=== PATIENT | male | born 1935 | race Caucasian/White ===

== ENCOUNTER 2016-06-05 11:04 | Emergency (ER) | payer OTHER ==
[~2016-06-05] VITALS: Ht 182.9 cm; Wt 125.2 kg
[~2016-06-05 11:04] MED LIST: ACET1TAB84 PO; ALBUAER INH; AMOX500C3 PO; ASPI81TA28 PO; CALC-338 PO; CHOL100010 PO; CLB/200 PO; COEN100C3 PO; CYAN100T PO; DOCU100C31 PO; DUTACAP PO; GLC/500 PO; LPT/40 PO; LSX20 PO; METH-1305 PO; POTA-331 PO; TNR25 PO; VITA400C15 PO
[2016-06-05 11:11] VITALS: TEMP 36.7; Ht 182.9 cm; Wt 125.2 kg
[2016-06-05] MEDS ORDERED: ALBUT/IPRATROP 3MG/0.5MG NEB 3 ML VIAL INH STA (12:08)
[2016-06-05 12:33] LABS: BASO % 0.1 %; BASO ABS # 0.01 K/uL (0-0.2); COMPLETE YES; EOS % 2.9 %; HEMATOCRIT 43.1 % (42-52); IG% 0.4 %; LYMPH % 23.3 %; LYMPH ABS # 1.68 K/uL (1.2-3.4); MEAN CELL VOLUME 89.4 fL (80-100); MEAN CORPUSCULAR HEMOGLOBIN 30.1 pg (25-34); MEAN CORPUSCULAR HGB CONC 33.6 g/dl (32-36); MEAN PLATELET VOLUME 10.1 fL (7.4-10.4); MONO % 7.2 %; NEUT % 66.1 %; PLATELET COUNT 182 K/uL (130-400); RED BLOOD COUNT 4.82 M/uL (4.7-6.1); WHITE BLOOD COUNT 7.21 K/uL (4.8-10.8)
[2016-06-05 12:54] LABS: BUN/CREATININE RATIO 10.7 (10-20); CALCIUM 9.3 mg/dl (8.5-10.1); CREATININE 1.2 mg/dl (0.60-1.40); POTASSIUM 3.9 mmol/L (3.5-5.1)
--- NOTE | 2016-06-05 13:01 | DIAGNOSTIC IMAGING REPORT ---
CHEST 2 VIEWS ROUTINE CLINICAL HISTORY: Cough. Congestion. COMPARISON STUDY: Chest radiograph June 24, 2014. FINDINGS: Lung volumes are normal. There is no pneumothorax or pleural effusion. There is no consolidation to suggest pneumonia. Mild cardiomegaly is unchanged. There is no evidence of pulmonary edema. IMPRESSION: No acute cardiopulmonary findings. Electronically signed by: Brayan Hernandez M.D. 06/05/2016 12:59 PM
--- NOTE | 2016-06-05 13:34 | EMERGENCY ROOM VISIT NOTE ---
ED Visit Note First contact with patient: 11:43 I have personally seen and evaluated the patient with the physician food and beverage assistant manager. I agree with the diagnostic/management decisions and have personally been involved in these decisions and agree with the diagnosis.
[2016-06-05] MEDS ORDERED: DUTA0.5C PO (13:35)
[2016-06-05] MEDS ORDERED: TAMS0.4C38 PO (13:35)
[2016-06-05] MEDS ORDERED: VNTHFA/IN INH (13:42)
[2016-06-05] MEDS ORDERED: LEVO-366 PO (13:42)
--- NOTE | 2016-06-05 13:44 | EMERGENCY ROOM VISIT NOTE ---
History First contact with patient: 11:43 Chief Complaint: ILLNESS Stated Complaint: COUGH,CONGESTION,DIZZINESS History of Present Illness The patient is a 81 year old male who presents to the Emergency Room with complaints of cough and congestion for one week. The patient states that he is able to cough up the mucus and he states it is white in color. The patient denies any head congestion, fever, ear pain or sore throat. The patient denies any body aches. The patient has been taking Tylenol daily and his inhaler on an as-needed basis. The patient states he used the inhaler this morning but did not have any relief of his symptoms. The patient states that a family member was sick with similar symptoms around [place] time. Review of Systems 10 system review was performed and was negative unless stated otherwise history of present illness. 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 Social History Smoking Status: Never Smoker Drug Use: none Marital Status: Occupation Status: retired Current/Historical Medications Scheduled Acetaminophen (Tylenol Arthritis Ext Rel), 650 MG PO Q8H Aspirin (Aspirin Ec), 81 MG PO DAILY Atenolol (Atenolol), 25 MG PO DAILY Atorvastatin (Lipitor), 40 MG PO DAILY Calcium Citrate-Vitamin D (Citracal/Vitamin D), 1 TABLET PO BID Cholecalciferol (Vitamin D), 1,000 INTER.UNIT PO DAILY Coenzyme Q10 (Ubidecarenone) (Co Q-10), 100 MG PO BID Cyanocobalamin (Vitamin B-12), 100 MCG PO DAILY Docusate Sodium (Docusate Sodium), 100 MG PO BID Dutasteride (Avodart), 0.5 MG PO DAILY Furosemide (Furosemide), 20 MG PO DAILY Metformin Hcl (Glucophage), 500 MG PO BID Methenamine Hippurate (Methenamine Hippurate), 1 GM PO QPM Potassium Chloride Microencaps (Klor-Con M10), 10 MEQ PO QAM Tamsulosin Hcl (Flomax), 0.4 MG PO DAILY Tocopheryl Acet,Dl-Alpha (Vitamin E), 400 INTER.UNIT PO DAILY Scheduled PRN Albuterol (Proventil Hfa), 2 PUFFS INH Q4H PRN for SOB/Wheezing Amoxicillin (Amoxil), 2,000 MG PO UD PRN for Pretreat Allergies Coded Allergies: Nitrofurantoin (Unverified Allergy, Severe, SHORTNESS OF BREATH, 06/05/16) ACUTE LUNG INJURY Physical Exam Vital Signs Date Time Temp Pulse Resp B/P Pulse Ox O2 Delivery O2 Flow Rate FiO2 06/05/16 13:10 60 20 100/64 94 Room Air 06/05/16 11:11 36.7 85 18 132/73 95 Room Air Physical Exam PHYSICAL EXAM: Vital Signs were reviewed: Temperature 36.7, blood pressure 132/ 73, pulse 85, respiratory rate 18 Reviewed Nurse's notes and agree. Oxygen saturation is 95 % on room air which is normal . GENERAL: 81-year-old male appears in no acute distress. MENTAL STATUS: Alert, oriented, coherent. EARS: Canals clear. TMs good light reflex, no erythema or fluid level noted. NOSE: Nasal mucosa with moderate erythema engorgement. PHARYNX: No erythema, no edema noted. No exudate noted. Airway is adequate. NECK: Supple, non-tender. No lymphadenopathy noted. LUNGS: Patient has bilateral expiratory wheezes noted .no rales or rhonchi noted . CARDIAC: Regular rate and rhythm without murmur. SKIN: No rashes noted. Medical Decision & Procedures ER Provider Diagnostic Interpretation: CHEST 2 VIEWS ROUTINE CLINICAL HISTORY: Cough. Congestion. COMPARISON STUDY: Chest radiograph June 24, 2014. FINDINGS: Lung volumes are normal. There is no pneumothorax or pleural effusion. There is no consolidation to suggest pneumonia. Mild cardiomegaly is unchanged. There is no evidence of pulmonary edema. IMPRESSION: No acute cardiopulmonary findings. Electronically signed by: Brayan Hernandez M.D. 06/05/2016 12:59 PM The status of this report is Signed. Laboratory Results 06/05/16 12:20 Red Blood Count 4.82, Mean Corpuscular Volume 89.4, Mean Corpuscular Hemoglobin 30.1, Mean Corpuscular Hemoglobin Concent 33.6, Mean Platelet Volume 10.1, Neutrophils (%) (Auto) 66.1, Lymphocytes (%) (Auto) 23.3, Monocytes (%) (Auto) 7.2, Eosinophils (%) (Auto) 2.9, Basophils (%) (Auto) 0.1, Neutrophils # (Auto) 4.76, Lymphocytes # (Auto) 1.68, Monocytes # (Auto) 0.52, Eosinophils # (Auto) 0.21, Basophils # (Auto) 0.01 06/05/16 12:20 Test 06/05/16 12:20 White Blood Count 7.21 K/uL (4.8-10.8) Red Blood Count 4.82 M/uL (4.7-6.1) Hemoglobin 14.5 g/dL (14.0-18.0) Hematocrit 43.1 % (42-52) Mean Corpuscular Volume 89.4 fL (80-100) Mean Corpuscular Hemoglobin 30.1 pg (25-34) Mean Corpuscular Hemoglobin Concent 33.6 g/dl (32-36) Platelet Count 182 K/uL (130-400) Mean Platelet Volume 10.1 fL (7.4-10.4) Neutrophils (%) (Auto) 66.1 % Lymphocytes (%) (Auto) 23.3 % Monocytes (%) (Auto) 7.2 % Eosinophils (%) (Auto) 2.9 % Basophils (%) (Auto) 0.1 % Neutrophils # (Auto) 4.76 K/uL (1.4-6.5) Lymphocytes # (Auto) 1.68 K/uL (1.2-3.4) Monocytes # (Auto) 0.52 K/uL (0.11-0.59) Eosinophils # (Auto) 0.21 K/uL (0-0.5) Basophils # (Auto) 0.01 K/uL (0-0.2) RDW Standard Deviation 45.9 fL (36.4-46.3) RDW Coefficient of Variation 14.0 % (11.5-14.5) Immature Granulocyte % (Auto) 0.4 % Immature Granulocyte # (Auto) 0.03 K/uL (0.00-0.02) Anion Gap 9.0 mmol/L (3-11) Est Creatinine Clear Calc Drug Dose 67.1 ml/min Estimated GFR () 65.8 Estimated GFR (Non- 56.8 BUN/Creatinine Ratio 10.7 (10-20) Calcium Level 9.3 mg/dl (8.5-10.1) Medications Administered Medications (Trade) Dose Ordered Sig/Kareen Route Start Time Stop Time Status Last Admin Dose Admin Albuterol/ Ipratropium (Duoneb) 3 ml NOW STAT INH 06/05/16 12:08 06/05/16 12:11 DC 06/05/16 12:21 3 ML ED Course The patient was evaluated. IV access was obtained. CBC and differential renal profile was ordered. Labs are reviewed and were unremarkable. White count was normal. Chest x-ray was ordered and interpreted by the radiologist and myself as above without any acute findings. The patient was given a DuoNeb. Post treatment the patient was feeling better. On physical exam the patient did not have any wheezes rales or rhonchi. This is improved from prior physical exam. The patient was independently evaluated by Dr. Tucker who agrees with treatment plan. The patient was discharged home in stable condition. Medical Decision Differential diagnosis include influenza, pneumonia, bronchitis, URI Due to the patient's length of symptoms and impaired lung function due to years of smoking the patient will be placed on antibiotics. Impression Primary Impression: Bronchitis Departure Information Dispostion Home / Self-Care Condition GOOD Prescriptions Levofloxacin (Levaquin) 500 Mg Tab 500 MG PO DAILY, #10 TAB Prov: Lay Mccarty PA-C 06/05/16 Albuterol Hfa (VENTOLIN HFA) 200 Puffs/[id number] Mcg Aers 2 PUFFS INH Q4 for Cough, #1 INHALER Prov: Lay Mccarty PA-C 06/05/16 Referrals Susan Mcdonald DO (PCP) Forms HOME CARE DOCUMENTATION FORM, IMPORTANT VISIT INFORMATION, WORK / SCHOOL INSTRUCTIONS Patient Instructions A Signature Page, Bronchiolitis Carlos , My [facility] Additional Instructions Continue [id number] symptomatic treatment. Recommend Mucinex as directed on the label. Use your albuterol inhaler 2 puffs every 4 hours for 5 days then 2 puffs every 4 hours as needed for chest tightness or cough. Take Levaquin as prescribed. Follow-up with your family physician in 2 days for recheck. If symptoms worsen in the interim, return to ER.
[2016-06-05 13:53] VITALS: BP 116/70; PULSE 70; O2SAT 93
[2016-08-17] MEDS ORDERED: [UNRECOGNIZED DRUG - OTHER] (09:19)
[2016-08-17] MEDS ORDERED: [UNRECOGNIZED DRUG - OTHER] (09:19)
[2016-08-17] MEDS ORDERED: [UNRECOGNIZED DRUG - OTHER] (09:19)
[2016-08-17] MEDS ORDERED: [UNRECOGNIZED DRUG - OTHER] (09:19)
== END 2016-06-05 13:54 | disposition home or self-care (01) ==
LOC: C.EDB 11:05 → C.EDD 13:54
DX: J40 Bronchitis, not specified as acute or chronic (principal); I25.10 Atherosclerotic heart disease of native coronary artery without angina pectoris; I10 Essential (primary) hypertension; N40.0 Benign prostatic hyperplasia without lower urinary tract symptoms; Z79.82 Long term (current) use of aspirin; Z79.899 Other long term (current) drug therapy

== ENCOUNTER → 2016-06-21 | Outpatient (CLI) | payer OTHER ==
[~2016-06-21] MED LIST changes: -CLB/200 PO; +DUTA0.5C PO; -DUTACAP PO; +LEVO-366 PO; -METH-1305 PO; +METH1TAB5 PO; +TAMS0.4C38 PO; +VNTHFA/IN INH; +[UNRECOGNIZED DRUG - OTHER]; +[UNRECOGNIZED DRUG - OTHER]; +[UNRECOGNIZED DRUG - OTHER]; +[UNRECOGNIZED DRUG - OTHER]
== END | disposition home or self-care (01) ==
LOC: C.LAB1850 14:10
PROVIDERS: ATTEND Urology
DX: N40.1 Benign prostatic hyperplasia with lower urinary tract symptoms (principal)

== ENCOUNTER → 2016-09-19 | Outpatient (CLI) | payer OTHER ==
[~2016-09-19] MED LIST changes: -AMOX500C3 PO; -DOCU100C31 PO; -LEVO-366 PO; +METH-1305 PO; -METH1TAB5 PO; -VNTHFA/IN INH
[2016-09-19 12:19] LABS: URINE APPEARANCE CLEAR (CLEAR); URINE BILIRUBIN NEG (NEG); URINE COLOR YELLOW; URINE NITRITE NEG (NEG); URINE PH 5.5 (4.5-7.5); URINE SPECIFIC GRAVITY 1.019 (1.000-1.030); UROBILINOGEN NEG (NEG)
[2016-09-19 12:29] LABS: MANUAL MICROSCOPIC REQUIRED? NO; REVIEW REQ? NO
--- NOTE | 2016-10-06 10:21 | CODING QUERY MEDICAL NECESSITY ---
CQSUPPORTING DIAGNOSIS NEEDED A supporting diagnosis is required for the test/procedure performed on this patient in order for us to be reimbursed by the patient's insurance. Please provide a supporting diagnosis for the following test/procedure listed below next to the test name along with your signature. *If there is no additional diagnosis for this patient that would support the following test/procedure please document that below next to the test/procedure. Test(s)/Procedure(s) that require a supporting diagnosis: DOS 09/19/16 URINE CULTURE Provider Signature: Date: Thank you Jennifer Segura [employer] Once completed, please kindly fax back to [phone] For questions please call [phone]
== END | disposition home or self-care (01) ==
LOC: C.CPL 10:55
PROVIDERS: ATTEND Anesthesiology
DX: Z01.818 Encounter for other preprocedural examination (principal); E11.9 Type 2 diabetes mellitus without complications; N40.1 Benign prostatic hyperplasia with lower urinary tract symptoms; Z87.440 Personal history of urinary (tract) infections; Z01.812 Encounter for preprocedural laboratory examination

== ENCOUNTER → 2016-10-26 | Outpatient (CLI) | payer OTHER ==
[2016-10-26 10:42] LABS: ALT/SGPT 29 U/L (12-78); AST/SGOT 17 U/L (15-37); BLOOD UREA NITROGEN 16 mg/dl (7-18); BUN/CREATININE RATIO 13.1 (10-20); CALCIUM 8.9 mg/dl (8.5-10.1); CARBON DIOXIDE 33 mmol/L (21-32); CHLORIDE 105 mmol/L (98-107); GLUCOSE 129 mg/dl (70-99); POTASSIUM 4.2 mmol/L (3.5-5.1); SODIUM 142 mmol/L (136-145); TRIGLYCERIDES 127 mg/dl (0-150); VERY LOW DENSITY LIPOPROT CALC 25 mg/dl
[2016-10-26 10:51] LABS: ALB/GLOB RATIO 0.9 (0.9-2); ALKALINE PHOSPHATASE 70 U/L (45-117); CHOLESTEROL 104 mg/dl (0-200); CHOLESTEROL/HDL RATIO 2.6; HDL CHOLESTEROL 40 mg/dl; LDL CHOLESTEROL CALCULATED 39 mg/dl; THYROID STIMULATING HORMONE 0.488 uIu/ml (0.300-4.500)
[2016-10-26 11:05] LABS: ESTIMATED AVERAGE GLUCOSE 134 mg/dl; HA1C FLAG Normal (Normal)
[2016-10-26 11:15] LABS: RATIO 7.3 mcg/mg (0-30.0)
== END | disposition home or self-care (01) ==
LOC: C.LAB 09:11
PROVIDERS: ATTEND Family Medicine
DX: E11.9 Type 2 diabetes mellitus without complications (principal); E78.00 Pure hypercholesterolemia, unspecified; I10 Essential (primary) hypertension

== ENCOUNTER → 2017-05-09 | Outpatient (CLI) | payer OTHER ==
[2017-05-09 10:10] LABS: BASO % 0.1 %; BASO ABS # 0.01 K/uL (0-0.2); COMPLETE YES; HEMATOCRIT 44.2 % (42-52); IG% 0.5 %; LYMPH % 21.2 %; LYMPH ABS # 1.59 K/uL (1.2-3.4); MEAN CELL VOLUME 91.3 fL (80-100); MEAN CORPUSCULAR HEMOGLOBIN 30.8 pg (25-34); MEAN CORPUSCULAR HGB CONC 33.7 g/dl (32-36); MEAN PLATELET VOLUME 10.8 fL (7.4-10.4); MONO % 7.7 %; NEUT % 68.5 %; PLATELET COUNT 164 K/uL (130-400); RED BLOOD COUNT 4.84 M/uL (4.7-6.1)
[2017-05-09 10:16] LABS: ESTIMATED AVERAGE GLUCOSE 140 mg/dl; HA1C FLAG Normal (Normal)
[2017-05-09 10:49] LABS: ALT/SGPT 27 U/L (12-78); AST/SGOT 17 U/L (15-37); BLOOD UREA NITROGEN 13 mg/dl (7-18); BUN/CREATININE RATIO 11.3 (10-20); CALCIUM 8.7 mg/dl (8.5-10.1); CARBON DIOXIDE 29 mmol/L (21-32); CHLORIDE 104 mmol/L (98-107); CREATININE 1.12 mg/dl (0.60-1.40); GLUCOSE 132 mg/dl (70-99); POTASSIUM 4.1 mmol/L (3.5-5.1); SODIUM 136 mmol/L (136-145); TRIGLYCERIDES 196 mg/dl (0-150); VERY LOW DENSITY LIPOPROT CALC 39 mg/dl
[2017-05-09 10:54] LABS: ALB/GLOB RATIO 0.8 (0.9-2); ALKALINE PHOSPHATASE 69 U/L (45-117); CHOLESTEROL 109 mg/dl (0-200); CHOLESTEROL/HDL RATIO 2.9; HDL CHOLESTEROL 37 mg/dl; LDL CHOLESTEROL CALCULATED 33 mg/dl
== END | disposition home or self-care (01) ==
LOC: C.LAB 09:19
PROVIDERS: ATTEND Nurse Practitioner Family
DX: N40.1 Benign prostatic hyperplasia with lower urinary tract symptoms (principal); I25.10 Atherosclerotic heart disease of native coronary artery without angina pectoris; E78.00 Pure hypercholesterolemia, unspecified; E11.9 Type 2 diabetes mellitus without complications; I10 Essential (primary) hypertension

== ENCOUNTER → 2018-01-22 | Outpatient (CLI) | payer OTHER ==
[~2018-01-22] MED LIST changes: +MONT1TAB5 PO
== END | disposition home or self-care (01) ==
LOC: C.LAB 10:35
PROVIDERS: ATTEND Urology
DX: N40.1 Benign prostatic hyperplasia with lower urinary tract symptoms (principal); J30.9 Allergic rhinitis, unspecified; R97.20 Elevated prostate specific antigen [PSA]

== ENCOUNTER 2018-11-02 19:49 | Inpatient (IN) ==
[2018-11-02 20:29] LABS: Basophils # (auto) 0.01 K/uL (0-0.2); Basophils % (auto) 0.1 %; Eosinophils # (auto) 0.13 K/uL (0-0.5); Hematocrit (blood only) 37.8 % (42-52); Hemoglobin 12.3 g/dL (14.0-18.0); Immature Granulocytes # (auto) 0.05 K/uL (0.00-0.02); Immature Granulocytes % (auto) 0.4 %; Lymphocytes # (auto) 1.43 K/uL (1.2-3.4); Lymphocytes % (auto) 10.9 %; Mean Corpuscular Hgb Conc 32.5 g/dL (32-36); Mean Corpuscular Volume 89.4 fL (80-100); Mean Platelet Volume 10.7 fL (7.4-10.4); Monocytes # (auto) 1.61 K/uL (0.11-0.59); Monocytes % (auto) 12.3 %; Neutrophils % (auto) 75.3 %; Platelet Count 148 K/uL (130-400); RDW Coefficient of Variation 15.2 % (11.5-14.5); RDW Standard Deviation 49.2 fL (36.4-46.3); Red Blood Count 4.23 M/uL (4.7-6.1); White Blood Count 13.13 K/uL (4.8-10.8)
[2018-11-02 20:42] LABS: Alanine Aminotransferase 19 U/L (12-78); Albumin Level 3.3 gm/dl (3.4-5.0); Aspartate Aminotransferase 14 U/L (15-37); BUN Creatinine Ratio 14.6 (10-20); Blood Urea Nitrogen 16 mg/dl (7-18); Calcium 8.5 mg/dl (8.5-10.1); Carbon Dioxide 28 mmol/L (21-32); Chloride 105 mmol/L (98-107); Creatinine Clr Calc Pharmacy 62.2 ml/min; Est GFR (African American) 69.8; Est GFR (Non-African American) 60.2; Glucose 100 mg/dl (70-99); Potassium 4.1 mmol/L (3.5-5.1); Sodium 138 mmol/L (136-145)
--- NOTE | 2018-11-02 20:44 | XRay Report ---
XR chest 1V portable CLINICAL HISTORY: Dyspnea COMPARISON STUDY: 06/24/2014 FINDINGS: The heart is enlarged. There is elevation of the interstitium. Diagnostic considerations in clude congestive failure/fluid overload versus a bilateral interstitial inflammatory process. There a re no significant pleural effusions. IMPRESSION: 1. Mild cardiomegaly 2. Elevation of the interstitium. Diagnostic considerations include congestive failure/fluid overload versus a bilateral interstitial inflammatory process Electronically signed by: Michi Burks M.D. 11/02/2018 8:43 PM
[2018-11-02 20:46] LABS: Albumin Globulin Ratio 0.8 (0.9-2); Alkaline Phosphatase 83 U/L (45-117); Bilirubin,Total 0.8 mg/dl (0.2-1); Globulin 3.9 gm/dl (2.5-4.0); Total Protein 7.2 gm/dl (6.4-8.2)
[2018-11-02 20:56] LABS: Base Excess VBG 0.7 mEq/L; Oxygen Saturation VBG 86.6 %; pH VBG 7.38 (7.36-7.41)
[2018-11-02 20:57] LABS: NT Pro B Type Natriuretic Pept 243 pg/ml (0-1800); Troponin I < 0.015 ng/ml (0-0.045)
[2018-11-02 20:59] LABS: INR 1.1 (0.9-1.1); Partial Thromboplastin Ratio 1.1; Prothrombin Time 11.4 Seconds (9.0-12.0)
[2018-11-02] MEDS ORDERED: DOXYCYCLINE HYCLATE 100 MG CAP PO STA (22:12)
[2018-11-02] MEDS ORDERED: cefTRIAXone SODIUM 1,000 MG in DEXTROSE 5% 50 ML IV STA (22:12)
[2018-11-02] MEDS ORDERED: FUROSEMIDE 40 MG/4 ML VIAL IV STA (22:12)
[2018-11-02] MEDS ORDERED: cefTRIAXone SODIUM 1000MG/50ML D5W ONE (22:23)
--- NOTE | 2018-11-02 22:54 | History & Physical Report ---
Date of Service November 02, 2018 Assessment & Plan (1) Respiratory failure with hypoxia: Acute respiratory failure with hypoxia/CHF exacerbation/pneumonia- Admit to telemetry unit. Present on Admission?: Yes (2) CHF (congestive heart failure): CAD/hypertension/CHF- Given Lasix 40 mg IV in the ED, will continue Lasix 40 mg IV twice daily. Increase potassium chloride to 20 mEq p.o. twice daily. Follow serial chest x-rays, laboratories and clinical examination. Continue aspirin 81 mg daily, atenolol 25 mg daily with hold parameters. Hold lisinopril. Present on Admission?: Yes (3) Pneumonia: Ceftriaxone 1 g IV daily. Azithromycin 500 mg IV daily Guaifenesin extended release 600 mg p.o. twice daily Duonebs every 4 hours while awake and every 2 hours when necessary. Sputum Gram stain and culture Present on Admission?: Yes (4) Hypertension: See above Present on Admission?: Yes (5) Hypercholesterolemia: Continue atorvastatin 40 mg daily. Present on Admission?: Yes (6) 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): Continue dutasteride and tamsulosin. Present on Admission?: Yes (7) Diabetes mellitus: Hold metformin. Patient Accu-Cheks before meals and at bedtime with NovoLog coverage per scale. Check hemoglobin A1c Present on Admission?: Yes (8) Coronary artery disease: See above Present on Admission?: Yes History of Present Illness Chief Complaint: The patient presents to the emergency department with worsening shortness of breath and intermittently productive cough over the past week. Primary Care Provider: Jeancarlos Rosen III, MARKO The patient is a 83-year-old male with a past medical history including diabetes mellitus, hypercholesterolemia, hypertension, CAD, TIA, BPH with LUTS, who began to develop respiratory problems upon returning from an extended trip. He reports that he spent 2 weeks at a daughter's residence in [place], then 2 weeks that never got his residence in [place], that 2 weeks at a son's residence [place], then he flew to [place] and went on a cruise ship, he then flew back on a plane to [place], and developed the above respiratory symptoms. He is also noted increased swelling in his legs, but is unaware of any change in dietary intake, in particular sodium. Allergies Allergy/AdvReac Type Severity Reaction Status Date / Time nitrofurantoin Allergy Severe SHORTNESS Verified 06/12/18 10:55 OF BREATH Home Medications Home Medications Medication Instructions Recorded Confirmed Type Plexus slim drink PO DAILY 03/04/18 06/12/18 History acetaminophen ER 650 mg 650 mg PO Q8H PRN 03/04/18 11/02/18 History tablet,extended release albuterol sulfate HFA 90 2 puffs INH Q4H PRN gm 03/04/18 11/02/18 History mcg/actuation aerosol inhaler aspirin 81 mg tablet,delayed 81 mg PO DAILY 03/04/18 11/02/18 History release atenolol 25 mg tablet 25 mg PO DAILY 03/04/18 11/02/18 History atorvastatin 40 mg tablet 40 mg PO DAILY 03/04/18 11/02/18 History cholecalciferol (vitamin D3) 1,000 1,000 units PO DAILY 03/04/18 11/02/18 History unit capsule coenzyme Q10 100 mg capsule 100 mg PO BID cap 03/04/18 06/12/18 History cyanocobalamin (vit B-12) 100 mcg 100 mcg PO DAILY 03/04/18 06/12/18 History tablet dutasteride 0.5 mg capsule 0.5 mg PO DAILY 03/04/18 11/02/18 History furosemide 20 mg tablet 20 mg PO DAILY 03/04/18 11/02/18 History metformin 500 mg tablet 500 mg PO BID 03/04/18 11/02/18 History methenamine hippurate 1 gram tablet 1 gm PO QPM tab 03/04/18 11/02/18 History montelukast 10 mg tablet 10 mg PO DAILY tab 03/04/18 11/02/18 History plexus - bioflex 1 tab PO DAILY 03/04/18 06/12/18 History plexus edge 1 tab PO DAILY 03/04/18 06/12/18 History plexus betsy 1 tab PO DAILY 03/04/18 06/12/18 History potassium chloride ER 10 mEq 10 meq PO DAILY 03/04/18 06/12/18 History tablet,extended release tamsulosin 0.4 mg capsule 0.4 mg PO DAILY 03/04/18 11/02/18 History vitamin E (dl, acetate) 400 unit 400 units PO DAILY 03/04/18 06/12/18 History capsule ibuprofen 600 mg tablet 600 mg PO TID tab 10/21/18 10/21/18 History lisinopril 5 mg tablet 5 mg PO DAILY #30 tab 10/21/18 11/02/18 History calcium carbonate-vitamin D3 1 tab PO BID 11/02/18 11/02/18 History [Oyster Shell Calcium-Vit D3] celecoxib 0 mg PO DAILY 11/02/18 History Past Med/Surg History Medical History Venous insufficiency (Acute) Solitary thyroid nodule (Acute) Hypertension (Acute) Hypercholesterolemia (Acute) 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) (Acute) Edema of both legs (Acute) Disc degeneration, lumbar (Acute) Diabetes mellitus (Acute) Arthritis (Acute) Arteriosclerosis of coronary artery (Acute) Allergic rhinitis (Acute) Spinal stenosis of lumbar region (Chronic) Myofascial pain (Chronic) Lumbar post-laminectomy syndrome (Chronic) Lumbago (Chronic) Coronary artery disease (Chronic) Chest pain (Acute) Dysuria (Acute) Dysuria (Acute) Interstitial pneumonia (Acute) Shortness of breath (Acute) Shortness of breath (Acute) TIA (transient ischemic attack) (Chronic) Urinary retention with incomplete bladder emptying (Acute) Urinary tract infection (Acute 11/22/13) Word finding difficulty (Acute 06/25/14) Surgical History H/O total hip arthroplasty (Chronic) History of lumbar fusion (Chronic) Social History Preferred Language: Indonesian Communication Ability: Effective Manager Stylist Required: No Beliefs That Will Affect Care: None marital status: / Current Living Situation: Alone Other Information That Helps Us Care for You: No Feels Safe at Home: Yes Safety Concerns: Feels Safe At This Time Smoking Status: Never smoker Hx Alcohol Use: Yes Alcohol type: hard liquor Hx Substance Use: No Review of Systems Review of Systems: The patient denies chest pain, sore throat, fevers, chills, sweats, weight change, nausea, vomiting, diarrhea , constipation, abdominal pain, pelvic pain, blood in urine or stool, dysuria, urinary frequency or urgency, lightheadedness, dizziness, headache, memory loss, loss of consciousness, rash, abnormal bruising or bleeding, imbalance, focal or generalized weakness, numbness or tingling in arms or legs, generalized arthralgias or myalgias, back or neck pain, or night sweats. The review of systems is otherwise negative other than for that already noted above, and at least 10 systems have been reviewed. Physical Exam Physical Exam: The patient is awake, alert and oriented �3, well developed and well nourished, normocephalic and atraumatic, lying in bed and in no acute distress, except during paroxysmal coughing. HEENT--PERRL, EOMI, mucous membranes and oropharynx moist. Neck--supple. No JVD. No bruits. Thyroid normal, trachea midline, no adenopathy. Heart--normal S1 and S2. No murmurs, rubs or gallops. Lungs--coarse breath sounds bilaterally, crackles at the bases. No respiratory distress, no accessory muscle use. Abdomen--normal bowel sounds and soft. Nontender. Nondistended. Obese Extremities--no cyanosis or clubbing. Bilateral pretibial 3+ pitting edema. There are good distal pulses b/l. Dermatologic--normal skin turgor, normal color, no abnormal lymph nodes, no rash. Neurologic--cranial nerves II through XII grossly intact. Rheumatologic--normal range of motion. Psychiatric--normal affect. Results & Data Vital Signs (Past 12 Hours) Vital Signs Temp Pulse Pulse Resp BP BP Pulse Ox 11/02/18 22:40 98.6 F 79 22 152/74 H 96 11/02/18 21:44 78 20 126/54 L 95 11/02/18 20:08 88 L 11/02/18 19:55 98.2 F 81 22 116/58 L 89 L Laboratory Results Laboratory Results WBC 13.13 K/uL (4.8-10.8) H 11/02/18 20:08 RBC 4.23 M/uL (4.7-6.1) L 11/02/18 20:08 Hgb 12.3 g/dL (14.0-18.0) L 11/02/18 20:08 Hct 37.8 % (42-52) L 11/02/18 20:08 MCV 89.4 fL (80-100) 11/02/18 20:08 MCH 29.1 pg (25-34) 11/02/18 20:08 MCHC 32.5 g/dL (32-36) 11/02/18 20:08 RDW Std Deviation 49.2 fL (36.4-46.3) H 11/02/18 20:08 RDW Coeff of Colette 15.2 % (11.5-14.5) H 11/02/18 20:08 Plt Count 148 K/uL (130-400) 11/02/18 20:08 MPV 10.7 fL (7.4-10.4) H 11/02/18 20:08 Immature Gran % (Auto) 0.4 % 11/02/18 20:08 Neut % (Auto) 75.3 % 11/02/18 20:08 Lymph % (Auto) 10.9 % 11/02/18 20:08 [place] % (Auto) 12.3 % 11/02/18 20:08 Eos % (Auto) 1.0 % 11/02/18 20:08 Baso % (Auto) 0.1 % 11/02/18 20:08 Immature Gran # (Auto) 0.05 K/uL (0.00-0.02) H 11/02/18 20:08 Neut # (Auto) 9.90 K/uL (1.4-6.5) H 11/02/18 20:08 Lymph # (Auto) 1.43 K/uL (1.2-3.4) 11/02/18 20:08 [place] # (Auto) 1.61 K/uL (0.11-0.59) H 11/02/18 20:08 Eos # (Auto) 0.13 K/uL (0-0.5) 11/02/18 20:08 Baso # (Auto) 0.01 K/uL (0-0.2) 11/02/18 20:08 PT 11.4 Seconds (9.0-12.0) 11/02/18 20:08 INR 1.1 (0.9-1.1) 11/02/18 20:08 APTT 31.0 Seconds (21.0-31.0) 11/02/18 20:08 PTT Ratio 1.1 11/02/18 20:08 VBG pH 7.38 (7.36-7.41) 11/02/18 20:42 VBG pCO2 45 mmHg (38-50) 11/02/18 20:42 VBG pO2 55 mmHg 11/02/18 20:42 VBG HCO3 26 mmol/L 11/02/18 20:42 VBG O2 Saturation 86.6 % 11/02/18 20:42 VBG Base Excess 0.7 mEq/L 11/02/18 20:42 Barometric Pressure 728.1 mm/Hg 11/02/18 20:42 Sodium 138 mmol/L (136-145) 11/02/18 20:08 Potassium 4.1 mmol/L (3.5-5.1) 11/02/18 20:08 Chloride 105 mmol/L (98-107) 11/02/18 20:08 Carbon Dioxide 28 mmol/L (21-32) 11/02/18 20:08 5.0 (3-11) 11/02/18 20:08 BUN 16 mg/dl (7-18) 11/02/18 20:08 1.13 mg/dl (0.6-1.4) 11/02/18 20:08 Est Cr Clr Drug Dosing 62.2 ml/min 11/02/18 20:08 Est GFR ( Amer) 69.8 11/02/18 20:08 Est GFR (Non-Af Amer) 60.2 11/02/18 20:08 14.6 (10-20) 11/02/18 20:08 Glucose 100 mg/dl (70-99) H 11/02/18 20:08 POC Glucose 136 (70-99) H 11/03/18 00:18 Calcium 8.5 mg/dl (8.5-10.1) 11/02/18 20:08 0.8 mg/dl (0.2-1) 11/02/18 20:08 AST 14 U/L (15-37) L 11/02/18 20:08 ALT 19 U/L (12-78) 11/02/18 20:08 83 U/L (45-117) 11/02/18 20:08 < 0.015 ng/ml (0-0.045) 11/02/18 20:08 NT-Pro-B Natriuret Pep 243 pg/ml (0-1800) 11/02/18 20:08 7.2 gm/dl (6.4-8.2) 11/02/18 20:08 3.3 gm/dl (3.4-5.0) L 11/02/18 20:08 3.9 gm/dl (2.5-4.0) 11/02/18 20:08 0.8 (0.9-2) L 11/02/18 20:08 Diagnostic Findings [facility], [place] [phone] XRay Report Patient: REHAN FUENTES Date: 11/02/18 MR#: [id number]: [address] Acct ID:[id number]: [facility] Zip[facility] [place] [address] Age: 83Location: ED Sex: M Room/Bed: Att Phy: Diagnosis: breathing problems, coughing [place]in Phy: Jeancarlos Rosen III, CRNPService Date: 11/02/18 Fam Phy: Interpreting Phy: Michi Burks MD Admit Phy: Ordering Phy: Daniel Miller M.D. cc: ~ XR chest 1V portable CLINICAL HISTORY: Dyspnea COMPARISON STUDY: 06/24/2014 FINDINGS: The heart is enlarged. There is elevation of the interstitium. Diagnostic considerations include congestive failure/fluid overload versus a bilateral interstitial inflammatory process. There are no significant pleural effusions. IMPRESSION: 1. Mild cardiomegaly 2. Elevation of the interstitium. Diagnostic considerations include congestive failure/fluid overload versus a bilateral interstitial inflammatory process Electronically signed by: Michi Burks M.D. 11/02/2018 8:43 PM Dictated: 11/02/182040 Transcribed: 11/02/182040 Code Status & VTE Plan Code Status Full code VTE Prophylaxis Plan VTE Prophylaxis will be ordered: Yes (1) Respiratory failure with hypoxia Chronicity: acute Qualified Code(s): J96.01 - Acute respiratory failure with hypoxia (2) CHF (congestive heart failure) Heart failure chronicity: acute Heart failure type: systolic Qualified Code(s): I50.21 - Acute systolic (congestive) heart failure (3) Pneumonia Laterality: unspecified laterality Lung location: unspecified part of lung Pneumonia type: due to unspecified organism Qualified Code(s): J18.9 - Pneumonia, unspecified organism
--- NOTE | 2018-11-03 00:26 | Emergency Department Note ---
Entered by Louisa Balderrama acting as a scribe for History of Present Illness General Chief complaint: Respiratory Problems Stated complaint: breathing problems, coughing Time Seen by Provider: 11/02/18 20:18 Source: patient History of Present Illness Onset (ago): day(s) 1 Location: chest Pain Consistency: + other (worsening) Quality: + other (shortness of breath) Relieved By: + other (sitting up ) Exacerbated By: + other (laying flat ) Associated symptoms: + cough (productive yellowish/brown phlegm) and + other (positive swelling in legs); no chest pain, no fever/chills and no syncope The patient is a 83 year old white male w/ PMHx of Diabetes, MD, CAD, HTN, and TIA who presents to the ED w/ CC of worsening shortness of breath beginning yesterday. The patient states that he has had a productive cough that began 5 days ago. The patient states that today his phlegm turned from clear to yellowish brown. The patient denies chest pain, fevers, and chills. He states that his symptoms are exacerbated with laying flat, and states that his symptoms are relieved when sitting up. He states that he has had swelling in his legs recently. The patient denies any recent antibiotic use. The patient denies being around anyone that is sick. The patient denies a history of blood clots, and denies using oxygen at home. The patient states that several months ago he had an episode of syncope, but denies syncope recently. Home Medications Home Medications Medication Instructions Recorded Confirmed Type Plexus slim drink PO DAILY 03/04/18 06/12/18 History acetaminophen ER 650 mg 650 mg PO Q8H PRN 03/04/18 11/02/18 History tablet,extended release albuterol sulfate HFA 90 2 puffs INH Q4H PRN gm 03/04/18 11/02/18 History mcg/actuation aerosol inhaler aspirin 81 mg tablet,delayed 81 mg PO DAILY 03/04/18 11/02/18 History release atenolol 25 mg tablet 25 mg PO DAILY 03/04/18 11/02/18 History atorvastatin 40 mg tablet 40 mg PO DAILY 03/04/18 11/02/18 History cholecalciferol (vitamin D3) 1,000 1,000 units PO DAILY 03/04/18 11/02/18 History unit capsule coenzyme Q10 100 mg capsule 100 mg PO BID cap 03/04/18 06/12/18 History cyanocobalamin (vit B-12) 100 mcg 100 mcg PO DAILY 03/04/18 06/12/18 History tablet dutasteride 0.5 mg capsule 0.5 mg PO DAILY 03/04/18 11/02/18 History furosemide 20 mg tablet 20 mg PO DAILY 03/04/18 11/02/18 History metformin 500 mg tablet 500 mg PO BID 03/04/18 11/02/18 History methenamine hippurate 1 gram tablet 1 gm PO QPM tab 03/04/18 11/02/18 History montelukast 10 mg tablet 10 mg PO DAILY tab 03/04/18 11/02/18 History plexus - bioflex 1 tab PO DAILY 03/04/18 06/12/18 History plexus edge 1 tab PO DAILY 03/04/18 06/12/18 History plexus betsy 1 tab PO DAILY 03/04/18 06/12/18 History potassium chloride ER 10 mEq 10 meq PO DAILY 03/04/18 06/12/18 History tablet,extended release tamsulosin 0.4 mg capsule 0.4 mg PO DAILY 03/04/18 11/02/18 History vitamin E (dl, acetate) 400 unit 400 units PO DAILY 03/04/18 06/12/18 History capsule ibuprofen 600 mg tablet 600 mg PO TID tab 10/21/18 10/21/18 History lisinopril 5 mg tablet 5 mg PO DAILY #30 tab 10/21/18 11/02/18 History calcium carbonate-vitamin D3 1 tab PO BID 11/02/18 11/02/18 History [Oyster Shell Calcium-Vit D3] celecoxib 0 mg PO DAILY 11/02/18 History Allergies Allergy/AdvReac Type Severity Reaction Status Date / Time nitrofurantoin Allergy Severe SHORTNESS Verified 06/12/18 10:55 OF BREATH Past Med/Surg History Medical History Venous insufficiency (Acute) Solitary thyroid nodule (Acute) Hypertension (Acute) Hypercholesterolemia (Acute) 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) (Acute) Edema of both legs (Acute) Disc degeneration, lumbar (Acute) Diabetes mellitus (Acute) Arthritis (Acute) Arteriosclerosis of coronary artery (Acute) Allergic rhinitis (Acute) Spinal stenosis of lumbar region (Chronic) Myofascial pain (Chronic) Lumbar post-laminectomy syndrome (Chronic) Lumbago (Chronic) Coronary artery disease (Chronic) Chest pain (Acute) Dysuria (Acute) Dysuria (Acute) Interstitial pneumonia (Acute) Shortness of breath (Acute) Shortness of breath (Acute) TIA (transient ischemic attack) (Chronic) Urinary retention with incomplete bladder emptying (Acute) Urinary tract infection (Acute 11/22/13) Word finding difficulty (Acute 06/25/14) Surgical History H/O total hip arthroplasty (Chronic) History of lumbar fusion (Chronic) Social History Smoking Status: Former smoker Review of Systems See HPI for pertinent positives & negatives. and A total of 10 systems reviewed and were otherwise negative Physical Exam Vital Signs Vital Signs - 24 hr 11/02/18 19:55 11/02/18 20:08 11/02/18 21:44 Temperature 36.8 C Temperature Source Oral Sepsis Recent Fever Within 48 Hours No Sepsis New/Unexplained Change in Mental Status No Sepsis Action Taken by Nursing No Action Required Pulse Rate 81 Pulse Rate [Apical] 78 Pulse Rhythm Regular Respiratory Rate 22 20 Respiratory Effort / Characteristics Non-Labored Spontaneous Short of Breath Respiratory Depth Shallow Deep Normal Respiratory Pattern Regular Tachypnea Blood Pressure 116/58 L Blood Pressure [Left Arm] 126/54 L Blood Pressure Mean 77 Blood Pressure Mean [Left Arm] 78 Pulse Oximetry 89 L 88 L 95 Oxygen Delivery Method Room Air Nasal Cannula Nasal Cannula Oxygen Flow Rate 0 2 11/02/18 22:40 Temperature 37.0 C Temperature Source Oral Sepsis Recent Fever Within 48 Hours Sepsis New/Unexplained Change in Mental Status Sepsis Action Taken by Nursing Pulse Rate Pulse Rate [Apical] 79 Pulse Rhythm Respiratory Rate 22 Respiratory Effort / Characteristics SOB on Exertion Respiratory Depth Respiratory Pattern Blood Pressure Blood Pressure [Left Arm] 152/74 H Blood Pressure Mean Blood Pressure Mean [Left Arm] 100 Pulse Oximetry 96 Oxygen Delivery Method Nasal Cannula Oxygen Flow Rate GENERAL: Well appearing, well nourished, NAD, non-toxic. Nasal cannula in place. EYE EXAM: Normal conjunctiva. PERRL, no anisocoria and EOM's grossly intact w/o pain. OROPHARYNX: Moist mucus membranes. Grossly normal dentition. NECK: Supple, no nuchal rigidity, no adenopathy, non-tender. no signs of meningismus. LUNGS: Bibasilar crackles. Decreased breath sounds. Normal chest wall mechanics. HEART: NSR, no MRG. ABDOMEN: Abdomen soft, non-tender, normo-active bowel sounds, no masses, no rebound or guarding. BACK: No CVA TTP. SKIN: No rashes and no bruising. UPPER EXTREMITIES: Upper extremities are grossly normal. LOWER EXTREMITIES: No pitting edema. No calf pain. 1-2+ bilateral lower extremity edema. NEURO EXAM: A&O x3, cranial nerves II-XII grossly intact, normal speech, moves all 4 extremities on command w/o issue. Course 2034: The patient was evaluated in room B2, and a complete history and physical examination were performed. 2212: [facility] for further evaluation. 2216: I checked on and updated the patient on the treatment plan. Consultations Consultation #1: I [facility] patient for further evaluation. Time: 22:12 Administered Medications Discontinued Medications Ceftriaxone Sodium (Rocephin) Confirm Administered Dose 1,000 mg .ROUTE .[facility] Stop: 11/02/18 22:24 Last Admin: 11/02/18 22:29 Dose: Not Given Documented by: [id number] Doxycycline Hyclate (Vibramycin) 100 mg PO NOW STA Stop: 11/02/18 22:13 Last Admin: 11/02/18 22:29 Dose: 100 mg Documented by: [id number] Furosemide (Lasix) 40 mg IV NOW STA Stop: 11/02/18 22:13 Last Admin: 11/02/18 22:29 Dose: 40 mg Documented by: [id number] Ceftriaxone Sodium 1,000 mg/ (Dextrose) 60 mls @ 100 mls/hr IV NOW STA; Protocol Stop: 11/02/18 22:47 Last Infusion: 11/02/18 23:24 Dose: 0 mls/hr Documented by: [id number] Admin: 11/02/18 22:29 Dose: 100 mls/hr Documented by: [id number] Medical Decision Making Medical Records Attestation: I reviewed the patient's medical records. Home Medications Current Medication List: was personally reviewed by me Laboratory Data Attestation: I reviewed the patient's lab results. Result diagrams: 11/02/18 20:08 11/02/18 20:08 Lab Results 11/02/18 11/02/18 11/02/18 Range/Units 20:08 20:08 20:08 WBC 13.13 H (4.8-10.8) K/uL RBC 4.23 L (4.7-6.1) M/uL Hgb 12.3 L (14.0-18.0) g/dL Hct 37.8 L (42-52) % MCV 89.4 (80-100) fL MCH 29.1 (25-34) pg MCHC 32.5 (32-36) g/dL RDW Std Deviation 49.2 H (36.4-46.3) fL RDW Coeff of Colette 15.2 H (11.5-14.5) % Plt Count 148 (130-400) K/uL MPV 10.7 H (7.4-10.4) fL Immature Gran % (Auto) 0.4 % Neut % (Auto) 75.3 % Lymph % (Auto) 10.9 % Morrill % (Auto) 12.3 % Eos % (Auto) 1.0 % Baso % (Auto) 0.1 % Immature Gran # (Auto) 0.05 H (0.00-0.02) K/uL Neut # (Auto) 9.90 H (1.4-6.5) K/uL Lymph # (Auto) 1.43 (1.2-3.4) K/uL Morrill # (Auto) 1.61 H (0.11-0.59) K/uL Eos # (Auto) 0.13 (0-0.5) K/uL Baso # (Auto) 0.01 (0-0.2) K/uL PT 11.4 (9.0-12.0) Seconds INR 1.1 (0.9-1.1) APTT 31.0 (21.0-31.0) Seconds PTT Ratio 1.1 VBG pH (7.36-7.41) VBG pCO2 (38-50) mmHg VBG pO2 mmHg VBG HCO3 mmol/L VBG O2 Saturation % VBG Base Excess mEq/L Barometric Pressure mm/Hg Sodium 138 (136-145) mmol/L Potassium 4.1 (3.5-5.1) mmol/L Chloride 105 (98-107) mmol/L Carbon Dioxide 28 (21-32) mmol/L Anion Gap 5.0 (3-11) BUN 16 (7-18) mg/dl Creatinine 1.13 (0.6-1.4) mg/dl Est Cr Clr Drug Dosing 62.2 ml/min Est GFR ( Amer) 69.8 Est GFR (Non-Af Amer) 60.2 BUN/Creatinine Ratio 14.6 (10-20) Glucose 100 H (70-99) mg/dl Calcium 8.5 (8.5-10.1) mg/dl Total Bilirubin 0.8 (0.2-1) mg/dl AST 14 L (15-37) U/L ALT 19 (12-78) U/L Alkaline Phosphatase 83 (45-117) U/L Troponin I < 0.015 (0-0.045) ng/ml NT-Pro-B Natriuret Pep 243 (0-1800) pg/ml Total Protein 7.2 (6.4-8.2) gm/dl Albumin 3.3 L (3.4-5.0) gm/dl Globulin 3.9 (2.5-4.0) gm/dl Albumin/Globulin Ratio 0.8 L (0.9-2) 11/02/18 Range/Units 20:42 WBC (4.8-10.8) K/uL RBC (4.7-6.1) M/uL Hgb (14.0-18.0) g/dL Hct (42-52) % MCV (80-100) fL MCH (25-34) pg MCHC (32-36) g/dL RDW Std Deviation (36.4-46.3) fL RDW Coeff of Colette (11.5-14.5) % Plt Count (130-400) K/uL MPV (7.4-10.4) fL Immature Gran % (Auto) % Neut % (Auto) % Lymph % (Auto) % Morrill % (Auto) % Eos % (Auto) % Baso % (Auto) % Immature Gran # (Auto) (0.00-0.02) K/uL Neut # (Auto) (1.4-6.5) K/uL Lymph # (Auto) (1.2-3.4) K/uL Morrill # (Auto) (0.11-0.59) K/uL Eos # (Auto) (0-0.5) K/uL Baso # (Auto) (0-0.2) K/uL PT (9.0-12.0) Seconds INR (0.9-1.1) APTT (21.0-31.0) Seconds PTT Ratio VBG pH 7.38 (7.36-7.41) VBG pCO2 45 (38-50) mmHg VBG pO2 55 mmHg VBG HCO3 26 mmol/L VBG O2 Saturation 86.6 % VBG Base Excess 0.7 mEq/L Barometric Pressure 728.1 mm/Hg Sodium (136-145) mmol/L Potassium (3.5-5.1) mmol/L Chloride (98-107) mmol/L Carbon Dioxide (21-32) mmol/L Anion Gap (3-11) BUN (7-18) mg/dl Creatinine (0.6-1.4) mg/dl Est Cr Clr Drug Dosing ml/min Est GFR ( Amer) Est GFR (Non-Af Amer) BUN/Creatinine Ratio (10-20) Glucose (70-99) mg/dl Calcium (8.5-10.1) mg/dl Total Bilirubin (0.2-1) mg/dl AST (15-37) U/L ALT (12-78) U/L Alkaline Phosphatase (45-117) U/L Troponin I (0-0.045) ng/ml NT-Pro-B Natriuret Pep (0-1800) pg/ml Total Protein (6.4-8.2) gm/dl Albumin (3.4-5.0) gm/dl Globulin (2.5-4.0) gm/dl Albumin/Globulin Ratio (0.9-2) Imaging Data Radiologist's Impression: Radiology results as stated below per my review and the radiologist's interpretation: XR chest 1V portable CLINICAL HISTORY: Dyspnea COMPARISON STUDY: 06/24/2014 FINDINGS: The heart is enlarged. There is elevation of the interstitium. Diagnostic considerations include congestive failure/fluid overload versus a bilateral interstitial inflammatory process. There are no significant pleural effusions. IMPRESSION: 1. Mild cardiomegaly 2. Elevation of the interstitium. Diagnostic considerations include congestive failure/fluid overload versus a bilateral interstitial inflammatory process Electronically signed by: Michi Burks M.D. 11/02/2018 8:43 PM ECG Data Attestation: I personally reviewed and interpreted this ECG as follows: Indication: SOB/dyspnea Rate (beats per minute): 89 Rhythm: sinus rhythm Findings: + other (normal intervals; normal axis; No STs changes) and + T-wave inversion (lead III) Blood Pressure Blood Pressure Findings: Normal blood pressure MDM Narrative The patient is a 83 year old white male w/ PMHx of Diabetes, MD, CAD, HTN, and TIA who presents to the ED w/ CC of worsening shortness of breath beginning yesterday. Differential diagnosis: Etiologies such as infections, reactive airway disease, pneumonia, pneumothorax, COPD, CHF, cardiac ischemia, pulmonary embolism, musculoskeletal, gastrointestinal, as well as others were entertained. Patient was seen and evaluated the bedside. The patient was relating that he was having some associated shortness of breath that had been preceded by some productive cough. The patient has noted some mild lower extremity edema some a ssociated orthopnea. The patient does have some blunted breath sounds. The patient did have blood work completed. The patient's chest x-ray consistent with volume overload. Patient did have a mild white count. Patient has a fairly unremarkable blood gas. The patient was requiring some supplemental oxygen. Patient has normal kidney function. Patient was given some Lasix and also started antibiotics as he may have an associated coinfection. I did speak with the on-call hospitalist who agreed to further evaluate treat the patient. Patient was admitted to the medicine service. Impression & Plan Respiratory failure with hypoxia, CHF (congestive heart failure), Pneumonia Discharge Plan Visit Data *Final* Discharge Date/Time: 11/02/18 23:25 Chief Complaint: Respiratory Problems Stated Complaint: breathing problems, coughing ED Provider: Daniel Miller Discharge Problem: Respiratory failure with hypoxia, CHF (congestive heart failure), Pneumonia Patient Disposition: Admitted As Inpatient Discharge Instructions Interventions: ED Discharge Assessment Last Done: 11/02/18 23:25 Discharge Problem: Respiratory failure with hypoxia Qualifiers: Chronicity: acute Qualified Code(s): J96.01 - Acute respiratory failure with hypoxia CHF (congestive heart failure) Qualifiers: Heart failure type: systolic Heart failure chronicity: acute Qualified Code(s): I50.21 - Acute systolic (congestive) heart failure Pneumonia Qualifiers: Pneumonia type: due to unspecified organism Laterality: unspecified laterality Lung location: unspecified part of lung Qualified Code(s): J18.9 - Pneumonia, unspecified organism The scribe's documentation has been prepared under my direction and personally reviewed by me in its entirety. I confirm that the note above accurately reflects all work, treatment, procedures, and medical decision making performed by me.
[2018-11-03] MEDS ORDERED: GLUCOSE 10 TABS/TUBE PO PRN (00:33)
[2018-11-03] MEDS ORDERED: ACETAMINOPHEN 325 MG TAB PO PRN (00:33)
[2018-11-03] MEDS ORDERED: MAGNESIUM HYDROXIDE SUSP 30 ML UDC PO PRN (00:33)
[2018-11-03] MEDS ORDERED: ONDANSETRON INJ 2 MG/ML 2 ML VIAL IV PRN (00:33)
[2018-11-03] MEDS ORDERED: POLYETHYLENE (MIRALAX) 17 GM PACK PO PRN (00:33)
[2018-11-03] MEDS ORDERED: ALUMINUM/MAGNESIUM SUSP 30 ML UDC PO PRN (00:33)
[2018-11-03] MEDS ORDERED: GLUCAGON FOR INJ 1 MG VIAL SQ PRN (00:33)
[2018-11-03] MEDS ORDERED: GLUCOSE 40% GEL 15 GM TUBE PO PRN (00:33)
[2018-11-03] MEDS ORDERED: CARBOHYDRATES FOR HYPOGLYCEMIA PO PRN (00:33)
[2018-11-03] MEDS ORDERED: DEXTROSE 50% 50 ML SYRINGE IV PRN (00:33)
[2018-11-03] MEDS ORDERED: LIDOCAINE 2% JELLY 5 ML TUBE ONE (01:33)
[2018-11-03] MEDS: POTASSIUM CHLORIDE 20 MEQ TABCR PO SCH ×2 (03:18→07:59)
[2018-11-03] MEDS: AZITHROMYCIN 500 MG in DEXTROSE 5% 250 ML IV SCH (03:19)
[2018-11-03] MEDS: HEPARIN SOD 5,000 UNIT/0.5 ML VIAL SQ SCH ×3 (06:23→20:33)
[2018-11-03] MEDS: ALBUT/IPRATROP 3MG/0.5MG NEB 3 ML VIAL NEB SCH ×4 (07:04→19:50)
[2018-11-03] MEDS: INSULIN ASPART 100 UNITS/ML 3 ML PEN SC SCH ×4 (07:55→20:31)
[2018-11-03] MEDS: AVODART~ORDER AWAITING ACTION SCH ×2 (07:57→17:09)
[2018-11-03] MEDS: MONTELUKAST SODIUM 10 MG TABLET PO SCH (07:59)
[2018-11-03] MEDS: ASPIRIN 81 MG ECTAB PO SCH (07:59)
[2018-11-03] MEDS: ATORVASTATIN 40 MG TAB PO SCH (08:00)
[2018-11-03] MEDS: ATENOLOL 25 MG TABLET PO SCH (08:00)
[2018-11-03] MEDS ORDERED: FUROSEMIDE 40 MG in SYRINGE 0 ML IV SCH (09:00)
[2018-11-03] MEDS ORDERED: cefTRIAXone SODIUM 1,000 MG in DEXTROSE 5% 50 ML IV SCH ×2 (09:00→21:00)
[2018-11-03 09:41] LABS: Basophils # (auto) 0.01 K/uL (0-0.2); Basophils % (auto) 0.1 %; Eosinophils # (auto) 0.11 K/uL (0-0.5); Eosinophils % (auto) 0.9 %; Hemoglobin 11.6 g/dL (14.0-18.0); Immature Granulocytes # (auto) 0.04 K/uL (0.00-0.02); Immature Granulocytes % (auto) 0.3 %; Lymphocytes % (auto) 10.4 %; Mean Corpuscular Hgb Conc 32.2 g/dL (32-36); Mean Corpuscular Volume 90.2 fL (80-100); Mean Platelet Volume 10.8 fL (7.4-10.4); Monocytes # (auto) 1.17 K/uL (0.11-0.59); Monocytes % (auto) 9.4 %; Neutrophils # (auto) 9.86 K/uL (1.4-6.5); Neutrophils % (auto) 78.9 %; Platelet Count 144 K/uL (130-400); RDW Coefficient of Variation 15.2 % (11.5-14.5); RDW Standard Deviation 50.3 fL (36.4-46.3); Red Blood Count 3.99 M/uL (4.7-6.1); White Blood Count 12.49 K/uL (4.8-10.8)
[2018-11-03 10:00] LABS: BUN Creatinine Ratio 14.7 (10-20); Calcium 8.8 mg/dl (8.5-10.1); Creatinine Clr Calc Pharmacy 63.3 ml/min; Est GFR (African American) 64.2; Est GFR (Non-African American) 55.4
[2018-11-03] MEDS ORDERED: OPTIRAY 320 125ml IV PRN (10:23)
--- NOTE | 2018-11-03 11:00 | CT Scan Report ---
CT ANGIOGRAM OF THE CHEST CLINICAL HISTORY: Dyspnea. Hypoxia. COMPARISON STUDY: Chest x-ray dated 11/02/2018. Chest CT dated 11/22/2013. TECHNIQUE: Following the IV administration of 120 cc of Optiray 320, CT angiogram of the chest was p erformed from the upper abdomen to the thoracic inlet utilizing the pulmonary embolus protocol. Image s are reviewed in the axial, sagittal, and coronal planes. 3-D MIPS images are created and assessed. IV contrast was administered without complication. A dose lowering technique was utilized adhering t o the principles of ALARA. CT DOSE: 814.49 mGy.cm FINDINGS: Thyroid: The thyroid gland is enlarged infiltrated by numerous low-attenuation nodules. The left lobe extends in the superior mediastinum. This is unchanged and the 2014 examination and is typical appea deborah for multinodular goiter. Thoracic aorta: There is mild atherosclerotic calcification of the thoracic aorta, which is normal in caliber and demonstrates standard 3-vessel arch anatomy. The thoracic aorta is not well opacified. Pulmonary vasculature: The pulmonary trunk is normal in caliber. There are no filling defects identif ied in main, lobar, or segmental pulmonary branches to suggest pulmonary embolus. Heart: The heart is enlarged and without pericardial effusion. The coronary arteries are densely calc ified. Lungs and pleural spaces: Emphysematous change is noted. The trachea and central airways are clear. M ild patchy airspace opacities are present at the right lung base. A 1.7 cm patchy opacity at the righ t lung base on image 121 measures 1.7 cm. Dependent atelectasis is noted. There are trace pleural eff usions. Mild diffuse peribronchial thickening is observed. There are scattered calcified granulomas. Mediastinum: There are scattered subcentimeter mediastinal lymph nodes. These are not pathologically enlarged by size criteria. A subcarinal node measures 15 mm in short axis. Lluvia: There are mildly enlarged hilar lymph nodes which measure up to 13 mm in short axis. Calcified nodes are present in the right hilum. Axillae: There is no axillary lymphadenopathy. Upper abdomen: There is a small hiatal hernia. Diverticula are noted in the partially imaged left col on. Skeletal structures: The skeletal structures are osteopenic. Degenerative changes noted in the should ers and thoracic spine. No lytic or blastic bony lesions are seen. IMPRESSION: 1. There is no evidence of pulmonary embolus in the main, lobar, or segmental pulmonary arteries. 2. Cardiomegaly, emphysema, and trace pleural effusions. 3. Patchy airspace opacities are present the right lung base. Correlate clinically for evidence of a mild infectious/inflammatory pneumonitis. 4. Mild diffuse peribronchial thickening suggests reactive air disease. Clinical correlation will be required. 5. There is a more focal 1.7 cm patchy opacity at the right lung base. This likely represents a compo nent of the consolidation. A 3-4 month follow-up chest CT is recommended to document resolution. 6. There are mildly enlarged lluvia lymph nodes. 7. Multinodular goiter. Electronically signed by: Jax Dong M.D. 11/03/2018 10:58 AM
[2018-11-03] MEDS: CALCIUM 600MG + VIT D 400 IU TAB PO SCH ×3 (11:20→20:55)
--- NOTE | 2018-11-03 11:21 | Hospitalist Progress Note ---
Date of Service November 03, 2018 Assessment & Plan (1) Respiratory failure with hypoxia: Acute respiratory failure with hypoxia-initially felt to be secondary to acute CHF and pneumonia. Normal proBNP argues against CHF. He definitely has pneumonia present on chest x-ray, by clinical exam, and by CT of the chest He has ruled out now for pulmonary embolism based on CT angiogram chest Remains on oxygen at this time -Pulmonary toilet -Continue supplemental O2 to keep pulse ox greater than 90% -Continue to treat for pneumonia as below (2) Pneumonia: Confirmed on chest CT which showed patchy airspace opacities are present the right lung base, mild diffuse peribronchial thickening suggests reactive air disease and a more focal 1.7 cm patchy opacity at the right lung base. This likely represents a component of the consolidation. Also with mildly enlarged hilar lymph nodes -Radiology recommends a 3-4 month follow-up chest CT is recommended to document resolution. -Continue ceftriaxone which was increased due to his obesity to 2 g IV daily. -Continue azithromycin 500 mg IV daily -Continue guaifenesin extended release 600 mg p.o. twice daily -Continue Duonebs every 4 hours while awake and every 2 hours when necessary. -Collect sputum Gram stain and culture if possible (3) CHF (congestive heart failure): Suspected acute CHF upon admission. As above, normal proBNP argues against this. He does have significant bilateral lower extremity edema, but has also had extensive long distance travel over the last 2 months-ruling out DVT as below Given Lasix 40 mg IV in the ED, will now hold off on further Lasix Hold potassium chloride -Check echocardiogram -Follow I's and O's, daily weights (4) Lower extremity edema: With extensive recent travel -Check bilateral lower extremity Dopplers to rule out DVT -Was given 2 doses of IV Lasix thus far-on hold for now as above Continue elevation Add compression stockings (5) Hypertension: Controlled -Continue atenolol -Holding home lisinopril for now -Holding home furosemide p.o. and did receive IV Lasix here (6) Hypercholesterolemia: Stable -Continue atorvastatin 40 mg daily. (7) 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): No retention symptoms at this time -Continue dutasteride if can be brought in from home, and tamsulosin. (8) Diabetes mellitus: Controlled Hemoglobin A1c pending Hold metformin. Patient Accu-Cheks before meals and at bedtime with NovoLog coverage per scale. (9) Coronary artery disease: No evidence of ACS at this time -Continue aspirin, statin, beta-pacheco (10) DVT prophylaxis: Continue on heparin SQ for now -Checking bilateral Dopplers as above Full code Disposition-remain on telemetry Subjective Patient still coughing up some sputum, not feeling short of breath. Denies chest pain. No abdominal pain, constipation, or diarrhea. Telemetry with normal sinus rhythm with rates in 70s to 90s with one 2-second sinus pause. Review of Systems Review of Systems: All systems reviewed & are unremarkable except as noted in HPI & below Physical Exam Constitutional: WD/WN, vitals as above Eyes: PERRL, conjunctivae normal, anicteric sclerae Neck: trachea midline, no thyromegaly Respiratory: normal respiratory effort Auscultation: + crackles (At the bases bilaterally right greater than left); no rhonchi and no wheezes Cardiovascular: Rate/Rhythm: regular rate and regular rhythm Extremities: + edema (2+ pitting edema of the left leg to the knee, 1+ pitting edema of the right leg to the knee, 2+ dorsalis pedis pulses palpable) Gastrointestinal (Abdomen): normal bowel sounds, soft, nontender, no hepatosplenomegaly Musculoskeletal: Extremities: extremities normal to inspection; no cyanosis and no clubbing Skin: no rashes, warm and dry Neurologic: moves all extremities and awake; no focal motor deficits Psychiatric: A+Ox3, euthymic affect Results & Data Vital Signs (Past 12 Hours) Vital Signs Temp Pulse Pulse Pulse Resp BP Pulse Ox 11/03/18 08:08 36.8 C 86 20 109/70 92 11/03/18 07:04 70 20 92 11/03/18 03:33 36.6 C 98 H 22 137/62 91 11/03/18 00:30 36.9 C 82 81 22 120/66 96 Laboratory Results 11/03/18 11/03/18 11/03/18 Range/Units 09:31 09:31 07:40 WBC 12.49 H (4.8-10.8) K/uL RBC 3.99 L (4.7-6.1) M/uL Hgb 11.6 L (14.0-18.0) g/dL Hct 36.0 L (42-52) % MCV 90.2 (80-100) fL MCH 29.1 (25-34) pg MCHC 32.2 (32-36) g/dL RDW Std Deviation 50.3 H (36.4-46.3) fL RDW Coeff of Colette 15.2 H (11.5-14.5) % Plt Count 144 (130-400) K/uL MPV 10.8 H (7.4-10.4) fL Immature Gran % (Auto) 0.3 % Neut % (Auto) 78.9 % Lymph % (Auto) 10.4 % Clayton % (Auto) 9.4 % Eos % (Auto) 0.9 % Baso % (Auto) 0.1 % Immature Gran # (Auto) 0.04 H (0.00-0.02) K/uL Neut # (Auto) 9.86 H (1.4-6.5) K/uL Lymph # (Auto) 1.30 (1.2-3.4) K/uL Clayton # (Auto) 1.17 H (0.11-0.59) K/uL Eos # (Auto) 0.11 (0-0.5) K/uL Baso # (Auto) 0.01 (0-0.2) K/uL PT (9.0-12.0) Seconds INR (0.9-1.1) APTT (21.0-31.0) Seconds PTT Ratio VBG pH (7.36-7.41) VBG pCO2 (38-50) mmHg VBG pO2 mmHg VBG HCO3 mmol/L VBG O2 Saturation % VBG Base Excess mEq/L Barometric Pressure mm/Hg Sodium 141 (136-145) mmol/L Potassium 4.0 (3.5-5.1) mmol/L Chloride 104 (98-107) mmol/L Carbon Dioxide 34 H (21-32) mmol/L Anion Gap 3.0 (3-11) BUN 18 (7-18) mg/dl Creatinine 1.21 (0.6-1.4) mg/dl Est Cr Clr Drug Dosing 63.3 ml/min Est GFR ( Amer) 64.2 Est GFR (Non-Af Amer) 55.4 BUN/Creatinine Ratio 14.7 (10-20) Glucose 137 H (70-99) mg/dl POC Glucose 128 H (70-99) Estimat Average Glucose Hemoglobin A1c Calcium 8.8 (8.5-10.1) mg/dl Magnesium 2.0 (1.8-2.4) mg/dl Total Bilirubin (0.2-1) mg/dl AST (15-37) U/L ALT (12-78) U/L Alkaline Phosphatase (45-117) U/L Troponin I (0-0.045) ng/ml NT-Pro-B Natriuret Pep (0-1800) pg/ml Total Protein (6.4-8.2) gm/dl Albumin (3.4-5.0) gm/dl Globulin (2.5-4.0) gm/dl Albumin/Globulin Ratio (0.9-2) 11/03/18 11/03/18 11/02/18 Range/Units 05:27 00:18 20:42 WBC (4.8-10.8) K/uL RBC (4.7-6.1) M/uL Hgb (14.0-18.0) g/dL Hct (42-52) % MCV (80-100) fL MCH (25-34) pg MCHC (32-36) g/dL RDW Std Deviation (36.4-46.3) fL RDW Coeff of Colette (11.5-14.5) % Plt Count (130-400) K/uL MPV (7.4-10.4) fL Immature Gran % (Auto) % Neut % (Auto) % Lymph % (Auto) % Clayton % (Auto) % Eos % (Auto) % Baso % (Auto) % Immature Gran # (Auto) (0.00-0.02) K/uL Neut # (Auto) (1.4-6.5) K/uL Lymph # (Auto) (1.2-3.4) K/uL Clayton # (Auto) (0.11-0.59) K/uL Eos # (Auto) (0-0.5) K/uL Baso # (Auto) (0-0.2) K/uL PT (9.0-12.0) Seconds INR (0.9-1.1) APTT (21.0-31.0) Seconds PTT Ratio VBG pH 7.38 (7.36-7.41) VBG pCO2 45 (38-50) mmHg VBG pO2 55 mmHg VBG HCO3 26 mmol/L VBG O2 Saturation 86.6 % VBG Base Excess 0.7 mEq/L Barometric Pressure 728.1 mm/Hg Sodium (136-145) mmol/L Potassium (3.5-5.1) mmol/L Chloride (98-107) mmol/L Carbon Dioxide (21-32) mmol/L Anion Gap (3-11) BUN (7-18) mg/dl Creatinine (0.6-1.4) mg/dl Est Cr Clr Drug Dosing ml/min Est GFR ( Amer) Est GFR (Non-Af Amer) BUN/Creatinine Ratio (10-20) Glucose (70-99) mg/dl POC Glucose 136 H (70-99) Estimat Average Glucose Pending Hemoglobin A1c Pending Calcium (8.5-10.1) mg/dl Magnesium (1.8-2.4) mg/dl Total Bilirubin (0.2-1) mg/dl AST (15-37) U/L ALT (12-78) U/L Alkaline Phosphatase (45-117) U/L Troponin I (0-0.045) ng/ml NT-Pro-B Natriuret Pep (0-1800) pg/ml Total Protein (6.4-8.2) gm/dl Albumin (3.4-5.0) gm/dl Globulin (2.5-4.0) gm/dl Albumin/Globulin Ratio (0.9-2) 11/02/18 11/02/18 11/02/18 Range/Units 20:08 20:08 20:08 WBC 13.13 H (4.8-10.8) K/uL RBC 4.23 L (4.7-6.1) M/uL Hgb 12.3 L (14.0-18.0) g/dL Hct 37.8 L (42-52) % MCV 89.4 (80-100) fL MCH 29.1 (25-34) pg MCHC 32.5 (32-36) g/dL RDW Std Deviation 49.2 H (36.4-46.3) fL RDW Coeff of Colette 15.2 H (11.5-14.5) % Plt Count 148 (130-400) K/uL MPV 10.7 H (7.4-10.4) fL Immature Gran % (Auto) 0.4 % Neut % (Auto) 75.3 % Lymph % (Auto) 10.9 % Clayton % (Auto) 12.3 % Eos % (Auto) 1.0 % Baso % (Auto) 0.1 % Immature Gran # (Auto) 0.05 H (0.00-0.02) K/uL Neut # (Auto) 9.90 H (1.4-6.5) K/uL Lymph # (Auto) 1.43 (1.2-3.4) K/uL Clayton # (Auto) 1.61 H (0.11-0.59) K/uL Eos # (Auto) 0.13 (0-0.5) K/uL Baso # (Auto) 0.01 (0-0.2) K/uL PT 11.4 (9.0-12.0) Seconds INR 1.1 (0.9-1.1) APTT 31.0 (21.0-31.0) Seconds PTT Ratio 1.1 VBG pH (7.36-7.41) VBG pCO2 (38-50) mmHg VBG pO2 mmHg VBG HCO3 mmol/L VBG O2 Saturation % VBG Base Excess mEq/L Barometric Pressure mm/Hg Sodium 138 (136-145) mmol/L Potassium 4.1 (3.5-5.1) mmol/L Chloride 105 (98-107) mmol/L Carbon Dioxide 28 (21-32) mmol/L Anion Gap 5.0 (3-11) BUN 16 (7-18) mg/dl Creatinine 1.13 (0.6-1.4) mg/dl Est Cr Clr Drug Dosing 62.2 ml/min Est GFR ( Amer) 69.8 Est GFR (Non-Af Amer) 60.2 BUN/Creatinine Ratio 14.6 (10-20) Glucose 100 H (70-99) mg/dl POC Glucose (70-99) Estimat Average Glucose Hemoglobin A1c Calcium 8.5 (8.5-10.1) mg/dl Magnesium (1.8-2.4) mg/dl Total Bilirubin 0.8 (0.2-1) mg/dl AST 14 L (15-37) U/L ALT 19 (12-78) U/L Alkaline Phosphatase 83 (45-117) U/L Troponin I < 0.015 (0-0.045) ng/ml NT-Pro-B Natriuret Pep 243 (0-1800) pg/ml Total Protein 7.2 (6.4-8.2) gm/dl Albumin 3.3 L (3.4-5.0) gm/dl Globulin 3.9 (2.5-4.0) gm/dl Albumin/Globulin Ratio 0.8 L (0.9-2) Diagnostic Findings CT angiogram chest: IMPRESSION: 1. There is no evidence of pulmonary embolus in the main, lobar, or segmental pulmonary arteries. 2. Cardiomegaly, emphysema, and trace pleural effusions. 3. Patchy airspace opacities are present the right lung base. Correlate clinically for evidence of a mild infectious/inflammatory pneumonitis. 4. Mild diffuse peribronchial thickening suggests reactive air disease. Clinical correlation will be required. 5. There is a more focal 1.7 cm patchy opacity at the right lung base. This likely represents a component of the consolidation. A 3-4 month follow-up chest CT is recommended to document resolution. 6. There are mildly enlarged chiki lymph nodes. 7. Multinodular goiter. (1) Respiratory failure with hypoxia Chronicity: acute Qualified Code(s): J96.01 - Acute respiratory failure with hypoxia (2) CHF (congestive heart failure) Heart failure chronicity: acute Heart failure type: systolic Qualified Code(s): I50.21 - Acute systolic (congestive) heart failure (3) Pneumonia Laterality: unspecified laterality Lung location: unspecified part of lung Pneumonia type: due to unspecified organism Qualified Code(s): J18.9 - Pneumonia, unspecified organism
[2018-11-03] MEDS: guaiFENesin 600 MG TABCR PO SCH ×3 (12:19→20:55)
[2018-11-03] MEDS ORDERED: PERFLUTREN LIPID MICROSPHERE (DEFINITY) IV ONE (12:46)
--- NOTE | 2018-11-03 16:40 | Ultrasound Report ---
ULTRASOUND BILATERAL LOWER EXTREMITY VENOUS CLINICAL HISTORY: Lower extremity edema. COMPARISON STUDY: Left lower extremity venous ultrasound dated 06/06/2011. TECHNIQUE: Real-time, grayscale, and color Doppler sonography of the deep veins of the right and left lower extremity was performed from the inguinal crease to the calf. Compression and augmentation wer e utilized. FINDINGS: There is no sonographic evidence of deep venous thrombosis identified in the right or left lower extremity. The common femoral, superficial femoral, and popliteal veins are patent and normally compressible bilaterally. The greater saphenous vein and the profunda femoris vein at the junction w ith the common femoral vein are clear in both legs. The visualized calf veins are patent bilaterally. IMPRESSION: There is no sonographic evidence of deep venous thrombosis identified in the right or lef t lower extremity. Electronically signed by: Jax Dong M.D. 11/03/2018 4:39 PM
[2018-11-03] MEDS: cefTRIAXone SODIUM 2,000 MG in DEXTROSE 5% 50 ML IV SCH (20:33)
[2018-11-03] MEDS: TAMSULOSIN HCL 0.4 MG CAP PO SCH ×2 (20:33→20:55)
[2018-11-03] MEDS ORDERED: cefTRIAXone SODIUM 2,000 MG in DEXTROSE 5% 50 ML IV SCH (21:00)
[2018-11-03 21:25] LABS: Basophils # (auto) 0.01 K/uL (0-0.2); Basophils % (auto) 0.1 %; Eosinophils # (auto) 0.13 K/uL (0-0.5); Eosinophils % (auto) 1.2 %; Hematocrit (blood only) 38.4 % (42-52); Hemoglobin 12.3 g/dL (14.0-18.0); Immature Granulocytes # (auto) 0.04 K/uL (0.00-0.02); Immature Granulocytes % (auto) 0.4 %; Mean Platelet Volume 10.4 fL (7.4-10.4); Monocytes # (auto) 1.15 K/uL (0.11-0.59); Monocytes % (auto) 10.4 %; Neutrophils # (auto) 7.65 K/uL (1.4-6.5); Neutrophils % (auto) 68.9 %; Platelet Count 144 K/uL (130-400); RDW Coefficient of Variation 15.4 % (11.5-14.5); RDW Standard Deviation 51.5 fL (36.4-46.3); Red Blood Count 4.22 M/uL (4.7-6.1); White Blood Count 11.08 K/uL (4.8-10.8)
[2018-11-03 21:36] LABS: iSTAT Allen Test Pass; iSTAT Arterial Blood Gas HCO3 31 meg/L (19-24); iSTAT Carbon Dioxide 33 mEq/l (24-31); iSTAT Site R Radial
--- NOTE | 2018-11-03 21:39 | CT Scan Report ---
CT SCAN OF THE BRAIN WITHOUT IV CONTRAST CLINICAL HISTORY: Change in mental status. COMPARISON STUDY: CT of the brain dated 06/24/2014. TECHNIQUE: Unenhanced axial CT scan of the brain is performed from the vertex to the skull base. A do se lowering technique was utilized adhering to the principles of ALARA. The examination is modestly d egraded by motion artifact. CT DOSE: 614.27 mGy.cm FINDINGS: Brain parenchyma: There are age-related involutional changes noting mild subcortical and periventric ular microangiopathic change. There is no hemorrhage, mass effect, or evidence of acute territorial i schemia by CT criteria. Segovia-white matter differentiation is preserved. No extra-axial fluid collecti on is seen. Ventricles, sulci, cisterns: Prominent secondary to involutional change. Intracranial vasculature: There is atherosclerotic calcification of the cavernous carotid and vertebr al arteries. Calvarium: Unremarkable. Sinuses and mastoids: The visualized paranasal sinuses are clear. The mastoid air cells are well pneu matized. Orbits: The bony orbits are grossly intact. There are bilateral ocular lens implants. IMPRESSION: There is no hemorrhage, mass effect, or evidence of acute territorial ischemia by CT daniet richard. Electronically signed by: Jax Dong M.D. 11/03/2018 9:38 PM
[2018-11-03 21:41] LABS: Alanine Aminotransferase 19 U/L (12-78); Albumin Level 3.1 gm/dl (3.4-5.0); Aspartate Aminotransferase 10 U/L (15-37); BUN Creatinine Ratio 14.6 (10-20); Blood Urea Nitrogen 22 mg/dl (7-18); Calcium 8.6 mg/dl (8.5-10.1); Carbon Dioxide 31 mmol/L (21-32); Chloride 102 mmol/L (98-107); Est GFR (African American) 49.5; Est GFR (Non-African American) 42.7; Glucose 134 mg/dl (70-99); Magnesium 2.3 mg/dl (1.8-2.4); Potassium 4.2 mmol/L (3.5-5.1); Sodium 139 mmol/L (136-145)
[2018-11-03 21:46] LABS: Albumin Globulin Ratio 0.7 (0.9-2); Alkaline Phosphatase 93 U/L (45-117); Bilirubin,Total 0.5 mg/dl (0.2-1); Globulin 4.4 gm/dl (2.5-4.0); Phosphorus 4.2 mg/dl (2.5-4.9); Total Protein 7.5 gm/dl (6.4-8.2); Troponin I < 0.015 ng/ml (0-0.045)
[2018-11-04] MEDS: AVODART~ORDER AWAITING ACTION SCH ×4 (00:08→21:47)
[2018-11-04] MEDS: AZITHROMYCIN 500 MG in DEXTROSE 5% 250 ML IV SCH (03:35)
[2018-11-04 05:35] LABS: Basophils # (auto) 0.02 K/uL (0-0.2); Basophils % (auto) 0.2 %; Eosinophils # (auto) 0.14 K/uL (0-0.5); Eosinophils % (auto) 1.5 %; Hematocrit (blood only) 35.3 % (42-52); Hemoglobin 11.1 g/dL (14.0-18.0); Immature Granulocytes # (auto) 0.04 K/uL (0.00-0.02); Immature Granulocytes % (auto) 0.4 %; Lymphocytes % (auto) 16.1 %; Mean Corpuscular Hgb Conc 31.4 g/dL (32-36); Mean Corpuscular Volume 90.5 fL (80-100); Mean Platelet Volume 10.8 fL (7.4-10.4); Monocytes # (auto) 1.02 K/uL (0.11-0.59); Monocytes % (auto) 10.9 %; Neutrophils % (auto) 70.9 %; Platelet Count 144 K/uL (130-400); RDW Coefficient of Variation 15.4 % (11.5-14.5); RDW Standard Deviation 51.3 fL (36.4-46.3); White Blood Count 9.32 K/uL (4.8-10.8)
[2018-11-04] MEDS: HEPARIN SOD 5,000 UNIT/0.5 ML VIAL SQ SCH ×3 (05:49→20:45)
[2018-11-04 06:03] LABS: BUN Creatinine Ratio 16.2 (10-20); Calcium 8.1 mg/dl (8.5-10.1); Creatinine Clr Calc Pharmacy 60.7 ml/min; Est GFR (African American) 61.2; Est GFR (Non-African American) 52.8; Potassium 4.1 mmol/L (3.5-5.1)
[2018-11-04 06:24] LABS: Estimated Average Glucose 137 mg/dl; Hemoglobin A1C 6.4 % (4.5-5.6)
[2018-11-04] MEDS: ALBUT/IPRATROP 3MG/0.5MG NEB 3 ML VIAL NEB SCH ×4 (07:08→19:47)
[2018-11-04] MEDS: FUROSEMIDE 20 MG TAB PO SCH (07:51)
[2018-11-04] MEDS: ATENOLOL 25 MG TABLET PO SCH (07:51)
[2018-11-04] MEDS: ASPIRIN 81 MG ECTAB PO SCH (07:51)
[2018-11-04] MEDS: CALCIUM 600MG + VIT D 400 IU TAB PO SCH ×2 (07:51→20:44)
[2018-11-04] MEDS: guaiFENesin 600 MG TABCR PO SCH ×2 (07:51→20:44)
[2018-11-04] MEDS: INSULIN ASPART 100 UNITS/ML 3 ML PEN SC SCH ×4 (07:52→20:44)
[2018-11-04] MEDS: ATORVASTATIN 40 MG TAB PO SCH (07:52)
[2018-11-04] MEDS: MONTELUKAST SODIUM 10 MG TABLET PO SCH (07:52)
[2018-11-04 09:37] LABS: Base Excess VBG 4.5 mEq/L; HCO3 VBG 32 mmol/L; PCO2 VBG 60 mmHg (38-50); PO2 VBG 26 mmHg; pH VBG 7.34 (7.36-7.41)
[2018-11-04 10:14] LABS: Oxygen Saturation VBG < 60.0 %
[2018-11-04 11:13] LABS: iSTAT Art Bld Gas pCO2 Correct 64 mmHg (35-46); iSTAT Art Bld Gas pH Corrected 7.296 (7.35-7.45); iSTAT Arterial Blood Gas pCO2 64 mmHg (35-46)
[2018-11-04 11:14] LABS: Patient Temperature 37
--- NOTE | 2018-11-04 12:06 | Hospitalist Progress Note ---
Date of Service November 04, 2018 Assessment & Plan (1) Respiratory failure with hypoxia: Acute respiratory failure with hypoxia-initially felt to be secondary to acute CHF and pneumonia. Normal proBNP argues against CHF. ECHO with preserved LVEF, with moderate Pulm HTN He definitely has pneumonia present on chest x-ray, by clinical exam, and by CT of the chest He has ruled out now for pulmonary embolism based on CT angiogram chest Now weaned off O2 at rest, may still need O2 w/ exertion Developed acute respiratory failure with hypercapnia on evening of 11/03 with ABG 7.29/63 with AMS Could have OHS. Improved now after being on BiPAP x 2 hours but couldn't tolerate more than that Repeat VBG improved today -continue BiPAP qhs -will Consult Pulm-will see if can qualify for home BiPAP -Pulmonary toilet -Continue supplemental O2 to keep pulse ox greater than 90% -Continue to treat for pneumonia as below (2) CHF (congestive heart failure): Suspected acute CHF upon admission. As above, normal proBNP argues against this. He does have significant bilateral lower extremity edema, but has also had extensive long distance travel over the last 2 months-ruled out DVT Likely just dependent edema Given Lasix 40 mg IV in the ED and some improvement -restarted home po lasix daily Hold potassium chloride from home echocardiogram with preserved EF and with {Pulm HTN secondary to untreated ANNABELLE/OHS most likely -Follow I's and O's, daily weights (3) Pneumonia: Confirmed on chest CT which showed patchy airspace opacities are present the right lung base, mild diffuse peribronchial thickening suggests reactive air disease and a more focal 1.7 cm patchy opacity at the right lung base. This likely represents a component of the consolidation. Also with mildly enlarged hilar lymph nodes -Radiology recommends a 3-4 month follow-up chest CT is recommended to document resolution. -Continue ceftriaxone which was increased due to his obesity to 2 g IV daily. -Continue azithromycin 500 mg IV daily -Continue guaifenesin extended release 600 mg p.o. twice daily -Continue Duonebs every 4 hours while awake and every 2 hours when necessary. -Collect sputum Gram stain and culture if possible (4) Hypertension: Controlled -Continue atenolol, lasix -Holding home lisinopril for now (5) Hypercholesterolemia: Stable -Continue atorvastatin 40 mg daily. (6) 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): No retention symptoms at this time. Self-caths every night at home and takes methanamine for suppression -Now Ordonez in place during period of AMS-will leave in at pt's request -Continue dutasteride if can be brought in from home, and tamsulosin. -restarted methanamine (7) Diabetes mellitus: Controlled Hemoglobin A1c 6.4% Hold metformin Patient Accu-Cheks before meals and at bedtime with NovoLog coverage per scale. 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 He recalls the events of last night when he was hypercarbic and recalls thinking people were trying to torture him. He tolerated BiPAP for 2 hours. Today is coughing up more sputum. No chest pain. Tele with 2 episodes of Mobitz II yesterday and today NSR and SB Review of Systems Review of Systems: All systems reviewed & are unremarkable except as noted in HPI & below Physical Exam Constitutional: WD/WN, vitals as above Eyes: PERRL, conjunctivae normal, anicteric sclerae Neck: trachea midline, no thyromegaly Respiratory: normal respiratory effort Auscultation: + crackles (At the bases bilaterally right greater than left); no rhonchi and no wheezes Cardiovascular: Rate/Rhythm: regular rate and regular rhythm Extremities: + edema (2+ pitting edema of the left leg to the knee, 1+ pitting edema of the right leg to the knee, 2+ dorsalis pedis pulses palpable) Gastrointestinal (Abdomen): normal bowel sounds, soft, nontender, no hepat osplenomegaly Musculoskeletal: Extremities: extremities normal to inspection; no cyanosis and no clubbing Skin: no rashes, warm and dry Neurologic: moves all extremities and awake; no focal motor deficits Psychiatric: A+Ox3, euthymic affect Genitourinary: Ordonez catheter in place with clear yellow urine Results & Data Vital Signs (Past 12 Hours) Vital Signs Temp Pulse Pulse Resp BP Pulse Ox 11/04/18 11:25 78 18 94 11/04/18 09:04 72 11/04/18 07:27 36.8 C 92 H 21 152/71 H 95 11/04/18 07:09 95 H 20 95 11/04/18 03:12 36.6 C 83 16 146/87 H 96 Laboratory Results 11/04/18 11/04/18 11/04/18 Range/Units 11:13 09:19 09:19 WBC (4.8-10.8) K/uL RBC (4.7-6.1) M/uL Hgb (14.0-18.0) g/dL Hct (42-52) % MCV (80-100) fL MCH (25-34) pg MCHC (32-36) g/dL RDW Std Deviation (36.4-46.3) fL RDW Coeff of Colette (11.5-14.5) % Plt Count (130-400) K/uL MPV (7.4-10.4) fL Immature Gran % (Auto) % Neut % (Auto) % Lymph % (Auto) % Vance % (Auto) % Eos % (Auto) % Baso % (Auto) % Immature Gran # (Auto) (0.00-0.02) K/uL Neut # (Auto) (1.4-6.5) K/uL Lymph # (Auto) (1.2-3.4) K/uL Vance # (Auto) (0.11-0.59) K/uL Eos # (Auto) (0-0.5) K/uL Baso # (Auto) (0-0.2) K/uL Sample Site Patient Temperature POC pH (7.35-7.45) POC pCO2 (35-46) mmHg POC pO2 (80-95) mmHg POC HCO3 (19-24) artie/L POC Total CO2 (24-31) mEq/l POC Base Excess (-9-1.8) artie/L ABG pH (Temp Correct) (7.35-7.45) ABG pCO2 (Temp Corrct (35-46) mmHg POC ABG pO2 at Pt Temp POC ABG O2 Sat (90-95) % Jonny Test VBG pH 7.34 L (7.36-7.41) VBG pCO2 60 H (38-50) mmHg VBG pO2 26 mmHg VBG HCO3 32 mmol/L VBG O2 Saturation < 60.0 % VBG Base Excess 4.5 mEq/L Barometric Pressure 732.0 mm/Hg O2 Delivery Device Sodium (136-145) mmol/L Potassium (3.5-5.1) mmol/L Chloride (98-107) mmol/L Carbon Dioxide (21-32) mmol/L Anion Gap (3-11) BUN (7-18) mg/dl Creatinine (0.6-1.4) mg/dl Est Cr Clr Drug Dosing ml/min Est GFR ( Amer) Est GFR (Non-Af Amer) BUN/Creatinine Ratio (10-20) Glucose (70-99) mg/dl POC Glucose 116 H (70-99) Estimat Average Glucose mg/dl Hemoglobin A1c (4.5-5.6) % Calcium (8.5-10.1) mg/dl Phosphorus (2.5-4.9) mg/dl Magnesium (1.8-2.4) mg/dl Total Bilirubin (0.2-1) mg/dl AST (15-37) U/L ALT (12-78) U/L Alkaline Phosphatase (45-117) U/L Troponin I < 0.015 (0-0.045) ng/ml Total Protein (6.4-8.2) gm/dl Albumin (3.4-5.0) gm/dl Globulin (2.5-4.0) gm/dl Albumin/Globulin Ratio (0.9-2) 11/04/18 11/04/18 11/04/18 Range/Units 07:24 05:18 05:18 WBC 9.32 (4.8-10.8) K/uL RBC 3.90 L (4.7-6.1) M/uL Hgb 11.1 L (14.0-18.0) g/dL Hct 35.3 L (42-52) % MCV 90.5 (80-100) fL MCH 28.5 (25-34) pg MCHC 31.4 L (32-36) g/dL RDW Std Deviation 51.3 H (36.4-46.3) fL RDW Coeff of Colette 15.4 H (11.5-14.5) % Plt Count 144 (130-400) K/uL MPV 10.8 H (7.4-10.4) fL Immature Gran % (Auto) 0.4 % Neut % (Auto) 70.9 % Lymph % (Auto) 16.1 % Vance % (Auto) 10.9 % Eos % (Auto) 1.5 % Baso % (Auto) 0.2 % Immature Gran # (Auto) 0.04 H (0.00-0.02) K/uL Neut # (Auto) 6.60 H (1.4-6.5) K/uL Lymph # (Auto) 1.50 (1.2-3.4) K/uL Vance # (Auto) 1.02 H (0.11-0.59) K/uL Eos # (Auto) 0.14 (0-0.5) K/uL Baso # (Auto) 0.02 (0-0.2) K/uL Sample Site Patient Temperature POC pH (7.35-7.45) POC pCO2 (35-46) mmHg POC pO2 (80-95) mmHg POC HCO3 (19-24) artie/L POC Total CO2 (24-31) mEq/l POC Base Excess (-9-1.8) artie/L ABG pH (Temp Correct) (7.35-7.45) ABG pCO2 (Temp Corrct (35-46) mmHg POC ABG pO2 at Pt Temp POC ABG O2 Sat (90-95) % Jonny Test VBG pH (7.36-7.41) VBG pCO2 (38-50) mmHg VBG pO2 mmHg VBG HCO3 mmol/L VBG O2 Saturation % VBG Base Excess mEq/L Barometric Pressure mm/Hg O2 Delivery Device Sodium 137 (136-145) mmol/L Potassium 4.1 (3.5-5.1) mmol/L Chloride 102 (98-107) mmol/L Carbon Dioxide 32 (21-32) mmol/L Anion Gap 3.0 (3-11) BUN 20 H (7-18) mg/dl Creatinine 1.26 (0.6-1.4) mg/dl Est Cr Clr Drug Dosing 60.7 ml/min Est GFR ( Amer) 61.2 Est GFR (Non-Af Amer) 52.8 BUN/Creatinine Ratio 16.2 (10-20) Glucose 149 H (70-99) mg/dl POC Glucose 122 H (70-99) Estimat Average Glucose mg/dl Hemoglobin A1c (4.5-5.6) % Calcium 8.1 L (8.5-10.1) mg/dl Phosphorus (2.5-4.9) mg/dl Magnesium (1.8-2.4) mg/dl Total Bilirubin (0.2-1) mg/dl AST (15-37) U/L ALT (12-78) U/L Alkaline Phosphatase (45-117) U/L Troponin I (0-0.045) ng/ml Total Protein (6.4-8.2) gm/dl Albumin (3.4-5.0) gm/dl Globulin (2.5-4.0) gm/dl Albumin/Globulin Ratio (0.9-2) 11/03/18 11/03/18 11/03/18 Range/Units 21:23 21:19 21:19 WBC 11.08 H (4.8-10.8) K/uL RBC 4.22 L (4.7-6.1) M/uL Hgb 12.3 L (14.0-18.0) g/dL Hct 38.4 L (42-52) % MCV 91.0 (80-100) fL MCH 29.1 (25-34) pg MCHC 32.0 (32-36) g/dL RDW Std Deviation 51.5 H (36.4-46.3) fL RDW Coeff of Colette 15.4 H (11.5-14.5) % Plt Count 144 (130-400) K/uL MPV 10.4 (7.4-10.4) fL Immature Gran % (Auto) 0.4 % Neut % (Auto) 68.9 % Lymph % (Auto) 19.0 % Vance % (Auto) 10.4 % Eos % (Auto) 1.2 % Baso % (Auto) 0.1 % Immature Gran # (Auto) 0.04 H (0.00-0.02) K/uL Neut # (Auto) 7.65 H (1.4-6.5) K/uL Lymph # (Auto) 2.10 (1.2-3.4) K/uL Vance # (Auto) 1.15 H (0.11-0.59) K/uL Eos # (Auto) 0.13 (0-0.5) K/uL Baso # (Auto) 0.01 (0-0.2) K/uL Sample Site R Radial Patient Temperature 37 POC pH 7.30 L (7.35-7.45) POC pCO2 64 H (35-46) mmHg POC pO2 76 L (80-95) mmHg POC HCO3 31 H (19-24) artie/L POC Total CO2 33 H (24-31) mEq/l POC Base Excess 5.0 H (-9-1.8) artie/L ABG pH (Temp Correct) 7.296 L (7.35-7.45) ABG pCO2 (Temp Corrct 64 H (35-46) mmHg POC ABG pO2 at Pt Temp 76 POC ABG O2 Sat 93.0 (90-95) % Jonny Test Pass VBG pH (7.36-7.41) VBG pCO2 (38-50) mmHg VBG pO2 mmHg VBG HCO3 mmol/L VBG O2 Saturation % VBG Base Excess mEq/L Barometric Pressure mm/Hg O2 Delivery Device Cannula Sodium 139 (136-145) mmol/L Potassium 4.2 (3.5-5.1) mmol/L Chloride 102 (98-107) mmol/L Carbon Dioxide 31 (21-32) mmol/L Anion Gap 6.0 (3-11) BUN 22 H (7-18) mg/dl Creatinine 1.50 H (0.6-1.4) mg/dl Est Cr Clr Drug Dosing 51.0 ml/min Est GFR ( Amer) 49.5 Est GFR (Non-Af Amer) 42.7 BUN/Creatinine Ratio 14.6 (10-20) Glucose 134 H (70-99) mg/dl POC Glucose (70-99) Estimat Average Glucose mg/dl Hemoglobin A1c (4.5-5.6) % Calcium 8.6 (8.5-10.1) mg/dl Phosphorus 4.2 (2.5-4.9) mg/dl Magnesium 2.3 (1.8-2.4) mg/dl Total Bilirubin 0.5 (0.2-1) mg/dl AST 10 L (15-37) U/L ALT 19 (12-78) U/L Alkaline Phosphatase 93 (45-117) U/L Troponin I < 0.015 (0-0.045) ng/ml Total Protein 7.5 (6.4-8.2) gm/dl Albumin 3.1 L (3.4-5.0) gm/dl Globulin 4.4 H (2.5-4.0) gm/dl Albumin/Globulin Ratio 0.7 L (0.9-2) 11/03/18 11/03/18 11/03/18 Range/Units 20:15 16:57 05:27 WBC (4.8-10.8) K/uL RBC (4.7-6.1) M/uL Hgb (14.0-18.0) g/dL Hct (42-52) % MCV (80-100) fL MCH (25-34) pg MCHC (32-36) g/dL RDW Std Deviation (36.4-46.3) fL RDW Coeff of Colette (11.5-14.5) % Plt Count (130-400) K/uL MPV (7.4-10.4) fL Immature Gran % (Auto) % Neut % (Auto) % Lymph % (Auto) % Vance % (Auto) % Eos % (Auto) % Baso % (Auto) % Immature Gran # (Auto) (0.00-0.02) K/uL Neut # (Auto) (1.4-6.5) K/uL Lymph # (Auto) (1.2-3.4) K/uL Vance # (Auto) (0.11-0.59) K/uL Eos # (Auto) (0-0.5) K/uL Baso # (Auto) (0-0.2) K/uL Sample Site Patient Temperature POC pH (7.35-7.45) POC pCO2 (35-46) mmHg POC pO2 (80-95) mmHg POC HCO3 (19-24) artie/L POC Total CO2 (24-31) mEq/l POC Base Excess (-9-1.8) artie/L ABG pH (Temp Correct) (7.35-7.45) ABG pCO2 (Temp Corrct (35-46) mmHg POC ABG pO2 at Pt Temp POC ABG O2 Sat (90-95) % Jonny Test VBG pH (7.36-7.41) VBG pCO2 (38-50) mmHg VBG pO2 mmHg VBG HCO3 mmol/L VBG O2 Saturation % VBG Base Excess mEq/L Barometric Pressure mm/Hg O2 Delivery Device Sodium (136-145) mmol/L Potassium (3.5-5.1) mmol/L Chloride (98-107) mmol/L Carbon Dioxide (21-32) mmol/L Anion Gap (3-11) BUN (7-18) mg/dl Creatinine (0.6-1.4) mg/dl Est Cr Clr Drug Dosing ml/min Est GFR ( Amer) Est GFR (Non-Af Amer) BUN/Creatinine Ratio (10-20) Glucose (70-99) mg/dl POC Glucose 121 H 146 H (70-99) Estimat Average Glucose 137 mg/dl Hemoglobin A1c 6.4 H (4.5-5.6) % Calcium (8.5-10.1) mg/dl Phosphorus (2.5-4.9) mg/dl Magnesium (1.8-2.4) mg/dl Total Bilirubin (0.2-1) mg/dl AST (15-37) U/L ALT (12-78) U/L Alkaline Phosphatase (45-117) U/L Troponin I (0-0.045) ng/ml Total Protein (6.4-8.2) gm/dl Albumin (3.4-5.0) gm/dl Globulin (2.5-4.0) gm/dl Albumin/Globulin Ratio (0.9-2) (1) Respiratory failure with hypoxia Chronicity: acute Qualified Code(s): J96.01 - Acute respiratory failure with hypoxia (2) CHF (congestive heart failure) Heart failure chronicity: acute Heart failure type: systolic Qualified Code(s): I50.21 - Acute systolic (congestive) heart failure (3) Pneumonia Laterality: unspecified laterality Lung location: unspecified part of lung Pneumonia type: due to unspecified organism Qualified Code(s): J18.9 - Pneumonia, unspecified organism
--- NOTE | 2018-11-04 14:03 | Cardiology Consultation ---
Date of Consultation November 04, 2018 Assessment & Plan (1) Heart block AV second degree: He does have second-degree AV block occasionally on telemetry, in some cases it looks like Mobitz 1 and and others possibly Mobitz 2. These are brief and infrequent. It is not clear at all whether his symptoms of loss of awareness or dozing as he calls it could be due to heart block. He also has been hypoxic at times a looks like he could have sleep apnea which could explain some of the AV block. He is on a very small dose of atenolol, I would discontinue it but I do not know that that has much to do with these episodes. We may have to consider a pacemaker but I have not arranged that as yet but I did mention to him that that is a possibility. Part of it may hinge on whether we think he is losing consciousness or not, and from his history I cannot tell. (2) Edema of both legs: He has bilateral edema, evidently this is chronic. I would however diurese while he is here although we may not be able to get rid of all of it. (3) Arteriosclerosis of coronary artery: He has a history of coronary artery disease but that does not appear to be an active issue at present. His enzymes were negative and his left ventricular function is normal. I would not pursue further evaluation at this time. History of Present Illness Attending Physician: Vy Feliz MD History of Present Illness This is an 81-year-old male with a history of myocardial infarction in the distant past. It may have occurred prior to a catheterization in 1980. He has had preserved left ventricular function. He is maintained on atenolol 25 mg once daily as well as atorvastatin and aspirin, lisinopril and Lasix but no other medications affecting AV steven conduction. He presented here on November 02, 2018 with shortness of breath and sputum production. He was observed to have second-degree AV block on telemetry here and he may have had an episode of syncope a month ago. On my discussion with him it is very difficult to tell whether he has had loss of consciousness or not. He notes sudden dozing off, which could be loss of consciousness, he has not fallen and injured himself and he cannot tell me how frequent or how long these episodes occur. He also has chronic peripheral edema which he feels may have worsened somewhat recently and he has some dyspnea on exertion. He has no exertional chest discomfort. Allergies Allergy/AdvReac Type Severity Reaction Status Date / Time nitrofurantoin Allergy Severe SHORTNESS Verified 06/12/18 10:55 OF BREATH Home Medications Home Medications Medication Instructions Recorded Confirmed Type Plexus slim drink PO DAILY 03/04/18 06/12/18 History acetaminophen ER 650 mg 650 mg PO Q8H PRN 03/04/18 11/02/18 History tablet,extended release albuterol sulfate HFA 90 2 puffs INH Q4H PRN gm 03/04/18 11/02/18 History mcg/actuation aerosol inhaler aspirin 81 mg tablet,delayed 81 mg PO DAILY 03/04/18 11/02/18 History release atenolol 25 mg tablet 25 mg PO DAILY 03/04/18 11/02/18 History atorvastatin 40 mg tablet 40 mg PO DAILY 03/04/18 11/02/18 History cholecalciferol (vitamin D3) 1,000 1,000 units PO DAILY 03/04/18 11/02/18 History unit capsule coenzyme Q10 100 mg capsule 100 mg PO BID cap 03/04/18 06/12/18 History cyanocobalamin (vit B-12) 100 mcg 100 mcg PO DAILY 03/04/18 06/12/18 History tablet dutasteride 0.5 mg capsule 0.5 mg PO DAILY 03/04/18 11/02/18 History furosemide 20 mg tablet 20 mg PO DAILY 03/04/18 11/02/18 History metformin 500 mg tablet 500 mg PO BID 03/04/18 11/02/18 History methenamine hippurate 1 gram tablet 1 gm PO QPM tab 03/04/18 11/02/18 History montelukast 10 mg tablet 10 mg PO DAILY tab 03/04/18 11/02/18 History plexus - bioflex 1 tab PO DAILY 03/04/18 06/12/18 History plexus edge 1 tab PO DAILY 03/04/18 06/12/18 History plexus betsy 1 tab PO DAILY 03/04/18 06/12/18 History potassium chloride ER 10 mEq 10 meq PO DAILY 03/04/18 06/12/18 History tablet,extended release tamsulosin 0.4 mg capsule 0.4 mg PO DAILY 03/04/18 11/02/18 History vitamin E (dl, acetate) 400 unit 400 units PO DAILY 03/04/18 06/12/18 History capsule ibuprofen 600 mg tablet 600 mg PO TID tab 10/21/18 10/21/18 History lisinopril 5 mg tablet 5 mg PO DAILY #30 tab 10/21/18 11/02/18 History calcium carbonate-vitamin D3 1 tab PO BID 11/02/18 11/02/18 History [Oyster Shell Calcium-Vit D3] celecoxib 0 mg PO DAILY 11/02/18 History Patient History Medical History Venous insufficiency (Acute) Solitary thyroid nodule (Acute) Hypertension (Acute) Hypercholesterolemia (Acute) 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) (Acute) Edema of both legs (Acute) Disc degeneration, lumbar (Acute) Diabetes mellitus (Acute) Arthritis (Acute) Arteriosclerosis of coronary artery (Acute) Allergic rhinitis (Acute) Spinal stenosis of lumbar region (Chronic) Myofascial pain (Chronic) Lumbar post-laminectomy syndrome (Chronic) Lumbago (Chronic) Coronary artery disease (Chronic) Chest pain (Acute) Dysuria (Acute) Dysuria (Acute) Interstitial pneumonia (Acute) Shortness of breath (Acute) Shortness of breath (Acute) TIA (transient ischemic attack) (Chronic) Urinary retention with incomplete bladder emptying (Acute) Urinary tract infection (Acute 11/22/13) Word finding difficulty (Acute 06/25/14) Surgical History H/O total hip arthroplasty (Chronic) History of lumbar fusion (Chronic) Social History Preferred Language: Maltese Communication Ability: Effective 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 He is obese. HEENT: Unremarkable Neck: No jugular venous distention, carotid pulses are normal and equal bilaterally without bruits. Pulmonary: Clear to auscultation bilaterally. Cardiac: Regular rhythm with no murmur, gallop or rub. Abdomen: Soft, nontender with normal bowel sounds. Extremities: +2 bilateral pretibial edema. Distal pulses intact. Neurologic: No focal findings. Gait was not tested. Skin: No rash, ecchymoses or petechiae. Results & Data Vital Signs (Past 12 Hours) Vital Signs Temp Pulse Pulse Resp BP BP Pulse Ox 11/04/18 12:00 36.9 C 72 18 127/63 90 11/04/18 11:25 78 18 94 11/04/18 09:04 72 11/04/18 07:27 36.8 C 92 H 21 152/71 H 95 11/04/18 07:09 95 H 20 95 11/04/18 03:12 36.6 C 83 16 146/87 H 96 Diagnostic Findings His electrocardiogram on arrival demonstrates sinus rhythm with a normal FL interval, no significant abnormality. Subsequent electrocardiograms on November 03 and November 04, 2018 are similar. An echocardiogram done on November 03, 2018 shows normal left ventricular size and function with mild left ventricular hypertrophy and mild to moderate pulmonary hypertension. Review of telemetry monitoring shows a quite large heart rate variability consistent with sinus node dysfunction, periods of sinus bradycardia and periods of brief second-degree AV block, some of these appear to be Mobitz 1 and occasionally there is little change in FL interval suggesting Mobitz 2. Additionally there are blocked premature atrial beats.
[2018-11-04] MEDS: TAMSULOSIN HCL 0.4 MG CAP PO SCH (20:44)
[2018-11-04] MEDS: METHENAMINE HIPPURATE 1 GM TAB PO SCH (20:44)
[2018-11-04] MEDS: cefTRIAXone SODIUM 2,000 MG in DEXTROSE 5% 50 ML IV SCH (20:55)
--- NOTE | 2018-11-04 20:56 | Consultation Report ---
DATE OF CONSULTATION: 11/02/2018 REASON FOR CONSULTATION: Coughing/dyspnea/pneumonitis. HISTORY OF PRESENT ILLNESS: An 83-year-old white male with past medical history of diabetes, previous myocardial infarction, ischemic cardiomyopathy, hypertension and TIA, presented to our Emergency Room on 11/02/2018 with worsening symptoms of shortness of breath, fatigue and productive cough that began 5 days prior. The patient has had [place] also taking a cruise in the [place] with a great deal of walking. He has become progressively more dyspneic with leg edema and cough as well as fever. His sputum has turned purulent without hemoptysis. He is compliant to 2 pillow orthopnea along with his pedal edema. He is not on oxygen at home, but he does have symptoms of daytime hypersomnolence and apparently was scheduled for a home nocturnal polysomnograph in late November because of progressive sense of daytime excessive sleepiness, etc. He is a loud snorer. He has been a for 3-1/2 years, and had cared for his now 3-1/2 years ago. Chest x-ray on admission showed cardiomegaly with either fluid overload versus bilateral interstitial inflammatory process. ABGs on room air, pH 7.38, pCO2 of 45, pO2 of 55, was admitted by Dr. Monet on 11/02/2018, felt to be in acute respiratory failure with hypoxia with CHF and pneumonia. He was given IV Lasix in the ER and then placed on a b.i.d. 40 mg IV dosage with potassium supplementation. Aspirin and atenolol were continued. He was placed on IV ceftriaxone and IV azithromycin along with aerosolized bronchodilator. His metformin was held. He has straight catheterized himself at night to keep "his urethra open" and has diminished flow during the day. His respiratory symptoms began shortly after he returned from his cruise in the [place]. Dr. Feliz has assumed patient's care. Last evening, Dr. Feliz found him difficult to arouse as I did when I came into the room, although he was arousable and oriented with some prompting. Echocardiogram shows an LVEF of 65% with LVH, PA diastolic pressure is 19 mm and PA systolic pressure estimated at 45 mmHg which is rated as mild to moderate in reference to pulmonary arterial hypertension. Normal right ventricular size and function. Trace mitral regurgitation noted. Dr. Maxwell saw patient in consultation who felt that his EKG represented both Mobitz type 1 and Mobitz type 2 heart block. He has been transiently hypoxic at times, but is not on home O2 or BiPAP/CPAP. He underwent cardiac catheterization in 1990 following a myocardial infarction. Details of past medical history, medications, family and social history, refer to current and past record. PHYSICAL EXAMINATION: GENERAL: Well-developed, somewhat somnolent but arousable white male, oriented x3, no obvious respiratory distress at rest. VITAL SIGNS: Blood pressure 127/63, pulse 72 and regular, respiratory rate 18, temperature 36.9, O2 sat 90% on room air. SKIN: Without lesion. HEENT: Atraumatic, normocephalic. PERRLA. LUNGS: Scattered rhonchi with some fine rales. CARDIAC: Regular rhythm. I do not appreciate a gallop. ABDOMEN: Soft, protuberant. EXTREMITIES: 2+ pitting edema with chronic stasis changes. Negative Homans sign. NEUROLOGICAL: Cranial nerves II-XII grossly intact. No lateralizing signs. Venous Doppler study yesterday shows no evidence of deep venous thrombosis involving deep venous system of either lower extremity. CTA was reviewed and no evidence of pulmonary thromboembolic disease, cardiomegaly with some emphysema and trace pleural effusions, patchy airspace opacities at the right lung base and diffuse peribronchial thickening suggesting reactive airway disease. There is a 1.7 cm patchy opacity at the right lung base. I suspect this area of consolidation and the hilar lymph nodes are only mildly enlarged. White count on admission was 13,000, H&H 12.3 and 37.8, has come down to 9300 now. PT, PTT, INR within normal limits. ABGs on 11/03/2018, pH 7.30, pCO2 64, pO2 of 76 on room air. Calcium 8.6 on admission. Albumin 3.1. Troponin isoenzymes are negative. PSA 1.9. OVERALL ASSESSMENT: An 83-year-old white male, chronic obstructive pulmonary disease, ischemic and hypertensive cardiomyopathy and admission for what I believe to be biventricular failure, specifically admission for acute hypoxic on chronic hypercarbic respiratory failure secondary to chronic alveolar hypoventilation versus obstructive sleep apnea with cor pulmonale and subsequent pulmonary hypertension and degree of left ventricular decompensation despite well preserved left ventricular function. The patient's hypersomnolence is indicative of his chronic hypercarbia and believe he needs chronic O2 supplementation and BiPAP therapy nocturnally with a full nocturnal polysomnograph to be scheduled at a later date. I agree that there probably is a right basilar pneumonia and may have atelectasis and mucoid impaction to explain the area of consolidation and we will have to make sure that clears an underlying neoplasm would be less likely. We will review current medications, make sure patient is receiving adequate pulmonary toilet and would definitely place O2 therapy with BiPAP nocturnally and p.r.n. during the day.
[2018-11-05] MEDS: HEPARIN SOD 5,000 UNIT/0.5 ML VIAL SQ SCH ×3 (06:11→20:21)
[2018-11-05] MEDS: ALBUT/IPRATROP 3MG/0.5MG NEB 3 ML VIAL NEB SCH ×4 (06:59→19:12)
[2018-11-05] MEDS: guaiFENesin 600 MG TABCR PO SCH ×2 (08:27→20:17)
[2018-11-05] MEDS: ATORVASTATIN 40 MG TAB PO SCH (08:27)
[2018-11-05] MEDS: FUROSEMIDE 20 MG TAB PO SCH (08:28)
[2018-11-05] MEDS: AZITHROMYCIN 250 MG TAB PO SCH (08:28)
[2018-11-05] MEDS: MONTELUKAST SODIUM 10 MG TABLET PO SCH (08:28)
[2018-11-05] MEDS: ASPIRIN 81 MG ECTAB PO SCH (08:28)
[2018-11-05] MEDS: INSULIN ASPART 100 UNITS/ML 3 ML PEN SC SCH ×4 (08:29→20:24)
[2018-11-05] MEDS: CALCIUM 600MG + VIT D 400 IU TAB PO SCH ×2 (08:29→20:17)
[2018-11-05 08:33] LABS: BUN Creatinine Ratio 18.9 (10-20); Calcium 9.1 mg/dl (8.5-10.1); Creatinine Clr Calc Pharmacy 66.7 ml/min; Est GFR (African American) 68.3; Est GFR (Non-African American) 58.9; Magnesium 2.5 mg/dl (1.8-2.4); Potassium 4.3 mmol/L (3.5-5.1)
--- NOTE | 2018-11-05 15:59 | Progress Note ---
DATE: 11/05/2018 PULMONARY MEDICINE PROGRESS NOTE Chart reviewed, the patient examined. SUBJECTIVE: The patient feels much better. He apparently tolerated CPAP with O2 and seems less hypersomnolent today. Sputum is minimal. Oximetry was done last night. The patient was markedly desaturated last night (done on room air ?). OBJECTIVE: VITAL SIGNS: Blood pressure 135/71, pulse 77 and regular, respiratory rate 16, temperature 36.3, O2 sat 94% on room air. SKIN: Warm and dry. HEENT: Atraumatic, normocephalic, PERRLA, EOMI. Conjunctivae pale. Sclerae nonicteric. Fundi benign. Tympanic membranes within normal limits. Pharyngeal exam intact. NECK: Neck veins not distended at 45 degrees. LUNGS: Minimal decreased breath sounds right base. Generally clear. CARDIAC: Regular rate and rhythm. I do not appreciate a gallop. ABDOMEN: Soft, protuberant. EXTREMITIES: +1 pitting edema. No clubbing. Peripheral cyanosis. NEUROLOGIC: Intact. LABORATORY DATA: White count 9300, H and H 11.1 and 35.3 with hyperchromic microcytic indices. The preponderance of polymorphonuclear leukocytes with a slight leftward shift. BUN 22, creatinine 1.1. CTA once again reviewed, mildly enlarged hilar lymph nodes up to 13 mm, scattered subcentimeter mediastinal lymph nodes with 1 subcarinal lymph node measuring 15 mm, emphysematous changes noted, airspace opacity at the right lung base with a 1.7 cm patchy opacity at the right lung base, on image 06/24, dependent atelectasis was noted. Mild diffuse peribronchial thickening. OVERALL ASSESSMENT: An 83-year-old presents with acute hypoxemic and hypercarbic on chronic respiratory failure. In my opinion, he has chronic alveolar hypoventilation with cor pulmonale/obstructive sleep apnea and would definitely benefit from CPAP with O2 nocturnally. Preferentially, BiPAP therapy with oxygen would see more appropriate for a patient with chronic alveolar hypoventilation. I have witnessed his daytime hypersomnolence and I believe historically this has been an issue for him for many years. He does have over 30-40 pack year smoking history, having quit in the remote past and will need further followup of the right basilar area of atelectasis and opacity, I suspect this is basically just that atelectasis with a degree of mucoid impaction, but certainly one given his strong smoking history, cannot rule out a neoplastic process. I believe, the area in question is so medial and posterior that it will not be visible by routine plain chest radiograph. Therefore, he will need followup as an outpatient, both for his hypoventilatory issues and for possible bronchoscopic intervention. We will follow along with you.
--- NOTE | 2018-11-05 16:47 | Cardiology Progress Note ---
Date of Service November 05, 2018 Assessment & Plan (1) Heart block AV second degree: I reviewed his telemetry over the past 24 hours could not find any good examples of significant heart block. Clearly he has episodes of bradycardia and likely some blocked PACs on occasion. This could be consistent with a diagnosis of obstructive sleep apnea. It seems more likely that the episodes he describes as �loss of awareness� arm related to his hypercapnia or hypoxia. He was ambulatory around the fuller today without significant symptom. His baseline EKG demonstrates normal MA interval and QRS duration which is less suggestive of infra Hisian disease. I agree with discontinuation of his atenolol. In the absence of more convincing symptoms or more significant episodes of heart block on monitoring do not believe there is a current indication for a permanent pacemaker. (2) Edema of both legs: Perhaps mildly improved. Given the objective data, specifically his N terminal proBNP and echocardiographic findings, I do not believe this is likely heart failure. He may have pulmonary hypertension and associated high right- sided pressures. He also likely has an element of venous insufficiency. Continue diuresis seems reasonable. (3) Arteriosclerosis of coronary artery: He has a very remote history of a possible infarct, but has not had other evidence of prior infarct on imaging studies. He has no symptoms currently to suggest coronary insufficiency or angina. Subjective Seven new the patient claims to be feeling quite well. He report ambulating a round the fuller on 2 occasions with a cane. He did not report limiting dyspnea. He has not had any of his typical events where he has �loss of awareness�. Review of Systems Review of Systems: Per HPI Physical Exam Physical Exam: The patient is alert and oriented. Mood and affect appeared normal. He answered all questions appropriately. HEENT: Pupils are equal and reactive to light and accommodation. Extraocular movements are intact. The sclerae are anicteric. Neuro: Cranial nerves intact Neck: Patient's neck is supple. He has palpable carotid pulses bilaterally without bruits on auscultation. There is no evidence of jugular venous distention. The thyroid is not enlarged. Lungs: Clear to auscultation bilaterally. He has good air movement without use of accessory muscles. No rales wheezes or rhonchi. Cardiac: Heart demonstrates a regular rate and rhythm. Normal S1 and S2. No murmurs on examination. Pulses: The patient has palpable radial pulses bilaterally that are equal in intensity Extremities: There was no evidence of hypoperfusion. There is no cyanosis or clubbing. He has moderate lower extremity edema to the knees bilaterally Skin: I did not appreciate any rashes on examination today. He has several ecchymoses on his arms Results & Data Vital Signs (Past 12 Hours) Vital Signs Temp Pulse Pulse Pulse Pulse Resp Resp 11/05/18 16:08 94 H 16 11/05/18 15:09 36.9 C 72 20 11/05/18 14:41 97 H 94 H 16 11/05/18 14:13 11/05/18 11:39 77 16 11/05/18 11:37 36.3 C L 73 17 11/05/18 07:40 89 11/05/18 07:26 36.5 C 87 21 11/05/18 07:00 78 18 Resp BP Pulse Ox Pulse Ox Pulse Ox 11/05/18 16:08 90 11/05/18 15:09 138/74 92 11/05/18 14:41 16 90 90 11/05/18 14:13 94 11/05/18 11:39 11/05/18 11:37 135/71 94 11/05/18 07:40 11/05/18 07:26 171/81 H 92 11/05/18 07:00 92 Laboratory Results Abnormal Lab Results 11/04/18 11/04/18 11/05/18 16:17 19:51 07:06 Sodium Potassium Chloride Carbon Dioxide Anion Gap BUN Creatinine Est Cr Clr Drug Dosing Est GFR ( Amer) Est GFR (Non-Af Amer) BUN/Creatinine Ratio Glucose POC Glucose 125 H 120 H 133 H Calcium Magnesium 11/05/18 11/05/18 11/05/18 07:12 11:25 16:11 Sodium 139 Potassium 4.3 Chloride 103 Carbon Dioxide 29 Anion Gap 6.0 BUN 22 H Creatinine 1.15 Est Cr Clr Drug Dosing 66.7 Est GFR ( Amer) 68.3 Est GFR (Non-Af Amer) 58.9 BUN/Creatinine Ratio 18.9 Glucose 125 H POC Glucose 116 H 144 H Calcium 9.1 Magnesium 2.5 H Diagnostic Findings Echocardiogram revealed preserved LV systolic function. Ventricular function was also felt to be normal ECG Additional Comments: Telemetry revealed some bradycardia over the course of the evening but no definite heart block.
--- NOTE | 2018-11-05 17:15 | Hospitalist Progress Note ---
Date of Service November 05, 2018 Assessment & Plan (1) Respiratory failure with hypoxia: Acute respiratory failure with hypoxia-initially felt to be secondary to acute CHF and pneumonia. Normal proBNP argues against CHF. ECHO with preserved LVEF, with moderate Pulm HTN He definitely has pneumonia present on chest x-ray, by clinical exam, and by CT of the chest, along with some mediastinal lymphadenopathy He ruled out for pulmonary embolism based on CT angiogram chest Now weaned off O2 at rest and also no O2 needed w/ exertion Developed acute respiratory failure with hypercapnia on evening of 11/03 with ABG 7. with AMS With hypercapnia and nocturnal hypoxia, he has a diagnosis of ANNABELLE and obesity hypoventilation syndrome Improved now after being on BiPAP for a few hours Repeat VBG improved -will need BiPAP at home with 2LNC for ANNABELLE/OHS-[employer] working on this -continue BiPAP qhs here -Appreciate Pulm consultation-recommends BiPAP with O2 and outpatient f/u with Pulm/Sleep Medicine -Pulmonary toilet -Continue to treat for pneumonia as below (2) CHF (congestive heart failure): Suspected acute CHF upon admission. As above, normal proBNP argues against this. He does have significant bilateral lower extremity edema, but has also had extensive long distance travel over the last 2 months-ruled out DVT Likely just dependent edema Given Lasix 40 mg IV in the ED and some improvement -restarted home po lasix daily Hold potassium chloride from home echocardiogram with preserved EF and with {Pulm HTN secondary to untreated ANNABELLE/OHS most likely -Follow I's and O's, daily weights (3) Pneumonia: Confirmed on chest CT which showed patchy airspace opacities are present the right lung base, mild diffuse peribronchial thickening suggests reactive air disease and a more focal 1.7 cm patchy opacity at the right lung base. This likely represents a component of the consolidation. Also with mildly enlarged hilar lymph nodes Improving clinically, afebrile, mild cough, exam is improved -Radiology recommends a 3-4 month follow-up chest CT is recommended to document resolution. -Pulm also recommends possible bronchoscopic eval as outpt given h/o smoking -Continue ceftriaxone at increased dose due to his obesity at 2 g IV daily- day#4. -Continue azithromycin 250 mg po daily-day#4 -Continue guaifenesin extended release 600 mg p.o. twice daily -Continue Duonebs every 4 hours while awake and every 2 hours when necessary. (4) Hypertension: BPs mildly elevated now that he is off atenolol for bradycardia -continue lasix -restart home lisinopril but increase to 10mg daily (5) Hypercholesterolemia: Stable -Continue atorvastatin 40 mg daily. (6) 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): No retention symptoms at this time. Self-caths every night at home and takes methanamine for suppression -Now Ordonez in place during period of AMS-will leave in at pt's request -Continue dutasteride if can be brought in from home, and tamsulosin. -restarted methanamine (7) Diabetes mellitus: Controlled Hemoglobin A1c 6.4% Hold metformin Patient Accu-Cheks before meals and at bedtime with NovoLog coverage per scale. (8) Coronary artery disease: No evidence of ACS at this time -Continue aspirin, statin, holding beta-pacheco (9) Heart block AV second degree: Thought initially to be 2nd degree block on tele with Mobitz II, but Dr. Harvey feels these may be more like blocked PACs especially in setting of untreated ANNABELLE -no indication for pacer -continue tele monitoring -discontinued atenolol (10) Bradycardia: as above, blocked PACs secondary to ANNABELLE/OHS (11) Pulmonary hypertension: moderate on ECHO, secondary to untreated severe ANNABELLE/OHS -continue BiPAP qhs and diuretics (12) ANNABELLE (obstructive sleep apnea): as above (13) DVT prophylaxis: Heparin SQ Dispo-PT/OT evals ordered-PT recommending short stay at a rehab, OT not done yet Pt now feels he will likely be strong enough to go home from here tomorrow Possible discharge tomorrow Subjective Feeling much better today. Failed his overnight oximetry. Coughing but not much coming up. Walked the halls today with PT and with RT and did not need O2. Tele with NSR, rates in the 70s, PVCs, blocked PACs vs Mobitz II? Cardiology thinks blocked PACs Review of Systems Review of Systems: All systems reviewed & are unremarkable except as noted in HPI & below Physical Exam Constitutional: WD/WN, vitals as above Eyes: PERRL, conjunctivae normal, anicteric sclerae Neck: trachea midline, no thyromegaly Respiratory: normal respiratory effort Auscultation: + crackles (At the left base only today); no rhonchi and no wheezes Cardiovascular: Rate/Rhythm: regular rate and regular rhythm Extremities: + edema (1+ pitting edema legs bilat improved) Gastrointestinal (Abdomen): normal bowel sounds, soft, nontender, no hepatosplenomegaly Musculoskeletal: Extremities: extremities normal to inspection; no cyanosis and no clubbing Skin: no rashes, warm and dry Neurologic: moves all extremities and awake; no focal motor deficits Psychiatric: A+Ox3, euthymic affect Results & Data Vital Signs (Past 12 Hours) Vital Signs Temp Pulse Pulse Pulse Pulse Resp Resp 11/05/18 16:08 94 H 16 11/05/18 15:09 36.9 C 72 20 11/05/18 14:41 97 H 94 H 16 11/05/18 14:13 11/05/18 11:39 77 16 11/05/18 11:37 36.3 C L 73 17 11/05/18 07:40 89 11/05/18 07:26 36.5 C 87 21 11/05/18 07:00 78 18 Resp BP Pulse Ox Pulse Ox Pulse Ox 11/05/18 16:08 90 11/05/18 15:09 138/74 92 11/05/18 14:41 16 90 90 11/05/18 14:13 94 11/05/18 11:39 11/05/18 11:37 135/71 94 11/05/18 07:40 11/05/18 07:26 171/81 H 92 11/05/18 07:00 92 Laboratory Results 11/05/18 11/05/18 11/05/18 Range/Units 20:23 16:11 11:25 Sodium (136-145) mmol/L Potassium (3.5-5.1) mmol/L Chloride (98-107) mmol/L Carbon Dioxide (21-32) mmol/L Anion Gap (3-11) BUN (7-18) mg/dl Creatinine (0.6-1.4) mg/dl Est Cr Clr Drug Dosing ml/min Est GFR ( Amer) Est GFR (Non-Af Amer) BUN/Creatinine Ratio (10-20) Glucose (70-99) mg/dl POC Glucose 137 H 144 H 116 H (70-99) Calcium (8.5-10.1) mg/dl Magnesium (1.8-2.4) mg/dl 11/05/18 11/05/18 Range/Units 07:12 07:06 Sodium 139 (136-145) mmol/L Potassium 4.3 (3.5-5.1) mmol/L Chloride 103 (98-107) mmol/L Carbon Dioxide 29 (21-32) mmol/L Anion Gap 6.0 (3-11) BUN 22 H (7-18) mg/dl Creatinine 1.15 (0.6-1.4) mg/dl Est Cr Clr Drug Dosing 66.7 ml/min Est GFR ( Amer) 68.3 Est GFR (Non-Af Amer) 58.9 BUN/Creatinine Ratio 18.9 (10-20) Glucose 125 H (70-99) mg/dl POC Glucose 133 H (70-99) Calcium 9.1 (8.5-10.1) mg/dl Magnesium 2.5 H (1.8-2.4) mg/dl Diagnostic Findings Overnight Oximetry with severe hypoxia with 228 minutes at POx<88% and minimum POx of 67% (1) Respiratory failure with hypoxia Chronicity: acute Qualified Code(s): J96.01 - Acute respiratory failure with hypoxia (2) CHF (congestive heart failure) Heart failure chronicity: acute Heart failure type: systolic Qualified Code(s): I50.21 - Acute systolic (congestive) heart failure (3) Pneumonia Laterality: unspecified laterality Lung location: unspecified part of lung Pneumonia type: due to unspecified organism Qualified Code(s): J18.9 - Pneumon ia, unspecified organism
[2018-11-05] MEDS: AVODART~ORDER AWAITING ACTION SCH ×2 (18:51→21:30)
[2018-11-05] MEDS: TAMSULOSIN HCL 0.4 MG CAP PO SCH (20:16)
[2018-11-05] MEDS: METHENAMINE HIPPURATE 1 GM TAB PO SCH (20:16)
[2018-11-05] MEDS: cefTRIAXone SODIUM 2,000 MG in DEXTROSE 5% 50 ML IV SCH (20:20)
[2018-11-06] MEDS: HEPARIN SOD 5,000 UNIT/0.5 ML VIAL SQ SCH ×3 (05:59→20:34)
[2018-11-06] MEDS: ALBUT/IPRATROP 3MG/0.5MG NEB 3 ML VIAL NEB SCH ×4 (07:30→19:27)
[2018-11-06] MEDS: FUROSEMIDE 20 MG TAB PO SCH (07:50)
[2018-11-06] MEDS: MONTELUKAST SODIUM 10 MG TABLET PO SCH (07:50)
[2018-11-06] MEDS: ASPIRIN 81 MG ECTAB PO SCH (07:50)
[2018-11-06] MEDS: AZITHROMYCIN 250 MG TAB PO SCH (07:50)
[2018-11-06] MEDS: ATORVASTATIN 40 MG TAB PO SCH (07:50)
[2018-11-06] MEDS: AVODART~ORDER AWAITING ACTION SCH ×3 (07:51→23:45)
[2018-11-06] MEDS: CALCIUM 600MG + VIT D 400 IU TAB PO SCH ×2 (07:51→20:33)
[2018-11-06] MEDS: guaiFENesin 600 MG TABCR PO SCH ×2 (07:51→20:33)
[2018-11-06] MEDS: LISINOPRIL 10 MG TAB PO SCH (07:51)
[2018-11-06] MEDS: INSULIN ASPART 100 UNITS/ML 3 ML PEN SC SCH ×4 (07:52→20:35)
[2018-11-06 11:12] LABS: BUN Creatinine Ratio 16.8 (10-20); Calcium 8.9 mg/dl (8.5-10.1); Creatinine Clr Calc Pharmacy 66.2 ml/min; Est GFR (African American) 68.3; Est GFR (Non-African American) 58.9; Potassium 4.3 mmol/L (3.5-5.1)
[2018-11-06 11:16] LABS: Prostate Specific Antigen 14.3 ng/ml (0-4)
--- NOTE | 2018-11-06 16:38 | Hospitalist Progress Note ---
Date of Service November 06, 2018 Assessment & Plan (1) Respiratory failure with hypoxia: Acute respiratory failure with hypoxia-initially felt to be secondary to acute CHF and pneumonia. Normal proBNP argues against CHF. ECHO with preserved LVEF, with moderate Pulm HTN He definitely has pneumonia present on chest x-ray, by clinical exam, and by CT of the chest, along with some mediastinal lymphadenopathy He ruled out for pulmonary embolism based on CT angiogram chest Now weaned off O2 at rest and also no O2 needed w/ exertion Developed acute respiratory failure with hypercapnia on evening of 11/03 with ABG 7./ with AMS With hypercapnia and nocturnal hypoxia, he has a diagnosis of ANNABELLE and obesity hypoventilation syndrome. 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 As above, normal proBNP argues against this. He does have significant bilateral lower extremity edema, but has also had extensive long distance travel over the last 2 months-ruled out DVT Likely just dependent edema Given Lasix 40 mg IV in the ED and some improvement -Continue home po lasix daily Hold potassium chloride from home as has not needed echocardiogram with preserved EF and with Pulm HTN secondary to untreated ANNABELLE/OHS and COPD -Follow I's and O's, daily weights (3) Pneumonia: Confirmed on chest CT which showed patchy airspace opacities are present the right lung base, mild diffuse peribronchial thickening suggests reactive air disease and a more focal 1.7 cm patchy opacity at the right lung base. This likely represents a component of the consolidation. Also with mildly enlarged hilar lymph nodes Much improved clinically, afebrile, mild cough, exam is improved -Radiology recommends a 3-4 month follow-up chest CT is recommended to document resolution. -Pulm also recommends possible bronchoscopic eval as outpt given h/o smoking -Continue ceftriaxone at increased dose due to his obesity at 2 g IV daily-day#5 and then will switch to Omnicef for discharge to complete a 7-day course. -Continue azithromycin 250 mg po daily-day#5 of 5 -Continue guaifenesin extended release 600 mg p.o. twice daily -Continue Duonebs every 4 hours while awake and every 2 hours when necessary. (4) Hypertension: BPs remain mildly elevated now that he is off atenolol for bradycardia -continue lasix -Continue lisinopril at increased dose from home of 10 mg daily (5) Hypercholesterolemia: Stable -Continue atorvastatin 40 mg daily. (6) 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): No retention symptoms at this time. Self-caths every night at home and takes methanamine for suppression -Now Ordonez in place during period of AMS-will leave in at pt's request -Continue dutasteride if can be brought in from home, and tamsulosin. -Continue suppressive methanamine With elevated PSA here at 14 most likely secondary to indwelling Ordonez catheter and recent catheterization -Recommend repeating PSA when does not have an indwelling Ordonez catheter, keep follow-up appointment in the near future with urology (7) Diabetes mellitus: Controlled Hemoglobin A1c 6.4% -Continue holding metformin Patient Accu-Cheks before meals and at bedtime with NovoLog coverage per scale. (8) Coronary artery disease: No evidence of ACS at this time -Continue aspirin, statin, holding beta-pacheco (9) Heart block AV second degree: Thought initially to be 2nd degree block on tele with Mobitz II, but Dr. Harvey feels these may be more like blocked PACs especially in setting of untreated ANNABELLE -no indication for pacer -continue tele monitoring -discontinued atenolol (10) Bradycardia: as above, blocked PACs secondary to ANNABELLE/OHS -Discontinued atenolol No further bradycardia since beta-pacheco has been held -Stable for transfer off of telemetry unit (11) Pulmonary hypertension: moderate on ECHO, secondary to untreated severe ANNABELLE/OHS and COPD -continue BiPAP qhs and diuretics (12) ANNABELLE (obstructive sleep apnea): as above (13) Elevated PSA: PSA 14.3 with plan as above (14) COPD (chronic obstructive pulmonary disease): With emphysema seen on CT scan, extensive smoking history, and CO2 retention, most likely consistent with diagnosis of COPD -Follow-up with pulmonary as an outpatient -Recommend formal pulmonary function testing as an outpatient (15) DVT prophylaxis: Heparin SQ Dispo-PT/OT evals ordered-and recommending short stay at a rehab Patient now desires to go home and is doing well enough to do so, awaiting ap proval of BiPAP Hopefully discharged home tomorrow with home health Stable for transfer off of telemetry unit today Subjective Patient reports feeling much improved today. Denies shortness of breath. Has minimal cough. He denied chest pain. He was actually able to tolerate the BiPAP he thinks for most of the night. He is eating well. He has ambulated ar ound the halls. I discussed his case with the respiratory therapist from the [employer] who said that he does not qualify for BiPAP until he has a repeat overnight oximetry test on 2 L of nasal cannula Patient then later stated that he was not quite ready to go home. He will stay another night. He is also requesting that his PSA be drawn while he is here. Telemetry with normal sinus rhythm, rates in the 70s, PVCs. Review of Systems Review of Systems: All systems reviewed & are unremarkable except as noted in HPI & below Physical Exam Constitutional: WD/WN, vitals as above Eyes: PERRL, conjunctivae normal, anicteric sclerae Neck: trachea midline, no thyromegaly Respiratory: normal respiratory effort Auscultation: + crackles (At the right base only today); no rhonchi and no wheezes Cardiovascular: Rate/Rhythm: regular rate and regular rhythm Extremities: + edema (1+ pitting edema legs bilat improved) Gastrointestinal (Abdomen): normal bowel sounds, soft, nontender, no hepatosplenomegaly Musculoskeletal: Extremities: extremities normal to inspection; no cyanosis and no clubbing Skin: no rashes, warm and dry Neurologic: moves all extremities and awake; no focal motor deficits Psychiatric: A+Ox3, euthymic affect Results & Data Vital Signs (Past 12 Hours) Vital Signs Temp Pulse Resp BP BP Pulse Ox Pulse Ox 11/06/18 15:31 36.6 C 70 18 124/67 91 11/06/18 15:20 71 16 91 11/06/18 12:59 90 11/06/18 11:29 37.0 C 77 19 143/75 H 99 11/06/18 11:14 79 16 93 11/06/18 07:30 89 18 94 11/06/18 07:15 36.6 C 65 19 141/69 H 92 Pulse Ox 11/06/18 15:31 11/06/18 15:20 11/06/18 12:59 92 11/06/18 11:29 11/06/18 11:14 11/06/18 07:30 11/06/18 07:15 Laboratory Results 11/06/18 11/06/18 11/06/18 Range/Units 20:30 16:23 11:15 Sodium (136-145) mmol/L Potassium (3.5-5.1) mmol/L Chloride (98-107) mmol/L Carbon Dioxide (21-32) mmol/L Anion Gap (3-11) BUN (7-18) mg/dl Creatinine (0.6-1.4) mg/dl Est Cr Clr Drug Dosing ml/min Est GFR ( Amer) Est GFR (Non-Af Amer) BUN/Creatinine Ratio (10-20) Glucose (70-99) mg/dl POC Glucose 116 H 98 102 H (70-99) Calcium (8.5-10.1) mg/dl Prostate Specific Ag (0-4) ng/ml 11/06/18 11/06/18 Range/Units 10:39 07:14 Sodium 138 (136-145) mmol/L Potassium 4.3 (3.5-5.1) mmol/L Chloride 103 (98-107) mmol/L Carbon Dioxide 31 (21-32) mmol/L Anion Gap 4.0 (3-11) BUN 19 H (7-18) mg/dl Creatinine 1.15 (0.6-1.4) mg/dl Est Cr Clr Drug Dosing 66.2 ml/min Est GFR ( Amer) 68.3 Est GFR (Non-Af Amer) 58.9 BUN/Creatinine Ratio 16.8 (10-20) Glucose 99 (70-99) mg/dl POC Glucose 129 H (70-99) Calcium 8.9 (8.5-10.1) mg/dl Prostate Specific Ag 14.300 H (0-4) ng/ml (1) Respiratory failure with hypoxia Chronicity: acute Qualified Code(s): J96.01 - Acute respiratory failure with hypoxia (2) CHF (congestive heart failure) Heart failure chronicity: acute Heart failure type: systolic Qualified Code(s): I50.21 - Acute systolic (congestive) heart failure (3) Pneumonia Laterality: unspecified laterality Lung location: unspecified part of lung Pneumonia type: due to unspecified organism Qualified Code(s): J18.9 - Pneumonia, unspecified organism
[2018-11-06] MEDS: METHENAMINE HIPPURATE 1 GM TAB PO SCH (20:32)
[2018-11-06] MEDS: TAMSULOSIN HCL 0.4 MG CAP PO SCH (20:33)
[2018-11-06] MEDS: cefTRIAXone SODIUM 2,000 MG in DEXTROSE 5% 50 ML IV SCH (22:40)
[2018-11-07] MEDS: HEPARIN SOD 5,000 UNIT/0.5 ML VIAL SQ SCH ×2 (05:26→13:37)
[2018-11-07] MEDS: ALBUT/IPRATROP 3MG/0.5MG NEB 3 ML VIAL NEB SCH ×2 (07:12→11:14)
[2018-11-07] MEDS: CALCIUM 600MG + VIT D 400 IU TAB PO SCH (08:33)
[2018-11-07] MEDS: guaiFENesin 600 MG TABCR PO SCH (08:33)
[2018-11-07] MEDS: AVODART~ORDER AWAITING ACTION SCH (08:33)
[2018-11-07] MEDS: FUROSEMIDE 20 MG TAB PO SCH (08:33)
[2018-11-07] MEDS: ATORVASTATIN 40 MG TAB PO SCH (08:33)
[2018-11-07] MEDS: MONTELUKAST SODIUM 10 MG TABLET PO SCH (08:34)
[2018-11-07] MEDS: ASPIRIN 81 MG ECTAB PO SCH (08:34)
[2018-11-07] MEDS: LISINOPRIL 10 MG TAB PO SCH (08:34)
[2018-11-07] MEDS: AZITHROMYCIN 250 MG TAB PO SCH (08:34)
[2018-11-07] MEDS: INSULIN ASPART 100 UNITS/ML 3 ML PEN SC SCH ×2 (08:35→13:35)
--- NOTE | 2018-11-07 14:47 | Discharge Summary ---
Date of Service November 07, 2018 Admission HPI Per Admitting Provider The patient is a 83-year-old male with a past medical history including diabetes mellitus, hypercholesterolemia, hypertension, CAD, TIA, BPH with LUTS, who began to develop respiratory problems upon returning from an extended trip. He reports that he spent 2 weeks at a daughter's residence in [place], then 2 weeks that never got his residence in [place], that 2 weeks at a son's residence [place], then he flew to [place] and went on a cruise ship, he then flew back on a plane to [place], and developed the above respiratory symptoms. He is also noted increased swelling in his legs, but is unaware of any change in dietary intake, in particular sodium. Principal Diagnosis Acute hypoxic and hypercapnic respiratory failure, Pneumonia Discharge Exam Constitutional WD/WN, vitals as above Eyes PERRL, conjunctivae normal, anicteric sclerae Neck trachea midline, no thyromegaly Respiratory normal respiratory effort Auscultation: + crackles (At the right base only today); no rhonchi and no wh eezes Cardiovascular Rate/Rhythm: regular rate and regular rhythm Extremities: + edema (1+ pitting edema legs bilat improved) Gastrointestinal (Abdomen) normal bowel sounds, soft, nontender, no hepatosplenomegaly Musculoskeletal Extremities: extremities normal to inspection; no cyanosis and no clubbing Skin no rashes, warm and dry Neurologic moves all extremities and awake; no focal motor deficits Psychiatric A+Ox3, euthymic affect Discharge Data Allergies Allergy/AdvReac Type Severity Reaction Status Date / Time nitrofurantoin Allergy Severe SHORTNESS Verified 06/12/18 10:55 OF BREATH Consultations 11/02/18 21:31 ED Decision to Admit Stat 11/03/18 00:33 Consult Case Management - Discharge Planning Routine 11/03/18 02:09 Consult Case Management - Discharge Planning Routine 11/04/18 11:32 Consult Cardiology Routine 11/04/18 11:48 Consult Pulmonology Routine 11/04/18 12:06 Consult Case Management - Discharge Planning Routine Ordered Studies 11/03/18 08:52 CT angio chest PE protocol Urgent 11/03/18 11:14 US venous doppler LE BI Urgent 11/03/18 21:14 CT head/brain wo con Stat CXR ECHO Hospital Course (1) Respiratory failure with hypoxia: Acute respiratory failure with hypoxia-initially felt to be secondary to acute CHF and pneumonia. Normal proBNP argues against CHF. ECHO with preserved LVEF, with moderate Pulm HTN He definitely has pneumonia present on chest x-ray, by clinical exam, and by CT of the chest, along with some mediastinal lymphadenopathy He ruled out for pulmonary embolism based on CT angiogram chest Now weaned off O2 at rest and also no O2 needed w/ exertion Developed acute respiratory failure with hypercapnia on evening of 11/03 with ABG 7./ with AMS With hypercapnia and nocturnal hypoxia, he has a diagnosis of ANNABELLE and obesity hypoventilation syndrome. He also has a previous history of smoking extensively and has evidence of emphysema on his chest CT and therefore likely also has a diagnosis of COPD Improved now after being on BiPAP for a few hours Repeat VBG improved CPAP is not an option for pt due to COPD and chronic respiratory failure -will need BiPAP at home with 2LNC for COPD/ANNABELLE/OHS -Appreciate Pulm consultation-recommends BiPAP with O2 and outpatient f/u with Pulm/Sleep Medicine - treated for pneumonia as below (2) CHF (congestive heart failure): Suspected acute CHF upon admission. As above, normal proBNP argues against this. He does have significant bilateral lower extremity edema, but has also had extensive long distance travel over the last 2 months-ruled out DVT Likely just dependent edema, but also with Pulmonary HTN on ECHO Given Lasix 40 mg IV in the ED and some improvement -Continue home po lasix 20mg daily Echocardiogram with preserved EF and with Pulm HTN secondary to untreated ANNABELLE/OHS and COPD (3) Pneumonia: Confirmed on chest CT which showed patchy airspace opacities are present the right lung base, mild diffuse peribronchial thickening suggests reactive air disease and a more focal 1.7 cm patchy opacity at the right lung base. This likely represents a component of the consolidation. Also with mildly enlarged hilar lymph nodes Much improved clinically, afebrile, mild cough, exam is improved -Radiology recommends a 3-4 month follow-up chest CT is recommended to document resolution. -Pulm also recommends possible bronchoscopic eval as outpt given h/o smoking -Continue ceftriaxone at increased dose due to his obesity at 2 g IV daily-day#6 and then will switch to Omnicef for discharge to complete a 7-day course. -completed azithromycin 250 mg po daily x 5 days -treated with guaifenesin extended release 600 mg p.o. twice daily -received Dukeonebs every 4 hours while awake and every 2 hours when necessary. (4) Hypertension: BPs controlled with increasing lisinopril dose to 10mg daily after discontinuing atenolol for bradycardia -continue lasix (5) Hypercholesterolemia: Stable -Continue atorvastatin 40 mg daily. (6) 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): No retention symptoms at this time. Self-caths every night at home and takes methanamine for suppression -had Ordonez in place during hospitalization and discontinued prior to discharge -Continue dutasteride and tamsulosin. -Continue suppressive methanamine With elevated PSA here at 14 most likely secondary to indwelling Ordonez catheter and recent catheterization -Recommend repeating PSA when does not have an indwelling Ordonez catheter, keep follow-up appointment in the near future with urology (7) Diabetes mellitus: Controlled Hemoglobin A1c 6.4% restart metformin upon discharge Was given SSI while here (8) Coronary artery disease: No evidence of ACS at this time -Continue aspirin, statin, holding beta-pacheco -consider restarting a beta pacheco, perhaps metoprolol instead of atenolol in the future once adequately treated for his ANNABELLE/OHS which may have been contributing to his bradycardia -defer addition of beta pacheco to PCP (9) Heart block AV second degree: Thought initially to be 2nd degree block on tele with Mobitz II, but Dr. Harvey feels these may be more like blocked PACs especially in setting of unt reated ANNABELLE -no indication for pacer -discontinued atenolol and had no further episodes on tele (10) Bradycardia: as above, blocked PACs secondary to ANNABELLE/OHS -Discontinued atenolol No further bradycardia since beta-pacheco has been held (11) Pulmonary hypertension: moderate on ECHO, secondary to untreated severe ANNABELLE/OHS and COPD -continue BiPAP qhs and diuretics (12) ANNABELLE (obstructive sleep apnea): as above BiPAP ordered with 2L O2 CPAP is not an option for pt due to COPD and chronic respiratory failure (13) Elevated PSA: PSA 14.3 with plan as above (14) COPD (chronic obstructive pulmonary disease): With emphysema seen on CT scan, extensive smoking history, and CO2 retention, most likely consistent with diagnosis of COPD -Follow-up with pulmonary as an outpatient -Recommend formal pulmonary function testing as an outpatient (15) DVT prophylaxis: Heparin SQ was provided Dispo-PT/OT antonella ordered-and recommending short stay at a rehab Patient now desires to go home and is doing well enough to do so Stable for dc to home Total Time Total Time Spent Total Time Spent (In Minutes): >30 min Total Time Includes: Examination of the Patient, Discharge Planning and Medication Reconciliation Discharge Plan Discharge Items Patient Disposition: Home - Home Health Services Reason For Visit: ACUTE RESP FAILURE W/HYPOXIA,CHF EXACERBATION, Discharge Diagnosis: Pneumonia, Acute hypoxic and hypercapnic respiratory failure Condition: Good Discharge Goals: Decrease discomfort, Diagnostic testing, Improve disease control, Improve function, Learn about illness and Therapeutic intervention Activity: Resume your previous activity Lifting: Gradually increase as tolerated Bathing: No limitations Exercise/Sports: Gradually increase as tolerated Non-emergency contact: Primary Care Provider and Piano Mover Call non-emergency contact if: you have any medication questions and your symptoms worsen Follow-up/Referrals: Jagdish Davison MD [Physician] - (Please call to schedule a follow up appointment within 2-3 weeks. You will need a repeat CT Chest in 3 months to ensure your pneumonia and enlarged lymph nodes are resolved.) Jeancarlos Rosen III, CRNP [Primary Care Provider] - (Notified MARKO Roesn's office that you will need a follow-up appointment within the next week. A task was sent to the nurse. You will be receiving a call from the nurse with your appointment date and time. Please call your PCP's office with any questions or concerns.) Diet: Carb Consistent or DM2 and Low Sodium (2gm) Addtl Provider Instructions: Please finish out the course of antibiotics for your pneumonia as prescribed. You were also set up with a BiPAP along with supplemental oxygen to connect to the BiPAP. This should be used every night for sleep and with any naps. Your atenolol was stopped as it was making your heart rate go too low. Please follow up with Dr. Davison of Pulmonology within 2-3 weeks. You will need a repeat CT scan of the chest in 3 months or at his discretion. Please also follow up with your PCP. Prescriptions: New cefdinir 300 mg capsule 300 mg PO BID Qty: 4 RF: 0 Continued atorvastatin [Lipitor] 40 mg tablet 40 mg PO DAILY RF: 0 metformin [Glucophage] 500 mg tablet 500 mg PO BID RF: 0 cyanocobalamin (vitamin B-12) 100 mcg tablet 100 mcg PO DAILY RF: 0 potassium chloride [Klor-Con 10] 10 mEq tablet extended release 10 meq PO DAILY RF: 0 aspirin [Adult Low Dose Aspirin] 81 mg tablet,delayed release (DR/EC) 81 mg PO DAILY RF: 0 acetaminophen 650 mg tablet extended release 650 mg PO Q8H PRN (Reason: Pain) RF: 0 methenamine hippurate 1 gram tablet 1 gm PO QPM RF: 0 tamsulosin [Flomax] 0.4 mg capsule 0.4 mg PO DAILY RF: 0 montelukast 10 mg tablet 10 mg PO DAILY RF: 0 furosemide 20 mg tablet 20 mg PO DAILY RF: 0 albuterol sulfate [Proventil HFA] 90 mcg/actuation HFA aerosol inhaler 2 puffs INH Q4H PRN (Reason: Shortness Of Breath Or Wheezing) RF: 0 cholecalciferol (vitamin D3) 1,000 unit capsule 1,000 units PO DAILY RF: 0 coenzyme Q10 100 mg capsule 100 mg PO BID RF: 0 dutasteride [Avodart] 0.5 mg capsule 0.5 mg PO DAILY RF: 0 vitamin E (dl, acetate) 400 unit capsule 400 units PO DAILY RF: 0 Plexus slim drink PO DAILY RF: 0 plexus - bioflex 1 tab PO DAILY RF: 0 plexus edge 1 tab PO DAILY RF: 0 plexus betsy 1 tab PO DAILY RF: 0 calcium carbonate-vitamin D3 [Oyster Shell Calcium-Vit D3] 500 mg(1,250mg) - 200 unit tablet 1 tab PO BID RF: 0 celecoxib 200 mg capsule PO DAILY RF: 0 Changed lisinopril 5 mg tablet 10 mg PO DAILY Qty: 30 RF: 0 Discontinued atenolol 25 mg tablet 25 mg PO DAILY RF: 0 ibuprofen 600 mg tablet 600 mg PO TID RF: 0 Stand-Alone Forms: [facility]/Other Patient Handouts: Hyperglycemia, Hypoglycemia, Diabetes Type 2 Coping Discharge Orders: Discharge Order (Routine); Ordered 11/07/18 Ordered By: yV Feliz Admission Data Admit Date/Time: 11/02/18 22:53 Attending Provider: Vy Feliz Admit Provider: Kvng Monet Primary Care Provider: Jeancarlos Rosen III Other Providers: Kvng Monet ; Kenji Harvey ; Leonardo Guillen Service: Medical Other Pending Studies at Discharge: No
== END 2018-11-07 16:08 | disposition home health service (06) ==
LOC: ED 19:49 → 2S 22:53 → SUATTDRO 22:53 → 2S 23:25 → 4W 11-06 16:34

== ENCOUNTER 2019-12-23 10:21 | Inpatient (IN) ==
[2019-12-23] MEDS ORDERED: ONDANSETRON INJ 2 MG/ML 2 ML VIAL IV STA (10:51)
[2019-12-23] MEDS ORDERED: SODIUM CHLORIDE 0.9% 500 ML IV SCH (11:00)
--- NOTE | 2019-12-23 11:02 | Emergency Department Note ---
Impression & Plan Gastric mass, Abdominal pain, acute, epigastric, Acute kidney injury ED Provider Note NAME: REHAN FUENTES AGE: 84 SEX: M : 1935 ARRIVES VIA: Walk-In INFORMANT: Patient, ED PROVIDER(S): Jagdish Farrell DO CHIEF COMPLAINT: Abdominal pain HPI: The patient is an 84-year-old male who presented to the emergency department for an evaluation of upper abdominal pain. The patient states that he has had nausea and some dry heaves. He is also noticed decreased bowel movements. He states the pain is mostly epigastric in nature. He is also noted abdominal distention. The pain is crampy and waxes and wanes. He notices no worsening with food. He has no radiation to the back. He denies having any chest pain or difficulty breathing. He has noticed some weight gain. He called his primary care physician today for the symptoms and was referred to the emergency department for further testing. The patient denies any black or bloody bowel movements. He has had no headache or recent falls. He is notices no fevers or cough. The patient's pain does increase with movement. He does not have any history of pancreatitis or alcohol use. He does have a history of a cholecystectomy in the past. He is never had a bowel obstruction as far as he knows. ROS: See above HPI for pertinent positives & negatives. A total of 10 systems reviewed and were otherwise negative. PAST MEDICAL HISTORY: See Below PAST SURGICAL HISTORY: See Below FAMILY HISTORY: See Below SOCIAL HISTORY: See Below HOME MEDICATIONS: See Below ALLERGIES: See Below VITALS: See Below PHYSICAL EXAMINATION: GENERAL: Patient is awake alert in no acute distress patient is resting comfortably and showing no signs of anxiety EYES: The conjunctivae are clear. The pupils are round and reactive. EARS, NOSE, MOUTH AND THROAT: The nose is without any evidence of any deformity. Mucous membranes are moist. Tongue is midline. NECK: The neck is nontender and supple. RESPIRATORY: Normal respiratory effort is noted there is no evidence of wheezing rhonchi or rales CARDIOVASCULAR: Regular rate and rhythm noted there no murmurs rubs or gallops normal S1 normal S2. GASTROINTESTINAL: Abdomen is moderately distended and diffusely tender. There is some guarding in the right upper quadrant as well as the epigastric region. BACK: No midline tenderness or or step-off noted range of motion in flexion extension as well as rotation no signs of muscle spasm noted MUSCULOSKELETAL/EXTREMITIES: There is no evidence of gross deformity full range of motion is noted in the hips and shoulders. SKIN: There is no obvious evidence of any rash. There are no petechiae, pallor or cyanosis noted. NEUROLOGIC: Patient is awake alert and oriented x3. MEDICAL DECISION MAKING: The patient is an 84-year-old male who presented to the emergency department for an evaluation of upper abdominal pain. The patient appeared abdominal distention as well as epigastric abdominal pain. The pain was reproducible to palpation and appeared very significant. I discussed the patient's laboratory and radiographic studies with him. He was treated with IV fluids and IV antiemetics. He was also treated with Protonix and Pepcid. Apparently at this time the patient may have a gastric mass there is a lymph node noted as well as some infiltration noted around the distal aspect of the stomach. I discussed his case with the on-call bingo cashier. At this time given the patient's findings he will be evaluated by the hospitalist and then likely have an upper endoscopy in the morning. The [facility]ist was notified about this patient. Triage Nursing notes reviewed. Prior medical records reviewed Vital Signs: reviewed and remarkable for elevated blood pressure. Differential diagnosis: Etiologies such as appendicitis, diverticulitis, obstruction, inflammatory bowel disease, renal colic, PUD, biliary pathology, pancreatitis, mesenteric ischemia, aortic pathology, infections, genitourinary, UTI, perforated viscus, as well as others were entertained. ER treatment provided: See below Diagnostics interpreted by me: ECG: EKG was obtained in the emergency department. My interpretation is sinus rhythm at 79 bpm. First-degree AV block was noted. There was no ectopy. There is no acute ST segment abnormalities noted. This was compared to a tracing from November [id number]. No significant changes were noted. Cardiac Monitoring: An order was placed for continuous cardiac monitoring. The monitor shows a rate of 85 with sinus rhythm. Laboratory studies: As stated above and show below. Imaging studies: See below Consultation(s): 1250: I discussed this case with Dr. Couch who is on-call for gastroenterology. They will follow the patient in consultation and likely upper endoscopy within the next 24 hours. 1535: I discussed this case with Dr. Becker who is on-call for the [facility] hospitalist group. He will evaluate the patient in the emergency department for further management and disposition. 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) TIA (transient ischemic attack) Urinary retention with incomplete bladder emptying (Acute) Venous insufficiency (Acute) Surgical History H/O total hip arthroplasty (Resolved) History of lumbar fusion (Resolved) Family History Father Myocardial infarction Mother Congestive heart failure Denies family history of Ovarian cancer Prostate cancer Breast cancer Colorectal cancer Social History Smoking Status: Former smoker Age Started Using Tobacco: 15; Age Quit Using Tobacco: 45; packs per day: 1; Cigarettes Per Day: 20; Hx Alcohol Use: Yes Alcohol type: beer and hard liquor Hx Substance Use: Yes Last Used Substance: Days (ago) Substance Use Type Other:: CBD lotion Preferred Language: Macanese Communication Ability: Effective Computer Technology Instructor Required: No Beliefs That Will Affect Care: None marital status: / Current Living Situation: Alone current occupational status: retired Feels Safe at Home: Yes Diet Comment: no speacial diet Dental Care, Regularly: Yes Physical Activity Frequency: Does not Exercise Seatbelt Use: always Sunscreen Use: No Do you think of yourself as: straight/heterosexual Allergies Allergies Allergy/AdvReac Type Severity Reaction Status Date / Time nitrofurantoin Allergy Severe SHORTNESS Verified 12/11/19 11:07 OF BREATH Home Meds Home Medications Medication Instructions Recorded Confirmed aspirin 81 mg tablet,delayed 81 mg PO DAILY 03/04/18 12/23/19 release cholecalciferol (vitamin D3) 25 1,000 units PO DAILY 03/04/18 12/23/19 mcg (1,000 unit) capsule methenamine hippurate 1 gram tablet 1 gm PO QPM tab 03/04/18 12/23/19 vitamin E (dl, acetate) 400 unit 400 units PO DAILY 03/04/18 12/23/19 capsule calcium carbonate 500 mg calcium 500 mg PO BID tab 11/20/18 12/23/19 (1,250 mg) tablet cyanocobalamin (vitamin B-12) 1,000 mcg PO DAILY 11/20/18 12/23/19 1,000 mcg capsule potassium chloride 20 mEq oral 20 meq PO DAILY 11/20/18 12/23/19 packet spironolactone 25 mg tablet 12.5 mg PO DAILY tab 06/12/19 12/23/19 coenzyme Q10 100 mg capsule 100 mg PO DAILY cap 11/04/19 12/23/19 metoprolol succinate 25 mg capsule 25 mg PO DAILY 12/11/19 12/23/19 sprinkle, ext. release 24 hr Previous Rx's Medication Instructions Recorded cannabidiol 100 mg/mL oral solution 2.5 mg PO BID PRN #100 ml 11/08/18 finasteride 5 mg tablet 5 mg PO DAILY #30 tab 11/08/18 hydrocortisone 1 % topical cream 1 appln TOP QID PRN #30 gm 12/11/19 Results & Data (ED) Vital Signs Vital Signs - 24 hr 12/23/19 10:25 12/23/19 12:06 12/23/19 12:19 Temperature 36.9 C Temperature Source Oral Pulse Rate 94 H 77 73 Pulse Rate from SpO2 Sensor 76 73 Respiratory Rate 20 16 17 Respiratory Depth Normal Blood Pressure 148/67 H 136/80 Blood Pressure Mean 94 94 Pulse Oximetry 99 96 97 Oxygen Delivery Method Room Air Sepsis Recent Fever Within 48 Hours No Sepsis New/Unexplained Change in Mental Status N/A Sepsis Action Taken by Nursing No Action Required 12/23/19 12:30 Temperature Temperature Source Pulse Rate 74 Pulse Rate from SpO2 Sensor 74 Respiratory Rate 19 Respiratory Depth Blood Pressure 148/88 H Blood Pressure Mean 110 Pulse Oximetry 97 Oxygen Delivery Method Sepsis Recent Fever Within 48 Hours Sepsis New/Unexplained Change in Mental Status Sepsis Action Taken by [facility] Medications Current Medication List: was personally reviewed by me Laboratory Data Attestation: I reviewed the patient's lab results. Result diagrams: 12/23/19 10:58 12/23/19 10:58 Lab Results 12/23/19 12/23/19 12/23/19 Range/Units 10:58 10:58 10:58 WBC 10.79 (4.8-10.8) K/uL RBC 4.43 L (4.7-6.1) M/uL Hgb 13.6 L (14.0-18.0) g/dL POC Hgb (14.0-18.0) g/dl Hct 40.0 L (42-52) % POC Hct (42-52) % MCV 90.3 (80-100) fL MCH 30.7 (25-34) pg MCHC 34.0 (32-36) g/dL RDW Std Deviation 44.6 (36.4-46.3) fL RDW Coeff of Colette 13.5 (11.5-14.5) % Plt Count 204 (130-400) K/uL MPV 10.4 (7.4-10.4) fL Immature Gran % (Auto) 0.6 % Neut % (Auto) 67.8 % Lymph % (Auto) 18.5 % Stoddard % (Auto) 8.3 % Eos % (Auto) 4.5 % Baso % (Auto) 0.3 % Neut # (Auto) 7.30 H (1.4-6.5) K/uL Lymph # (Auto) 2.00 (1.2-3.4) K/uL Stoddard # (Auto) 0.90 H (0.11-0.59) K/uL Eos # (Auto) 0.49 (0-0.5) K/uL Baso # (Auto) 0.03 (0-0.2) K/uL Immature Gran # (Auto) 0.07 H (0.00-0.02) K/uL PT 11.1 (9.0-12.0) Seconds INR 1.1 (0.9-1.1) APTT 26.9 (21.0-31.0) Seconds PTT Ratio 1.0 POC Sodium (135-144) mmol/L Sodium 134 L (136-145) mmol/L POC Potassium (3.3-5.0) mmol/L Potassium 4.8 (3.5-5.1) mmol/L POC Chloride (101-112) mmol/L Chloride 103 (98-107) mmol/L Carbon Dioxide 27 (21-32) mmol/L POC Total CO2 (24-31) mmol/L Anion Gap 4.0 (3-11) POC Anion Gap (16-25) mmol/L POC BUN (7-18) mg/dl BUN 20 H (7-18) mg/dl Creatinine 1.63 H (0.6-1.4) mg/dl POC Creatinine (0.6-1.3) mg/dl Est Cr Clr Drug Dosing 44.9 ml/min Est GFR ( Amer) 44.5 Est GFR (Non-Af Amer) 38.4 BUN/Creatinine Ratio 12.3 (10-20) Glucose 120 H (70-99) mg/dl POC Glucose (other) (70-99) mg/dl Calcium 9.4 (8.5-10.1) mg/dl POC Ioniz Calcium Rodolfo (1.12-1.32) mmol/l Total Bilirubin 0.7 (0.2-1) mg/dl AST 17 (15-37) U/L ALT 28 (12-78) U/L Alkaline Phosphatase 75 (45-117) U/L Troponin I < 0.015 (0-0.045) ng/ml Total Protein 8.2 (6.4-8.2) gm/dl Albumin 3.6 (3.4-5.0) gm/dl Globulin 4.6 H (2.5-4.0) gm/dl Albumin/Globulin Ratio 0.8 L (0.9-2) Lipase 207 (73-393) U/L Urine Color Urine Appearance (Clear) Urine pH (4.5-7.5) Ur Specific Heth (1.000-1.030) Urine Protein (Negative) Urine Glucose (UA) (Negative) Urine Ketones (Negative) Urine Blood (Negative) Urine Nitrite (Negative) Urine Bilirubin (Negative) Urine Urobilinogen (Negative) Ur Leukocyte Esterase (Negative) Urine WBC (Auto) (0-5) /hpf Urine RBC (Auto) (0-4) /hpf U Hyaline Cast (Auto) (0-5) /lpf U Epithel Cells (Auto) (0-5) /lpf Urine Bacteria (Auto) (Negative) 12/23/19 12/23/19 Range/Units 10:59 11:25 WBC (4.8-10.8) K/uL RBC (4.7-6.1) M/uL Hgb (14.0-18.0) g/dL POC Hgb 14.3 (14.0-18.0) g/dl Hct (42-52) % POC Hct 42 (42-52) % MCV (80-100) fL MCH (25-34) pg MCHC (32-36) g/dL RDW Std Deviation (36.4-46.3) fL RDW Coeff of Colette (11.5-14.5) % Plt Count (130-400) K/uL MPV (7.4-10.4) fL Immature Gran % (Auto) % Neut % (Auto) % Lymph % (Auto) % Stoddard % (Auto) % Eos % (Auto) % Baso % (Auto) % Neut # (Auto) (1.4-6.5) K/uL Lymph # (Auto) (1.2-3.4) K/uL Stoddard # (Auto) (0.11-0.59) K/uL Eos # (Auto) (0-0.5) K/uL Baso # (Auto) (0-0.2) K/uL Immature Gran # (Auto) (0.00-0.02) K/uL PT (9.0-12.0) Seconds INR (0.9-1.1) APTT (21.0-31.0) Seconds PTT Ratio POC Sodium 135 (135-144) mmol/L Sodium (136-145) mmol/L POC Potassium 4.9 (3.3-5.0) mmol/L Potassium (3.5-5.1) mmol/L POC Chloride 100 L (101-112) mmol/L Chloride (98-107) mmol/L Carbon Dioxide (21-32) mmol/L POC Total CO2 25 (24-31) mmol/L Anion Gap (3-11) POC Anion Gap 17.0 (16-25) mmol/L POC BUN 22 H (7-18) mg/dl BUN (7-18) mg/dl Creatinine (0.6-1.4) mg/dl POC Creatinine 1.5 H (0.6-1.3) mg/dl Est Cr Clr Drug Dosing ml/min Est GFR ( Amer) Est GFR (Non-Af Amer) BUN/Creatinine Ratio (10-20) Glucose (70-99) mg/dl POC Glucose (other) 131 H (70-99) mg/dl Calcium (8.5-10.1) mg/dl POC Ioniz Calcium Rodolfo 1.27 (1.12-1.32) mmol/l Total Bilirubin (0.2-1) mg/dl AST (15-37) U/L ALT (12-78) U/L Alkaline Phosphatase (45-117) U/L Troponin I (0-0.045) ng/ml Total Protein (6.4-8.2) gm/dl Albumin (3.4-5.0) gm/dl Globulin (2.5-4.0) gm/dl Albumin/Globulin Ratio (0.9-2) Lipase (73-393) U/L Urine Color Yellow Urine Appearance Clear (Clear) Urine pH 7.0 (4.5-7.5) Ur Specific Heth 1.013 (1.000-1.030) Urine Protein Negative (Negative) Urine Glucose (UA) Negative (Negative) Urine Ketones Negative (Negative) Urine Blood Negative (Negative) Urine Nitrite Negative (Negative) Urine Bilirubin Negative (Negative) Urine Urobilinogen Negative (Negative) Ur Leukocyte Esterase Trace H (Negative) Urine WBC (Auto) 1-5 (0-5) /hpf Urine RBC (Auto) 0-4 (0-4) /hpf U Hyaline Cast (Auto) 1-5 (0-5) /lpf U Epithel Cells (Auto) 10-20 H (0-5) /lpf Urine Bacteria (Auto) Negative (Negative) Administered Medications Ioversol (Optiray 320 100ml) 94 ml IV ONCE PRN PRN Reason: Interaction Checking Stop: 12/27/19 11:47 Last Admin: 12/23/19 11:49 Dose: 94 ml Documented by: [id number] Discontinued Medications Famotidine (Pepcid 20mg Iv Push) 20 mg IV ONE STA Stop: 12/23/19 13:01 Last Admin: 12/23/19 13:18 Dose: 20 mg Documented by: [id number] Sodium Chloride (Nss) 500 mls @ 999 mls/hr IV .Q31M LADONNA Stop: 12/23/19 11:30 Last Infusion: 12/23/19 12:01 Dose: 0 mls/hr Documented by: [id number] Admin: 12/23/19 11:26 Dose: 999 mls/hr Documented by: [id number] Pantoprazole Sodium 40 mg/ (Syringe) 10 mls @ 5 mls/min IV NOW ONE Stop: 12/23/19 13:01 Last Admin: 12/23/19 13:18 Dose: 5 mls/min Documented by: [id number] Ondansetron HCl (Zofran) 4 mg IV NOW STA Stop: 12/23/19 10:52 Last Admin: 12/23/19 11:26 Dose: 4 mg Documented by: [id number] Imaging Data Radiologist's Impression: XR chest 1V portable HISTORY: 84 years-old Male pain acute atypical chest pain COMPARISON: Chest CT 11/03/2019, chest radiograph 11/02/2018 TECHNIQUE: Portable AP view of the chest FINDINGS: Cardiac silhouette is enlarged. Calcified plaque of the thoracic aorta arch. No pneumothorax, pleural effusion or overt pulmonary edema. Chronic interstitial coarsening. Degenerative changes of the shoulders and spine. IMPRESSION: 1. Heart megaly without acute process. 2. Chronic reticular opacities suggestive of fibrosis. ACT 112: Negative or not required by law. The above report was generated using voice recognition software. It may contain grammatical, syntax or spelling errors. Electronically signed by: Ezio Strickland M.D. 12/23/2019 11:10 AM Dictated: 12/23/19 1108 Transcribed: 12/23/[address] SCAN OF THE ABDOMEN AND PELVIS WITH IV CONTRAST CLINICAL HISTORY: Upper abdominal/epigastric pain. COMPARISON STUDY: No priors. TECHNIQUE: Following the IV administration of 94 cc of Optiray 320, CT scan of the abdomen and pelvis is performed from the lung bases to the proximal femora. Images are reviewed in the axial, sagittal, and coronal planes. IV contrast was administered without complication. A dose lowering technique was utilized adhering to the principles of ALARA. Examination is significantly degraded by streak artifact from metallic spinal hardware and bilateral hip arthroplasties. CT DOSE: 1158.34 mGycm FINDINGS: Lung bases: The heart is normal in size and without pericardial effusion. Coronary arteries are densely calcified. There is lipomatous hypertrophy of the interatrial septum. A small hiatal hernia is noted. Scarring/atelectasis is seen at both lung bases. There is no airspace consolidation typical for pneumonia or pleural effusion. A calcified granuloma is noted in the right lower lobe. Liver: The contrast-enhanced liver is normal in size, contour, and attenuation. There is no intrahepatic biliary ductal dilatation. The hepatic veins and portal veins are patent. Gallbladder: Surgically absent noting clips in the gallbladder fossa. Spleen: Normal in size and attenuation. Pancreas: Unremarkable. Adrenal glands: Unremarkable. Kidneys: The contrast enhanced kidneys are atrophic and without hydronephrosis. The kidneys enhance symmetrically. A 4.3 cm cyst arises from the interpolar right kidney. Abdominal vasculature: There is advanced atherosclerotic calcification and mild ectasia of the abdominal aorta. Bowel: There is asymmetric wall thickening and mucosal hyperemia seen involving the distal stomach. Question faint perigastric infiltration and there are small perigastric lymph nodes which measure up to 12 mm in length. No bowel obstruction is seen. There is moderate to advanced colonic diverticulosis without CT evidence of acute diverticulitis. The appendix is well-visualized and normal. Peritoneum: There is no intraperitoneal free air or abdominal ascites. There is a small fat-containing umbilical hernia. Lymphadenopathy: None. Pelvic viscera: Evaluation of the pelvis is severely degraded by streak artifact from bilateral hip arthroplasties. The prostate gland is enlarged and heterogeneous noting median lobe hypertrophy. The bladder wall is thickened and trabeculated indicating chronic outlet obstruction. Skeletal structures: The skeletal structures are osteopenic. There is postoperative change from L2 to L5 spinal fusion. No lytic or blastic lesions are seen. Bilateral hip arthroplasties are in place. IMPRESSION: 1. There is asymmetric wall thickening with mucosal edema and hyperemia involving the distal stomach. There is associated faint perigastric infiltration and mildly enlarged perigastric lymph nodes. Differential considerations include peptic ulcer disease or possibly a gastric mucosal neoplasm. The stomach is not well assessed by CT and correlation with endoscopy is recommended for further assessment. 2. No intraperitoneal free air is seen. 3. Moderate to advanced colonic diverticulosis without CT evidence of acute diverticulitis. 4. Additional findings as above. ACT 112: Negative or not required by law. Electronically signed by: Jax Dong M.D. 12/23/2019 11:59 AM Dictated: 12/23/19 1150 Transcribed: 12/23/19 1150 Blood Pressure Blood Pressure Findings: Elevated blood pressure Blood Pressure Disposition: further management by hospitalist Discharge Plan Visit Data Chief Complaint: Abdominal Pain Stated Complaint: ABD PAIN ED Provider: Jagdish Farrell Discharge Problem: Gastric mass, Abdominal pain, acute, epigastric, Acute kidney injury Patient Disposition: Being Evaluated by Hospitalist Condition: Good Forms Stand Alone Forms: My [facility] Prescriptions Prescriptions: No Action aspirin [Adult Low Dose Aspirin] 81 mg tablet,delayed release (DR/EC) 81 mg PO DAILY RF: 0 methenamine hippurate 1 gram tablet 1 gm PO QPM RF: 0 cholecalciferol (vitamin D3) 1,000 unit capsule 1,000 units PO DAILY RF: 0 vitamin E (dl, acetate) 400 unit capsule 400 units PO DAILY RF: 0 coenzyme Q10 100 mg capsule 100 mg PO DAILY RF: 0 finasteride 5 mg tablet 5 mg PO DAILY Qty: 30 RF: 2 cannabidiol 100 mg/mL solution 2.5 mg PO BID PRN (Reason: pain) Qty: 100 RF: 0 spironolactone 25 mg tablet 12.5 mg PO DAILY RF: 0 budesonide-formoterol [Symbicort] 160-4.5 mcg/actuation HFA aerosol inhaler 1 inh inhalation DIRECTED RF: 0 metoprolol succinate 25 mg capsule,sprinkle,ER 24hr 25 mg PO DAILY RF: 0 hydrocortisone [Proctocort] 1 % cream 1 appln TOP QID PRN (Reason: hemorrhoids) Qty: 30 RF: 0 calcium carbonate [Calcium 500] 500 mg calcium (1,250 mg) tablet 500 mg PO BID RF: 0 cyanocobalamin (vitamin B-12) 1,000 mcg capsule 1,000 mcg PO DAILY RF: 0 potassium chloride 20 mEq packet 20 meq PO DAILY RF: 0 Referrals Referrals: Jeancarlos Rosen III, CRNP [Primary Care Provider] -
[2019-12-23 11:10] LABS: Basophils # (auto) 0.03 K/uL (0-0.2); Basophils % (auto) 0.3 %; Eosinophils # (auto) 0.49 K/uL (0-0.5); Eosinophils % (auto) 4.5 %; Hemoglobin 13.6 g/dL (14.0-18.0); Immature Granulocytes # (auto) 0.07 K/uL (0.00-0.02); Immature Granulocytes % (auto) 0.6 %; Lymphocytes % (auto) 18.5 %; Mean Corpuscular Hemoglobin 30.7 pg (25-34); Mean Corpuscular Volume 90.3 fL (80-100); Mean Platelet Volume 10.4 fL (7.4-10.4); Monocytes % (auto) 8.3 %; Neutrophils % (auto) 67.8 %; Platelet Count 204 K/uL (130-400); RDW Coefficient of Variation 13.5 % (11.5-14.5); RDW Standard Deviation 44.6 fL (36.4-46.3); Red Blood Count 4.43 M/uL (4.7-6.1); White Blood Count 10.79 K/uL (4.8-10.8)
--- NOTE | 2019-12-23 11:11 | XRay Report ---
XR chest 1V portable HISTORY: 84 years-old Male pain acute atypical chest pain COMPARISON: Chest CT 11/03/2019, chest radiograph 11/02/2018 TECHNIQUE: Portable AP view of the chest FINDINGS: Cardiac silhouette is enlarged. Calcified plaque of the thoracic aorta arch. No pneumothorax, pleural effusion or overt pulmonary edema. Chronic interstitial coarsening. Degenerative changes of the shou lders and spine. IMPRESSION: 1. Heart megaly without acute process. 2. Chronic reticular opacities suggestive of fibrosis. ACT 112: Negative or not required by law. The above report was generated using voice recognition software. It may contain grammatical, syntax o r spelling errors. Electronically signed by: Ezio Strickland M.D. 12/23/2019 11:10 AM
[2019-12-23 11:13] LABS: iSTAT Creatinine 1.5 mg/dl (0.6-1.3); iSTAT Hemoglobin 14.3 g/dl (14.0-18.0); iSTAT Ionized Calcium 1.27 mmol/l (1.12-1.32); iSTAT Potassium 4.9 mmol/L (3.3-5.0)
[2019-12-23 11:23] LABS: INR 1.1 (0.9-1.1); Partial Thromboplastin Time 26.9 Seconds (21.0-31.0); Prothrombin Time 11.1 Seconds (9.0-12.0)
[2019-12-23 11:30] LABS: Alanine Aminotransferase 28 U/L (12-78); Albumin Level 3.6 gm/dl (3.4-5.0); Aspartate Aminotransferase 17 U/L (15-37); BUN Creatinine Ratio 12.3 (10-20); Blood Urea Nitrogen 20 mg/dl (7-18); Calcium 9.4 mg/dl (8.5-10.1); Carbon Dioxide 27 mmol/L (21-32); Chloride 103 mmol/L (98-107); Creatinine Clr Calc Pharmacy 44.9 ml/min; Est GFR (African American) 44.5; Est GFR (Non-African American) 38.4; Glucose 120 mg/dl (70-99); Lipase 207 U/L (73-393); Potassium 4.8 mmol/L (3.5-5.1); Sodium 134 mmol/L (136-145)
[2019-12-23 11:35] LABS: Albumin Globulin Ratio 0.8 (0.9-2); Alkaline Phosphatase 75 U/L (45-117); Bilirubin,Total 0.7 mg/dl (0.2-1); Globulin 4.6 gm/dl (2.5-4.0); Total Protein 8.2 gm/dl (6.4-8.2); Troponin I < 0.015 ng/ml (0-0.045)
[2019-12-23 11:41] LABS: Appearance Urine Clear (Clear); Bacteria Urine Automated Negative (Negative); Bilirubin Urine Negative (Negative); Blood Urine Negative (Negative); Color Urine Yellow; Glucose Urine UA Negative (Negative); Ketones Urine Negative (Negative); Leukocyte Esterase Urine Trace (Negative); Nitrite Urine Negative (Negative); Protein Urine Negative (Negative); RBC Urine Automated 0-4 /hpf (0-4); Specific Gravity Urine 1.013 (1.000-1.030); Urobilinogen Urine Negative (Negative)
[2019-12-23] MEDS ORDERED: IOVERSOL 100ml IV PRN (11:48)
--- NOTE | 2019-12-23 12:00 | CT Scan Report ---
CT SCAN OF THE ABDOMEN AND PELVIS WITH IV CONTRAST CLINICAL HISTORY: Upper abdominal/epigastric pain. COMPARISON STUDY: No priors. TECHNIQUE: Following the IV administration of 94 cc of Optiray 320, CT scan of the abdomen and pelvi s is performed from the lung bases to the proximal femora. Images are reviewed in the axial, sagittal , and coronal planes. IV contrast was administered without complication. A dose lowering technique wa s utilized adhering to the principles of ALARA. Examination is significantly degraded by streak artif act from metallic spinal hardware and bilateral hip arthroplasties. CT DOSE: 1158.34 mGycm FINDINGS: Lung bases: The heart is normal in size and without pericardial effusion. Coronary arteries are dense ly calcified. There is lipomatous hypertrophy of the interatrial septum. A small hiatal hernia is not ed. Scarring/atelectasis is seen at both lung bases. There is no airspace consolidation typical for p neumonia or pleural effusion. A calcified granuloma is noted in the right lower lobe. Liver: The contrast-enhanced liver is normal in size, contour, and attenuation. There is no intrahepa tic biliary ductal dilatation. The hepatic veins and portal veins are patent. Gallbladder: Surgically absent noting clips in the gallbladder fossa. Spleen: Normal in size and attenuation. Pancreas: Unremarkable. Adrenal glands: Unremarkable. Kidneys: The contrast enhanced kidneys are atrophic and without hydronephrosis. The kidneys enhance s ymmetrically. A 4.3 cm cyst arises from the interpolar right kidney. Abdominal vasculature: There is advanced atherosclerotic calcification and mild ectasia of the abdomi nal aorta. Bowel: There is asymmetric wall thickening and mucosal hyperemia seen involving the distal stomach. Q uestion faint perigastric infiltration and there are small perigastric lymph nodes which measure up t o 12 mm in length. No bowel obstruction is seen. There is moderate to advanced colonic diverticulosis without CT evidence of acute diverticulitis. The appendix is well-visualized and normal. Peritoneum: There is no intraperitoneal free air or abdominal ascites. There is a small fat-containin g umbilical hernia. Lymphadenopathy: None. Pelvic viscera: Evaluation of the pelvis is severely degraded by streak artifact from bilateral hip a rthroplasties. The prostate gland is enlarged and heterogeneous noting median lobe hypertrophy. The b ladder wall is thickened and trabeculated indicating chronic outlet obstruction. Skeletal structures: The skeletal structures are osteopenic. There is postoperative change from L2 to L5 spinal fusion. No lytic or blastic lesions are seen. Bilateral hip arthroplasties are in place. IMPRESSION: 1. There is asymmetric wall thickening with mucosal edema and hyperemia involving the distal stomach. There is associated faint perigastric infiltration and mildly enlarged perigastric lymph nodes. Diff erential considerations include peptic ulcer disease or possibly a gastric mucosal neoplasm. The stom ach is not well assessed by CT and correlation with endoscopy is recommended for further assessment. 2. No intraperitoneal free air is seen. 3. Moderate to advanced colonic diverticulosis without CT evidence of acute diverticulitis. 4. Additional findings as above. ACT 112: Negative or not required by law. Electronically signed by: Jax Dong M.D. 12/23/2019 11:59 AM
[2019-12-23] MEDS ORDERED: FAMOTIDINE 20MG/5ML IV PUSH IV STA (13:00)
[2019-12-23] MEDS ORDERED: PANTOprazole 40 MG in SYRINGE 0 ML IV ONE (13:00)
--- NOTE | 2019-12-23 15:36 | History & Physical Report ---
Date of Service December 23, 2019 Assessment & Plan (1) Abdominal pain, acute, epigastric: Possible gastric mass with reactive lymph nodes on CT. ?gastric ulcer (on aspirin) vs. mass. Pantoprazole 40mg IV BID Consult gastroenterology for possible EGD. Can eat and drink if no planned EGD today, NPO after midnight. (2) Acute kidney injury: Cr increased from basleine. LR @ 125 ml/hr, suspect pre-renal from decreased oral intake Monitor for worsening respiratory status given history of CHF. No sign of pulmonary edema on CXR or chest auscultation. (3) Ischemic cardiomyopathy: Continue metoprolol succinate 25 mg p.o. daily, continue spironolactone 12.5 mg p.o. daily as well as renal functions improving (4) COPD (chronic obstructive pulmonary disease): Continue usual ICS/LABA maintenance inhaler (5) ANNABELLE (obstructive sleep apnea): May use own BiPAP if patient has family member bring it in Given option to use ours if they cannot but he declines this presently (6) 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): Continue finasteride 5 mg p.o. daily (7) Diabetes mellitus: HbA1c 6.5 in June. On no outpatient medication for this. (8) Coronary artery disease: Very remote history of myocardial infarction. Will continue aspirin 81 mg p.o. daily for now. Unclear why is not on a statin. Continue home dose metoprolol. (9) DVT prophylaxis: SCDs Admission and Anticipated Discharge Date Admission Date: 12/04/2019 History of Present Illness Chief Complaint: Epigastric pain Primary Care Provider: Jeancarlos Rosen, III, MRAKO Boom Aragon is an 84 year old male who presents to the ER with acute epigastric pain. This has been going on mildly for the past 2 weeks intermittently, no association with any particular food. However today became suddenly worse with associated nausea and dry heaving. In addition he has been more constipated over the past few days in addition to abdominal distension. No dysphagia, odynophagia, melena, bright red blood in stool. No fevers, chills. No weight loss over the past year (if anything he reports gaining some weight). No NSAID use. Uses ASA 81mg PO daily. Very occasional heartburn. In the ER CT A/P concerning for possibly ulcer vs. gastric mass and recommended evaluation by EGD. ER physician discussed with Dr Couch who recommended inpatient admission to have this performed. Allergies Allergy/AdvReac Type Severity Reaction Status Date / Time nitrofurantoin Allergy Severe SHORTNESS Verified 12/24/19 15:07 OF BREATH Home Medications Home Medications Medication Instructions Recorded Confirmed Type aspirin 81 mg tablet,delayed 81 mg PO DAILY 03/04/18 12/23/19 History release cholecalciferol (vitamin D3) 25 1,000 units PO DAILY 03/04/18 12/23/19 History mcg (1,000 unit) capsule methenamine hippurate 1 gram tablet 1 gm PO QPM tab 03/04/18 12/23/19 History vitamin E (dl, acetate) 400 unit 400 units PO DAILY 03/04/18 12/23/19 History capsule cannabidiol 100 mg/mL oral solution 2.5 mg PO BID PRN #100 ml 11/08/18 12/23/19 Rx finasteride 5 mg tablet 5 mg PO DAILY #30 tab 11/08/18 12/23/19 Rx calcium carbonate 500 mg calcium 500 mg PO BID tab 11/20/18 12/23/19 History (1,250 mg) tablet cyanocobalamin (vitamin B-12) 1,000 mcg PO DAILY 11/20/18 12/23/19 History 1,000 mcg capsule potassium chloride 20 mEq oral 20 meq PO DAILY 11/20/18 12/23/19 History packet spironolactone 25 mg tablet 12.5 mg PO DAILY tab 06/12/19 12/23/19 History coenzyme Q10 100 mg capsule 100 mg PO DAILY cap 11/04/19 12/23/19 History hydrocortisone 1 % topical cream 1 appln TOP QID PRN #30 gm 12/11/19 12/23/19 Rx metoprolol succinate 25 mg capsule 25 mg PO DAILY 12/11/19 12/23/19 History sprinkle, ext. release 24 hr Past Med/Surg History Medical History (Updated 12/25/19 @ 03:13 by Corby Becker MD) Allergic rhinitis (Acute) Arthritis (Acute) COPD (chronic obstructive pulmonary disease) Coronary artery disease (Chronic) Diabetes mellitus (Acute) Disc degeneration, lumbar (Acute) 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) (Acute) Epigastric abdominal pain Gastric mass (Acute) Heart block AV second degree Hypercholesterolemia (Acute) Hypertension (Acute) Ischemic cardiomyopathy Lumbar post-laminectomy syndrome (Chronic) ANNABELLE (obstructive sleep apnea) bipap Pneumonia (Inactive) Respiratory failure with hypoxia 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) TIA (transient ischemic attack) Urinary retention with incomplete bladder emptying (Acute) Venous insufficiency (Acute) Surgical History H/O total hip arthroplasty (Resolved) History of lumbar fusion (Resolved) Family History Father Myocardial infarction Mother Congestive heart failure Denies family history of Ovarian cancer Prostate cancer Breast cancer Colorectal cancer Social History Smoking Status: Never smoker Age Started Using Tobacco: 15; Age Quit Using Tobacco: 45; packs per day: 1; Cigarettes Per Day: 20; Hx Alcohol Use: Yes Alcohol type: beer and hard liquor Hx Substance Use: No Preferred Language: Icelandic Communication Ability: Effective Benefit Director Required: No Beliefs That Will Affect Care: None marital status: / Current Living Situation: Alone current occupational status: retired Other Information That Helps Us Care for You: No Feels Safe at Home: Yes Safety Concerns: Feels Safe At This Time Diet Comment: no speacial diet Dental Care, Regularly: Yes Physical Activity Frequency: Does not Exercise Seatbelt Use: always Sunscreen Use: No Do you think of yourself as: straight/heterosexual Review of Systems Review of Systems: All systems reviewed & are unremarkable except as noted in HPI & below Physical Exam Constitutional: well developed, well nourished and + obese; no acute distress Eyes: PERRL, conjunctivae normal, anicteric sclerae ENMT: external ear and nose normal, oropharynx normal Neck: trachea midline, no thyromegaly Respiratory: normal respiratory effort, lungs clear to auscultation Cardiovascular: Rate/Rhythm: regular rate and regular rhythm Heart Sounds: no murmur Extremities: + pedal edema (trace b/l equal in ankles) Gastrointestinal (Abdomen): Inspection/Auscultation: + abdomen distended and normal bowel sounds Percussion/Palpation: + abdomen tender (epigastric) and abdomen soft; no guarding and abdomen not rigid Musculoskeletal: no cyanosis or clubbing, extremities motor strength 5/5 Skin: no rashes, warm and dry Results & Data Results & Data ([facility]) Vital Signs (Past 12 Hours) Vital Signs Temp Pulse Resp BP Pulse Ox 12/23/19 15:00 64 16 157/79 H 97 12/23/19 14:30 72 17 129/72 99 12/23/19 14:00 75 15 163/75 H 96 12/23/19 13:30 62 172/76 H 99 12/23/19 13:12 67 15 164/82 H 98 12/23/19 13:00 86 17 95 12/23/19 12:30 74 19 148/88 H 97 12/23/19 12:19 73 17 97 12/23/19 12:06 77 16 136/80 96 12/23/19 10:25 36.9 C 94 H 20 148/67 [address] SCAN OF THE ABDOMEN AND PELVIS WITH IV CONTRAST IMPRESSION: 1. There is asymmetric wall thickening with mucosal edema and hyperemia involving the distal stomach. There is associated faint perigastric infiltration and mildly enlarged perigastric lymph nodes. Differential considerations include peptic ulcer disease or possibly a gastric mucosal neoplasm. The stomach is not well assessed by CT and correlation with endoscopy is recommended for further assessment. 2. No intraperitoneal free air is seen. 3. Moderate to advanced colonic diverticulosis without CT evidence of acute diverticulitis. 4. Additional findings as above. XR chest 1V portable IMPRESSION: 1. Heart megaly without acute process. 2. Chronic reticular opacities suggestive of fibrosis. ECG Indication: abdominal pain Rate (beats per minute): 79 Findings: + 1st degree AV block Comparison ECG Date: from (November 03, 2018) Change: no significant change Code Status & VTE Plan Code Status Full VTE Prophylaxis Plan VTE Prophylaxis will be ordered: Yes PG Care Time/CCT Total # of Minutes Spent Total Time Spent with Patient: Total time spent is greater than 50% in coordination of care (as documented) at patient's floor/unit and/or counseling patient: Coding Level of Care Code 27727 OBS Care - Level 3 Diagnoses Abdominal pain, acute, epigastric R10.13 Acute kidney injury N17.9 Ischemic cardiomyopathy I25.5 COPD (chronic obstructive pulmonary disease) 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 ANNABELLE (obstructive sleep apnea) G47.33 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) N40.1 Diabetes mellitus E11.9 Diabetes mellitus complication status: without complication Diabetes mellitus fpc insulin use: without terminal supervisor use Diabetes mellitus type: type 2 Coronary artery disease I25.10 DVT prophylaxis Z29.9 (1) Diabetes mellitus Diabetes mellitus complication status: without complication Diabetes mellitus fpc insulin use: without terminal supervisor use Diabetes mellitus type: type 2 Qualified Code(s): E11.9 - Type 2 diabetes mellitus without complications (2) COPD (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: unspecified Qualified Code(s): J43.9 - Emphysema, unspecified
--- NOTE | 2019-12-23 17:09 | Communication Note ---
Date of Service: December 23, 2019 GI brief note: 84 yo male with epigastric abdominal pains x [address] A/P showing abnormal stomach thickening with lymph nodes, possible PUD vs. malignancy. Recs: keep NPO post midnight EGD to evaluate tomorrow Full consult note to follow Varghese Couch MD Gastroenterology
[2019-12-23] MEDS: LACTATED RINGER'S 1,000 ML IV SCH (18:06)
[2019-12-23] MEDS: PANTOprazole 40 MG in SYRINGE 0 ML IV SCH (20:53)
[2019-12-23] MEDS: METHENAMINE HIPPURATE 1 GM TAB PO SCH (20:54)
[2019-12-23] MEDS: CALCIUM CARBONATE 1250MG TAB PO SCH (20:55)
[2019-12-24] MEDS: LACTATED RINGER'S 1,000 ML IV SCH ×3 (03:59→19:56)
[2019-12-24 06:57] LABS: Hematocrit (blood only) 34.9 % (42-52); Hemoglobin 11.7 g/dL (14.0-18.0); Mean Corpuscular Hemoglobin 30.5 pg (25-34); Mean Corpuscular Hgb Conc 33.5 g/dL (32-36); Mean Corpuscular Volume 91.1 fL (80-100); Mean Platelet Volume 10.2 fL (7.4-10.4); Platelet Count 171 K/uL (130-400); RDW Coefficient of Variation 13.6 % (11.5-14.5); RDW Standard Deviation 45.1 fL (36.4-46.3); Red Blood Count 3.83 M/uL (4.7-6.1); White Blood Count 9.32 K/uL (4.8-10.8)
[2019-12-24 07:24] LABS: BUN Creatinine Ratio 13.8 (10-20); Calcium 8.7 mg/dl (8.5-10.1); Creatinine Clr Calc Pharmacy 46.9 ml/min; Est GFR (African American) 46.9; Est GFR (Non-African American) 40.5; Potassium 4.5 mmol/L (3.5-5.1)
[2019-12-24] MEDS ORDERED: NON-FORMULARY MEDICATION (Coenzyme Q10 100 MG) PO SCH (09:00)
[2019-12-24] MEDS: CALCIUM CARBONATE 1250MG TAB PO SCH ×2 (09:12→20:44)
[2019-12-24] MEDS: SPIRONOLACTONE 12.5 MG TAB PO SCH (09:13)
[2019-12-24] MEDS: METOPROLOL SUCC 25MG EXT REL TAB PO SCH (09:13)
[2019-12-24] MEDS: FINASTERIDE 5 MG TAB PO SCH (09:13)
[2019-12-24] MEDS: ASPIRIN 81 MG ECTAB PO SCH ×2 (09:13→14:49)
[2019-12-24] MEDS: PANTOprazole 40 MG in SYRINGE 0 ML IV SCH (09:14)
[2019-12-24] MEDS: CYANOCOBALAMIN 500 MCG TABLET (VITAMIN B-12) PO SCH (09:14)
[2019-12-24] MEDS: CHOLECALCIFEROL 1,000 UNITS 25 MCG TAB PO SCH (09:14)
--- NOTE | 2019-12-24 10:45 | Gastrointestinal Consultation ---
Date of Consultation December 24, 2019 Assessment & Plan (1) Abnormal CT of the abdomen: (2) Epigastric abdominal pain: 1. NPO for now. 2. Proceed with EGD today with Dr. Couch. 3. Additional recommendations will be made pending results of testing. Thank you for allowing us to participate in the care of this patient. If you have questions or concerns, please do not hesitate to contact us. Supervising Physician Co-Signing Physician Notes I personally evaluated the patient and agree with the findings as documented by MARKO Orozco Exam: abd: soft, nt, nd proceed with EGD. risks/benefits and procedure discussed with patient, who agrees to proceed History of Present Illness Reason for Consultation: Abnormal CT scan Requesting Physician: Dr. Farrell Attending Physician: Jm Contreras MD History of Present Illness Patient is a 84 year-old male with a history of HTN, DM, CAD and allergic rhinitis being admitted after developing abdominal pain two weeks [employer]. Reports the pain as epigastric discomfort stating "I thought it was gas". The pain is intermittent, rated 2-4/10 in intensity. Had a single biliary emesis several days ago. No current nausea, vomiting or hematemesis. Reports associated decreased appetite but no weight loss. No melena, hematochezia or diarrhea. Has tried OTC simethicone without benefit. Past medical history is negative for H pylori infection. No ibuprofen use. +Low dose aspirin. Does have a maternal history of GI malignancy, uncertain location. States he did have a colonoscopy in the past. Inquiring about findings, "it was nothing to worry about". Upon arrival, he did undergo a CT abdomen which was concerning for PUD vs mass. Allergies Allergy/AdvReac Type Severity Reaction Status Date / Time nitrofurantoin Allergy Severe SHORTNESS Verified 12/11/19 11:07 OF BREATH Home Medications Home Medications Medication Instructions Recorded Confirmed Type aspirin 81 mg tablet,delayed 81 mg PO DAILY 03/04/18 12/23/19 History release cholecalciferol (vitamin D3) 25 1,000 units PO DAILY 03/04/18 12/23/19 History mcg (1,000 unit) capsule methenamine hippurate 1 gram tablet 1 gm PO QPM tab 03/04/18 12/23/19 History vitamin E (dl, acetate) 400 unit 400 units PO DAILY 03/04/18 12/23/19 History capsule cannabidiol 100 mg/mL oral solution 2.5 mg PO BID PRN #100 ml 11/08/18 12/23/19 Rx finasteride 5 mg tablet 5 mg PO DAILY #30 tab 11/08/18 12/23/19 Rx calcium carbonate 500 mg calcium 500 mg PO BID tab 11/20/18 12/23/19 History (1,250 mg) tablet cyanocobalamin (vitamin B-12) 1,000 mcg PO DAILY 11/20/18 12/23/19 History 1,000 mcg capsule potassium chloride 20 mEq oral 20 meq PO DAILY 11/20/18 12/23/19 History packet spironolactone 25 mg tablet 12.5 mg PO DAILY tab 06/12/19 12/23/19 History coenzyme Q10 100 mg capsule 100 mg PO DAILY cap 11/04/19 12/23/19 History hydrocortisone 1 % topical cream 1 appln TOP QID PRN #30 gm 12/11/19 12/23/19 Rx metoprolol succinate 25 mg capsule 25 mg PO DAILY 12/11/19 12/23/19 History sprsheyla, ext. release 24 hr Patient History Medical History (Updated 12/24/19 @ 14:10 by Patito Lau DO) Allergic rhinitis (Acute) Arthritis (Acute) COPD (chronic obstructive pulmonary disease) Coronary artery disease (Chronic) Diabetes mellitus (Acute) Disc degeneration, lumbar (Acute) 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) (Acute) Epigastric abdominal pain Gastric mass (Acute) Heart block AV second degree Hypercholesterolemia (Acute) Hypertension (Acute) Ischemic cardiomyopathy Lumbar post-laminectomy syndrome (Chronic) ANNABELLE (obstructive sleep apnea) bipap Pneumonia (Inactive) Respiratory failure with hypoxia 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) TIA (transient ischemic attack) Urinary retention with incomplete bladder emptying (Acute) Venous insufficiency (Acute) Surgical History H/O total hip arthroplasty (Resolved) History of lumbar fusion (Resolved) Family History Father Myocardial infarction Mother Congestive heart failure Denies family history of Ovarian cancer Prostate cancer Breast cancer Colorectal cancer Social History Smoking Status: Never smoker Age Started Using Tobacco: 15; Age Quit Using Tobacco: 45; packs per day: 1; Cigarettes Per Day: 20; Hx Alcohol Use: Yes Alcohol type: beer and hard liquor Hx Substance Use: No Preferred Language: Tamazight Communication Ability: Effective Cnc Machine Setter Required: No Beliefs That Will Affect Care: None marital status: / Current Living Situation: Alone current occupational status: retired Other Information That Helps Us Care for You: No Feels Safe at Home: Yes Safety Concerns: Feels Safe At This Time Diet Comment: no speacial diet Dental Care, Regularly: Yes Physical Activity Frequency: Does not Exercise Seatbelt Use: always Sunscreen Use: No Do you think of yourself as: straight/heterosexual Review of Systems Review of Systems: All systems reviewed & are unremarkable except as noted in HPI & below Physical Exam Constitutional: WD/WN, vitals as above Eyes: EOM intact bilaterally Neck: normal appearance Respiratory: normal respiratory effort, lungs clear to auscultation Cardiovascular: Rate/Rhythm: regular rate and regular rhythm Heart Sounds: no gallop and no murmur Gastrointestinal (Abdomen): normal bowel sounds, soft, nontender, no hepatosplenomegaly Inspection/Auscultation: abdomen not distended Musculoskeletal: Extremities: no cyanosis no lower extremity edema Skin: no rashes, warm and dry Neurologic: moves all extremities Psychiatric: A+Ox3, euthymic affect Results & Data ([facility] [place]) Vital Signs (Past 12 Hours) Vital Signs Temp Pulse Resp BP Pulse Ox 12/24/19 07:18 36.6 C 71 18 135/72 99 12/23/19 23:16 36.4 C L 65 18 126/73 100 PG Care Time/CCT Total # of Minutes Spent Total Time Spent with Patient: Total time spent is greater than 50% in coordination of care (as documented) at patient's floor/unit and/or counseling patient: Coding Level of Care Code 33490 Initial Inpt Care Lvl [address] of the abdomen R93.5 Epigastric abdominal pain R10.13
--- NOTE | 2019-12-24 11:49 | Electrocardiogram Report ---
Test Reason : Blood Pressure : / mmHG Vent. Rate : 079 BPM Atrial Rate : 079 BPM P-R Int : 228 ms QRS Dur : 084 ms QT Int : 368 ms P-R-T Axes : 058 017 015 degrees QTc Int : 421 ms Sinus rhythm with 1st degree A-V block Otherwise normal ECG When compared with ECG of 03-NOV-2018 21:11, AK interval has increased Confirmed by Jagdish Bucio ([id number]) on 12/24/2019 11:49:32 AM Referred By: Jeancarlos Rosen Confirmed By:Jagdish Bucio
--- NOTE | 2019-12-24 13:28 | Hospitalist Progress Note ---
Date of Service December 24, 2019 Assessment & Plan (1) Abdominal pain, acute, epigastric: Possible gastric mass with reactive lymph nodes on CT - gastric ulcer (on aspirin) vs. mass. Pantoprazole 40mg IV BID Consult gastroenterology - will have EGD this afternoon (2) Acute kidney injury: Cr increased from baseline, now at 1.5 which may be his baseline - was 1.5 on 12/04 and in November of last year. Continue LR @ 125 ml/hr while NPO Monitor for worsening respiratory status given history of CHF though per cardiology notes he has not had exacerbations No sign of pulmonary edema on CXR or chest auscultation. (3) Ischemic cardiomyopathy: (4) Coronary artery disease: Continue spironolactone, metoprolol, ASA (5) CHF (congestive heart failure): EF of 40-45%. Medications as above Daily weights and Is & Os (6) COPD (chronic obstructive pulmonary disease): Continue usual ICS/LABA maintenance inhaler (7) ANNABELLE (obstructive sleep apnea): May use own BiPAP if patient has family member bring it in Given option to use ours if they cannot but he declines this presently (8) 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): Continue finasteride (9) Diabetes mellitus: Last A1c was 6.2 Not medicated for this at home. Blood sugars acceptable here Admission and Anticipated Discharge Date Admission Date: December 23, 2019 Subjective Mr. Aragon is feeling better than when he came in. He is not having as much pain in his epigastrum. No nausea or vomiting or heartburn. No blood in his stool or melena. He has not been taking NSAIDs, he does take a daily baby ASA. ROS Constitutional: no chills, aches, sweats or fever Respiratory: no sob,cough, sputum, or wheezing Cardiac: no chest pain, palpitations, edema, orthopnea or lightheadedness GI: no abdominal pain, nausea, vomiting, diarrhea or constipation : no dysuria or hesitancy Extremities: no joint pain or weakness Skin: no rash All other systems reviewed and negative Physical Exam Physical Exam: General: no distress Eyes: normal inspection, PERLL Respiratory: chest non tender, clear to auscultation, normal breath sounds, no respiratory distress, no accessory muscle use Cardiac: regular rate and rhythm, no rub or gallop, no murmur, no edema, no jvd GI/: active bowel sounds, no abd pain or tenderness, soft, non distended Extremities: normal range of motion, normal strength, non tender Neuro/Psych: alert and oriented x 3, normal mood and affect Skin: normal color, dry Results & Data Results & Data ([facility]) Vital Signs (Past 12 Hours) Vital Signs Temp Pulse Resp BP Pulse Ox 12/24/19 07:18 36.6 C 71 18 135/72 99 PG Care Time/CCT Total # of Minutes Spent Total Time Spent with Patient: Total time spent is greater than 50% in coordination of care (as documented) at patient's floor/unit and/or counseling patient: Coding Level of Care Code 99656 Subseq Hosp Care Lvl 3 Diagnoses Abdominal pain, acute, epigastric R10.13 Acute kidney injury N17.9 Ischemic cardiomyopathy I25.5 Coronary artery disease I25.10 CHF (congestive heart failure) I50.21 Heart failure chronicity: acute Heart failure type: systolic COPD (chronic obstructive pulmonary disease) 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 ANNABELLE (obstructive sleep apnea) G47.33 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) N40.1 Diabetes mellitus E11.9 Diabetes mellitus type: type 2 Diabetes mellitus technician terminal and repeater insulin use: without senior living use Diabetes mellitus complication status: without complication (1) COPD (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: unspecified Qualified Code(s): J43.9 - Emphysema, unspecified (2) Diabetes mellitus Diabetes mellitus type: type 2 Diabetes mellitus senior living insulin use: without technician terminal and repeater use Diabetes mellitus complication status: without complication Qualified Code(s): E11.9 - Type 2 diabetes mellitus without complications (3) CHF (congestive heart failure) Heart failure chronicity: acute Heart failure type: systolic Qualified Code (s): I50.21 - Acute systolic (congestive) heart failure
--- NOTE | 2019-12-24 14:11 | Anesthesiology Consultation ---
Date of Service December 24, 2019 Assessment & Plan Chart Review Chart Review: Acceptable Risk for Surgery Consults Requested none ASA ASA4 History Surgery Operation Date: 12/24/19 15:40 Proposed Procedures p Esophagogastroduodenoscopy Dr. Iza Couch MD Height/Weight Height: 5 ft 10 in Weight: 121.7 kg Allergies Allergy/AdvReac Type Severity Reaction Status Date / Time nitrofurantoin Allergy Severe SHORTNESS Verified 12/24/19 15:07 OF BREATH Medications Home Medications Medication Instructions Recorded Confirmed Last Taken aspirin 81 mg tablet,delayed 81 mg PO DAILY 03/04/18 12/23/19 Unknown release cholecalciferol (vitamin D3) 25 1,000 units PO DAILY 03/04/18 12/23/19 Unknown mcg (1,000 unit) capsule methenamine hippurate 1 gram tablet 1 gm PO QPM tab 03/04/18 12/23/19 Unknown vitamin E (dl, acetate) 400 unit 400 units PO DAILY 03/04/18 12/23/19 Unknown capsule cannabidiol 100 mg/mL oral solution 2.5 mg PO BID PRN #100 ml 11/08/18 12/23/19 Unknown finasteride 5 mg tablet 5 mg PO DAILY #30 tab 11/08/18 12/23/19 Unknown calcium carbonate 500 mg calcium 500 mg PO BID tab 11/20/18 12/23/19 Unknown (1,250 mg) tablet cyanocobalamin (vitamin B-12) 1,000 mcg PO DAILY 11/20/18 12/23/19 Unknown 1,000 mcg capsule potassium chloride 20 mEq oral 20 meq PO DAILY 11/20/18 12/23/19 Unknown packet spironolactone 25 mg tablet 12.5 mg PO DAILY tab 06/12/19 12/23/19 Unknown coenzyme Q10 100 mg capsule 100 mg PO DAILY cap 11/04/19 12/23/19 Unknown hydrocortisone 1 % topical cream 1 appln TOP QID PRN #30 gm 12/11/19 12/23/19 Unknown metoprolol succinate 25 mg capsule 25 mg PO DAILY 12/11/19 12/23/19 Unknown sprinkle, ext. release 24 hr Active Medications Generic Name Dose Route Start Last Admin Trade Name Freq PRN Reason Stop Dose Admin Aspirin 81 mg 12/24/19 09:00 12/24/19 14:49 Ecotrin Ectab PO 01/23/20 08:59 81 mg DAILY LADONNA Administration Calcium Carbonate 500 mg 12/23/19 21:00 12/24/19 09:12 Os-Amish 500 PO 01/22/20 20:59 500 mg BID LADONNA Administration Cyanocobalamin 1,000 mcg 12/24/19 09:00 12/24/19 09:14 Vitamin B-12 PO 01/23/20 08:59 1,000 mcg DAILY LADONNA Administration Finasteride 5 mg 12/24/19 09:00 12/24/19 09:13 Proscar PO 01/23/20 08:59 Not Given DAILY LADONNA Lactated Ringer's 1,000 mls @ 125 mls/hr 12/23/19 17:30 12/24/19 09:26 Lr IV 12/25/19 08:00 125 mls/hr .Q8H LADONNA Administration Pantoprazole Sodium 40 mg/ 10 mls @ 5 mls/min 12/23/19 21:00 12/24/19 09:14 Syringe IV 01/22/20 20:59 5 mls/min BID LADONNA Administration Methenamine Hippurate 1 gm 12/23/19 21:00 12/23/19 20:54 Urex PO 01/22/20 20:59 1 gm QPM LADONNA Administration Metoprolol Succinate 25 mg 12/24/19 09:00 12/24/19 09:13 Toprol Xl PO 01/23/20 08:59 25 mg DAILY LADONNA Administration Miscellaneous 1 ea 12/24/19 00:00 12/24/19 08:59 Order Awaiting Action N/A 01/23/20 00:00 Not Given QS LADONNA Spironolactone 12.5 mg 12/24/19 09:00 12/24/19 09:13 Aldactone PO 01/23/20 08:59 12.5 mg DAILY LADONNA Administration Vitamin D 1,000 units 12/24/19 09:00 12/24/19 09:14 Vitamin D3 PO 01/23/20 08:59 1,000 units DAILY LADONNA Administration NPO Date Last Intake of Fluids: 12/24/19 Time Last Intake of Fluids: 13:00 Date Last Intake of Solids: 12/23/19 Past Medical History Medical History (Updated 12/24/19 @ 14:10 by Patito L Gilbert, DO) Allergic rhinitis (Acute) Arthritis (Acute) COPD (chronic obstructive pulmonary disease) Coronary artery disease (Chronic) Diabetes mellitus (Acute) Disc degeneration, lumbar (Acute) 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) (Acute) Epigastric abdominal pain Gastric mass (Acute) Heart block AV second degree Hypercholesterolemia (Acute) Hypertension (Acute) Ischemic cardiomyopathy Lumbar post-laminectomy syndrome (Chronic) ANNABELLE (obstructive sleep apnea) bipap Pneumonia (Inactive) Respiratory failure with hypoxia 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) TIA (transient ischemic attack) Urinary retention with incomplete bladder emptying (Acute) Venous insufficiency (Acute) Exercise / Class Metabolic Activity II 4-5 Yardwork/Stairs/Walk up hill Past Family History Family History Father Myocardial infarction Mother Congestive heart failure Denies family history of Ovarian cancer Prostate cancer Breast cancer Colorectal cancer Past Surgical History Surgical History H/O total hip arthroplasty (Resolved) History of lumbar fusion (Resolved) Past Anesthesia History No Hx of Anesthesia Complications and No Family Hx of Anesthesia Complications History of PONV No Hx of PONV and No Hx of Motion Sickness Social History Smoking Status: Never smoker tobacco type: cigarettes Smoking cigarettes per day: 20 Hx Alcohol Use: Yes Alcohol type: beer and hard liquor alcohol intake frequency: holidays/special occasions only Hx Substance Use: No substance use type: other Substance Use Type Other:: CBD lotion Last Used Substance: Days (ago) Physical Exam Vital Signs Last Vital Signs Temp 36.6 C 12/24/19 07:18 Pulse 71 12/24/19 07:18 Resp 18 12/24/19 07:18 BP 135/72 12/24/19 07:18 Pulse Ox 99 12/24/19 07:18 Constitutional + obese ENMT Mouth: + dentition abnormality, + dentures, + dental restorations, + poor dentition and + chipped teeth; no TMJ abnormality Thyromental Distance: > or= 3.5 Finger Breadths Mallampati Class: II Neck normal visual inspection and trachea midline; neck extension not limited Respiratory normal respiratory effort Auscultation: + diminished lung sounds and + wheezes given albuterol mdi [id number] with good effect Cardiovascular Rate/Rhythm: regular rate and regular rhythm Heart Sounds: no murmur Musculoskeletal Spine: normal cervical ROM Extremities: full ROM of extremities Neurologic moves all extremities Psychiatric Orientation: alert and oriented x 3 Testing Laboratory Results 12/24/19 06:29 12/24/19 06:29 PT 11.1 Seconds (9.0-12.0) 12/23/19 10:58 INR 1.1 (0.9-1.1) 12/23/19 10:58 APTT 26.9 Seconds (21.0-31.0) 12/23/19 10:58 Urine Color Yellow 12/23/19 11:25 Urine Appearance Clear (Clear) 12/23/19 11:25 Urine pH 7.0 (4.5-7.5) 12/23/19 11:25 Ur Specific [place] 1.013 (1.000-1.030) 12/23/19 11:25 Urine Protein Negative (Negative) 12/23/19 11:25 Urine Glucose (UA) Negative (Negative) 12/23/19 11:25 Urine Ketones Negative (Negative) 12/23/19 11:25 Urine Nitrite Negative (Negative) 12/23/19 11:25 Ur Leukocyte Esterase Trace (Negative) H 12/23/19 11:25 Urine WBC (Auto) 1-5 /hpf (0-5) 12/23/19 11:25 Urine RBC (Auto) 0-4 /hpf (0-4) 12/23/19 11:25 U Hyaline Cast (Auto) 1-5 /lpf (0-5) 12/23/19 11:25 U Epithel Cells (Auto) 10-20 /lpf (0-5) H 12/23/19 11:25 Urine Bacteria (Auto) Negative (Negative) 12/23/19 11:25 Electrocardiogram 1st degree AVB@79bpm Chest X-Ray Date: 12/23/19 Findings: + cardiomegaly fibrosis Echocardiogram Date: 03/24/19 EF: 40-45 LV Function: decreased global RWMA: + none Other Findings: + LVH (borderline) Valvular Disease: + no significant valvular disease Pulmonary Function Test Date: 11/04/19 Findings: + responds to Bronchodilators obstructive Other Testing no covid testing, will need rule
[2019-12-24] MEDS ORDERED: ALBUTEROL HFA INHALER 8.5 GM ONE (15:07)
[2019-12-24] MEDS ORDERED: LIDOCAINE HCL 2% 2 ML VIAL/AMP(20MG/ML) INFIL ONE (15:40)
[2019-12-24] MEDS ORDERED: PROPOFOL IV EMULSION 10 MG/ML 20 ML VIAL IV ONE (15:40)
--- NOTE | 2019-12-24 15:53 | Anesthesiology Progress Note ---
Date of Service December 24, 2019 Anesthesia Post Procedure Vital Signs Vital Signs: Temp Pulse Pulse Resp BP BP Pulse Ox 12/24/19 15:51 79 18 126/54 L 97 12/24/19 15:36 68 21 111/56 L 96 12/24/19 14:59 36.3 C L 68 16 158/83 H 97 12/24/19 07:18 36.6 C 71 18 135/72 99 12/23/19 23:16 36.4 C L 65 18 126/73 100 12/23/19 16:00 70 12 115/73 97 12/23/19 15:54 69 16 98 Transfer of Care Handoff Completed per policy Notes Mental Status: alert / awake / arousable Patient Amnestic to Procedure: Yes Nausea / Vomiting: adequately controlled Pain: adequately controlled Airway Patency, RR, SpO2: stable & adequate BP & HR: stable & adequate Hydration State: stable & adequate Anesthetic Complications: no major complications apparent and Pt Satisfied with anesthetic care
--- NOTE | 2019-12-24 15:57 | GI REPORT ---
Patient Name: Boom Aragon Procedure Date: 12/24/2019 3:23 PM Date of : 1935 Admit Type: Inpatient Age: 84 Gender: Male Attending MD: Varghese Couch MD Procedure: Upper GI endoscopy Providers: Varghese Couch MD Referring MD: Jeancarlos Rosen, Jm Contreras Md Indications: Epigastric abdominal pain, Abnormal CT of the GI tract Medicines: Monitored Anesthesia Care Complications: No immediate complications. Estimated blood loss: None. Estimated Blood Loss: Estimated blood loss: none. Procedure: Pre-Anesthesia Assessment: - Prior Anticoagulants: The patient has taken no previous anticoagulant or antiplatelet agents. - ASA Grade Assessment: III - A patient with severe systemic disease. After obtaining informed consent, the endoscope was passed under direct vision. Throughout the procedure, the patient's blood pressure, pulse, and oxygen saturations were monitored continuously. The Endoscope was introduced through the mouth, and advanced to the second part of duodenum. The upper GI endoscopy was accomplished without difficulty. The patient tolerated the procedure well. Findings: The examined esophagus was normal. One non-bleeding cratered prepyloric gastric ulcer with no stigmata of bleeding was found in the gastric antrum. The lesion was 20 mm in largest dimension. The ulcer was was about 2 cm deep, appeared to be close to perforating but was not perforated. The ulcer was causing some pyloric obstruction and the antral mucosa was distorted and ulcerated. Biopsies were taken with a cold forceps for histology to evaluate for infection and malignancy. Estimated blood loss: none. The second portion of the duodenum was normal. Diffuse moderately erythematous mucosa without active bleeding and with no stigmata of bleeding was found in the duodenal bulb. Diffuse moderate inflammation characterized by erythema was found in the stomach. Impression: - Normal esophagus. - Non-bleeding gastric ulcer with no stigmata of bleeding. Biopsied. - Normal second portion of the duodenum. - Erythematous duodenopathy. Recommendation: - [facility]. - Clear liquid diet today. -start protonix 40 mg BID for 6 months -repeat EGD in 3 months consult general surgery for evaluation Varghese Couch MD 12/24/2019 3:57:09 PM This report has been signed electronically. Note Initiated On: 12/24/2019 3:23 PM Number of Addenda: 0 I attest to the content of the Intraoperative Record and orders documented therein, exceptions below {[id number]}
[2019-12-24] MEDS: METHENAMINE HIPPURATE 1 GM TAB PO SCH (20:45)
[2019-12-24] MEDS: PANTOprazole 40 MG TAB PO SCH (20:50)
[2019-12-25] MEDS: LACTATED RINGER'S 1,000 ML IV SCH (03:24)
[2019-12-25 06:01] LABS: Hematocrit (blood only) 33.7 % (42-52); Hemoglobin 11.1 g/dL (14.0-18.0); Mean Corpuscular Hemoglobin 30.2 pg (25-34); Mean Corpuscular Hgb Conc 32.9 g/dL (32-36); Mean Corpuscular Volume 91.8 fL (80-100); Mean Platelet Volume 10.2 fL (7.4-10.4); Platelet Count 164 K/uL (130-400); RDW Coefficient of Variation 13.6 % (11.5-14.5); RDW Standard Deviation 45.4 fL (36.4-46.3); Red Blood Count 3.67 M/uL (4.7-6.1); White Blood Count 6.59 K/uL (4.8-10.8)
[2019-12-25 06:37] LABS: Albumin Level 2.8 gm/dl (3.4-5.0); BUN Creatinine Ratio 11.6 (10-20); Calcium 8.5 mg/dl (8.5-10.1); Est GFR (African American) 58.5; Est GFR (Non-African American) 50.5; Potassium 4.6 mmol/L (3.5-5.1)
[2019-12-25 06:48] LABS: Albumin Globulin Ratio 0.8 (0.9-2); Bilirubin,Total 0.6 mg/dl (0.2-1); Globulin 3.5 gm/dl (2.5-4.0); Total Protein 6.3 gm/dl (6.4-8.2)
[2019-12-25] MEDS: PANTOprazole 40 MG TAB PO SCH (07:42)
[2019-12-25] MEDS: METOPROLOL SUCC 25MG EXT REL TAB PO SCH (07:42)
[2019-12-25] MEDS: SPIRONOLACTONE 12.5 MG TAB PO SCH (07:43)
[2019-12-25] MEDS: CHOLECALCIFEROL 1,000 UNITS 25 MCG TAB PO SCH (07:43)
[2019-12-25] MEDS: FINASTERIDE 5 MG TAB PO SCH (07:44)
[2019-12-25] MEDS: CALCIUM CARBONATE 1250MG TAB PO SCH (07:44)
[2019-12-25] MEDS: CYANOCOBALAMIN 500 MCG TABLET (VITAMIN B-12) PO SCH (07:45)
--- NOTE | 2019-12-25 09:30 | Gastroenterology Progress Note ---
Date of Service December 25, 2019 Assessment & Plan (1) Abnormal CT of the abdomen: (2) Epigastric abdominal pain: (3) Gastric ulcer: 1. NPO for now. 2. Await general surgery evaluation 3. Continue Pantoprazole 40 mg BID. 3. Await pathology as pending. 4. Continue supportive care. Thank you for allowing us to participate in the care of this patient. If you have questions or concerns, please do not hesitate to contact us. Admission and Anticipated Discharge Date Admission Date: December 24, 2019 Supervising Physician Co-Signing Physician Notes I personally evaluated the patient and agree with the findings as documented by MARKO Orozco Exam: abd: soft, nt, nd, obese repeat EGD in 3 months to reassess ulcer. Subjective Patient reports feeling well today. S/P EGD with findings of gastric ulcer without stigmata of bleeding. Continues Protonix 40 mg BID. NPO awaiting general surgery evaluation. Pathology from EGD pending. H&H stable. He is currently without any GI complaints. Review of Systems Review of Systems: All systems reviewed & are unremarkable except as noted in HPI & below Physical Exam Constitutional: WD/WN, vitals as above well developed and well nourished Eyes: EOM intact bilaterally Neck: normal visual inspection Respiratory: normal respiratory effort, lungs clear to auscultation Cardiovascular: Rate/Rhythm: regular rate and regular rhythm Gastrointestinal (Abdomen): normal bowel sounds, soft, nontender, no hepatosplenomegaly Musculoskeletal: Extremities: extremities normal to inspection Psychiatric: A+Ox3, euthymic affect Results & Data Results & Data ([facility]) Vital Signs (Past 12 Hours) Vital Signs Temp Pulse Resp BP Pulse Ox 12/25/19 07:47 36.3 C L 73 18 141/71 H 97 12/25/19 05:00 36.4 C L 65 16 136/66 99 12/24/19 23:31 36.5 C 63 16 120/56 L 99 Laboratory Results Abnormal lab results 12/25/19 12/25/19 Range/Units 05:32 05:32 RBC 3.67 L (4.7-6.1) M/uL Hgb 11.1 L (14.0-18.0) g/dL Hct 33.7 L (42-52) % Chloride 110 H (98-107) mmol/L Glucose 125 H (70-99) mg/dl Total Protein 6.3 L D (6.4-8.2) gm/dl Albumin 2.8 L (3.4-5.0) gm/dl Albumin/Globulin Ratio 0.8 L (0.9-2) PG Care Time/CCT Total # of Minutes Spent Total Time Spent with Patient: Total time spent is greater than 50% in coordination of care (as documented) at patient's floor/unit and/or counseling patient: Coding Level of Care Code 11959 Subseq Hosp Care Lvl [address] of the abdomen R93.5 Epigastric abdominal pain R10.13 Gastric ulcer K25.9
--- NOTE | 2019-12-25 11:04 | Surgery Consultation ---
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 clear diet, biopsy report is pending, will F/u Supervising Physician Co-Signing Physician Notes I personally evaluated the patient and agree with the findings as documented by MARKO Orozco Exam: abd: soft, nt, nd, obese repeat EGD in 3 months to reassess ulcer. History of Present Illness Attending Physician: Jm Contreras MD History of Present Illness Patient is a 84 year-old male with a history of HTN, DM, CAD and allergic rhinitis being admitted after developing abdominal pain two weeks [employer]. Reports the pain as epigastric discomfort stating "I thought it was gas". The pain is intermittent, rated 2-4/10 in intensity. Had a single biliary emesis several days ago. No current nausea, vomiting or hematemesis. Reports associated decreased appetite but no weight loss. No melena, hematochezia or diarrhea. Has tried OTC simethicone without benefit. Past medical history is negative for H pylori infection. No ibuprofen use. +Low dose aspirin. Does have a maternal history of GI malignancy, uncertain location. States he did have a colonoscopy in the past. Inquiring about findings, "it was nothing to worry about". Upon arrival, he did undergo a CT abdomen which was concerning for PUD vs mass. I ( Becca Blum MD ) got a call for consult gastric ulcer, I reviewed pt's H/P , labs, CT scan, EGD with pt, pt has no abdominal pain now, no nausea, no vomit ing, Allergies Allergy/AdvReac Type Severity Reaction Status Date / Time nitrofurantoin Allergy Severe SHORTNESS Verified 12/11/19 11:07 OF BREATH Home Medications Home Medications Medication Instructions Recorded Confirmed Type aspirin 81 mg tablet,delayed 81 mg PO DAILY 03/04/18 12/23/19 History release cholecalciferol (vitamin D3) 25 1,000 units PO DAILY 03/04/18 12/23/19 History mcg (1,000 unit) capsule methenamine hippurate 1 gram tablet 1 gm PO QPM tab 03/04/18 12/23/19 History vitamin E (dl, acetate) 400 unit 400 units PO DAILY 03/04/18 12/23/19 History capsule cannabidiol 100 mg/mL oral solution 2.5 mg PO BID PRN #100 ml 11/08/18 12/23/19 Rx finasteride 5 mg tablet 5 mg PO DAILY #30 tab 11/08/18 12/23/19 Rx calcium carbonate 500 mg calcium 500 mg PO BID tab 11/20/18 12/23/19 History (1,250 mg) tablet cyanocobalamin (vitamin B-12) 1,000 mcg PO DAILY 11/20/18 12/23/19 History 1,000 mcg capsule potassium chloride 20 mEq oral 20 meq PO DAILY 11/20/18 12/23/19 History packet spironolactone 25 mg tablet 12.5 mg PO DAILY tab 06/12/19 12/23/19 History coenzyme Q10 100 mg capsule 100 mg PO DAILY cap 11/04/19 12/23/19 History hydrocortisone 1 % topical cream 1 appln TOP QID PRN #30 gm 12/11/19 12/23/19 Rx metoprolol succinate 25 mg capsule 25 mg PO DAILY 12/11/19 12/23/19 History kassandra, ext. release 24 hr Patient History Medical History (Updated 12/24/19 @ 14:10 by Patito Lau DO) Allergic rhinitis (Acute) Arthritis (Acute) COPD (chronic obstructive pulmonary disease) Coronary artery disease (Chronic) Diabetes mellitus (Acute) Disc degeneration, lumbar (Acute) 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) (Acute) Epigastric abdominal pain Gastric mass (Acute) Heart block AV second degree Hypercholesterolemia (Acute) Hypertension (Acute) Ischemic cardiomyopathy Lumbar post-laminectomy syndrome (Chronic) ANNABELLE (obstructive sleep apnea) bipap Pneumonia (Inactive) Respiratory failure with hypoxia 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) TIA (transient ischemic attack) Urinary retention with incomplete bladder emptying (Acute) Venous insufficiency (Acute) Surgical History H/O total hip arthroplasty (Resolved) History of lumbar fusion (Resolved) Family History Father Myocardial infarction Mother Congestive heart failure Denies family history of Ovarian cancer Prostate cancer Breast cancer Colorectal cancer Social History Smoking Status: Never smoker Age Started Using Tobacco: 15; Age Quit Using Tobacco: 45; packs per day: 1; Cigarettes Per Day: 20; Hx Alcohol Use: Yes Alcohol type: beer and hard liquor Hx Substance Use: No Preferred Language: Jordanian Communication Ability: Effective Flask Pusher Required: No Beliefs That Will Affect Care: None marital status: / Current Living Situation: Alone current occupational status: retired Other Information That Helps Us Care for You: No Feels Safe at Home: Yes Safety Concerns: Feels Safe At This Time Diet Comment: no speacial diet Dental Care, Regularly: Yes Physical Activity Frequency: Does not Exercise Seatbelt Use: always Sunscreen Use: No Do you think of yourself as: straight/heterosexual Review of Systems Review of Systems: All systems reviewed & are unremarkable except as noted in HPI & below Allergies Allergy/AdvReac Type Severity Reaction Status Date / Time nitrofurantoin Allergy Severe SHORTNESS Verified 12/24/19 15:07 OF BREATH Home Medications Home Medications Medication Instructions Recorded Confirmed Type aspirin 81 mg tablet,delayed 81 mg PO DAILY 03/04/18 12/23/19 History release cholecalciferol (vitamin D3) 25 1,000 units PO DAILY 03/04/18 12/23/19 History mcg (1,000 unit) capsule methenamine hippurate 1 gram tablet 1 gm PO QPM tab 03/04/18 12/23/19 History vitamin E (dl, acetate) 400 unit 400 units PO DAILY 03/04/18 12/23/19 History capsule cannabidiol 100 mg/mL oral solution 2.5 mg PO BID PRN #100 ml 11/08/18 12/23/19 Rx finasteride 5 mg tablet 5 mg PO DAILY #30 tab 11/08/18 12/23/19 Rx calcium carbonate 500 mg calcium 500 mg PO BID tab 11/20/18 12/23/19 History (1,250 mg) tablet cyanocobalamin (vitamin B-12) 1,000 mcg PO DAILY 11/20/18 12/23/19 History 1,000 mcg capsule potassium chloride 20 mEq oral 20 meq PO DAILY 11/20/18 12/23/19 History packet spironolactone 25 mg tablet 12.5 mg PO DAILY tab 06/12/19 12/23/19 History coenzyme Q10 100 mg capsule 100 mg PO DAILY cap 11/04/19 12/23/19 History hydrocortisone 1 % topical cream 1 appln TOP QID PRN #30 gm 12/11/19 12/23/19 Rx metoprolol succinate 25 mg capsule 25 mg PO DAILY 12/11/19 12/23/19 History kassandra, ext. release 24 hr Patient History Medical History (Updated 12/25/19 @ 09:43 by MARKO Guzman) Allergic rhinitis (Acute) Arthritis (Acute) COPD (chronic obstructive pulmonary disease) Coronary artery disease (Chronic) Diabetes mellitus (Acute) Disc degeneration, lumbar (Acute) 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) (Acute) Epigastric abdominal pain Gastric mass (Acute) Heart block AV second degree Hypercholesterolemia (Acute) Hypertension (Acute) Ischemic cardiomyopathy Lumbar post-laminectomy syndrome (Chronic) ANNABELLE (obstructive sleep apnea) bipap Pneumonia (Inactive) Respiratory failure with hypoxia 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) TIA (transient ischemic attack) Urinary retention with incomplete bladder emptying (Acute) Venous insufficiency (Acute) Surgical History H/O total hip arthroplasty (Resolved) History of lumbar fusion (Resolved) Family History Father Myocardial infarction Mother Congestive heart failure Denies family history of Ovarian cancer Prostate cancer Breast cancer Colorectal cancer Social History Smoking Status: Never smoker Age Started Using Tobacco: 15; Age Quit Using Tobacco: 45; packs per day: 1; Cigarettes Per Day: 20; Hx Alcohol Use: Yes Alcohol type: beer and hard liquor Hx Substance Use: No Preferred Language: Jordanian Communication Ability: Effective Flask Pusher Required: No Beliefs That Will Affect Care: None marital status: / Current Living Situation: Alone current occupational status: retired Other Information That Helps Us Care for You: No Feels Safe at Home: Yes Safety Concerns: Feels Safe At This Time Diet Comment: no speacial diet Dental Care, Regularly: Yes Physical Activity Frequency: Does not Exercise Seatbelt Use: always Sunscreen Use: No Do you think of yourself as: straight/heterosexual Review of Systems Review of Systems: All systems reviewed & are unremarkable except as noted in HPI & below Constitutional: as per Subjective / HPI Eyes: as per Subjective / HPI Ear, Nose, Mouth, Throat: as per Subjective / HPI Respiratory: as per Subjective / HPI COPD, allergic rhinitis Cardiovascular: Additional Comments: ischemic cardiomyopathy, bradycardia, CHF, HTN, pulmonary hypertension, CAD Gastrointestinal: + abdominal pain Genitourinary: + problem reported (WILLY, BPH) Musculoskeletal: as per Subjective / HPI Integumentary: as per Subjective / HPI Neurologic: as per Subjective / HPI Psychiatric: as per Subjective / HPI Endocrine: as per Subjective / HPI DM Hematologic / Lymphatic: as per Subjective / HPI Physical Exam Constitutional: WD/WN, vitals as above well developed Eyes: PERRL, conjunctivae normal, anicteric sclerae ENMT: external ear and nose normal, oropharynx normal Neck: trachea midline, no thyromegaly Respiratory: normal respiratory effort, lungs clear to auscultation normal respiratory effort Cardiovascular: RRR, no murmur, no edema Rate/Rhythm: regular rate and regular rhythm Gastrointestinal (Abdomen): normal bowel sounds, soft, nontender, no hepatosplenomegaly NT, ND , BS + Musculoskeletal: no cyanosis or clubbing, extremities motor strength 5/5 Skin: no rashes, warm and dry Neurologic: patellar DTR's 2+ bilat, sensation intact Psychiatric: Orientation: alert and oriented x 3 Results & Data Vital Signs (Past 12 Hours) Vital Signs Temp Pulse Resp BP Pulse Ox 12/25/19 07:47 36.3 C L 73 18 141/71 H 97 12/25/19 05:00 36.4 C L 65 16 136/66 99 12/24/19 23:31 36.5 C 63 16 120/56 L 99 Laboratory Results Abnormal lab results 12/25/19 12/25/19 Range/Units 05:32 05:32 RBC 3.67 L (4.7-6.1) M/uL Hgb 11.1 L (14.0-18.0) g/dL Hct 33.7 L (42-52) % Chloride 110 H (98-107) mmol/L Glucose 125 H (70-99) mg/dl Total Protein 6.3 L D (6.4-8.2) gm/dl Albumin 2.8 L (3.4-5.0) gm/dl Albumin/Globulin Ratio 0.8 L (0.9-2) Diagnostic Findings CT SCAN OF THE ABDOMEN AND PELVIS WITH IV CONTRAST CLINICAL HISTORY: Upper abdominal/epigastric pain. COMPARISON STUDY: No priors. TECHNIQUE: Following the IV administration of 94 cc of Optiray 320, CT scan of the abdomen and pelvis is performed from the lung bases to the proximal femora. Images are reviewed in the axial, sagittal, and coronal planes. IV contrast was administered without complication. A dose lowering technique was utilized adhering to the principles of ALARA. Examination is significantly degraded by streak artifact from metallic spinal hardware and bilateral hip arthroplasties. CT DOSE: 1158.34 mGycm FINDINGS: Lung bases: The heart is normal in size and without pericardial effusion. Coronary arteries are densely calcified. There is lipomatous hypertrophy of the interatrial septum. A small hiatal hernia is noted. Scarring/atelectasis is seen at both lung bases. There is no airspace consolidation typical for pneumonia or pleural effusion. A calcified granuloma is noted in the right lower lobe. Liver: The contrast-enhanced liver is normal in size, contour, and attenuation. There is no intrahepatic biliary ductal dilatation. The hepatic veins and portal veins are patent. Gallbladder: Surgically absent noting clips in the gallbladder fossa. Spleen: Normal in size and attenuation. Pancreas: Unremarkable. Adrenal glands: Unremarkable. Kidneys: The contrast enhanced kidneys are atrophic and without hydronephrosis. The kidneys enhance symmetrically. A 4.3 cm cyst arises from the interpolar right kidney. Abdominal vasculature: There is advanced atherosclerotic calcification and mild ectasia of the abdominal aorta. Bowel: There is asymmetric wall thickening and mucosal hyperemia seen involving the distal stomach. Question faint perigastric infiltration and there are small perigastric lymph nodes which measure up to 12 mm in length. No bowel obstruction is seen. There is moderate to advanced colonic diverticulosis without CT evidence of acute diverticulitis. The appendix is well-visualized and normal. Peritoneum: There is no intraperitoneal free air or abdominal ascites. There is a small fat-containing umbilical hernia. Lymphadenopathy: None. Pelvic viscera: Evaluation of the pelvis is severely degraded by streak artifact from bilateral hip arthroplasties. The prostate gland is enlarged and heterogeneous noting median lobe hypertrophy. The bladder wall is thickened and trabeculated indicating chronic outlet obstruction. Skeletal structures: The skeletal structures are osteopenic. There is postoperative change from L2 to L5 spinal fusion. No lytic or blastic lesions are seen. Bilateral hip arthroplasties are in place. IMPRESSION: 1. There is asymmetric wall thickening with mucosal edema and hyperemia involving the distal stomach. There is associated faint perigastric infiltration and mildly enlarged perigastric lymph nodes. Differential considerations include peptic ulcer disease or possibly a gastric mucosal neoplasm. The stomach is not well assessed by CT and correlation with endoscopy is recommended for further assessment. 2. No intraperitoneal free air is seen. 3. Moderate to advanced colonic diverticulosis without CT evidence of acute diverticulitis. 4. Additional findings as above. EGD_Impression: - Normal esophagus. - Non-bleeding gastric ulcer with no stigmata of bleeding. Biopsied. - Normal second portion of the duodenum. - Erythematous duodenopathy.
--- NOTE | 2019-12-25 14:44 | Discharge Summary ---
Date of Service December 25, 2019 Admission HPI Per Admitting Provider Boom Aragon is an 84 year old male who presents to the ER with acute epigastric pain. This has been going on mildly for the past 2 weeks intermittently, no association with any particular food. However today became suddenly worse with associated nausea and dry heaving. In addition he has been more constipated over the past few days in addition to abdominal distension. No dysphagia, odynophagia, melena, bright red blood in stool. No fevers, chills. No weight loss over the past year (if anything he reports gaining some weight). No NSAID use. Uses ASA 81mg PO daily. Very occasional heartburn. In the ER CT A/P concerning for possibly ulcer vs. gastric mass and recommended evaluation by EGD. ER physician discussed with Dr Couch who recommended inpatient admission to have this performed. Principal Diagnosis Gastric ulcer Discharge Exam Constitutional WD/WN, vitals as above Respiratory normal respiratory effort, lungs clear to auscultation Cardiovascular RRR, no murmur, no edema Gastrointestinal (Abdomen) Inspection/Auscultation: abdomen normal to inspection and normal bowel sounds; abdomen not distended Percussion/Palpation: abdomen nontender Musculoskeletal no cyanosis or clubbing, extremities motor strength 5/5 Skin no rashes, warm and dry Neurologic moves all extremities and awake Psychiatric A+Ox3, euthymic affect Discharge Data Allergies Allergy/AdvReac Type Severity Reaction Status Date / Time nitrofurantoin Allergy Severe SHORTNESS Verified 12/24/19 15:07 OF BREATH Consultations 12/23/19 13:13 Consult Gastroenterology Stat ED Decision to Admit Stat 12/24/19 17:39 Consult General Surgery Routine Procedures Performed Operation Date: 12/24/19 15:40 Actual Procedures p EGD Biopsy Cytology - Varghese Couch MD Ordered Studies 12/23/19 10:51 CT abd pelvis IV con only Stat Hospital Course (1) Abdominal pain, acute, epigastric: Possible gastric mass with reactive lymph nodes on CT. ?gastric ulcer (on aspirin) vs. mass. Pantoprazole 40mg IV BID EGD performed 12/24 found a deep non bleeding gastric ulcer which was biopsied Will need six months of pantoprazole bid and follow up EGD in 3 months Surgery was consulted and no surgical intervention necessary, continue supportive measures Hold ASA for two weeks - patient's [facility] remote (2) Acute kidney injury: Resolved with IVF (3) Ischemic cardiomyopathy: Continue metoprolol succinate 25 mg p.o. daily, continue spironolactone 12.5 mg p.o. daily (4) COPD (chronic obstructive pulmonary disease): Continue usual ICS/LABA maintenance inhaler (5) ANNABELLE (obstructive sleep apnea): Continue bipap (6) 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): Continue finasteride 5 mg p.o. daily (7) Diabetes mellitus: HbA1c 6.5 in June. On no outpatient medication for this. (8) Coronary artery disease: Very remote history of myocardial infarction (1980s per cardiology note). Hold ASA for 2 weeks. Unclear why is not on a statin. Continue home dose metoprolol (9) DVT prophylaxis: SCDs Total Time Total Time Spent Total Time Spent (In Minutes): greater than 30 minutes Discharge Plan Discharge Items Patient Disposition: Home - Self-Care Reason For Visit: ABDOMINAL PAIN Discharge Diagnosis: Gastric ulcer Condition on Discharge: Good Activity: Resume your previous activity Non-emergency contact: Primary Care Provider Call non-emergency contact if: your symptoms worsen Follow-up/Referrals: Jeancarlos Rosen III, CRNP [Primary Care Provider] - (Primary care follow up in one week ) Diet: Carb Consistent or DM2 Diet Comment: advance as tolerated Addtl Attending Provider Instructions: (1) Abdominal pain, acute, epigastric: Your endoscopy on 12/23 showed a gastric ulceration. A biopsy was obtained and will likely result next week. - Please continue pantoprazole twice per day - You will need a repeat endoscopy in 3 months - Please follow up with your primary care provider in about a week. (2) Acute kidney injury: Your kidney function was slightly decreased when you arrived, likely due to dehydration, but is now within normal limits after you received IV fluid therapy. (3) Ischemic cardiomyopathy: (4) Coronary artery disease: - Continue spironolactone, metoprolol - Aspirin - please hold your aspirin for 2 weeks and then resume. Aspirin can irritate the stomach lining but once you have a couple of weeks of pantoprazole to protect your stomach you can resume Pending Studies at Discharge: Yes Studies:: Gastric biopsy Stand-Alone Forms: [email or web address], Smoking Cessation Medications and DC Order Prescriptions: New pantoprazole 40 mg Tablet,Delayed Release (Dr/Ec) 40 mg PO BID Qty: 60 RF: 6 Continued aspirin [Adult Low Dose Aspirin] 81 mg tablet,delayed release (DR/EC) 81 mg PO DAILY RF: 0 methenamine hippurate 1 gram tablet 1 gm PO QPM RF: 0 cholecalciferol (vitamin D3) 1,000 unit capsule 1,000 units PO DAILY RF: 0 vitamin E (dl, acetate) 400 unit capsule 400 units PO DAILY RF: 0 coenzyme Q10 100 mg capsule 100 mg PO DAILY RF: 0 finasteride 5 mg tablet 5 mg PO DAILY Qty: 30 RF: 2 cannabidiol 100 mg/mL solution 2.5 mg PO BID PRN (Reason: pain) Qty: 100 RF: 0 spironolactone 25 mg tablet 12.5 mg PO DAILY RF: 0 budesonide-formoterol [Symbicort] 160-4.5 mcg/actuation HFA aerosol inhaler 1 inh inhalation DIRECTED RF: 0 metoprolol succinate 25 mg capsule,sprinkle,ER 24hr 25 mg PO DAILY RF: 0 hydrocortisone [Proctocort] 1 % cream 1 appln TOP QID PRN (Reason: hemorrhoids) Qty: 30 RF: 0 calcium carbonate [Calcium 500] 500 mg calcium (1,250 mg) tablet 500 mg PO BID RF: 0 cyanocobalamin (vitamin B-12) 1,000 mcg capsule 1,000 mcg PO DAILY RF: 0 potassium chloride 20 mEq packet 20 meq PO DAILY RF: 0 Discharge Orders: Discharge Order (Routine); Ordered 12/25/19 Ordered By: Pat Moreno Admission Data Admit Date/Time: 12/24/19 14:51 Attending Provider: Jm Contreras Admit Provider: Corby Becker Primary Care Provider: Jeancarlos Rosen III Other Providers: Varghese Couch ; Jm Contreras ; Becca Blum Other Interventions: Discharge Summary Assessment (RN) Last Done: 12/25/19 14:35 Supervising Physician Co-Signing Physician Notes I supervised Pat Moreno NP on this patient's care. I examined the patient today independently of her. I discussed the plan of care with her with the plan being as written in her note except for any following changes/exceptions: None. Very pleasant. No further pain today. Will await biopsy results next week, but otherwise ready to go. Cleared holding his ASA for 1-2 weeks per cardiology in order to let the stomach heal. Coding Level of Care Code D/C Day Management >30 mins Diagnoses Abdominal pain, acute, epigastric R10.13 Acute kidney injury N17.9 Ischemic cardiomyopathy I25.5 COPD (chronic obstructive pulmonary disease) 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 ANNABELLE (obstructive sleep apnea) G47.33 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) N40.1 Diabetes mellitus E11.9 Diabetes mellitus complication status: without complication Diabetes mellitus terminal operator insulin use: without terminal operator use Diabetes mellitus type: type 2 Coronary artery disease I25.10 DVT prophylaxis Z29.9
== END 2019-12-25 18:47 | disposition home or self-care (01) | DRG 384 ==
LOC: 3N 10:21 → ED 10:21 → SUATTDRO 14:28 → 3N 16:15

== ENCOUNTER 2022-08-01 17:25 | Inpatient (IN) ==
--- NOTE | 2022-08-01 18:35 | XRay Report ---
XR chest 1V portable CLINICAL HISTORY: Fever COMPARISON STUDY: Chest CT January 09, 2022. FINDINGS: There is no pneumothorax or pleural effusion. No consolidation is identified to suggest pne umonia. Interstitial thickening is unchanged. This is likely chronic. Cardiomediastinal silhouette is stable. IMPRESSION: No acute cardiopulmonary findings. No change in appearance of the chest. ACT 112: Negative or not required by law. Electronically signed by: Brayan Hernandez M.D. 08/01/2022 6:34 PM
[2022-08-01 18:48] LABS: Basophils # (auto) 0.03 K/uL (0-0.2); Basophils % (auto) 0.3 %; Eosinophils # (auto) 0.02 K/uL (0-0.50); Eosinophils % (auto) 0.2 %; Hematocrit (blood only) 35.6 % (42.0-52.0); Immature Granulocytes # (auto) 0.08 K/uL (0.01-0.20); Immature Granulocytes % (auto) 0.7 %; Lymphocytes # (auto) 1.04 K/uL (1.2-3.4); Lymphocytes % (auto) 8.7 %; Mean Corpuscular Hemoglobin 31.2 pg (25.0-34.0); Mean Corpuscular Hgb Conc 33.7 g/dL (32.0-36.0); Mean Corpuscular Volume 92.5 fL (80.0-100.0); Mean Platelet Volume 10.6 fL (9.4-12.4); Monocytes # (auto) 1.25 K/uL (0.11-0.59); Monocytes % (auto) 10.4 %; Neutrophils # (auto) 9.57 K/uL (1.40-6.50); Neutrophils % (auto) 79.7 %; Platelet Count 177 K/uL (130-400); RDW Coefficient of Variation 13.6 % (11.5-14.5); RDW Standard Deviation 45.9 fL (36.4-46.3); Red Blood Count 3.85 M/uL (4.70-6.10); White Blood Count 11.99 K/ul (4.8-10.8)
[2022-08-01 19:12] LABS: Albumin Globulin Ratio 1.1 (0.9-2); Albumin Level 3.9 gm/dl (3.4-5.0); BUN Creatinine Ratio 17.9 (10-20); Bilirubin,Total 1.3 mg/dl (0.2-1.0); Calcium 8.8 mg/dl (8.5-10.1); Creatinine Clr Calc Pharmacy 39.6 ml/min; Est GFR (African American) 40.5 ml/min; Globulin 3.4 gm/dl (2.5-4.0); Potassium 4.8 mmol/L (3.5-5.1); Total Protein 7.3 gm/dl (6.0-8.3)
[2022-08-01] MEDS ORDERED: cefTRIAXone SODIUM 2,000 MG/70 ML BAG IV STA (19:51)
[2022-08-01] MEDS ORDERED: SODIUM CHLORIDE 0.9% 500 ML IV ONE (19:57)
[2022-08-01] MEDS ORDERED: SODIUM CHLORIDE 0.9% 1000ML 1,000 ML IV SCH (20:00)
--- NOTE | 2022-08-01 22:15 | History & Physical Report ---
Date of Service August 01, 2022 Assessment & Plan (1) Catheter-associated urinary tract infection: Plan: Patient is an 87 yo male with significant PMHx including chronic gerardo catheter, DM, gastric ulcer, Barretts esophagus, interstitial lung disease, CHF, pulmonary HTN, ANNABELLE, COPD, venous insufficiency, HTN, HLD, and BPH with LUTS admitted 08/01/22 with catheter-associated UTI. Catheter-associated UTI - Catheter last exchanged Sunday 07/30 at time of urine collection - Mild leukocytosis w/ WBC 11.99 - Urine cx 07/30 positive for gram negative bacilli - Received 2g Ceftriaxone in ED; will continue with Ceftriaxone 1g q24h pending bacterial sensitivities - Blood cx pending - Patient does not meet SIRS criteria on admission - Recheck CBC in AM Weakness - Most likely secondary to UTI above - PT/OT ordered WILLY - Secondary to UTI and decreased po intake - Patient received IVF in the ER but had subsequent signs of fluid overload - Lasix 20mg IV x1 administered on admission - Continue to monitor BMP - Avoid nephrotoxic agents COPD/ILD - Continue home regimen with inhalers (albuterol prn, anoro ellipta daily) BPH - Continue home tamsulosin and finasteride CHF/HTN - On chart review, most recent [facility] 03[facility] w/ EF of 40-45% - Continue home metoprolol - Continue home lasix; monitor kidney function closely - Home lisinopril and spironolactone held on admission Hyperlipidemia - Continue home statin DM - Home metformin held - ISS - DM2 diet ANNABELLE - Continue BiPap nightly FENGI: DM2, heart healthy (2) Weakness: (3) Fall: (4) Diabetes mellitus with diabetic nephropathy: (5) CHF (congestive heart failure): (6) ANNABELLE (obstructive sleep apnea): (7) COPD (chronic obstructive pulmonary disease): (8) Hypertension: (9) Hypercholesterolemia: (10) 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): (11) Arthritis: History of Present Illness Primary Care Provider: Jeancarlos Rosen III, MARKO Patient is an 87 yo male with significant PMHx including chronic gerardo catheter, DM, gastric ulcer, Barretts esophagus, interstitial lung disease, CHF, pulmonary HTN, ANNABELLE, COPD, venous insufficiency, HTN, HLD, and BPH with LUTS who presented to the ED on 08/01/22 with complaint of weakness s/p fall. Patient notes that he was evaluated in the ER 2 days ago for urinary retention and complications with his urinary catheter. The catheter was exchanged and patient was discharged home with urine cx pending. Today, patient was returning home from an outing with his dog and when walking into the house, he dropped the dog's leash, bent over to product picker the leash, lost his balance, and fell to the ground. He denies LOC/head trauma. No associated dizziness reported. Patient states that he was unable to get himself off the ground and required the assistance of two people (who were working at a neighboring house) to help him stand and ambulate into the house. Patient reports persistent generalized weakness. Denies focal weakness. Patient notes that he was also notified today of + UTI on urine cx; he had not yet started abx therapy prior to coming to the ER. He also notes that he has had recurrent ur inary concerns including urinary retention described as + urinary urge and abdominal fullness sensation but with decreased urinary output from the catheter. Patient states that he typically changes the gerardo bag 3-4x/day (with full amount of urine) but today he only changed the bag once and it was half full. Patient has had the chronic catheter for about 8-10 months; he is seen by urology monthly for catheter exchange. Patient had an exchange 2 days ago in the ED and also had an exchange 3 days prior to that (his scheduled exchange w/ urology). Patient reports + chills and subjective fever. Denies CP, SOB, nausea, or vomiting. In the ER, patient remained hemodynamically stable. Labs revealed mild leukocytosis with WBC 11.99. He has chronic anemia that is not significantly changed from baseline. Na 133. Patient does have WILLY with Cr 1.73 (baseline 1.2 to 1.4). Urine cx as collected 07/30 w/ gram negative bacilli; sensitivites pending Allergies Allergy/AdvReac Type Severity Reaction Status Date / Time nitrofurantoin Allergy Severe SHORTNESS Verified 08/01/22 21:22 OF BREATH, "spitting up thick black stuff" Home Medications Medication Instructions Recorded Confirmed Type cholecalciferol (vitamin D3) 25 1,000 units PO QAM 03/04/18 08/01/22 History mcg (1,000 unit) capsule methenamine hippurate 1 gram tablet 1 gm PO HS 03/04/18 08/01/22 History vitamin E (dl, acetate) 180 mg 400 units PO QAM 03/04/18 08/01/22 History (400 unit) capsule calcium carbonate 500 mg calcium 500 mg PO BID 11/20/18 08/01/22 History (1,250 mg) tablet (Calcium 500) cyanocobalamin (vitamin B-12) 1,000 mcg PO QAM 11/20/18 08/01/22 History 1,000 mcg capsule spironolactone 25 mg tablet 12.5 mg PO QAM 06/12/19 08/01/22 History coenzyme Q10 100 mg capsule 100 mg PO QAM 11/04/19 08/01/22 History atorvastatin 80 mg tablet 40 mg PO HS 03/23/20 08/01/22 History finasteride 5 mg tablet 5 mg PO HS 03/23/20 08/01/22 History lisinopril 5 mg tablet 5 mg PO QAM 03/23/20 08/01/22 History magnesium oxide 400 mg PO QAM 03/23/20 08/01/22 History metformin 500 mg tablet 500 mg PO BID 03/23/20 08/01/22 History montelukast 10 mg tablet 10 mg PO QAM 03/23/20 08/01/22 History tamsulosin 0.4 mg capsule 0.4 mg PO HS 03/23/20 08/01/22 History vitamins A,C,V-tjtv-ufjbjw 4,296 1 cap PO BID 03/23/20 08/01/22 History mcg-226 mg-90 mg capsule (PreserVision AREDS) acetaminophen 325 mg capsule 325 mg PO BID PRN Pain 05/12/20 08/01/22 History metoprolol succinate 25 mg 12.5 mg PO DAILY #15 tabs 06/15/20 08/01/22 Rx tablet,extended release 24 hr albuterol sulfate 90 mcg/actuation 1 inh inhalation QID PRN shortness 11/17/20 08/01/22 Rx aerosol inhaler (Ventolin HFA) of breath or wheezing #18 grams ascorbic acid (vitamin C) 250 mg 250 mg PO DAILY 11/17/20 08/01/22 History tablet ferrous sulfate 325 mg (65 mg 325 mg PO DAILY 11/17/20 08/01/22 History iron) tablet tiotropium 2.5 mcg-olodaterol 2.5 2 puff inhalation DAILY #3 Inhalers 12/03/20 08/01/22 Rx mcg/actuation mist for inhalation (Stiolto Respimat) aspirin 81 mg tablet,delayed 81 mg PO DAILY 03/25/21 08/01/22 History release (Adult Low Dose Aspirin) omeprazole 40 mg capsule,delayed 40 mg PO DAILY 03/25/21 08/01/22 History release diclofenac sodium 1 % topical gel 2 g topical TID 06/16/21 08/01/22 History vit C 226 mg-vit E 90 mg-copper 1 cap PO BID 06/16/21 08/01/22 History 0.8 mg-zinc oxide-lutein 5 mg capsule (PreserVision Lutein) furosemide 20 mg tablet 40 mg PO QAM 01/05/22 08/01/22 History Past Med/Surg History Medical History Acute kidney injury Allergic rhinitis Arthritis Chronic SI joint pain COPD (chronic obstructive pulmonary disease) inhalers prn Coronary artery disease Diabetes mellitus type 2 Disc degeneration, lumbar 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) Epigastric abdominal pain Gastric mass Gastric ulcer GERD (gastroesophageal reflux disease) Hearing deficit Heart block AV second degree History of urinary self-catheterization performed intermittently Hypercholesterolemia Hypertension Ischemic cardiomyopathy Lumbar post-laminectomy syndrome Lumbar spondylosis Multiple lung nodules My[facility] Infar[facility] 12/1980 [facility] attack[facility]NABELLE (obstructive sleep apnea) bipap with oxygen 2.5L Respiratory failure with hypoxia Solitary thyroid nodule Spinal stenosis of lumbar region TIA (transient ischemic attack) 2014--no neurologist, no further issues Venous insufficiency Surgical History History of bilateral cataract extraction History of cardiac cath 03/1981 @ [facility] no stent placed History of cholecystectomy History of circumcision 1998 History of colonoscopy History of cystoscopy History of esophagogastroduodenoscopy (EGD) History of hand surgery left dupuytren's contracture History of left inguinal hernia repair 1981 History of lumbar fusion History of surgery urethroplasty x2 History of tonsillectomy History of tooth extraction partial upper/lower History of total left hip replacement History of total right hip replacement History of transesophageal echocardiography (BENY) 1994 Status post [facility] surgery for squamous cell carcinoma of skin Family History Father Myocardial infarction Mother Congestive heart failure Family history of diabetes mellitus Brother Family history of diabetes mellitus Brother Family history of diabetes mellitus Other No family history of adverse response to anesthesia Denies family history of Ovarian cancer Prostate cancer Breast cancer Colorectal cancer Social History Smoking Status: Former smoker Age Started Using Tobacco: 15; Age Quit Using Tobacco: 45; packs per day: 1; Cigarettes Per Day: 20; Second Hand Exposure: No; Hx Alcohol Use: Yes Alcohol type: beer and hard liquor Alcohol Intake Frequency: Monthly or Less Hx Substance Use: No Preferred Language: Azeri Communication Ability: Effective Visual Impairment: No Limitations Hearing Ability: Use of Hearing Aid Transmitter Operator Required: No Beliefs That Will Affect Care: None marital status: / Current Living Situation: Alone current occupational status: retired Feels Safe at Home: Yes Childhood Exposure to Second-Hand Smoke: Yes Dental Care, Regularly: Yes Physical Activity Frequency: Does not Exercise Seatbelt Use: always Sunscreen Use: No Do you think of yourself as: straight/heterosexual Assistive Devices: BiPap, Denture - Upper, Denture - Lower, Glasses, Hearing Aid - Bilateral and Oxygen - at Night Review of Systems Review of Systems: See HPI Physical Exam Physical Exam: GENERAL: Elderly male, appears stated age, resting comfortably in no acute distress. Vital signs reviewed. EYES: PERRLA. EOMI. Anicteric sclerae. HENT: Moist mucous membranes. RESPIRATORY: Lungs with + crackles in BLE. Unlabored respirations. No conversational dyspnea. CARDIOVASCULAR: Regular rate and rhythm. No murmurs. ABDOMEN: Mild abd distension but soft and nontender to palpation. Normoactive bowel sounds. EXTREMITIES: 1+ BLE edema. 5/5 strength in BUE and BLE. SKIN: Warm, dry. NEUROLOGIC: A/O x3. Normal speech. No focal neurological deficits. No sensorimotor deficits. PSYCHIATRIC: Cooperative. Appropriate mood and affect. Results & Data Results & Data ([facility]) Vital Signs (Past 12 Hours) Vital Signs Temp Pulse Pulse Resp BP BP Pulse Ox 08/01/22 22:07 97 H 159/81 H 0228/23 21:38 93 H 08/01/22 20:28 96 08/01/22 20:26 91 H 123/66 96 08/01/22 17:31 37.6 C H 108 H 20 135/80 95 O2 Del Method 08/01/22 22:07 08/01/22 21:38 08/01/22 20:28 Room Air 08/01/22 20:26 Room Air 08/01/22 17:31 Room Air Laboratory Results 08/01/22 08/01/22 08/01/22 Range/Units 21:31 18:23 18:23 WBC 11.99 H (4.8-10.8) K/ul RBC 3.85 L (4.70-6.10) M/uL Hgb 12.0 L (14.0-18.0) g/dl Hct 35.6 L (42.0-52.0) % MCV 92.5 (80.0-100.0) fL MCH 31.2 (25.0-34.0) pg MCHC 33.7 (32.0-36.0) g/dL RDW Std Deviation 45.9 (36.4-46.3) fL RDW Coeff of Colette 13.6 (11.5-14.5) % Plt Count 177 (130-400) K/uL MPV 10.6 (9.4-12.4) fL Immature Gran % (Auto) 0.7 % Neut % (Auto) 79.7 % Lymph % (Auto) 8.7 % Dorado % (Auto) 10.4 % Eos % (Auto) 0.2 % Baso % (Auto) 0.3 % Neut # (Auto) 9.57 H (1.40-6.50) K/uL Lymph # (Auto) 1.04 L (1.2-3.4) K/uL Dorado # (Auto) 1.25 H (0.11-0.59) K/uL Eos # (Auto) 0.02 (0-0.50) K/uL Baso # (Auto) 0.03 (0-0.2) K/uL Immature Gran # (Auto) 0.08 (0.01-0.20) K/uL Sodium 133 L (136-145) mmol/L Potassium 4.8 (3.5-5.1) mmol/L Chloride 103 (98-107) mmol/L Carbon Dioxide 23 (21-32) mmol/L Anion Gap 7 (3-11) BUN 31 H (6-23) mg/dl Creatinine 1.73 H (0.6-1.4) mg/dl Est Cr Clr Drug Dosing 39.6 ml/min Est GFR ( Amer) 40.5 ml/min Est GFR (Non-Af Amer) 35.0 ml/min BUN/Creatinine Ratio 17.9 (10-20) Glucose 136 H (70-99(Fasting)) mg/dl Calcium 8.8 (8.5-10.1) mg/dl Total Bilirubin 1.3 H (0.2-1.0) mg/dl AST 10 L (13-39) U/L ALT 12 (7-52) U/L Alkaline Phosphatase 61 (34-104) U/L Total Protein 7.3 (6.0-8.3) gm/dl Albumin 3.9 (3.4-5.0) gm/dl Globulin 3.4 (2.5-4.0) gm/dl Albumin/Globulin Ratio 1.1 (0.9-2) SARS-CoV-2, RNA, NAAT NEGATIVE (NEGATIVE) Diagnostic Findings [place], [place] [phone] XRay Report Patient:REHAN FUENTES Admit Date:08/01/22 MR#:[id number] Address1:[address] [place] [address] Acct ID:[id number] Address2: Date:1935 [facility] Zip:[place] [address] Age:87 Location:ED Sex:M Room/Bed: Att Phy: Diagnosis:FALL Aylin Phy:Jeancarlos Rosen, III, LOCAL FLATBED DRIVER Service Date:08/01/22 [facility] Phy: Interpreting Phy:Brayan Heller Phy: Ordering Phy:TEMP,ED cc: ~ XR chest 1V portable CLINICAL HISTORY: Fever COMPARISON STUDY: Chest CT January 09, 2022. FINDINGS: There is no pneumothorax or pleural effusion. No consolidation is identified to suggest pneumonia. Interstitial thickening is unchanged. This is likely chronic. Cardiomediastinal silhouette is stable. IMPRESSION: No acute cardiopulmonary findings. No change in appearance of the chest. ACT 112: Negative or not required by law. Electronically signed by: Brayan Hernandez M.D. 08/01/2022 6:34 PM Dictated:08/01/[id number] Transcribed: 08/01/221832 Resident Activity Tracking Resident Involvement: Resident Care Provided Care Provided: Adult Hospital Medicine (1) Catheter-associated urinary tract infection Encounter type: initial encounter Indwelling urinary catheter type: indwelling urethral catheter Qualified Code(s): T83.511A - Infection and inflammatory reaction due to indwelling urethral catheter, initial encounter; N39.0 - Urinary tract infection, site not specified (3) Fall Encounter type: initial encounter Qualified Code(s): W19.XXXA - Unspecified fall, initial encounter (5) CHF (congestive heart failure) Heart failure chronicity: acute Heart failure type: systolic Qualified Code(s): I50.21 - Acute systolic (congestive) heart failure (7) COPD (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: unspecified Qualified Code(s): J43.9 - Emphysema, unspecified (8) Hypertension Hypertension type: essential hypertension Qualified Code(s): I10 - Essential (primary) hypertension
--- NOTE | 2022-08-01 22:43 | Emergency Department Note ---
Impression & Plan Catheter-associated urinary tract infection, Weakness, Fall ED Provider Note CHIEF COMPLAINT: Weakness, fall, UTI HISTORY OF PRESENT ILLNESS: This 87-year-old male patient with a history of in dwelling Ordonez catheter, type 2 diabetes, CHF, pulmonary hypertension, ischemic cardiomyopathy, COPD presents to the emergency department after a fall. The patient states he was getting his dog from the groomer, and the dog jerked and the patient dropped the leash. He bent over to picker operator the leash and "tumbled forward." The patient states he was already hunched over fell onto his front but denies any head or face injuries. The patient states he was at home alone and happened to be outside on the driveway. He called to some construction workers across the street who came to help him. Patient states he required assistance to get up. He states the construction workers sat him on the side of the house but did not feel that he was getting stronger. They assisted him inside of his house until his daughter arrived. Patient states he received a phone call just after his fall stating that he had a positive urine culture from his most recent ER visit. Patient had his chronically indwelling Ordonez catheter changed in the emergency department several days ago. He states the urge to ur inate urgently is still present. REVIEW OF SYSTEMS: A review of systems was performed with positives and pertinent negatives listed in the history of present illness. 10 systems were reviewed and are otherwise negative. ALLERGIES: see below MEDICATIONS: see below PMH: see below SOCIAL HISTORY: see below DDx: UTI, dehydration, metabolic abnormality, hypo/hyperglycemia, electrolyte disturbance, anemia, hypoxia, cardiac sources, intracerebral event, toxicologic, neurologic, as well as other pathologies. PHYSICAL EXAM: Vital signs reviewed. General: Chronically ill-appearing 87-year-old man, in no significant distress. HEENT: No scleral icterus, PERRLA, neck supple. Atraumatic. Cardiovascular: Regular rate and rhythm, no extra sounds. Pulmonary: Clear to auscultation bilaterally, normal work of breathing. Abdomen: Soft, nontender, nondistended, positive bowel sounds. Musculoskeletal: Atraumatic, no peripheral edema. Neurologic: Patient awake alert and oriented x 3, speech is clear Skin: Warm, dry, no rash EMERGENCY DEPARTMENT COURSE/MDM: This patient was evaluated and appeared to be in no significant distress. IV access was obtained and laboratory work was drawn. The patient was placed on the radiation monitor and noted to be slightly tachycardic. Patient's previous urine cultures and external medical records were reviewed. He was given 2 g of IV ceftriaxone. He does noted to have a mild leukocytosis. Patient denied any closed head injury and does not take a nticoagulants. He is on a baby aspirin daily. He was felt to be weak and unstable on his feet secondary to UTI. His case was discussed with the hospitalist service who will be evaluating him for admission and further management. MONITORING: An order for cardiac monitoring was placed and the patient is noted to be in a sinus rhythm with prolonged NE interval at 91 bpm. PVCs noted. RADIOLOGY: Chest x-ray to my interpretation reveals no focal lung consolidation or failure. Otherwise defer to radiology EKG: EKG to my interpretation reveals a sinus rhythm with prolonged NE interval at 109 bpm. PVCs noted. Possible previous inferior infarct. Normal ST segments. 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) Epigastric abdominal pain Gastric mass Gastric ulcer GERD (gastroesophageal reflux disease) Hearing deficit Heart block AV second degree History of urinary self-catheterization performed intermittently Hypercholesterolemia Hypertension Ischemic cardiomyopathy Lumbar post-laminectomy syndrome Lumbar spondylosis Multiple lung nodules Myocardial Infarction 12/1980 "silent heart attack"--follows with [facility] ANNABELLE (obstructive sleep apnea) bipap with oxygen 2.5L Respiratory failure with hypoxia Solitary thyroid nodule Spinal stenosis of lumbar region TIA (transient ischemic attack) 2014--no neurologist, no further issues Venous insufficiency Surgical History History of bilateral cataract extraction [place] of cardiac [place] [facility] [place] History of cholecystectomy History of circumcision 1998 History of colonoscopy History of cystoscopy History of esophagogastroduodenoscopy (EGD) History of hand surgery left dupuytren's contracture History of left inguinal hernia repair 1980 History of lumbar fusion History of surgery urethroplasty x2 History of tonsillectomy History of tooth extraction partial upper/lower History of total left hip replacement History of total right hip replacement History of transesophageal echocardiography (BENY) 1994 Status post Mohs surgery for squamous cell carcinoma of skin Family History Father Myocardial infarction Mother Congestive heart failure Family history of diabetes mellitus Brother Family history of diabetes mellitus Brother Family history of diabetes mellitus Other No family history of adverse response to anesthesia Denies family history of Ovarian cancer Prostate cancer Breast cancer Colorectal cancer Social History Smoking Status: Former smoker Age Started Using Tobacco: 15; Age Quit Using Tobacco: 45; packs per day: 1; Cigarettes Per Day: 20; Second Hand Exposure: No; Hx Alcohol Use: Yes Alcohol type: beer and hard liquor Alcohol Intake Frequency: Monthly or Less Hx Substance Use: No Preferred Language: Kittitian Communication Ability: Effective Visual Impairment: No Limitations Hearing Ability: Use of Hearing Aid Smoke Jumper Required: No Beliefs That Will Affect Care: None marital status: / Current Living Situation: Alone current occupational status: retired Feels Safe at Home: Yes Childhood Exposure to Second-Hand Smoke: Yes Dental Care, Regularly: Yes Physical Activity Frequency: Does not Exercise Seatbelt Use: always Sunscreen Use: No Do you think of yourself as: straight/heterosexual Assistive Devices: BiPap, Denture - Upper, Denture - Lower, Glasses, Hearing Aid - Bilateral and Oxygen - at Night Allergies Allergies Allergy/AdvReac Type Severity Reaction Status Date / Time nitrofurantoin Allergy Severe SHORTNESS Verified 08/01/22 21:22 OF BREATH, "spitting up thick black stuff" Home Meds Home Medications Medication Instructions Recorded Confirmed cholecalciferol (vitamin D3) 25 1,000 units PO QAM 03/04/18 08/01/22 mcg (1,000 unit) capsule methenamine hippurate 1 gram tablet 1 gm PO HS 03/04/18 08/01/22 vitamin E (dl, acetate) 180 mg 400 units PO QAM 03/04/18 08/01/22 (400 unit) capsule calcium carbonate 500 mg calcium 500 mg PO BID 11/20/18 08/01/22 (1,250 mg) tablet (Calcium 500) cyanocobalamin (vitamin B-12) 1,000 mcg PO QAM 11/20/18 08/01/22 1,000 mcg capsule spironolactone 25 mg tablet 12.5 mg PO QAM 06/12/19 08/01/22 coenzyme Q10 100 mg capsule 100 mg PO QAM 11/04/19 08/01/22 atorvastatin 80 mg tablet 40 mg PO HS 03/23/20 08/01/22 finasteride 5 mg tablet 5 mg PO HS 03/23/20 08/01/22 lisinopril 5 mg tablet 5 mg PO QAM 03/23/20 08/01/22 magnesium oxide 400 mg PO QAM 03/23/20 08/01/22 metformin 500 mg tablet 500 mg PO BID 03/23/20 08/01/22 montelukast 10 mg tablet 10 mg PO QAM 03/23/20 08/01/22 tamsulosin 0.4 mg capsule 0.4 mg PO HS 03/23/20 08/01/22 vitamins A,C,T-sagi-jacbdw 4,296 1 cap PO BID 03/23/20 08/01/22 mcg-226 mg-90 mg capsule (PreserVision AREDS) acetaminophen 325 mg capsule 325 mg PO BID PRN Pain 05/12/20 08/01/22 ascorbic acid (vitamin C) 250 mg 250 mg PO DAILY 11/17/20 08/01/22 tablet ferrous sulfate 325 mg (65 mg 325 mg PO DAILY 11/17/20 08/01/22 iron) tablet aspirin 81 mg tablet,delayed 81 mg PO DAILY 03/25/21 08/01/22 release (Adult Low Dose Aspirin) omeprazole 40 mg capsule,delayed 40 mg PO DAILY 03/25/21 08/01/22 release diclofenac sodium 1 % topical gel 2 g topical TID 06/16/21 08/01/22 vit C 226 mg-vit E 90 mg-copper 1 cap PO BID 06/16/21 08/01/22 0.8 mg-zinc oxide-lutein 5 mg capsule (PreserVision Lutein) furosemide 20 mg tablet 40 mg PO QAM 01/05/22 08/01/22 Previous Rx's Medication Instructions Recorded metoprolol succinate 25 mg 12.5 mg PO DAILY #15 tabs 06/15/20 tablet,extended release 24 hr albuterol sulfate 90 mcg/actuation 1 inh inhalation QID PRN shortness 11/17/20 aerosol inhaler (Ventolin HFA) of breath or wheezing #18 grams tiotropium 2.5 mcg-olodaterol 2.5 2 puff inhalation DAILY #3 Inhalers 12/03/20 mcg/actuation mist for inhalation (Stiolto Respimat) Results & Data (ED) Vital Signs Vital Signs - 24 hr 08/01/22 17:31 08/01/22 20:26 08/01/22 20:28 Temperature 37.6 C H Temperature Source Temporal Artery Scan Pulse Rate 108 H Pulse Rate [Right Finger] 91 H Pulse Rhythm Regular Pulse Strength Normal Respiratory Rate 20 Respiratory Effort / Characteristics Non-Labored Spontaneous Respiratory Depth Normal Respiratory Pattern Regular Blood Pressure 135/80 Blood Pressure [Right Arm] 123/66 Blood Pressure Mean 98 Blood Pressure Mean [Right Arm] 85 Blood Pressure Position Sitting Pulse Oximetry 95 96 96 Oxygen Delivery Method Room Air Room Air Room Air Sepsis Recent Fever Within 48 Hours Yes Sepsis New/Unexplained Change in Mental Status No Sepsis Action Taken by Nursing No Action Required 08/01/22 21:38 08/01/22 22:07 Temperature Temperature Source Pulse Rate 93 H Pulse Rate [Right Finger] 97 H Pulse Rhythm Pulse Strength Respiratory Rate Respiratory Effort / Characteristics Respiratory Depth Respiratory Pattern Blood Pressure Blood Pressure [Right Arm] 159/81 H Blood Pressure Mean Blood Pressure Mean [Right Arm] 107 Blood Pressure Position Pulse Oximetry Oxygen Delivery Method Sepsis Recent Fever Within 48 Hours Sepsis New/Unexplained Change in Mental Status Sepsis Action Taken by Long Term Medications Current Medication List: was personally reviewed by me Laboratory Data Attestation: I reviewed the patient's lab results. 08/01/22 18:23 08/01/22 18:23 Lab Results 08/01/22 08/01/22 08/01/22 Range/Units 18:23 18:23 21:31 WBC 11.99 H (4.8-10.8) K/ul RBC 3.85 L (4.70-6.10) M/uL Hgb 12.0 L (14.0-18.0) g/dl Hct 35.6 L (42.0-52.0) % MCV 92.5 (80.0-100.0) fL MCH 31.2 (25.0-34.0) pg MCHC 33.7 (32.0-36.0) g/dL RDW Std Deviation 45.9 (36.4-46.3) fL RDW Coeff of Colette 13.6 (11.5-14.5) % Plt Count 177 (130-400) K/uL MPV 10.6 (9.4-12.4) fL Immature Gran % (Auto) 0.7 % Neut % (Auto) 79.7 % Lymph % (Auto) 8.7 % [place] % (Auto) 10.4 % Eos % (Auto) 0.2 % Baso % (Auto) 0.3 % Neut # (Auto) 9.57 H (1.40-6.50) K/uL Lymph # (Auto) 1.04 L (1.2-3.4) K/uL [place] # (Auto) 1.25 H (0.11-0.59) K/uL Eos # (Auto) 0.02 (0-0.50) K/uL Baso # (Auto) 0.03 (0-0.2) K/uL Immature Gran # (Auto) 0.08 (0.01-0.20) K/uL Sodium 133 L (136-145) mmol/L Potassium 4.8 (3.5-5.1) mmol/L Chloride 103 (98-107) mmol/L Carbon Dioxide 23 (21-32) mmol/L Anion Gap 7 (3-11) BUN 31 H (6-23) mg/dl Creatinine 1.73 H (0.6-1.4) mg/dl Est Cr Clr Drug Dosing 39.6 ml/min Est GFR ( Amer) 40.5 ml/min Est GFR (Non-Af Amer) 35.0 ml/min BUN/Creatinine Ratio 17.9 (10-20) Glucose 136 H (70-99(Fasting)) mg/dl Calcium 8.8 (8.5-10.1) mg/dl Total Bilirubin 1.3 H (0.2-1.0) mg/dl AST 10 L (13-39) U/L ALT 12 (7-52) U/L Alkaline Phosphatase 61 (34-104) U/L Total Protein 7.3 (6.0-8.3) gm/dl Albumin 3.9 (3.4-5.0) gm/dl Globulin 3.4 (2.5-4.0) gm/dl Albumin/Globulin Ratio 1.1 (0.9-2) SARS-CoV-2, RNA, NAAT NEGATIVE (NEGATIVE) Administered Medications Discontinued Medications Ceftriaxone Sodium (Rocephin) 2,000 mg in 70 mls @ 140 mls/hr IV NOW STA Stop: 08/01/22 20:20 Last Infusion: 08/01/22 20:50 Dose: 0 mls/hr Documented By: Admin: 08/01/22 20:18 Dose: 140 mls/hr Documented By: ROSY Sodium Chloride (Nss) 500 mls @ 999 mls/hr IV .Q31M ONE Stop: 08/01/22 20:27 Last Infusion: 08/01/22 20:50 Dose: 0 mls/hr Documented By: Admin: 08/01/22 20:18 Dose: 999 mls/hr Documented By: ROSY Imaging Data Radiologist's Impression: Chest X-Ray 08/01/22 17:36 XR chest 1V portable CLINICAL HISTORY: Fever COMPARISON STUDY: Chest CT January 09, 2022. FINDINGS: There is no pneumothorax or pleural effusion. No consolidation is identified to suggest pneumonia. Interstitial thickening is unchanged. This is likely chronic. Cardiomediastinal silhouette is stable. IMPRESSION: No acute cardiopulmonary findings. No change in appearance of the chest. ACT 112: Negative or not required by law. Electronically signed by: Brayan Hernandez M.D. 08/01/2022 6:34 PM Discharge Plan Visit Data Chief Complaint: Fall Stated Complaint: FALL ED Provider: Cyndi Villanueva Discharge Problem: Catheter-associated urinary tract infection, Weakness, Fall Forms Stand Alone Forms: My [facility] Converged Access Prescriptions Prescriptions: No Action methenamine hippurate 1 gram tablet 1 gm PO HS cholecalciferol (vitamin D3) 1,000 unit capsule 1,000 units PO QAM vitamin E (dl, acetate) 400 unit capsule 400 units PO QAM coenzyme Q10 100 mg capsule 100 mg PO QAM Stiolto Respimat 2.5-2.5 mcg/actuation mist 2 puff inhalation DAILY Qty: 3 1RF spironolactone 25 mg tablet 12.5 mg PO QAM omeprazole 40 mg capsule,delayed release(DR/EC) 40 mg PO DAILY aspirin [Adult Low Dose Aspirin] 81 mg tablet,delayed release (DR/EC) 81 mg PO DAILY acetaminophen 325 mg capsule 325 mg PO BID PRN (Reason: Pain) metoprolol succinate 25 mg tablet extended release 24 hr 12.5 mg PO DAILY Qty: 15 5RF diclofenac sodium 1 % gel 2 g topical TID Rx Instructions: Apply small amount to skin three times a day apply to thumb joints for osteoARTHRITIS PreserVision Lutein 226 mg-200 unit -5 mg-0.8 mg capsule 1 cap PO BID ascorbic acid (vitamin C) 250 mg tablet 250 mg PO DAILY ferrous sulfate 325 mg (65 mg iron) tablet 325 mg PO DAILY albuterol sulfate [Ventolin HFA] 90 mcg/actuation HFA aerosol inhaler 1 inh inhalation QID PRN (Reason: shortness of breath or wheezing) Qty: 18 3RF calcium carbonate [Calcium 500] 500 mg calcium (1,250 mg) tablet 500 mg PO BID cyanocobalamin (vitamin B-12) 1,000 mcg capsule 1,000 mcg PO QAM PreserVision AREDS [id number] Capsule 1 cap PO BID finasteride 5 mg tablet 5 mg PO HS metformin 500 mg Tablet 500 mg PO BID atorvastatin 80 mg Tablet 40 mg PO HS tamsulosin 0.4 mg Capsule 0.4 mg PO HS montelukast 10 mg Tablet 10 mg PO QAM lisinopril 5 mg Tablet 5 mg PO QAM magnesium oxide 400 mg magnesium Tablet 400 mg PO QAM furosemide 20 mg tablet 40 mg PO QAM Referrals Referrals: Jeancarlos Rosen III, CRNP [Primary Care Provider] - Catheter-associated urinary tract infection Qualifiers: Indwelling urinary catheter type: indwelling urethral catheter Encounter type: initial encounter Qualified Code(s): T83.511A - Infection and inflammatory reaction due to indwelling urethral catheter, initial encounter Fall Qualifiers: Encounter type: initial encounter Qualified Code(s): W19.XXXA - Unspecified fall, initial encounter
[2022-08-01] MEDS ORDERED: FUROSEMIDE INJ 20 MG/2 ML VIAL IV ONE (23:41)
[2022-08-01] MEDS ORDERED: ONDANSETRON INJ 2 MG/ML 2 ML VIAL IV PRN (23:41)
[2022-08-01] MEDS ORDERED: POLYETHYLENE (MIRALAX) 17 GM PACK PO PRN (23:41)
[2022-08-01] MEDS ORDERED: ACETAMINOPHEN 325 MG TAB PO PRN (23:41)
[2022-08-01] MEDS ORDERED: ALBUTEROL HFA 8 GM INHALER INH PRN (23:41)
[2022-08-02] MEDS ORDERED: GLUCOSE 10 TAB/TUBE PO PRN (00:44)
[2022-08-02] MEDS ORDERED: GLUCAGON FOR INJ 1 MG VIAL SQ PRN (00:44)
[2022-08-02] MEDS ORDERED: DEXTROSE 50% 50 ML SYRINGE IV PRN (00:44)
[2022-08-02] MEDS ORDERED: GLUCOSE 40% GEL 15 GM TUBE PO PRN (00:44)
[2022-08-02] MEDS ORDERED: CARBOHYDRATES FOR HYPOGLYCEMIA PO PRN (00:44)
[2022-08-02 06:37] LABS: Appearance Urine Turbid (Clear); Bacteria Urine Automated Negative (Negative); Bilirubin Urine Negative (Negative); Blood Urine 2+ (Negative); Color Urine Yellow; Epithelial Cell Urine Auto 20-30 /lpf (0-5); Glucose Urine UA Negative (Negative); Ketones Urine Negative (Negative); Leukocyte Esterase Urine 3+ (Negative); Nitrite Urine Negative (Negative); Protein Urine Negative (Negative); RBC Urine Automated 0-4 /hpf (0-4); Specific Gravity Urine 1.009 (1.000-1.030); Urobilinogen Urine Negative (Negative); WBC Urine Automated >30 /hpf (0-5); pH Urine 5.5 (4.5-7.5)
[2022-08-02 08:02] LABS: Basophils # (auto) 0.02 K/uL (0-0.2); Basophils % (auto) 0.2 %; Eosinophils # (auto) 0.03 K/uL (0-0.50); Eosinophils % (auto) 0.3 %; Hematocrit (blood only) 31.9 % (42.0-52.0); Hemoglobin 10.7 g/dl (14.0-18.0); Immature Granulocytes # (auto) 0.06 K/uL (0.01-0.20); Immature Granulocytes % (auto) 0.6 %; Lymphocytes # (auto) 1.22 K/uL (1.2-3.4); Lymphocytes % (auto) 12.3 %; Mean Corpuscular Hemoglobin 31.3 pg (25.0-34.0); Mean Corpuscular Hgb Conc 33.5 g/dL (32.0-36.0); Mean Corpuscular Volume 93.3 fL (80.0-100.0); Mean Platelet Volume 10.7 fL (9.4-12.4); Monocytes # (auto) 1.14 K/uL (0.11-0.59); Monocytes % (auto) 11.5 %; Neutrophils # (auto) 7.44 K/uL (1.40-6.50); Neutrophils % (auto) 75.1 %; Platelet Count 153 K/uL (130-400); RDW Coefficient of Variation 13.6 % (11.5-14.5); RDW Standard Deviation 46.8 fL (36.4-46.3); Red Blood Count 3.42 M/uL (4.70-6.10); White Blood Count 9.91 K/ul (4.8-10.8)
[2022-08-02 08:11] LABS: BUN Creatinine Ratio 17.2 (10-20); Calcium 8.5 mg/dl (8.5-10.1); Creatinine Clr Calc Pharmacy 37.9 ml/min; Est GFR (African American) 38.6 ml/min; Est GFR (Non-African American) 33.3 ml/min; Potassium 4.5 mmol/L (3.5-5.1)
[2022-08-02] MEDS: INSULIN ASPART PER UNIT SC SCH ×4 (08:57→20:58)
[2022-08-02] MEDS: ASPIRIN 81 MG ECTAB PO SCH (08:57)
[2022-08-02] MEDS: METOPROLOL SUCC 25MG EXT REL TAB PO SCH (08:57)
[2022-08-02] MEDS: FUROSEMIDE 40 MG TAB PO SCH (08:57)
[2022-08-02] MEDS: UMECLIDINIUM/VILANTEROL 62.5/25MCG 7 PUFFS/INHALER INH SCH (08:58)
[2022-08-02] MEDS: PANTOprazole 40 MG TAB PO SCH (08:58)
[2022-08-02] MEDS ORDERED: cefTRIAXone SODIUM 1,000 MG in DEXTROSE 5% AD-VAN 50 ML IV SCH (09:00)
[2022-08-02 09:25] LABS: A calco-baum cmplx NotReported Not Detected (NotDetected); Bact fragilis Not Reported Not Detected (NotDetected); C auris Not Reported Not Detected (NotDetected); CTX-M Resistant Gene Not Detected (NotDetected); Calbicans Not Reported Not Detected (NotDetected); Candida glabrata Not Reported Not Detected (NotDetected); Candida krusei Not Reported Not Detected (NotDetected); Cneoformans/gatti Not Reported Not Detected (NotDetected); Cparapsilosis Not Reported Not Detected (NotDetected); Ctropicalis Not Reported Not Detected (NotDetected); E cloacae compx Not Reported DETECTED (NotDetected); Efaecalis Not Reported Not Detected (NotDetected); Efaecium Not Reported Not Detected (NotDetected); Enterobacterales DETECTED (NotDetected); Enterobacterales Not Reported DETECTED (NotDetected); Escherichia coli Not Reported Not Detected (NotDetected); H influenzae Not Reported Not Detected (NotDetected); IMP Resistant Gene Not Detected (NotDetected); K aerogenes Not Reported Not Detected (NotDetected); KPC Resistant Gene Not Detected (NotDetected); Koxytoca Not Reported Not Detected (NotDetected); Kpneumoniae grp Not Reported Not Detected (NotDetected); Lmonocyt Not Reported Not Detected (NotDetected); N meningitidis Not Reported Not Detected (NotDetected); NDM Resistant Gene Not Detected (NotDetected); OXA 48 Like Resistant Gene Not Detected (NotDetected); P aeruginosa Not Reported Not Detected (NotDetected); Proteus spp Not Reported Not Detected (NotDetected); Salmonella spp Not Reported Not Detected (NotDetected); Smarcescens Not Reported Not Detected (NotDetected); Staph lugdunensis Not Reported Not Detected (NotDetected); Staph spp. Not Reported Not Detected (NotDetected); Staphaureus Not Reported Not Detected (NotDetected); Staphepi Not Reported Not Detected (NotDetected); Stenmaltophilia Not Reported Not Detected (NotDetected); Strep agal(GrpB) Not Reported Not Detected (NotDetected); Strep pneum Not Reported Not Detected (NotDetected); Strep pyog (GrpA) Not Reported Not Detected (NotDetected); Strep spp Not Reported Not Detected (NotDetected); VIM Resistant Gene Not Detected (NotDetected); mcr-1 Colistin Resistant Gene Not Detected (NotDetected)
[2022-08-02 09:49] LABS: Enterobacter cloacae complex DETECTED (NotDetected)
--- NOTE | 2022-08-02 11:39 | Hospitalist Progress Note ---
Date of Service August 02, 2022 Assessment & Plan (1) Catheter-associated urinary tract infection: Plan: Patient is an 87 yo male with significant PMHx including chronic gerardo catheter, DM, gastric ulcer, Barretts esophagus, interstitial lung disease, CHF, pulmonary HTN, ANNABELLE, COPD, venous insufficiency, HTN, HLD, and BPH with LUTS admitted 08/01/22 with catheter-associated UTI. Catheter-associated UTI - Catheter last exchanged Sunday 07/30 at time of urine collection - Mild leukocytosis w/ WBC 11.99 - Urine cx 07/30 positive for gram negative bacilli - Received 2g Ceftriaxone in ED; will continue with Ceftriaxone 1g q24h pending bacterial sensitivities - Blood cx pending - Patient does not meet SIRS criteria on admission - Recheck CBC in AM (2) Positive blood culture: Plan: 2 Bottles growing gram negatives Source is likley urine Will continue Ceftriaxone Await sensitivities Consult ID (3) Weakness: Plan: Weakness - Most likely secondary to UTI above - PT/OT ordered (4) Diabetes mellitus with diabetic nephropathy: Plan: DM -Glucose under good control - Home metformin held - ISS - DM2 diet (5) CHF (congestive heart failure): Plan: -Compensated - On chart review, most recent [facility] 03[facility] w/ EF of 40-45% - Continue home metoprolol - Continue home lasix; monitor kidney function closely - Home lisinopril and spironolactone held on admission (6) COPD (chronic obstructive pulmonary disease): Plan: COPD/ILD, not in exacerbation - Continue home regimen with inhalers (albuterol prn, anoro ellipta daily) (7) Hypertension: Plan: BP is under good control Continue home meds (8) 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 Physical Exam Physical Exam: The patient is awake, alert and oriented 3, well developed and well nourished, normocephalic and atraumatic, lying in bed and in no acute distress. HEENT--PERRL, EOMI, mucous membranes and oropharynx mildly dry Neck--supple. No JVD. No bruits. Thyroid normal, trachea midline, no adenopathy. Heart--normal S1 and S2. No murmurs, rubs or gallops. Lungs--clear bilaterally, no respiratory distress, no accessory muscle use. Abdomen--normal bowel sounds and soft. Mild epigastric and left sided abdominal pain Extremities--no cyanosis or clubbing. No edema. Dermatologic--normal skin turgor, normal color, no abnormal lymph nodes, no rash. Neurologic--cranial nerves II through XII grossly intact. Rheumatologic--normal range of motion. Psychiatric--normal affect. Results & Data Results & Data ([facility]) Vital Signs (Past 12 Hours) Vital Signs Temp Pulse Resp BP Pulse Ox O2 Del Method O2 Flow Rate 08/02/22 07:11 98.1 F 96 H 16 123/66 96 Nasal Cannula 2 PG Care Time/CCT Total # of Minutes Spent Total Time Spent with Patient: Total time spent is greater than 50% in coordination of care (as documented) at patient's floor/unit and/or counseling patient: Coding Level of Care Code 33905 SUB INP/OBS CARE 2/35MIN Diagnoses Catheter-associated urinary tract infection T83.511A; N39.0 Encounter type: initial encounter Indwelling urinary catheter type: indwelling urethral catheter Positive blood culture R78.81 Weakness R53.1 Diabetes mellitus with diabetic nephropathy E11.21 CHF (congestive heart failure) I50.21 Heart failure chronicity: acute Heart failure type: systolic COPD (chronic obstructive pulmonary disease) 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 Hypertension I10 Hypertension type: essential hypertension 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) N40.1 ANNABELLE (obstructive sleep apnea) G47.33 Fall W19.XXXA Encounter type: initial encounter Hypercholesterolemia E78.00 Arthritis M19.90 Time Spent (min) 35 (1) Catheter-associated urinary tract infection Encounter type: initial encounter Indwelling urinary catheter type: indwelling urethral catheter Qualified Code(s): T83.511A - Infection and inflammatory reaction due to indwelling urethral catheter, initial encounter; N39.0 - Urinary tract infection, site not specified (5) CHF (congestive heart failure) Heart failure chronicity: acute Heart failure type: systolic Qualified Code(s): I50.21 - Acute systolic (congestive) heart failure (6) COPD (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: unspecified Qualified Code(s): J43.9 - Emphysema, unspecified (7) Hypertension Hypertension type: essential hypertension Qualified Code(s): I10 - Essential (primary) hypertension (10) Fall Encounter type: initial encounter Qualified Code(s): W19.XXXA - Unspecified fall, initial encounter
[2022-08-02] MEDS: CEFEPIME 2,000 MG in SYRINGE 0 ML IV SCH ×2 (13:25→23:43)
--- NOTE | 2022-08-02 15:28 | Electrocardiogram Report ---
Test Reason : Blood Pressure : / mmHG Vent. Rate : 109 BPM Atrial Rate : 110 BPM P-R Int : 000 ms QRS Dur : 072 ms QT Int : 318 ms P-R-T Axes : 000 039 -16 degrees QTc Int : 428 ms Poor data quality, interpretation may be adversely affected Sinus tachycardia with 1st degree A-V block with occasional Premature ventricular complexes Low voltage QRS Possible Inferior infarct , age undetermined Cannot rule out Anterior infarct , age undetermined Abnormal ECG When compared with ECG of 23-DEC-2019 12:05, Minimal criteria for Anterior infarct are now Present Nonspecific T wave abnormality now evident in Anterior leads Confirmed by Jagdish Bucio ([id number]) on 08/02/2022 3:27:58 PM Referred By: REFERRED SELF Confirmed By:Jagdish Bucio
--- NOTE | 2022-08-02 18:01 | Infectious Disease Consult ---
Date of Consultation August 02, 2022 Assessment & Plan (1) Positive blood culture: #Ecloacae bacteremia #Positive UA #Chronic Ordonez 87-year-old male patient with a history of indwelling Ordonez catheter, type 2 diabetes, CHF, pulmonary hypertension, ischemic cardiomyopathy, COPD, recently seen in ED for concern for UTI readmitted on 08/01 after fall and positive urine cultures. ID consulted for bacteremia. Patient was seen in ED on 07/30. Ordonez catheter replaced 3 days before. Ordonez catheter was uncomfortable. 07/30 Urine cloudy 3+ blood >30 wbcs, Ucx grew Kluyvera intermedia R to augmentin and Cefazolin. Patient was discharged home but called back when urine cultures were positive. He also had a fall. On admission, WBC 11.99, Cr 1.73 (baseline 1.4) Tbili 1.3 AST/ALT normal UA with 2+ blood, >30 wbcs 08/01 Blood culture positive BFID for E. cloacae blood cultures are growing Gram negative rods / bottles. Ucx Pending. Patient started on IV Ceftriaxone. ID consulted for bactermia O/N afebrile, VSS, WBC improved to 9 (2) Complication of Ordonez catheter: (3) Catheter-associated urinary tract infection: Plan -C/W Cefepime to cover enterobacter (it can have intrinsic R to 1st-3rd Gen Cephalosporins), this will also cover prior Ucx -Await blood culture and urine culture speciation -Repeating blood cultures Anticipate 10-14 day course if no complications ID will follow Charlotte Fernandes MD Infectious Diseases [facility] Consultation Information This patient recommendation is based on a telemedicine consult request which was completed asynchronously through chart review and information provided by the primary physician. The patient was not seen or examined today. The evaluation is consultative in nature and all patient care and treatment decisions can either be accepted or rejected by the patient's primary hospital-based treating physician using their own independent medical judgment for their patient. Construction Cost Estimator contact information: Please call [facility] . (Phone Number For Physician Use Only) Time Spent Reviewing Chart: 31+ minutes History of Present Illness Reason for Consultation: Bacteremia, UTI Requesting Physician: Erica Quintana MD Attending Physician: Erica Quintana MD History of Present Illness 87-year-old male patient with a history of indwelling Ordonez catheter, type 2 diabetes, CHF, pulmonary hypertension, ischemic cardiomyopathy, COPD, recently seen in ED for concern for UTI readmitted on 08/01 after fall and positive urine cultures. ID consulted for bacteremia. Patient was seen in ED on 07/30. Ordonez catheter replaced 3 days before. Ordonez catheter was uncomfortable. 07/30 Urine cloudy 3+ blood >30 wbcs, Ucx grew Kluyvera intermedia R to augmentin and Cefazolin. Patient was discharged home but called back when urine cultures were positive. He also had a fall. On admission, WBC 11.99, Cr 1.73 (baseline 1.4) Tbili 1.3 AST/ALT normal UA with 2+ blood, >30 wbcs 08/01 Blood culture positive BFID for E. cloacae blood cultures are growing Gram negative rods / bottles. Ucx Pending. Patient started on IV Ceftriaxone. ID consulted for bactermia O/N afebrile, VSS, WBC improved to 9 Allergies Allergy/AdvReac Type Severity Reaction Status Date / Time nitrofurantoin Allergy Severe SHORTNESS Verified 08/01/22 21:22 OF BREATH, "spitting up thick black stuff" Home Medications Medication Instructions Recorded Confirmed Type cholecalciferol (vitamin D3) 25 1,000 units PO QAM 03/04/18 08/01/22 History mcg (1,000 unit) capsule methenamine hippurate 1 gram tablet 1 gm PO HS 03/04/18 08/01/22 History vitamin E (dl, acetate) 180 mg 400 units PO QAM 03/04/18 08/01/22 History (400 unit) capsule calcium carbonate 500 mg calcium 500 mg PO BID 11/20/18 08/01/22 History (1,250 mg) tablet (Calcium 500) cyanocobalamin (vitamin B-12) 1,000 mcg PO QAM 11/20/18 08/01/22 History 1,000 mcg capsule spironolactone 25 mg tablet 12.5 mg PO QAM 06/12/19 08/01/22 History coenzyme Q10 100 mg capsule 100 mg PO QAM 11/04/19 08/01/22 History atorvastatin 80 mg tablet 40 mg PO HS 03/23/20 08/01/22 History finasteride 5 mg tablet 5 mg PO HS 03/23/20 08/01/22 History lisinopril 5 mg tablet 5 mg PO QAM 03/23/20 08/01/22 History magnesium oxide 400 mg PO QAM 03/23/20 08/01/22 History metformin 500 mg tablet 500 mg PO BID 03/23/20 08/01/22 History montelukast 10 mg tablet 10 mg PO QAM 03/23/20 08/01/22 History tamsulosin 0.4 mg capsule 0.4 mg PO HS 03/23/20 08/01/22 History vitamins A,C,L-fvku-fxabpg 4,296 1 cap PO BID 03/23/20 08/01/22 History mcg-226 mg-90 mg capsule (PreserVision AREDS) acetaminophen 325 mg capsule 325 mg PO BID PRN Pain 05/12/20 08/01/22 History metoprolol succinate 25 mg 12.5 mg PO DAILY #15 tabs 06/15/20 08/01/22 Rx tablet,extended release 24 hr albuterol sulfate 90 mcg/actuation 1 inh inhalation QID PRN shortness 11/17/20 08/01/22 Rx aerosol inhaler (Ventolin HFA) of breath or wheezing #18 grams ascorbic acid (vitamin C) 250 mg 250 mg PO DAILY 11/17/20 08/01/22 History tablet ferrous sulfate 325 mg (65 mg 325 mg PO DAILY 11/17/20 08/01/22 History iron) tablet tiotropium 2.5 mcg-olodaterol 2.5 2 puff inhalation DAILY #3 Inhalers 12/03/20 08/01/22 Rx mcg/actuation mist for inhalation (Stiolto Respimat) aspirin 81 mg tablet,delayed 81 mg PO DAILY 03/25/21 08/01/22 History release (Adult Low Dose Aspirin) omeprazole 40 mg capsule,delayed 40 mg PO DAILY 03/25/21 08/01/22 History release diclofenac sodium 1 % topical gel 2 g topical TID 06/16/21 08/01/22 History vit C 226 mg-vit E 90 mg-copper 1 cap PO BID 06/16/21 08/01/22 History 0.8 mg-zinc oxide-lutein 5 mg capsule (PreserVision Lutein) furosemide 20 mg tablet 40 mg PO QAM 01/05/22 08/01/22 History Patient History Medical History Acute kidney injury Allergic rhinitis Arthritis Chronic SI joint pain COPD (chronic obstructive pulmonary disease) inhalers prn Coronary artery disease Diabetes mellitus type 2 Disc degeneration, lumbar 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) Epigastric abdominal pain Gastric mass Gastric ulcer GERD (gastroesophageal reflux disease) Hearing deficit Heart block AV second degree History of urinary self-catheterization performed intermittently Hypercholesterolemia Hypertension Ischemic cardiomyopathy Lumbar post-laminectomy syndrome Lumbar spondylosis Multiple lung nodules Myocardial Infarction 12/1980 "silent heart attack"--follows with [facility] (obstructive sleep apnea) bipap with oxygen 2.5L Respiratory failure with hypoxia Solitary thyroid nodule Spinal stenosis of lumbar region TIA (transient ischemic attack) 2014--no neurologist, no further issues Venous insufficiency Surgical History History of bilateral cataract extraction History of cardiac cath 03[place] [facility] [place] placed History of cholecystectomy History of circumcision 1998 History of colonoscopy History of cystoscopy History of esophagogastroduodenoscopy (EGD) History of hand surgery left dupuytren's contracture History of left inguinal hernia repair 1980 History of lumbar fusion History of surgery urethroplasty x2 History of tonsillectomy History of tooth extraction partial upper/lower History of total left hip replacement History of total right hip replacement History of transesophageal echocardiography (BENY) 1994 Status post Mohs surgery for squamous cell carcinoma of skin Family History Father Myocardial infarction Mother Congestive heart failure Family history of diabetes mellitus Brother Family history of diabetes mellitus Brother Family history of diabetes mellitus Other No family history of adverse response to anesthesia Denies family history of Ovarian cancer Prostate cancer Breast cancer Colorectal cancer Social History Smoking Status: Former smoker Age Started Using Tobacco: 15; Age Quit Using Tobacco: 45; packs per day: 1; Cigarettes Per Day: 20; Smoking End Date: 1980; Second Hand Exposure: No; Tobacco Cessation Education Requested by Patient: No Hx Alcohol Use: Yes Alcohol type: beer Alcohol Intake Frequency: Monthly or Less Hx Substance Use: No Preferred Language: German Communication Ability: Effective Visual Impairment: No Limitations Hearing Ability: Use of Hearing Aid Professor Criminal Justice Required: No Beliefs That Will Affect Care: None marital status: / Current Living Situation: Family Current Living Situation Comment: patient's daughter, Ashley lives with him EXCEPT for 3-4 days/month. current occupational status: retired Other Information That Helps Us Care for You: No Feels Safe at Home: Yes Safety Concerns: Feels Safe At This Time Childhood Exposure to Second-Hand Smoke: Yes Dental Care, Regularly: Yes Physical Activity Frequency: Does not Exercise Seatbelt Use: always Sunscreen Use: No Do you think of yourself as: straight/heterosexual Assistive Devices: Cane and Walker Results & Data ([facility]) Vital Signs (Past 12 Hours) Vital Signs Temp Pulse Resp BP Pulse Ox O2 Del Method O2 Flow Rate 08/02/22 17:10 36.4 C L 93 H 18 114/62 95 Room Air 08/02/22 13:42 94 08/02/22 08:00 Nasal Cannula 3 08/02/22 07:11 36.7 C 96 H 16 123/66 96 Nasal Cannula 2 Laboratory Results Laboratory Results - last 48 hr 08/01/22 08/01/22 08/01/22 18:20 18:23 18:23 WBC 11.99 H RBC 3.85 L Hgb 12.0 L Hct 35.6 L MCV 92.5 MCH 31.2 MCHC 33.7 RDW Std Deviation 45.9 RDW Coeff of Colette 13.6 Plt Count 177 MPV 10.6 Immature Gran % (Auto) 0.7 Neut % (Auto) 79.7 Lymph % (Auto) 8.7 Gove % (Auto) 10.4 Eos % (Auto) 0.2 Baso % (Auto) 0.3 Neut # (Auto) 9.57 H Lymph # (Auto) 1.04 L Gove # (Auto) 1.25 H Eos # (Auto) 0.02 Baso # (Auto) 0.03 Immature Gran # (Auto) 0.08 Sodium 133 L Potassium 4.8 Chloride 103 Carbon Dioxide 23 Anion Gap 7 BUN 31 H Creatinine 1.73 H Est Cr Clr Drug Dosing 39.6 Est GFR ( Amer) 40.5 Est GFR (Non-Af Amer) 35.0 BUN/Creatinine Ratio 17.9 Glucose 136 H POC Glucose Calcium 8.8 Total Bilirubin 1.3 H AST 10 L ALT 12 Alkaline Phosphatase 61 Total Protein 7.3 Albumin 3.9 Globulin 3.4 Albumin/Globulin Ratio 1.1 Urine Color Urine Appearance Urine pH Ur Specific [place] Urine Protein Urine Glucose (UA) Urine Ketones Urine Blood Urine Nitrite Urine Bilirubin Urine Urobilinogen Ur Leukocyte Esterase Urine WBC (Auto) Urine RBC (Auto) U Hyaline Cast (Auto) U Epithel Cells (Auto) Urine Bacteria (Auto) Enterobacterales (PCR) DETECTED A E. cloacae complex PCR DETECTED A SARS-CoV-2, RNA, NAAT mcr-1 Colistin Res Gene PCR Not Detected blaIMP Car res Gene PCR Not Detected KPC-Carbap Res Gene PCR Not Detected blaNDM Car Res Gene PCR Not Detected OXA-48 Carbapenem Resis Gene (PCR) Not Detected blaVIM Car Res Gene PCR Not Detected CTX-M Gene Resistance (PCR) Not Detected Bld Cult ID Panel PCR See PCR Comment 08/01/22 08/02/22 08/02/22 21:31 06:15 06:41 WBC 9.91 RBC 3.42 L Hgb 10.7 L Hct 31.9 L MCV 93.3 MCH 31.3 MCHC 33.5 RDW Std Deviation 46.8 H RDW Coeff of Colette 13.6 Plt Count 153 MPV 10.7 Immature Gran % (Auto) 0.6 Neut % (Auto) 75.1 Lymph % (Auto) 12.3 Gove % (Auto) 11.5 Eos % (Auto) 0.3 Baso % (Auto) 0.2 Neut # (Auto) 7.44 H Lymph # (Auto) 1.22 Gove # (Auto) 1.14 H Eos # (Auto) 0.03 Baso # (Auto) 0.02 Immature Gran # (Auto) 0.06 Sodium Potassium Chloride Carbon Dioxide Anion Gap BUN Creatinine Est Cr Clr Drug Dosing Est GFR ( Amer) Est GFR (Non-Af Amer) BUN/Creatinine Ratio Glucose POC Glucose Calcium Total Bilirubin AST ALT Alkaline Phosphatase Total Protein Albumin Globulin Albumin/Globulin Ratio Urine Color Yellow Urine Appearance Turbid A Urine pH 5.5 Ur Specific [place] 1.009 Urine Protein Negative Urine Glucose (UA) Negative Urine Ketones Negative Urine Blood 2+ H Urine Nitrite Negative Urine Bilirubin Negative Urine Urobilinogen Negative Ur Leukocyte Esterase 3+ H Urine WBC (Auto) >30 H Urine RBC (Auto) 0-4 U Hyaline Cast (Auto) 1-5 U Epithel Cells (Auto) 20-30 H Urine Bacteria (Auto) Negative Enterobacterales (PCR) E. cloacae complex PCR SARS-CoV-2, RNA, NAAT NEGATIVE mcr-1 Colistin Res Gene PCR blaIMP Car res Gene PCR KPC-Carbap Res Gene PCR blaNDM Car Res Gene PCR OXA-48 Carbapenem Resis Gene (PCR) blaVIM Car Res Gene PCR CTX-M Gene Resistance (PCR) Bld Cult ID Panel PCR 08/02/22 08/02/22 08/02/22 06:41 08:05 11:55 WBC RBC Hgb Hct MCV MCH MCHC RDW Std Deviation RDW Coeff of Colette Plt Count MPV Immature Gran % (Auto) Neut % (Auto) Lymph % (Auto) Gove % (Auto) Eos % (Auto) Baso % (Auto) Neut # (Auto) Lymph # (Auto) Gove # (Auto) Eos # (Auto) Baso # (Auto) Immature Gran # (Auto) Sodium 135 L Potassium 4.5 Chloride 104 Carbon Dioxide 24 Anion Gap 7 BUN 31 H Creatinine 1.80 H Est Cr Clr Drug Dosing 37.9 Est GFR ( Amer) 38.6 Est GFR (Non-Af Amer) 33.3 BUN/Creatinine Ratio 17.2 Glucose 140 H POC Glucose 138 H 140 H Calcium 8.5 Total Bilirubin AST ALT Alkaline Phosphatase Total Protein Albumin Globulin Albumin/Globulin Ratio Urine Color Urine Appearance Urine pH Ur Specific [place] Urine Protein Urine Glucose (UA) Urine Ketones Urine Blood Urine Nitrite Urine Bilirubin Urine Urobilinogen Ur Leukocyte Esterase Urine WBC (Auto) Urine RBC (Auto) U Hyaline Cast (Auto) U Epithel Cells (Auto) Urine Bacteria (Auto) Enterobacterales (PCR) E. cloacae complex PCR SARS-CoV-2, RNA, NAAT mcr-1 Colistin Res Gene PCR blaIMP Car res Gene PCR KPC-Carbap Res Gene PCR blaNDM Car Res Gene PCR OXA-48 Carbapenem Resis Gene (PCR) blaVIM Car Res Gene PCR CTX-M Gene Resistance (PCR) Bld Cult ID Panel PCR 08/02/22 17:10 WBC RBC Hgb Hct MCV MCH MCHC RDW Std Deviation RDW Coeff of Colette Plt Count MPV Immature Gran % (Auto) Neut % (Auto) Lymph % (Auto) Gove % (Auto) Eos % (Auto) Baso % (Auto) Neut # (Auto) Lymph # (Auto) Gove # (Auto) Eos # (Auto) Baso # (Auto) Immature Gran # (Auto) Sodium Potassium Chloride Carbon Dioxide Anion Gap BUN Creatinine Est Cr Clr Drug Dosing Est GFR ( Amer) Est GFR (Non-Af Amer) BUN/Creatinine Ratio Glucose POC Glucose 113 H Calcium Total Bilirubin AST ALT Alkaline Phosphatase Total Protein Albumin Globulin Albumin/Globulin Ratio Urine Color Urine Appearance Urine pH Ur Specific [place] Urine Protein Urine Glucose (UA) Urine Ketones Urine Blood Urine Nitrite Urine Bilirubin Urine Urobilinogen Ur Leukocyte Esterase Urine WBC (Auto) Urine RBC (Auto) U Hyaline Cast (Auto) U Epithel Cells (Auto) Urine Bacteria (Auto) Enterobacterales (PCR) E. cloacae complex PCR SARS-CoV-2, RNA, NAAT mcr-1 Colistin Res Gene PCR blaIMP Car res Gene PCR KPC-Carbap Res Gene PCR blaNDM Car Res Gene PCR OXA-48 Carbapenem Resis Gene (PCR) blaVIM Car Res Gene PCR CTX-M Gene Resistance (PCR) Bld Cult ID Panel PCR Microbiology 08/01/22 18:23 Blood Aerobic Blood Culture - Preliminary Gram negative bacilli 08/01/22 18:23 Blood Anaerobic Blood Culture - Preliminary Gram negative bacilli 08/01/22 18:20 Blood Aerobic Blood Culture - Preliminary Gram negative bacilli 08/01/22 18:20 Blood Anaerobic Blood Culture - Preliminary Gram negative bacilli Diagnostic Findings Chest X-Ray 08/01/22 17:36 XR chest 1V portable CLINICAL HISTORY: Fever COMPARISON STUDY: Chest CT January 09, 2022. FINDINGS: There is no pneumothorax or pleural effusion. No consolidation is identified to suggest pneumonia. Interstitial thickening is unchanged. This is likely chronic. Cardiomediastinal silhouette is stable. IMPRESSION: No acute cardiopulmonary findings. No change in appearance of the chest. ACT 112: Negative or not required by law. Electronically signed by: Brayan Hernandez M.D. 08/01/2022 6:34 PM Medications Administered Current Inpatient Medications Acetaminophen (Acetaminophen 325 Mg Tab) 650 mg PO Q4H PRN PRN Reason: pain/fever Stop: 08/31/22 23:40 Albuterol (Albuterol Hfa 8 Gm Inhaler) 1 puffs INH QID PRN PRN Reason: shortness of breath or wheezin Stop: 08/31/22 23:40 Aspirin (Aspirin 81 Mg Ectab) 81 mg PO DAILY LADONNA Stop: 09/01/22 08:59 Last Admin: 08/02/22 08:57 Dose: 81 mg Atorvastatin Calcium (Atorvastatin 40 Mg Tab) 40 mg PO HS LADONNA Stop: 09/01/22 20:59 Dextrose (Dextrose 50% 50 Ml Syringe) 25 - 50 ml IV UD PRN; Protocol PRN Reason: Hypoglycemia Protocol Stop: 09/01/22 00:43 Finasteride (Finasteride 5 Mg Tab) 5 mg PO HS [facility] Stop: 09/01/22 20:59 Furosemide (Furosemide 40 Mg Tab) 40 mg PO QAM LADONNA Stop: 09/01/22 08:59 Last Admin: 08/02/22 08:57 Dose: 40 mg Glucagon (Glucagon For Inj 1 Mg Vial) 1 mg SQ UD PRN; Protocol PRN Reason: Hypoglycemia Protocol Stop: 09/01/22 00:43 Glucose (Glucose 10 Tab/Tube) 4 - 8 tab PO UD PRN; Protocol PRN Reason: Hypoglycemia Treatment Stop: 09/01/22 00:43 Glucose (Glucose 40% Gel 15 Gm Tube) 15 - 30 gm PO UD PRN; Protocol PRN Reason: Hypoglycemia Protocol Stop: 09/01/22 00:43 Cefepime HCl 2,000 mg/ Syringe 20 mls @ 5 mls/min IV Q12H LADONNA; Protocol Stop: 08/16/22 12:29 Last Admin: 08/02/22 13:25 Dose: 5 mls/min Insulin Aspart (Insulin Aspart Per Unit) 0 units SC ACHS LADONNA Stop: 09/01/22 07:29 Last Admin: 08/02/22 18:04 Dose: 2 units Metoprolol Succinate (Metoprolol Succ 25mg Ext Rel Tab) 12.5 mg PO DAILY LADONNA Stop: 09/01/22 08:59 Last Admin: 08/02/22 08:57 Dose: 12.5 mg Miscellaneous (Carbohydrates For Hypoglycemia ) 15 - 30 gm PO UD PRN PRN Reason: Hypoglycemia Protocol Stop: 09/01/22 00:43 Ondansetron HCl (Ondansetron Inj 2 Mg/Ml 2 Ml Vial) 4 mg IV Q6H PRN PRN Reason: Nausea Stop: 08/31/22 23:40 Pantoprazole Sodium (Pantoprazole 40 Mg Tab) 40 mg PO DAILY LADONNA Stop: 09/01/22 08:59 Last Admin: 08/02/22 08:58 Dose: 40 mg Polyethylene Glycol (Polyethylene (Miralax) 17 Gm Pack) 17 gm PO DAILY PRN PRN Reason: Constipation Stop: 08/31/22 23:40 Tamsulosin HCl (Tamsulosin Hcl 0.4 Mg Cap) 0.4 mg PO HS LADONNA Stop: 09/01/22 20:59 Umeclidinium/Vilanterol (Umeclidinium/Vilanterol 62.5/25mcg 7 Puffs/Inhaler) 1 puffs INH DAILY LADONNA Stop: 09/01/22 08:59 Last Admin: 08/02/22 08:58 Dose: 1 puffs (2) Complication of Ordonez catheter Encounter type: initial encounter Qualified Code(s): T83.9XXA - Unspecified complication of genitourinary prosthetic device, implant and graft, initial encounter (3) Catheter-associated urinary tract infection Encounter type: initial encounter Indwelling urinary catheter type: indwelling urethral catheter Qualified Code(s): T83.511A - Infection and inflammatory reaction due to indwelling urethral catheter, initial encounter; N39.0 - Urinary tract infection, site not specified
[2022-08-02] MEDS ORDERED: cefTRIAXone SODIUM 2,000 MG in DEXTROSE 5% 50 ML IV SCH (20:00)
[2022-08-02] MEDS: ATORVASTATIN 40 MG TAB PO SCH (21:15)
[2022-08-02] MEDS: TAMSULOSIN HCL 0.4 MG CAP PO SCH (21:15)
[2022-08-02] MEDS: FINASTERIDE 5 MG TAB PO SCH (21:15)
--- NOTE | 2022-08-03 03:14 | Billing Data ---
Date of Service August 03, 2022 Coding Level of Care Code 76656 INT INP/OBS CARE
[2022-08-03 08:01] LABS: Basophils # (auto) 0.03 K/uL (0-0.2); Basophils % (auto) 0.4 %; Eosinophils # (auto) 0.09 K/uL (0-0.50); Eosinophils % (auto) 1.1 %; Hematocrit (blood only) 31.1 % (42.0-52.0); Hemoglobin 10.5 g/dl (14.0-18.0); Immature Granulocytes # (auto) 0.09 K/uL (0.01-0.20); Immature Granulocytes % (auto) 1.1 %; Lymphocytes # (auto) 1.18 K/uL (1.2-3.4); Lymphocytes % (auto) 13.8 %; Mean Corpuscular Hemoglobin 31.6 pg (25.0-34.0); Mean Corpuscular Hgb Conc 33.8 g/dL (32.0-36.0); Mean Corpuscular Volume 93.7 fL (80.0-100.0); Mean Platelet Volume 10.7 fL (9.4-12.4); Monocytes # (auto) 1.17 K/uL (0.11-0.59); Monocytes % (auto) 13.7 %; Neutrophils # (auto) 5.96 K/uL (1.40-6.50); Neutrophils % (auto) 69.9 %; Platelet Count 147 K/uL (130-400); RDW Coefficient of Variation 13.6 % (11.5-14.5); RDW Standard Deviation 46.8 fL (36.4-46.3); Red Blood Count 3.32 M/uL (4.70-6.10); White Blood Count 8.52 K/ul (4.8-10.8)
[2022-08-03 08:10] LABS: Calcium 8.5 mg/dl (8.5-10.1); Creatinine Clr Calc Pharmacy 34.1 ml/min; Est GFR (Non-African American) 29.3 ml/min; Potassium 4.4 mmol/L (3.5-5.1)
[2022-08-03] MEDS: FUROSEMIDE 40 MG TAB PO SCH (09:22)
[2022-08-03] MEDS: ASPIRIN 81 MG ECTAB PO SCH (09:22)
[2022-08-03] MEDS: PANTOprazole 40 MG TAB PO SCH (09:22)
[2022-08-03] MEDS: METOPROLOL SUCC 25MG EXT REL TAB PO SCH (09:22)
[2022-08-03] MEDS: UMECLIDINIUM/VILANTEROL 62.5/25MCG 7 PUFFS/INHALER INH SCH (09:22)
[2022-08-03] MEDS: INSULIN ASPART PER UNIT SC SCH ×4 (09:27→21:07)
--- NOTE | 2022-08-03 10:52 | Infectious Disease Progress Nt ---
Date of Service August 03, 2022 Assessment & Plan (1) Positive blood culture: Plan: #Ecloacae bacteremia #Positive UA #Chronic Ordonez 87-year-old male patient with a history of indwelling Ordonez catheter, type 2 diabetes, CHF, pulmonary hypertension, ischemic cardiomyopathy, COPD, recently seen in ED for concern for UTI readmitted on 08/01 after fall and positive urine cultures. ID consulted for bacteremia. Patient was seen in ED on 07/30. Ordonez catheter replaced 3 days before. Ordonez catheter was uncomfortable. 07/30 Urine cloudy 3+ blood >30 wbcs, Ucx grew Kluyvera intermedia R to augmentin and Cefazolin. Patient was discharged home but called back when urine cultures were positive. He also had a fall. On admission, WBC 11.99, Cr 1.73 (baseline 1.4) Tbili 1.3 AST/ALT normal UA with 2+ blood, >30 wbcs 08/01 Blood culture positive BFID for E. cloacae blood cultures are growing Gram negative rods 4/4 bottles. Ucx Pending. Patient started on IV Ceftriaxone. ID consulted for bactermia O/N afebrile, VSS, WBC improved to 9 (2) Complication of Ordonez catheter: (3) Catheter-associated urinary tract infection: Plan -C/W Cefepime to cover enterobacter (it can have intrinsic R to 1st-3rd Gen Cephalosporins), this will also cover prior Ucx -Still awaiting blood culture and urine culture speciation -Repeating blood cultures -Consider CT A/P or renal ultrasound to ensure no underlying structural source Anticipate 10-14 day course if no complications ID will follow Charlotte Fernandes MD Infectious Diseases [facility] Admission and Anticipated Discharge Date Admission Date: August 01, 2022 Subjective This patient recommendation is based on a telemedicine consult request which was completed asynchronously through chart review and information provided by the primary physician. The patient was not seen or examined today. The evaluation is consultative in nature and all patient care and treatment decisions can either be accepted or rejected by the patient's primary hospital-based treating physician using their own independent medical judgment for their patient. Time Spent Reviewing Chart: 21 - 30 minutes Results & Data ([facility]) Vital Signs (Past 12 Hours) Vital Signs Temp Pulse Resp BP Pulse Ox O2 Del Method 08/03/22 08:06 36.8 C 95 H 18 143/74 H 92 Room Air (2) Complication of Ordonez catheter Encounter type: initial encounter Qualified Code(s): T83.9XXA - Unspecified complication of genitourinary prosthetic device, implant and graft, initial encounter (3) Catheter-associated urinary tract infection Encounter type: initial encounter Indwelling urinary catheter type: indwelling urethral catheter Qualified Code(s): T83.511A - Infection and inflammatory reaction due to indwelling urethral catheter, initial encounter; N39.0 - Urinary tract infection, site not specified
[2022-08-03] MEDS: CEFEPIME 2,000 MG in SYRINGE 0 ML IV SCH (13:39)
--- NOTE | 2022-08-03 13:51 | Hospitalist Progress Note ---
Date of Service August 03, 2022 Assessment & Plan (1) Catheter-associated urinary tract infection: Plan: Patient is an 87 yo male with significant PMHx including chronic gerardo catheter, DM, gastric ulcer, Barretts esophagus, interstitial lung disease, CHF, pulmonary HTN, ANNABELLE, COPD, venous insufficiency, HTN, HLD, and BPH with LUTS admitted 08/01/22 with catheter-associated UTI. Catheter-associated UTI - Catheter last exchanged Sunday 07/30 at time of urine collection - Mild leukocytosis w/ WBC 11.99 on admission - Urine cx 07/30 positive for gram negative bacilli , blood cultures growing E cloaca - Continue cefepime -Check renal US to r/o stones -ID on consult (2) Positive blood culture: Plan: 2 Bottles growing gram negatives, E cloaca Source is likely urine Will continue Cefepime Await sensitivities Consult ID (3) Weakness: Plan: Weakness - Most likely secondary to UTI above - PT/OT ordered (4) Diabetes mellitus with diabetic nephropathy: Plan: DM -Glucose under good control - Home metformin held - ISS - DM2 diet (5) CHF (congestive heart failure): Plan: Chronic systolic CHF -Compensated - On chart review, most recent echo identified [facility] 03/[facility] w/ EF of 40-45% - Continue home metoprolol - Continue home lasix; monitor kidney function closely - Home lisinopril and spironolactone held on admission (6) COPD (chronic obstructive pulmonary disease): Plan: COPD/ILD, not in exacerbation - Continue home regimen with inhalers (albuterol prn, anoro ellipta daily) (7) Hypertension: Plan: BP is under good control Continue home meds (8) 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): Plan: Continue home meds (9) ANNABELLE (obstructive sleep apnea): (10) Fall: (11) Hypercholesterolemia: (12) Arthritis: Plan continue hopsitalization, hopefully d/c on PO antibiotics Admission and Anticipated Discharge Date Admission Date: August 01, 2022 Subjective patient seen and examined, feels better Review of Systems Review of Systems: All systems reviewed are negative, apart from the ones contained in the history. Physical Exam Physical Exam: The patient is awake, alert and oriented 3, well developed and well nourished, normocephalic and atraumatic, lying in bed and in no acute distress. HEENT--PERRL, EOMI, mucous membranes and oropharynx mildly dry Neck--supple. No JVD. No bruits. Thyroid normal, trachea midline, no adenopathy. Heart--normal S1 and S2. No murmurs, rubs or gallops. Lungs--clear bilaterally, no respiratory distress, no accessory muscle use. Abdomen--normal bowel sounds and soft. Mild epigastric and left sided abdominal pain Extremities--no cyanosis or clubbing. No edema. Dermatologic--normal skin turgor, normal color, no abnormal lymph nodes, no rash. Neurologic--cranial nerves II through XII grossly intact. Rheumatologic--normal range of motion. Psychiatric--normal affect. Results & Data Results & Data ([facility]) Vital Signs (Past 12 Hours) Vital Signs Temp Pulse Resp BP Pulse Ox O2 Del Method 08/03/22 08:06 98.2 F 95 H 18 143/74 H 92 Room Air PG Care Time/CCT Total # of Minutes Spent Total Time Spent with Patient: Total time spent is greater than 50% in coordination of care (as documented) at patient's floor/unit and/or counseling patient: Coding Level of Care Code 88865 SUB INP/OBS CARE 2/35MIN Diagnoses Catheter-associated urinary tract infection T83.511A; N39.0 Encounter type: initial encounter Indwelling urinary catheter type: indwelling urethral catheter Positive blood culture R78.81 Weakness R53.1 Diabetes mellitus with diabetic nephropathy E11.21 CHF (congestive heart failure) I50.21 Heart failure chronicity: acute Heart failure type: systolic COPD (chronic obstructive pulmonary disease) 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 Hypertension I10 Hypertension type: essential hypertension 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) N40.1 ANNABELLE (obstructive sleep apnea) G47.33 Fall W19.XXXA Encounter type: initial encounter Hypercholesterolemia E78.00 Arthritis M19.90 Time Spent (min) 35 (1) Catheter-associated urinary tract infection Encounter type: initial encounter Indwelling urinary catheter type: indwelling urethral catheter Qualified Code(s): T83.511A - Infection and inflammatory reaction due to indwelling urethral catheter, initial encounter; N39.0 - Urinary tract infection, site not specified (5) CHF (congestive heart failure) Heart failure chronicity: acute Heart failure type: systolic Qualified Code(s): I50.21 - Acute systolic (congestive) heart failure (6) COPD (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: unspecified Qualified Code(s): J43.9 - Emphysema, unspecified (7) Hypertension Hypertension type: essential hypertension Qualified Code(s): I10 - Essential (primary) hypertension (10) Fall Encounter type: initial encounter Qualified Code(s): W19.XXXA - Unspecified fall, initial encounter
--- NOTE | 2022-08-03 14:06 | Ultrasound Report ---
RENAL ULTRASOUND HISTORY: Urinary tract infection, r/o stone COMPARISON: Abdomen and pelvis CT 12/23/2019. FINDINGS: Right kidney: 9.5 cm. There is a 4.7 cm lower pole cyst again noted. Mild hydronephrosis. Normal carter icomedullary differentiation and cortical thickness. Left kidney: 11.8 cm. Mild hydronephrosis. Normal corticomedullary differentiation and cortical thick ness. Bladder: Bladder is mildly distended. Lobular density at the bladder base measuring 2.6 cm. This favo rs median lobe hypertrophy of the prostate gland. A bladder lesion would be difficult to exclude. Rec ommend correlation with urine cytology or cystoscopy. IMPRESSION: 1. Distended bladder with mild bilateral hydronephrosis. This could be due to chronic outlet obstruct ion from the enlarged prostate gland. 2. Lobular density at the bladder base measuring 2.6 cm. This favors median lobe hypertrophy of the p rostate gland. A bladder lesion would be difficult to exclude. Recommend correlation with urine cytol ogy or cystoscopy. ACT 112: Negative or not required by law. Electronically signed by: Josep Baker M.D. 08/03/2022 2:03 PM
[2022-08-03] MEDS: TAMSULOSIN HCL 0.4 MG CAP PO SCH (21:03)
[2022-08-03] MEDS: ATORVASTATIN 40 MG TAB PO SCH (21:03)
[2022-08-03] MEDS: HEPARIN SOD 5,000 UNIT/0.5 ML VIAL SQ SCH (21:03)
[2022-08-03] MEDS: FINASTERIDE 5 MG TAB PO SCH (21:03)
[2022-08-04] MEDS: CEFEPIME 2,000 MG in SYRINGE 0 ML IV SCH ×2 (00:35→13:02)
[2022-08-04] MEDS: HEPARIN SOD 5,000 UNIT/0.5 ML VIAL SQ SCH ×3 (05:53→21:40)
[2022-08-04] MEDS: METOPROLOL SUCC 25MG EXT REL TAB PO SCH (08:54)
[2022-08-04] MEDS: PANTOprazole 40 MG TAB PO SCH (08:54)
[2022-08-04] MEDS: FUROSEMIDE 40 MG TAB PO SCH (08:55)
[2022-08-04] MEDS: ASPIRIN 81 MG ECTAB PO SCH (08:55)
[2022-08-04] MEDS: UMECLIDINIUM/VILANTEROL 62.5/25MCG 7 PUFFS/INHALER INH SCH (08:55)
[2022-08-04] MEDS: INSULIN ASPART PER UNIT SC SCH ×4 (09:03→21:08)
--- NOTE | 2022-08-04 09:13 | Infectious Disease Progress Nt ---
Date of Service August 04, 2022 Assessment & Plan (1) Positive blood culture: Plan: #Ecloacae bacteremia, likely #Positive UA #Chronic Gerardo 87-year-old male patient with a history of indwelling Gerardo catheter, type 2 diabetes, CHF, pulmonary hypertension, ischemic cardiomyopathy, COPD, recently seen in ED for concern for UTI readmitted on 08/01 after fall and positive urine cultures. ID consulted for bacteremia. Patient was seen in ED on 07/30. Gerardo catheter replaced 3 days before. Gerardo catheter was uncomfortable. 07/30 Urine cloudy 3+ blood >30 wbcs, Ucx grew Kluyvera intermedia R to augmentin and Cefazolin. Patient was discharged home but called back when urine cultures were positive. He also had a fall. On admission, WBC 11.99, Cr 1.73 (baseline 1.4) Tbili 1.3 AST/ALT normal UA with 2+ blood, >30 wbcs 08/01 Blood culture positive BFID for E. cloacae blood cultures are growing Gram negative rods 4/4 bottles. Ucx Pending. Patient started on IV Ceftriaxone. ID consulted for bactermia O/N afebrile, VSS, WBC improved to 9 Renal U/S showing 1. Distended bladder with mild bilateral hydronephrosis. This could be due to chronic outlet obstruction from the enlarged prostate gland. (2) Complication of Gerardo catheter: (3) Catheter-associated urinary tract infection: Plan -C/W Cefepime to cover enterobacter (it can have intrinsic R to 1st-3rd Gen Cephalosporins), this will also cover prior Ucx -Blood cultures will be send out but we can narrow to Levaquin -Repeating blood cultures -Consider Urology Consult -In lieu of ultrasound and gerardo plan for 14 day course total through 08/15/22 -Discharge on Levaquin 750mg po q48 hours through 08/15/22 (QTc 428, GFR ~30) Please call with any questions, I will reach out to today Page over the weekend with any questions/concerns ID will s/o at this time. Charlotte Fernandes MD Infectious Diseases [facility] Admission and Anticipated Discharge Date Admission Date: August 01, 2022 Subjective This patient recommendation is based on a telemedicine consult request which was completed asynchronously through chart review and information provided by the primary physician. The patient was not seen or examined today. The evaluation is consultative in nature and all patient care and treatment decisions can either be accepted or rejected by the patient's primary hospital-based treating physician using their own independent medical judgment for their patient. Time Spent Reviewing Chart: 21 - 30 minutes 24 hours: Renal U/S Distended bladder with mild bilateral hydronephrosis. This could be due to chronic outlet obstruction from the enlarged prostate gland. Some discrepancy between blood culture and biofire. Blood culture " swatch clerk species" microscan is not identifying well, so Micro cannot call it that Biofire Enterobacter species Blood Culture Aerobic Preliminary 08/04/22-805 Organism 1 Crushing Foreman species Sens Sensitivities to Follow Reference Lab Sent to Reference Lab for Further Testing Cliff spec RX M.I.C. --- --------- Cefepime S <=2 Ceftriaxone R >2 Ciprofloxacin S <=0.25 Ertapenem S <=0.5 Gentamicin S <=4 Levofloxacin S <=0.5 Meropenem S <=1 Tobramycin S <=4 Trimeth/Sulfa S <=2/38 Pip/Tazo S <=16 Results & Data ([facility]) Vital Signs (Past 12 Hours) Vital Signs Temp Pulse Resp BP Pulse Ox O2 Del Method 08/04/22 07:55 36.8 C 98 H 16 132/77 95 Room Air Laboratory Results Laboratory Results - last 48 hr 08/01/22 08/02/22 08/02/22 18:20 11:55 17:10 WBC RBC Hgb Hct MCV MCH MCHC RDW Std Deviation RDW Coeff of Colette Plt Count MPV Immature Gran % (Auto) Neut % (Auto) Lymph % (Auto) Mercer % (Auto) Eos % (Auto) Baso % (Auto) Neut # (Auto) Lymph # (Auto) Mercer # (Auto) Eos # (Auto) Baso # (Auto) Immature Gran # (Auto) Sodium Potassium Chloride Carbon Dioxide Anion Gap BUN Creatinine Est Cr Clr Drug Dosing Est GFR ( Amer) Est GFR (Non-Af Amer) BUN/Creatinine Ratio Glucose POC Glucose 140 H 113 H Calcium Enterobacterales (PCR) DETECTED A E. cloacae complex PCR DETECTED A mcr-1 Colistin Res Gene PCR Not Detected blaIMP Car res Gene PCR Not Detected KPC-Carbap Res Gene PCR Not Detected blaNDM Car Res Gene PCR Not Detected OXA-48 Carbapenem Resis Gene (PCR) Not Detected blaVIM Car Res Gene PCR Not Detected CTX-M Gene Resistance (PCR) Not Detected Bld Cult ID Panel PCR See PCR Comment 08/02/22 08/03/22 08/03/22 20:40 07:24 07:24 WBC 8.52 RBC 3.32 L Hgb 10.5 L Hct 31.1 L MCV 93.7 MCH 31.6 MCHC 33.8 RDW Std Deviation 46.8 H RDW Coeff of Colette 13.6 Plt Count 147 MPV 10.7 Immature Gran % (Auto) 1.1 Neut % (Auto) 69.9 Lymph % (Auto) 13.8 Mercer % (Auto) 13.7 Eos % (Auto) 1.1 Baso % (Auto) 0.4 Neut # (Auto) 5.96 Lymph # (Auto) 1.18 L Mercer # (Auto) 1.17 H Eos # (Auto) 0.09 Baso # (Auto) 0.03 Immature Gran # (Auto) 0.09 Sodium 135 L Potassium 4.4 Chloride 105 Carbon Dioxide 24 Anion Gap 6 BUN 36 H Creatinine 2.00 H Est Cr Clr Drug Dosing 34.1 Est GFR ( Amer) 34.0 Est GFR (Non-Af Amer) 29.3 BUN/Creatinine Ratio 18.0 Glucose 145 H POC Glucose 114 H Calcium 8.5 Enterobacterales (PCR) E. cloacae complex PCR mcr-1 Colistin Res Gene PCR blaIMP Car res Gene PCR KPC-Carbap Res Gene PCR blaNDM Car Res Gene PCR OXA-48 Carbapenem Resis Gene (PCR) blaVIM Car Res Gene PCR CTX-M Gene Resistance (PCR) Bld Cult ID Panel PCR 08/03/22 08/03/22 08/03/22 08:12 12:19 17:14 WBC RBC Hgb Hct MCV MCH MCHC RDW Std Deviation RDW Coeff of Colette Plt Count MPV Immature Gran % (Auto) Neut % (Auto) Lymph % (Auto) Mercer % (Auto) Eos % (Auto) Baso % (Auto) Neut # (Auto) Lymph # (Auto) Mercer # (Auto) Eos # (Auto) Baso # (Auto) Immature Gran # (Auto) Sodium Potassium Chloride Carbon Dioxide Anion Gap BUN Creatinine Est Cr Clr Drug Dosing Est GFR ( Amer) Est GFR (Non-Af Amer) BUN/Creatinine Ratio Glucose POC Glucose 145 H 121 H 119 H Calcium Enterobacterales (PCR) E. cloacae complex PCR mcr-1 Colistin Res Gene PCR blaIMP Car res Gene PCR KPC-Carbap Res Gene PCR blaNDM Car Res Gene PCR OXA-48 Carbapenem Resis Gene (PCR) blaVIM Car Res Gene PCR CTX-M Gene Resistance (PCR) Bld Cult ID Panel PCR 08/03/22 08/04/22 20:25 08:07 WBC RBC Hgb Hct MCV MCH MCHC RDW Std Deviation RDW Coeff of Colette Plt Count MPV Immature Gran % (Auto) Neut % (Auto) Lymph % (Auto) Mercer % (Auto) Eos % (Auto) Baso % (Auto) Neut # (Auto) Lymph # (Auto) Mercer # (Auto) Eos # (Auto) Baso # (Auto) Immature Gran # (Auto) Sodium Potassium Chloride Carbon Dioxide Anion Gap BUN Creatinine Est Cr Clr Drug Dosing Est GFR ( Amer) Est GFR (Non-Af Amer) BUN/Creatinine Ratio Glucose POC Glucose 149 H 164 H Calcium Enterobacterales (PCR) E. cloacae complex PCR mcr-1 Colistin Res Gene PCR blaIMP Car res Gene PCR KPC-Carbap Res Gene PCR blaNDM Car Res Gene PCR OXA-48 Carbapenem Resis Gene (PCR) blaVIM Car Res Gene PCR CTX-M Gene Resistance (PCR) Bld Cult ID Panel PCR (2) Complication of Gerardo catheter Encounter type: initial encounter Qualified Code(s): T83.9XXA - Unspecified complication of genitourinary prosthetic device, implant and graft, initial encounter (3) Catheter-associated urinary tract infection Encounter type: initial encounter Indwelling urinary catheter type: indwelling urethral catheter Qualified Code(s): T83.511A - Infection and inflammatory reaction due to indwelling urethral catheter, initial encounter; N39.0 - Urinary tract infection, site not specified
[2022-08-04] MEDS ORDERED: MAGNESIUM HYDROXIDE SUSP 30 ML UDC PO ONE (11:15)
--- NOTE | 2022-08-04 13:31 | Urology Consultation ---
I have discussed Mr. Aragon's case with MARKO Pathak, and agree with the documentation. 87 yo male with urethral stricture disease admitted with urinary tract infection. US demonstrated significant volume in the bladder and, notably, gerardo catheter was not seen. Catheter has been replaced with drainage of >1000 ml - should be in appropriate position at this time to provide source control. Would continue antibiotics, narrow as culture data becomes available. No plan for further urologic intervention as an inpatient, he may require cystoscopy once infection is clear to evaluate for recurrent stricture. Date of Consultation August 04, 2022 Assessment & Plan (1) Catheter-associated urinary tract infection: (2) Urinary retention with incomplete bladder emptying: (3) Urethral stricture, postoperative: Plan 87-year-old male with long history of urethral stricture status post 2 failed open urethroplasty's previously managed with CIC but now with indwelling Gerardo catheter admitted for weakness status post fall and suspected UTI. Patient is afebrile and hemodynamically stable. Labs reviewedcreatinine 2.0, WBC 8.52, hemoglobin 10.5. Urine culture on 07/30 showed Kluyvera intermedia, BCx 08/01 Base Draw Operator species. Repeat UC on 08/02 showing gram negative bacilli, repeat blood cultures are pending. Currently on IV cefepime. Renal ultrasound showed distended bladder with mild bilateral hydronephrosis. Also noted a lobular density at the bladder base measuring 2.6 cm favoring median lobe hypertrophy of the prostate gland. - Suspect Gerardo may be malpositioned given renal ultrasound findings. - Recommend bladder scan now to evaluate positioning of Gerardo catheter. - If elevated bladder scan, then recommend reposition/replace Gerardo to ensure max drainage and source control. - Continue current antibiotics per infectious disease and primary team. - Follow cultures and narrow per sensitivity data when available. - Continue supportive care. - Will arrange outpatient follow-up with our service for further management and possible cystoscopy. - will follow. History of Present Illness Reason for Consultation: UTI/chronic Gerardo Requesting Physician: Dr. Cerda Attending Physician: Moris Cerda MD History of Present Illness This is an 87-year-old male with past medical history of hypertension, COPD, ANNABELLE, CAD, diabetes, interstitial lung disease, BPH and stricture disease managed with chronic indwelling Gerardo catheter who was admitted on 08/01/22 with weakness s/p fall and suspected UTI. Patient presented to [facility] emergency department on 08/01/2022 with weakness after fall. On presentation to ED, he was afebrile, tachycardic, but otherwise hemodynamically stable. Lab work reviewed and showed Creatinine 1.7, WBC 11.99, hemoglobin 12, sodium 133. Of note, he was seen in the emergency department 2 days prior due to urinary symptoms and had Gerardo catheter exchanged. Urine culture on 07/30/2022 showed Kluyvera intermedia. He was treated with IV fluids and 2 g of ceftriaxone in ED. He was admitted to hospital medicine service. Urology is consulted for UTI/chronic Gerardo. Patient is known to our service, follows with Dr. Kraft for BPH and longstanding stricture disease managed with chronic indwelling Gerardo catheter, changed monthly. Chart review: Afebrile Labs - creatinine 2.00, WBC 8.52, Hgb 10.5 UA on 07/30 showed 3+ blood, 2+ LE, >30 WBC, >30 RBC, 3+ bacteria UA on 08/02 showed 2+ blood, 3+ LE, >WBC, 0-4 RBC, 20-30 epithelials, negative bacteria UC 07/30 Kluyvera intermedia BCx 08/01 summer law clerk species UC 08/02 gram negative bacilli BCx 08/04 pending Currently on IV Cefepime Imaging Renal US 08/03/22 - IMPRESSION: 1. Distended bladder with mild bilateral hydronephrosis. This could be due to chronic outlet obstruction from the enlarged prostate gland. 2. Lobular density at the bladder base measuring 2.6 cm. This favors median lobe hypertrophy of the prostate gland. A bladder lesion would be difficult to exclude. Recommend correlation with urine cytology or cystoscopy. Patient seen and examined at bedside this afternoon. He is awake, alert and sitting up in bedside chair. Reports overall improvement since arrival, weakness improved. He reports mild bladder discomfort. No dysuria or hematuria. Gerardo catheter intact and draining clear yellow urine. No flank pain. No nausea or vomiting. No fever or chills. No additional concerns today. Allergies Allergy/AdvReac Type Severity Reaction Status Date / Time nitrofurantoin Allergy Severe SHORTNESS Verified 08/01/22 21:22 OF BREATH, "spitting up thick black stuff" Home Medications Medication Instructions Recorded Confirmed Type cholecalciferol (vitamin D3) 25 1,000 units PO QAM 03/04/18 08/01/22 History mcg (1,000 unit) capsule methenamine hippurate 1 gram tablet 1 gm PO HS 03/04/18 08/01/22 History vitamin E (dl, acetate) 180 mg 400 units PO QAM 03/04/18 08/01/22 History (400 unit) capsule calcium carbonate 500 mg calcium 500 mg PO BID 11/20/18 08/01/22 History (1,250 mg) tablet (Calcium 500) cyanocobalamin (vitamin B-12) 1,000 mcg PO QAM 11/20/18 08/01/22 History 1,000 mcg capsule spironolactone 25 mg tablet 12.5 mg PO QAM 06/12/19 08/01/22 History coenzyme Q10 100 mg capsule 100 mg PO QAM 11/04/19 08/01/22 History atorvastatin 80 mg tablet 40 mg PO HS 03/23/20 08/01/22 History finasteride 5 mg tablet 5 mg PO HS 03/23/20 08/01/22 History lisinopril 5 mg tablet 5 mg PO QAM 03/23/20 08/01/22 History magnesium oxide 400 mg PO QAM 03/23/20 08/01/22 History metformin 500 mg tablet 500 mg PO BID 03/23/20 08/01/22 History montelukast 10 mg tablet 10 mg PO QAM 03/23/20 08/01/22 History tamsulosin 0.4 mg capsule 0.4 mg PO HS 03/23/20 08/01/22 History vitamins A,C,F-oiey-naaptl 4,296 1 cap PO BID 03/23/20 08/01/22 History mcg-226 mg-90 mg capsule (PreserVision AREDS) acetaminophen 325 mg capsule 325 mg PO BID PRN Pain 05/12/20 08/01/22 History metoprolol succinate 25 mg 12.5 mg PO DAILY #15 tabs 06/15/20 08/01/22 Rx tablet,extended release 24 hr albuterol sulfate 90 mcg/actuation 1 inh inhalation QID PRN shortness 11/17/20 08/01/22 Rx aerosol inhaler (Ventolin HFA) of breath or wheezing #18 grams ascorbic acid (vitamin C) 250 mg 250 mg PO DAILY 11/17/20 08/01/22 History tablet ferrous sulfate 325 mg (65 mg 325 mg PO DAILY 11/17/20 08/01/22 History iron) tablet tiotropium 2.5 mcg-olodaterol 2.5 2 puff inhalation DAILY #3 Inhalers 12/03/20 08/01/22 Rx mcg/actuation mist for inhalation (Stiolto Respimat) aspirin 81 mg tablet,delayed 81 mg PO DAILY 03/25/21 08/01/22 History release (Adult Low Dose Aspirin) omeprazole 40 mg capsule,delayed 40 mg PO DAILY 03/25/21 08/01/22 History release diclofenac sodium 1 % topical gel 2 g topical TID 06/16/21 08/01/22 History vit C 226 mg-vit E 90 mg-copper 1 cap PO BID 06/16/21 08/01/22 History 0.8 mg-zinc oxide-lutein 5 mg capsule (PreserVision Lutein) furosemide 20 mg tablet 40 mg PO QAM 01/05/22 08/01/22 History Patient History Medical History Acute kidney injury Allergic rhinitis Arthritis Chronic SI joint pain COPD (chronic obstructive pulmonary disease) inhalers prn Coronary artery disease Diabetes mellitus type 2 Disc degeneration, lumbar 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) Epigastric abdominal pain Gastric mass Gastric ulcer GERD (gastroesophageal reflux disease) Hearing deficit Heart block AV second degree History of urinary self-catheterization performed intermittently Hypercholesterolemia Hypertension Ischemic cardiomyopathy Lumbar post-laminectomy syndrome Lumbar spondylosis Multiple lung nodules Myocardial Infarction 12/1980 "silent heart attack"--follows with [facility] ANNABELLE (obstructive sleep apnea) bipap with oxygen 2.5L Respiratory failure with hypoxia Solitary thyroid nodule Spinal stenosis of lumbar region TIA (transient ischemic attack) 2014--no neurologist, no further issues Venous insufficiency Surgical History History of bilateral cataract extraction History of cardiac cath 03/1981 @ [facility] [place] no stent placed History of cholecystectomy History of circumcision 1998 History of colonoscopy History of cystoscopy History of esophagogastroduodenoscopy (EGD) History of hand surgery left dupuytren's contracture History of left inguinal hernia repair 1980 History of lumbar fusion History of surgery urethroplasty x2 History of tonsillectomy History of tooth extraction partial upper/lower History of total left hip replacement History of total right hip replacement History of transesophageal echocardiography (BENY) 1994 Status post Mohs surgery for squamous cell carcinoma of skin Family History Father Myocardial infarction Mother Congestive heart failure Family history of diabetes mellitus Brother Family history of diabetes mellitus Brother Family history of diabetes mellitus Other No family history of adverse response to anesthesia Denies family history of Ovarian cancer Prostate cancer Breast cancer Colorectal cancer Social History Smoking Status: Former smoker Age Started Using Tobacco: 15; Age Quit Using Tobacco: 45; packs per day: 1; Cigarettes Per Day: 20; Smoking End Date: 1980; Second Hand Exposure: No; Tobacco Cessation Education Requested by Patient: No Hx Alcohol Use: Yes Alcohol type: beer Alcohol Intake Frequency: Monthly or Less Hx Substance Use: No Preferred Language: Syriac Communication Ability: Effective Visual Impairment: No Limitations Hearing Ability: Use of Hearing Aid Deportation Officer Required: No Beliefs That Will Affect Care: None marital status: / Current Living Situation: Family Current Living Situation Comment: patient's daughter, Ashley lives with him EXCEPT for 3-4 days/month. current occupational status: retired Other Information That Helps Us Care for You: No Feels Safe at Home: Yes Safety Concerns: Feels Safe At This Time Childhood Exposure to Second-Hand Smoke: Yes Dental Care, Regularly: Yes Physical Activity Frequency: Does not Exercise Seatbelt Use: always Sunscreen Use: No Do you think of yourself as: straight/heterosexual Assistive Devices: Cane and Walker Review of Systems Review of Systems: All systems reviewed & are unremarkable except as noted in HPI & below Physical Exam Constitutional: well developed and well nourished; no acute distress and not ill appearing Eyes: no scleral abnormality Neck: normal visual inspection Respiratory: normal respiratory effort and able to speak in complete sentences; no respiratory distress and no labored breathing Cardiovascular: Extremities: no pedal edema Gastrointestinal (Abdomen): Inspection/Auscultation: abdomen normal to inspection; abdomen not distended Percussion/Palpation: abdomen soft; abdomen nontender and no guarding Musculoskeletal: Head/Neck/Chest: normocephalic and head atraumatic Neurologic: moves all extremities and awake Psychiatric: Orientation: alert and oriented x 3 Genitourinary: no CVA tenderness Gerardo patent and draining clear yellow urine Results & Data ([facility]) Vital Signs (Past 12 Hours) Vital Signs Temp Pulse Resp BP Pulse Ox O2 Del Method 08/04/22 09:20 Room Air 08/04/22 07:55 36.8 C 98 H 16 132/77 95 Room Air PG Care Time/CCT Total # of Minutes Spent Total Time Spent with Patient: Total time spent is greater than 50% in coordination of care (as documented) at patient's floor/unit and/or counseling patient: Coding Level of Care Code 16851 INT INP/OBS CARE MIN Diagnoses Catheter-associated urinary tract infection T83.511A; N39.0 Encounter type: initial encounter Indwelling urinary catheter type: indwelling urethral catheter Urinary retention with incomplete bladder emptying R33.9 Urethral stricture, postoperative (1) Catheter-associated urinary tract infection Encounter type: initial encounter Indwelling urinary catheter type: indwelling urethral catheter Qualified Code(s): T83.511A - Infection and inflammatory reaction due to indwelling urethral catheter, initial encounter; N39.0 - Urinary tract infection, site not specified
--- NOTE | 2022-08-04 17:44 | Hospitalist Progress Note ---
Date of Service August 04, 2022 Assessment & Plan (1) Catheter-associated urinary tract infection: Plan: Patient is an 87 yo male with significant PMHx including chronic gerardo catheter, DM, gastric ulcer, Barretts esophagus, interstitial lung disease, CHF, pulmonary HTN, ANNABELLE, COPD, venous insufficiency, HTN, HLD, and BPH with LUTS admitted 08/01/22 with catheter-associated UTI. Catheter-associated UTI - Catheter last exchanged Sunday 07/30 at time of urine collection - Mild leukocytosis w/ WBC 11.99 on admission - Urine cx 07/30 positive for gram negative bacilli , blood cultures growing E cloaca - Continue cefepime -Check renal US to r/o stones -ID on consult 24 hours: Renal U/S Distended bladder with mild bilateral hydronephrosis. This could be due to chronic outlet obstruction from the enlarged prostate gland. Some discrepancy between blood culture and biofire. Blood culture " corrugator supervisor species" microscan is not identifying well, so Micro cannot call it that Biofire Enterobacter species Blood Culture Aerobic Preliminary 08/04/22-805 Organism 1 Refractory Manager species Sens Sensitivities to Follow Reference Lab Sent to Reference Lab for Further Testing Cliff spec RX M.I.C. --- --------- Cefepime S <=2 Ceftriaxone R >2 Ciprofloxacin S <=0.25 Ertapenem S <=0.5 Gentamicin S <=4 Levofloxacin S <=0.5 Meropenem S <=1 Tobramycin S <=4 Trimeth/Sulfa S <=2/38 Pip/Tazo S <=16 (2) Positive blood culture: Plan: 2 Bottles growing gram negatives, E cloaca Source is likely urine Will continue Cefepime Await sensitivities Consult ID (3) Weakness: Plan: Weakness - Most likely secondary to UTI above - PT/OT ordered (4) Diabetes mellitus with diabetic nephropathy: Plan: DM -Glucose under good control - Home metformin held - ISS - DM2 diet (5) CHF (congestive heart failure): Plan: Chronic systolic CHF -Compensated - On chart review, most recent echo identified from [place] 03/2019 w/ EF of 40-45% - Continue home metoprolol - Continue home lasix; monitor kidney function closely - Home lisinopril and spironolactone held on admission (6) COPD (chronic obstructive pulmonary disease): Plan: COPD/ILD, not in exacerbation - Continue home regimen with inhalers (albuterol prn, anoro ellipta daily) (7) Hypertension: Plan: BP is under good control Continue home meds (8) 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): Plan: Continue home meds (9) ANNABELLE (obstructive sleep apnea): (10) Fall: (11) Hypercholesterolemia: (12) Arthritis: Plan continue hopsitalization, hopefully d/c on PO antibiotics Admission and Anticipated Discharge Date Admission Date: August 01, 2022 Subjective Patient seen and examined Intermittent urinary difficulty reported ID input noted Physical Exam Physical Exam: Head and ENT no thyroid enlargement trachea midline Cardiovascular S1-S2 are normal no S3 Lungs bilateral air entry fair no wheezing Abdomen soft nondistended positive bowel sounds no rebound tenderness Extremity shows trace edema Neurologically no focal deficits Skin shows no rash no cyanosis Results & Data Results & Data ([facility]) Vital Signs (Past 12 Hours) Vital Signs Temp Pulse Resp BP Pulse Ox O2 Del Method 08/04/22 14:37 36.5 C 79 16 123/71 97 Room Air 08/04/22 09:20 Room Air 08/04/22 07:55 36.8 C 98 H 16 132/77 95 Room Air PG Care Time/CCT Total # of Minutes Spent Total Time Spent with Patient: Total time spent is greater than 50% in coordination of care (as documented) at patient's floor/unit and/or counseling patient: Coding Level of Care Code 76331 SUB INP/OBS CARE 2/35MIN Diagnoses Catheter-associated urinary tract infection T83.511A; N39.0 Encounter type: initial encounter Indwelling urinary catheter type: indwelling urethral catheter Positive blood culture R78.81 Weakness R53.1 Diabetes mellitus with diabetic nephropathy E11.21 CHF (congestive heart failure) I50.21 Heart failure chronicity: acute Heart failure type: systolic COPD (chronic obstructive pulmonary disease) 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 Hypertension I10 Hypertension type: essential hypertension 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) N40.1 ANNABELLE (obstructive sleep apnea) G47.33 Fall W19.XXXA Encounter type: initial encounter Hypercholesterolemia E78.00 Arthritis M19.90 (1) Catheter-associated urinary tract infection Encounter type: initial encounter Indwelling urinary catheter type: indwelling urethral catheter Qualified Code(s): T83.511A - Infection and inflammatory reaction due to indwelling urethral catheter, initial encounter; N39.0 - Urinary tract infection, site not specified (5) CHF (congestive heart failure) Heart failure chronicity: acute Heart failure type: systolic Qualified Code(s): I50.21 - Acute systolic (congestive) heart failure (6) COPD (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: unspecified Qualified Code(s): J43.9 - Emphysema, unspecified (7) Hypertension Hypertension type: essential hypertension Qualified Code(s): I10 - Essential (primary) hypertension (10) Fall Encounter type: initial encounter Qualified Code(s): W19.XXXA - Unspecified fall, initial encounter
[2022-08-04] MEDS: FINASTERIDE 5 MG TAB PO SCH (21:40)
[2022-08-04] MEDS: ATORVASTATIN 40 MG TAB PO SCH (21:40)
[2022-08-04] MEDS: TAMSULOSIN HCL 0.4 MG CAP PO SCH (21:40)
[2022-08-05] MEDS: CEFEPIME 2,000 MG in SYRINGE 0 ML IV SCH ×2 (00:50→12:08)
[2022-08-05] MEDS: HEPARIN SOD 5,000 UNIT/0.5 ML VIAL SQ SCH ×3 (05:31→21:09)
[2022-08-05 06:40] LABS: Basophils # (auto) 0.03 K/uL (0-0.2); Basophils % (auto) 0.5 %; Eosinophils # (auto) 0.09 K/uL (0-0.50); Eosinophils % (auto) 1.6 %; Hematocrit (blood only) 32.3 % (42.0-52.0); Immature Granulocytes # (auto) 0.06 K/uL (0.01-0.20); Immature Granulocytes % (auto) 1.1 %; Lymphocytes # (auto) 1.34 K/uL (1.2-3.4); Lymphocytes % (auto) 23.8 %; Mean Corpuscular Hemoglobin 31.3 pg (25.0-34.0); Mean Corpuscular Hgb Conc 34.1 g/dL (32.0-36.0); Mean Platelet Volume 10.7 fL (9.4-12.4); Monocytes # (auto) 0.65 K/uL (0.11-0.59); Monocytes % (auto) 11.5 %; Neutrophils # (auto) 3.46 K/uL (1.40-6.50); Neutrophils % (auto) 61.5 %; Platelet Count 170 K/uL (130-400); RDW Coefficient of Variation 13.3 % (11.5-14.5); RDW Standard Deviation 45.6 fL (36.4-46.3); Red Blood Count 3.51 M/uL (4.70-6.10); White Blood Count 5.63 K/ul (4.8-10.8)
--- NOTE | 2022-08-05 08:56 | Urology Progress Note ---
Date of Service August 05, 2022 Assessment & Plan (1) Catheter-associated urinary tract infection: Plan: Urine positive for Kluyvera intermedia, currently being treated with cefepime. Should have adequate source control with Ordonez catheter now in good position. If infection does not clear, would consider repeating renal ultrasound to reevaluate for persistent hydronephrosis. (2) Complication of Ordonez catheter: Plan: Ordonez catheter is draining well after repositioning. We discussed that he should have cystoscopy performed as an outpatient to evaluate the urethra for recurrent scar tissue as well as to evaluate the bladder and the nodule seen on renal ultrasound. This will be coordinated by the urology office. Plan Continue antibiotics, narrowing coverage as culture data becomes available. Once stable, will be reasonable to discharge home with Ordonez catheter in place on 7 to 10 days antibiotics. Urology will coordinate outpatient follow-up. We will sign off for now, please call with any questions or concerns. Admission and Anticipated Discharge Date Admission Date: August 01, 2022 Subjective Feeling better this morning After catheter repositioning, notes decreased abdominal pain and bloating. Still having some lower back pain, but he thinks this is SI joint rather than kidney. Denies any fevers or chills Tolerating a diet Currently on cefepime for Kluyvera intermedia. Blood cultures from 07/24/2022 were positive, repeat blood cultures pending Review of Systems Review of Systems: No fevers or chills Physical Exam Physical Exam: Well-appearing, NAD Respiratory: Breathing comfortably on room air, no audible wheezing Genitourinary: Ordonez catheter in good position, draining clear yellow urine Results & Data ([facility]) Vital Signs (Past 12 Hours) Vital Signs Temp Pulse Resp BP Pulse Ox O2 Del Method 08/05/22 07:52 36.4 C L 79 16 132/73 96 Room Air PG Care Time/CCT Total # of Minutes Spent Total Time Spent with Patient: Total time spent is greater than 50% in coordination of care (as documented) at patient's floor/unit and/or counseling patient: Coding Level of Care Code 39756 SUB INP/OBS CARE 1/25MIN Diagnoses Catheter-associated urinary tract infection T83.511A; N39.0 Encounter type: initial encounter Indwelling urinary catheter type: indwelling urethral catheter Complication of Ordonez catheter T83.9XXA Encounter type: initial encounter (1) Catheter-associated urinary tract infection Encounter type: initial encounter Indwelling urinary catheter type: indwelling urethral catheter Qualified Code(s): T83.511A - Infection and inflammatory reaction due to indwelling urethral catheter, initial encounter; N39.0 - Urinary tract infection, site not specified (2) Complication of Ordonez catheter Encounter type: initial encounter Qualified Code(s): T83.9XXA - Unspecified complication of genitourinary prosthetic device, implant and graft, initial encounter
[2022-08-05] MEDS: METOPROLOL SUCC 25MG EXT REL TAB PO SCH (09:15)
[2022-08-05] MEDS: PANTOprazole 40 MG TAB PO SCH (09:16)
[2022-08-05] MEDS: ASPIRIN 81 MG ECTAB PO SCH (09:16)
[2022-08-05] MEDS: FUROSEMIDE 40 MG TAB PO SCH (09:16)
[2022-08-05] MEDS: UMECLIDINIUM/VILANTEROL 62.5/25MCG 7 PUFFS/INHALER INH SCH (09:16)
[2022-08-05] MEDS: INSULIN ASPART PER UNIT SC SCH ×4 (09:24→21:09)
[2022-08-05 09:54] LABS: BUN Creatinine Ratio 24.7 (10-20); Calcium 8.9 mg/dl (8.5-10.1); Est GFR (African American) 42.6 ml/min; Est GFR (Non-African American) 36.8 ml/min; Potassium 4.6 mmol/L (3.5-5.1)
--- NOTE | 2022-08-05 19:47 | Hospitalist Progress Note ---
Date of Service August 05, 2022 Assessment & Plan (1) Catheter-associated urinary tract infection: Plan: Patient is an 87 yo male with significant PMHx including chronic gerardo catheter, DM, gastric ulcer, Barretts esophagus, interstitial lung disease, CHF, pulmonary HTN, ANNABELLE, COPD, venous insufficiency, HTN, HLD, and BPH with LUTS admitted 08/01/22 with catheter-associated UTI. Catheter-associated UTI - Catheter last exchanged Sunday 07/30 at time of urine collection - Mild leukocytosis w/ WBC 11.99 on admission - Urine cx 07/30 positive for gram negative bacilli , blood cultures growing E cloaca - Continue cefepime -Check renal US to r/o stones -ID on consult 24 hours: Renal U/S Distended bladder with mild bilateral hydronephrosis. This could be due to chronic outlet obstruction from the enlarged prostate gland. Some discrepancy between blood culture and biofire. Blood culture " control inspector species" microscan is not identifying well, so Micro cannot call it that Biofire Enterobacter species Blood Culture Aerobic Preliminary 08/04/22-805 Organism 1 Easement Worker species Sens Sensitivities to Follow Reference Lab Sent to Reference Lab for Further Testing Cliff spec RX M.I.C. --- --------- Cefepime S <=2 Ceftriaxone R >2 Ciprofloxacin S <=0.25 Ertapenem S <=0.5 Gentamicin S <=4 Levofloxacin S <=0.5 Meropenem S <=1 Tobramycin S <=4 Trimeth/Sulfa S <=2/38 Pip/Tazo S <=16 3/4-continue cefepime IV Continue close monitoring of I's and O's and Gerardo catheter Discussed with ID plan to continue IV cefepime till culture sensitivity can be obtained (2) Positive blood culture: Plan: 2 Bottles growing gram negatives, E cloaca Source is likely urine Will continue Cefepime Await sensitivities Consult ID (3) Weakness: Plan: Weakness - Most likely secondary to UTI above - PT/OT ordered (4) Diabetes mellitus with diabetic nephropathy: Plan: DM -Glucose under good control - Home metformin held - ISS - DM2 diet (5) CHF (congestive heart failure): Plan: Chronic systolic CHF -Compensated - On chart review, most recent echo identified from [facility] 03/2019 w/ EF of 40-45% - Continue home metoprolol - Continue home lasix; monitor kidney function closely - Home lisinopril and spironolactone held on admission (6) COPD (chronic obstructive pulmonary disease): Plan: COPD/ILD, not in exacerbation - Continue home regimen with inhalers (albuterol prn, anoro ellipta daily) (7) Hypertension: Plan: BP is under good control Continue home meds (8) 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): Plan: Continue home meds (9) ANNABELLE (obstructive sleep apnea): (10) Fall: (11) Hypercholesterolemia: (12) Arthritis: Plan continue hopsitalization, hopefully d/c on PO antibiotics Admission and Anticipated Discharge Date Admission Date: August 01, 2022 Subjective Patient seen and examined Denies chest pain or shortness of breath Reports slight improvement compared to yesterday Currently on cefepime for Kluyvera intermedia. Blood cultures from 07/24/2022 were positive, repeat blood cultures pending Physical Exam Physical Exam: Head and ENT no thyroid enlargement trachea midline Cardiovascular S1-S2 are normal no S3 Lungs bilateral air entry fair no wheezing Abdomen soft nondistended positive bowel sounds no rebound tenderness Extremity shows trace edema Neurologically no focal deficits Skin shows no rash no cyanosis Results & Data Results & Data ([facility]) Vital Signs (Past 12 Hours) Vital Signs Temp Pulse Resp BP Pulse Ox O2 Del Method 08/05/22 14:52 36.8 C 79 16 119/64 96 Room Air 08/05/22 09:00 Room Air 08/05/22 07:52 36.4 C L 79 16 132/73 96 Room Air PG Care Time/CCT Total # of Minutes Spent Total Time Spent with Patient: Total time spent is greater than 50% in coordination of care (as documented) at patient's floor/unit and/or counseling patient: Coding Level of Care Code 52450 SUB INP/OBS CARE MIN Diagnoses Catheter-associated urinary tract infection T83.511A; N39.0 Encounter type: initial encounter Indwelling urinary catheter type: indwelling urethral catheter Positive blood culture R78.81 Weakness R53.1 Diabetes mellitus with diabetic nephropathy E11.21 CHF (congestive heart failure) I50.21 Heart failure chronicity: acute Heart failure type: systolic COPD (chronic obstructive pulmonary disease) 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 Hypertension I10 Hypertension type: essential hypertension 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) N40.1 ANNABELLE (obstructive sleep apnea) G47.33 Fall W19.XXXA Encounter type: initial encounter Hypercholesterolemia E78.00 Arthritis M19.90 (1) Catheter-associated urinary tract infection Encounter type: initial encounter Indwelling urinary catheter type: indwelling urethral catheter Qualified Code(s): T83.511A - Infection and inflammatory reaction due to indwelling urethral catheter, initial encounter; N39.0 - Urinary tract infection, site not specified (5) CHF (congestive heart failure) Heart failure chronicity: acute Heart failure type: systolic Qualified Code(s): I50.21 - Acute systolic (congestive) heart failure (6) COPD (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: unspecified Qualified Code(s): J43.9 - Emphysema, unspecified (7) Hypertension Hypertension type: essential hypertension Qualified Code(s): I10 - Essential (primary) hypertension (10) Fall Encounter type: initial encounter Qualified Code(s): W19.XXXA - Unspecified fall, initial encounter
[2022-08-05] MEDS: ATORVASTATIN 40 MG TAB PO SCH (21:08)
[2022-08-05] MEDS: TAMSULOSIN HCL 0.4 MG CAP PO SCH (21:08)
[2022-08-05] MEDS: FINASTERIDE 5 MG TAB PO SCH (21:08)
[2022-08-06] MEDS: CEFEPIME 2,000 MG in SYRINGE 0 ML IV SCH ×2 (00:17→12:53)
[2022-08-06] MEDS: HEPARIN SOD 5,000 UNIT/0.5 ML VIAL SQ SCH ×3 (05:17→21:35)
[2022-08-06 06:55] LABS: Basophils # (auto) 0.03 K/uL (0-0.2); Basophils % (auto) 0.5 %; Eosinophils # (auto) 0.13 K/uL (0-0.50); Eosinophils % (auto) 2.1 %; Hematocrit (blood only) 34.8 % (42.0-52.0); Hemoglobin 11.5 g/dl (14.0-18.0); Immature Granulocytes # (auto) 0.08 K/uL (0.01-0.20); Immature Granulocytes % (auto) 1.3 %; Lymphocytes # (auto) 1.48 K/uL (1.2-3.4); Lymphocytes % (auto) 23.4 %; Mean Corpuscular Volume 93.8 fL (80.0-100.0); Mean Platelet Volume 10.4 fL (9.4-12.4); Monocytes # (auto) 0.57 K/uL (0.11-0.59); Neutrophils # (auto) 4.03 K/uL (1.40-6.50); Neutrophils % (auto) 63.7 %; Platelet Count 210 K/uL (130-400); RDW Coefficient of Variation 13.4 % (11.5-14.5); RDW Standard Deviation 45.9 fL (36.4-46.3); Red Blood Count 3.71 M/uL (4.70-6.10); White Blood Count 6.32 K/ul (4.8-10.8)
[2022-08-06 07:16] LABS: BUN Creatinine Ratio 25.2 (10-20); Calcium 9.1 mg/dl (8.5-10.1); Creatinine Clr Calc Pharmacy 45.1 ml/min; Est GFR (African American) 47.8 ml/min; Est GFR (Non-African American) 41.2 ml/min; Potassium 4.5 mmol/L (3.5-5.1)
[2022-08-06] MEDS: INSULIN ASPART PER UNIT SC SCH ×4 (08:50→21:39)
[2022-08-06] MEDS: METOPROLOL SUCC 25MG EXT REL TAB PO SCH (08:56)
[2022-08-06] MEDS: UMECLIDINIUM/VILANTEROL 62.5/25MCG 7 PUFFS/INHALER INH SCH (08:56)
[2022-08-06] MEDS: FUROSEMIDE 40 MG TAB PO SCH (08:56)
[2022-08-06] MEDS: ASPIRIN 81 MG ECTAB PO SCH (09:14)
[2022-08-06] MEDS: PANTOprazole 40 MG TAB PO SCH (09:14)
--- NOTE | 2022-08-06 17:52 | Hospitalist Progress Note ---
Date of Service August 06, 2022 Assessment & Plan (1) Catheter-associated urinary tract infection: Plan: Patient is an 87 yo male with significant PMHx including chronic gerardo catheter, DM, gastric ulcer, Barretts esophagus, interstitial lung disease, CHF, pulmonary HTN, ANNABELLE, COPD, venous insufficiency, HTN, HLD, and BPH with LUTS admitted 08/01/22 with catheter-associated UTI. Catheter-associated UTI - Catheter last exchanged Sunday 07/30 at time of urine collection - Mild leukocytosis w/ WBC 11.99 on admission - Urine cx 07/30 positive for gram negative bacilli , blood cultures growing E cloaca - Continue cefepime -Check renal US to r/o stones -ID on consult 24 hours: Renal U/S Distended bladder with mild bilateral hydronephrosis. This could be due to chronic outlet obstruction from the enlarged prostate gland. Some discrepancy between blood culture and biofire. Blood culture " rubbing bed operator species" microscan is not identifying well, so Micro cannot call it that Biofire Enterobacter species Blood Culture Aerobic Preliminary 08/04/22-805 Organism 1 Field Services Analyst species Sens Sensitivities to Follow Reference Lab Sent to Reference Lab for Further Testing Cliff spec RX M.I.C. --- --------- Cefepime S <=2 Ceftriaxone R >2 Ciprofloxacin S <=0.25 Ertapenem S <=0.5 Gentamicin S <=4 Levofloxacin S <=0.5 Meropenem S <=1 Tobramycin S <=4 Trimeth/Sulfa S <=2/38 Pip/Tazo S <=16 3-continue cefepime IV Continue close monitoring of I's and O's and Gerardo catheter Discussed with ID plan to continue IV cefepime till culture sensitivity can be obtained 08/06-patient had grown klyvera intermedia presently being treated with IV cefepime based on ID recommendations Continue Gerardo catheter to facilitate urinary drainage Urology input to plan outpatient cystoscopy noted Continue to monitor urine output through Gerardo catheter and reposition as needed Follow urine sensitivity results and discuss with ID regarding Continuation of oral antibiotic based on sensitivity results (2) Positive blood culture: Plan: 2 Bottles growing gram negatives, E cloaca Source is likely urine Will continue Cefepime Await sensitivities Consult ID (3) Weakness: Plan: Weakness - Most likely secondary to UTI above - PT/OT ordered (4) Diabetes mellitus with diabetic nephropathy: Plan: DM -Glucose under good control - Home metformin held - ISS - DM2 diet (5) CHF (congestive heart failure): Plan: Chronic systolic CHF -Compensated - On chart review, most recent echo identified from [place] 03/2019 w/ EF of 40-45% - Continue home metoprolol - Continue home lasix; monitor kidney function closely - Home lisinopril and spironolactone held on admission (6) COPD (chronic obstructive pulmonary disease): Plan: COPD/ILD, not in exacerbation - Continue home regimen with inhalers (albuterol prn, anoro ellipta daily) (7) Hypertension: Plan: BP is under good control Continue home meds (8) 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): Plan: Continue home meds (9) ANNABELLE (obstructive sleep apnea): (10) Fall: (11) Hypercholesterolemia: (12) Arthritis: Plan continue hopsitalization, hopefully d/c on PO antibiotics Admission and Anticipated Discharge Date Admission Date: August 01, 2022 Subjective Patient seen and examined Geradro catheter placed with improved urine output noted Denies any fevers or chills Physical Exam Physical Exam: Head and ENT no thyroid enlargement trachea midline Cardiovascular S1-S2 are normal no S3 Lungs bilateral air entry fair no wheezing Abdomen soft nondistended positive bowel sounds no rebound tenderness Extremity shows trace edema Neurologically no focal deficits Skin shows no rash no cyanosis Results & Data Results & Data ([facility]) Vital Signs (Past 12 Hours) Vital Signs Temp Pulse Resp BP BP Pulse Ox O2 Del Method 08/06/22 15:26 36.7 C 70 16 119/69 94 Room Air 08/06/22 08:25 Room Air 08/06/22 07:26 36.7 C 76 16 116/68 95 Room Air Laboratory Results Short CBC 08/06/22 Range/Units 06:17 WBC 6.32 (4.8-10.8) K/ul Hgb 11.5 L (14.0-18.0) g/dl Hct 34.8 L (42.0-52.0) % Plt Count 210 (130-400) K/uL BMP 08/06/22 06:17 Sodium 136 Potassium 4.5 Chloride 105 Carbon Dioxide 26 BUN 38 H Creatinine 1.51 H Glucose 158 H Calcium 9.1 PG Care Time/CCT Total # of Minutes Spent Total Time Spent with Patient: Total time spent is greater than 50% in coordination of care (as documented) at patient's floor/unit and/or counseling patient: Coding Level of Care Code 99163 SUB INP/OBS CARE 2/35MIN Diagnoses Catheter-associated urinary tract infection T83.511A; N39.0 Encounter type: initial encounter Indwelling urinary catheter type: indwelling urethral catheter Positive blood culture R78.81 Weakness R53.1 Diabetes mellitus with diabetic nephropathy E11.21 CHF (congestive heart failure) I50.21 Heart failure chronicity: acute Heart failure type: systolic COPD (chronic obstructive pulmonary disease) 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 Hypertension I10 Hypertension type: essential hypertension 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) N40.1 ANNABELLE (obstructive sleep apnea) G47.33 Fall W19.XXXA Encounter type: initial encounter Hypercholesterolemia E78.00 Arthritis M19.90 (1) Catheter-associated urinary tract infection Encounter type: initial encounter Indwelling urinary catheter type: indwelling urethral catheter Qualified Code(s): T83.511A - Infection and inflammatory reaction due to indwelling urethral catheter, initial encounter; N39.0 - Urinary tract infection, site not specified (5) CHF (congestive heart failure) Heart failure chronicity: acute Heart failure type: systolic Qualified Code(s): I50.21 - Acute systolic (congestive) heart failure (6) COPD (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: unspecified Qualified Code(s): J43.9 - Emphysema, unspecified (7) Hypertension Hypertension type: essential hypertension Qualified Code(s): I10 - Essential (primary) hypertension (10) Fall Encounter type: initial encounter Qualified Code(s): W19.XXXA - Unspecified fall, initial encounter
[2022-08-06] MEDS: ATORVASTATIN 40 MG TAB PO SCH (21:35)
[2022-08-06] MEDS: FINASTERIDE 5 MG TAB PO SCH (21:35)
[2022-08-06] MEDS: TAMSULOSIN HCL 0.4 MG CAP PO SCH (21:35)
[2022-08-07] MEDS: CEFEPIME 2,000 MG in SYRINGE 0 ML IV SCH ×2 (00:20→13:29)
[2022-08-07] MEDS: HEPARIN SOD 5,000 UNIT/0.5 ML VIAL SQ SCH ×2 (05:34→08:48)
[2022-08-07 06:58] LABS: Basophils # (auto) 0.04 K/uL (0-0.2); Basophils % (auto) 0.6 %; Eosinophils # (auto) 0.13 K/uL (0-0.50); Eosinophils % (auto) 1.9 %; Hematocrit (blood only) 32.7 % (42.0-52.0); Hemoglobin 11.2 g/dl (14.0-18.0); Immature Granulocytes # (auto) 0.14 K/uL (0.01-0.20); Lymphocytes # (auto) 1.64 K/uL (1.2-3.4); Mean Corpuscular Hemoglobin 30.8 pg (25.0-34.0); Mean Corpuscular Hgb Conc 34.3 g/dL (32.0-36.0); Mean Corpuscular Volume 89.8 fL (80.0-100.0); Mean Platelet Volume 10.2 fL (9.4-12.4); Monocytes # (auto) 0.59 K/uL (0.11-0.59); Monocytes % (auto) 8.6 %; Neutrophils # (auto) 4.29 K/uL (1.40-6.50); Neutrophils % (auto) 62.9 %; Platelet Count 201 K/uL (130-400); RDW Coefficient of Variation 13.2 % (11.5-14.5); RDW Standard Deviation 43.6 fL (36.4-46.3); Red Blood Count 3.64 M/uL (4.70-6.10); White Blood Count 6.83 K/ul (4.8-10.8)
[2022-08-07 07:10] LABS: Calcium 9.1 mg/dl (8.5-10.1); Creatinine Clr Calc Pharmacy 42.3 ml/min; Est GFR (African American) 44.2 ml/min; Est GFR (Non-African American) 38.2 ml/min; Potassium 4.6 mmol/L (3.5-5.1)
[2022-08-07] MEDS: INSULIN ASPART PER UNIT SC SCH ×2 (08:47→13:30)
[2022-08-07] MEDS: PANTOprazole 40 MG TAB PO SCH (08:48)
[2022-08-07] MEDS: FUROSEMIDE 40 MG TAB PO SCH (08:48)
[2022-08-07] MEDS: ASPIRIN 81 MG ECTAB PO SCH (08:48)
[2022-08-07] MEDS: METOPROLOL SUCC 25MG EXT REL TAB PO SCH (08:48)
[2022-08-07] MEDS: UMECLIDINIUM/VILANTEROL 62.5/25MCG 7 PUFFS/INHALER INH SCH (08:49)
--- NOTE | 2022-08-07 09:54 | Infectious Disease Progress Nt ---
Date of Service August 07, 2022 Assessment & Plan (1) Positive blood culture: Plan: #Ecloacae bacteremia, likely #Positive UA #Chronic Gerardo 87-year-old male patient with a history of indwelling Gerardo catheter, type 2 diabetes, CHF, pulmonary hypertension, ischemic cardiomyopathy, COPD, recently seen in ED for concern for UTI readmitted on 08/01 after fall and positive urine cultures. ID consulted for bacteremia. Patient was seen in ED on 07/30. Gerardo catheter replaced 3 days before. Gerardo catheter was uncomfortable. 07/30 Urine cloudy 3+ blood >30 wbcs, Ucx grew Kluyvera intermedia R to augmentin and Cefazolin. Patient was discharged home but called back when urine cultures were positive. He also had a fall. On admission, WBC 11.99, Cr 1.73 (baseline 1.4) Tbili 1.3 AST/ALT normal UA with 2+ blood, >30 wbcs 08/01 Blood culture positive BFID for E. cloacae blood cultures are growing Gram negative rods 4/4 bottles. Ucx Pending. Patient started on IV Ceftriaxone. ID consulted for bactermia O/N afebrile, VSS, WBC improved to 9 Renal U/S showing 1. Distended bladder with mild bilateral hydronephrosis. This could be due to chronic outlet obstruction from the enlarged prostate gland. (2) Complication of Geradro catheter: (3) Catheter-associated urinary tract infection: Plan -C/W Cefepime to cover enterobacter (it can have intrinsic R to 1st-3rd Gen Cephalosporins), this will also cover prior Ucx and Ucx growing 3K GNR -3/3 Blood cultures are NGTD -In lieu of ultrasound and gerardo plan for 14 day course total through 08/15/22 -When ready for discharge can dc Cefepime and Discharge on Levaquin 750mg po q48 hours through 08/15/22 (QTc 428, GFR ~30) Please call with any questions, ID will s/o at this time. Charlotte Fernandes MD Infectious Diseases [facility] Admission and Anticipated Discharge Date Admission Date: August 01, 2022 Subjective This patient recommendation is based on a telemedicine consult request which was completed asynchronously through chart review and information provided by the primary physician. The patient was not seen or examined today. The evaluation is consultative in nature and all patient care and treatment decisions can either be accepted or rejected by the patient's primary hospital-based treating physician using their own independent medical judgment for their patient. Time Spent Reviewing Chart: 21 - 30 minutes Results & Data ([facility]) Vital Signs (Past 12 Hours) Vital Signs Temp Pulse Resp BP Pulse Ox O2 Del Method 08/07/22 08:05 36.3 C L 87 18 134/70 96 Room Air Laboratory Results Short CBC 08/07/22 Range/Units 06:22 WBC 6.83 (4.8-10.8) K/ul Hgb 11.2 L (14.0-18.0) g/dl Hct 32.7 L (42.0-52.0) % Plt Count 201 (130-400) K/uL BMP 08/07/22 06:22 Sodium 136 Potassium 4.6 Chloride 106 Carbon Dioxide 26 BUN 37 H Creatinine 1.61 H Glucose 151 H Calcium 9.1 Microbiology 08/04/22 09:28 Blood Aerobic Blood Culture - Preliminary No growth in Aerobic bottle after 48 hours. 08/04/22 09:28 Blood Anaerobic Blood Culture - Preliminary No growth in Anaerobic bottle after 48 hours. 08/04/22 09:22 Blood Aerobic Blood Culture - Preliminary No growth in Aerobic bottle after 48 hours. 08/04/22 09:22 Blood Anaerobic Blood Culture - Preliminary No growth in Anaerobic bottle after 48 hours. 08/02/22 06:15 Urine,Straight Cath Urine Culture - Final Gram negative bacilli 08/01/22 18:23 Blood Aerobic Blood Culture - Preliminary Inside Sales Advertising Executive species 08/01/22 18:23 Blood Anaerobic Blood Culture - Preliminary Inside Sales Advertising Executive species 08/01/22 18:20 Blood Aerobic Blood Culture - Preliminary Inside Sales Advertising Executive species 08/01/22 18:20 Blood Anaerobic Blood Culture - Preliminary Inside Sales Advertising Executive species Medications Administered Current Inpatient Medications Acetaminophen (Acetaminophen 325 Mg Tab) 650 mg PO Q4H PRN PRN Reason: pain/fever Stop: 08/31/22 23:40 Albuterol (Albuterol Hfa 8 Gm Inhaler) 1 puffs INH QID PRN PRN Reason: shortness of breath or wheezin Stop: 08/31/22 23:40 Aspirin (Aspirin 81 Mg Ectab) 81 mg PO DAILY LADONNA Stop: 09/01/22 08:59 Last Admin: 08/07/22 08:48 Dose: 81 mg Atorvastatin Calcium (Atorvastatin 40 Mg Tab) 40 mg PO HS LADONNA Stop: 09/01/22 20:59 Last Admin: 08/06/22 21:35 Dose: 40 mg Dextrose (Dextrose 50% 50 Ml Syringe) 25 - 50 ml IV UD PRN; Protocol PRN Reason: Hypoglycemia Protocol Stop: 09/01/22 00:43 Finasteride (Finasteride 5 Mg Tab) 5 mg PO HS LADONNA Stop: 09/01/22 20:59 Last Admin: 08/06/22 21:35 Dose: 5 mg Furosemide (Furosemide 40 Mg Tab) 40 mg PO QAM LADONNA Stop: 09/01/22 08:59 Last Admin: 08/07/22 08:48 Dose: 40 mg Glucagon (Glucagon For Inj 1 Mg Vial) 1 mg SQ UD PRN; Protocol PRN Reason: Hypoglycemia Protocol Stop: 09/01/22 00:43 Glucose (Glucose 10 Tab/Tube) 4 - 8 tab PO UD PRN; Protocol PRN Reason: Hypoglycemia Treatment Stop: 09/01/22 00:43 Glucose (Glucose 40% Gel 15 Gm Tube) 15 - 30 gm PO UD PRN; Protocol PRN Reason: Hypoglycemia Protocol Stop: 09/01/22 00:43 Heparin Sodium (Porcine) (Heparin Sod 5,000 Unit/0.5 Ml Vial) 5,000 units SQ Q8 LADONNA Stop: 09/02/22 21:59 Last Admin: 08/07/22 08:48 Dose: 5,000 units Cefepime HCl 2,000 mg/ Syringe 20 mls @ 5 mls/min IV Q12H LADONNA; Protocol Stop: 08/16/22 12:29 Last Admin: 08/07/22 00:20 Dose: 5 mls/min Insulin Aspart (Insulin Aspart Per Unit) 0 units SC ACHS LADONNA Stop: 09/01/22 07:29 Last Admin: 08/07/22 08:47 Dose: 2 units Metoprolol Succinate (Metoprolol Succ 25mg Ext Rel Tab) 12.5 mg PO DAILY LADONNA Stop: 09/01/22 08:59 Last Admin: 08/07/22 08:48 Dose: 12.5 mg Miscellaneous (Carbohydrates For Hypoglycemia ) 15 - 30 gm PO UD PRN PRN Reason: Hypoglycemia Protocol Stop: 09/01/22 00:43 Ondansetron HCl (Ondansetron Inj 2 Mg/Ml 2 Ml Vial) 4 mg IV Q6H PRN PRN Reason: Nausea Stop: 08/31/22 23:40 Pantoprazole Sodium (Pantoprazole 40 Mg Tab) 40 mg PO DAILY LADONNA Stop: 09/01/22 08:59 Last Admin: 08/07/22 08:48 Dose: 40 mg Polyethylene Glycol (Polyethylene (Miralax) 17 Gm Pack) 17 gm PO DAILY PRN PRN Reason: Constipation Stop: 08/31/22 23:40 Last Admin: 08/04/22 09:29 Dose: 17 gm Tamsulosin HCl (Tamsulosin Hcl 0.4 Mg Cap) 0.4 mg PO HS LADONNA Stop: 09/01/22 20:59 Last Admin: 08/06/22 21:35 Dose: 0.4 mg Umeclidinium/Vilanterol (Umeclidinium/Vilanterol 62.5/25mcg 7 Puffs/Inhaler) 1 puffs INH DAILY LADONNA Stop: 09/01/22 08:59 Last Admin: 08/07/22 08:49 Dose: 1 puffs (2) Complication of Gerardo catheter Encounter type: initial encounter Qualified Code(s): T83.9XXA - Unspecified complication of genitourinary prosthetic device, implant and graft, initial encounter (3) Catheter-associated urinary tract infection Encounter type: initial encounter Indwelling urinary catheter type: indwelling urethral catheter Qualified Code(s): T83.511A - Infection and inflammatory reaction due to indwelling urethral catheter, initial encounter; N39.0 - Urinary tract infection, site not specified
--- NOTE | 2022-08-07 12:25 | Discharge Summary ---
Date of Service August 07, 2022 Admission HPI Per Admitting Provider Patient is an 87 yo male with significant PMHx including chronic gerardo catheter, DM, gastric ulcer, Barretts esophagus, interstitial lung disease, CHF, pulmonary HTN, ANNABELLE, COPD, venous insufficiency, HTN, HLD, and BPH with LUTS who presented to the ED on 08/01/22 with complaint of weakness s/p fall. Patient notes that he was evaluated in the ER 2 days ago for urinary retention and complications with his urinary catheter. The catheter was exchanged and patient was discharged home with urine cx pending. 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 He denies LOC/head trauma. No associated dizziness reported. Patient states that he was unable to get himself off the ground and required the assistance of two people (who were working at a neighboring house) to help him stand and ambulate into the house. Patient reports persistent generalized weakness. Denies focal weakness. Patient notes that he was also notified today of + UTI on urine cx; he had not yet started abx therapy prior to coming to the ER. He also notes that he has had recurrent urinary concerns including urinary retention described as + urinary urge and abdominal fullness sensation but with decreased urinary output from the catheter. Patient states that he typically changes the gerardo bag 3-4x/day (with full amount of urine) but today he only changed the bag once and it was half full. Patient has had the chronic catheter for about 8-10 months; he is seen by urology monthly for catheter exchange. Patient had an exchange 2 days ago in the ED and also had an exchange 3 days prior to that (his scheduled exchange w/ urology). Patient reports + chills and subjective fever. Denies CP, SOB, nausea, or vomiting. In the ER, patient remained hemodynamically stable. Labs revealed mild leukocytosis with WBC 11.99. He has chronic anemia that is not significantly changed from baseline. Na 133. Patient does have WILLY with Cr 1.73 (baseline 1.2 to 1.4). Urine cx as collected 07/30 w/ gram negative bacilli; sensitivites pending Principal Diagnosis Gram-negative bacteremia, catheter associated UTI Discharge Exam General-alert and oriented x3, no fevers, no chills HEENT-head atraumatic and normocephalic, pupils equal and reactive to light, extraocular muscles intact Neck-no lymphadenopathy or thyromegaly, trachea midline Chest-clear to auscultation percussion. No rales wheezing or rhonchi Cardiac-regular rate and rhythm, normal S1 and S2 Abdomen-normal bowel sounds, nontender, no hepatosplenomegaly Extremities-no cyanosis, clubbing, or edema Neuro-cranial nerves II through XII intact, motor and sensory function within normal limits, strength symmetrical , no focal deficits Psych-normal affect, normal mood Discharge Data Allergies Allergy/AdvReac Type Severity Reaction Status Date / Time nitrofurantoin Allergy Severe SHORTNESS Verified 08/01/22 21:22 OF BREATH, "spitting up thick black stuff" Consultations 08/01/22 21:09 ED Decision to Admit Stat 08/02/22 10:02 Consult Infectious Diseases Routine 08/04/22 12:06 Consult Urology Routine Ordered Studies 08/03/22 11:18 US renal/blad retro comp Routine Hospital Course (1) Catheter-associated urinary tract infection: Patient is an 87 yo male with significant PMHx including chronic gerardo catheter, DM, gastric ulcer, Barretts esophagus, interstitial lung disease, CHF, pulmonary HTN, ANNABELLE, COPD, venous insufficiency, HTN, HLD, and BPH with LUTS admitted 08/01/22 with catheter-associated UTI. Catheter-associated UTI - Catheter last exchanged Sunday 07/30 at time of urine collection - Mild leukocytosis w/ WBC 11.99 on admission - Urine cx 07/30 positive for gram negative bacilli , blood cultures growing E cloaca - Continue cefepime -Check renal US to r/o stones -ID on consult 24 hours: Renal U/S Distended bladder with mild bilateral hydronephrosis. This could be due to chronic outlet obstruction from the enlarged prostate gland. Some discrepancy between blood culture and biofire. 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 --- --------- Cefepime S <=2 Ceftriaxone R >2 Ciprofloxacin S <=0.25 Ertapenem S <=0.5 Gentamicin S <=4 Levofloxacin S <=0.5 Meropenem S <=1 Tobramycin S <=4 Trimeth/Sulfa S <=2/38 Pip/Tazo S <=16 08/05-continue cefepime IV Continue close monitoring of I's and O's and Gerardo catheter Discussed with ID plan to continue IV cefepime till culture sensitivity can be obtained 08/06-patient had grown klyvera intermedia presently being treated with IV cefepime based on ID recommendations Continue Gerardo catheter to facilitate urinary drainage Urology input to plan outpatient cystoscopy noted Continue to monitor urine output through Gerardo catheter and reposition as needed Follow urine sensitivity results and discuss with ID regarding Continuation of oral antibiotic based on sensitivity results 08/07-afebrile and doing well. He will be discharged home on Levaquin 750 mg every 2 days through August 15 (2) Positive blood culture: 2 Bottles on admission growing gram negatives, E cloaca. Blood cultures now clear. Treated while hospitalized with intravenous cefepime. Home on oral Levaquin. Infectious disease consultation and recommendations appreciated (3) Weakness: most likely secondary to UTI above. Resolved with PT/OT (4) Diabetes mellitus with diabetic nephropathy: ADA diet. Sliding scale coverage as needed. Will resume metformin at discharge (5) CHF (congestive heart failure): Systolic in nature. Low ejection fraction confirmed on most recent cardiac echo. Continue current medical management. No acute exacerbation. Monitor intake and output. (6) COPD (chronic obstructive pulmonary disease): COPD/ILD, not in exacerbation. Continue home regimen with inhalers (albuterol prn, anoro ellipta daily) (7) Hypertension: Stable. Continue current medical management (8) 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): Continue home meds. Stable (9) ANNABELLE (obstructive sleep apnea): Stable. CPAP at bedtime as needed (10) Fall: Treated with OT and PT while hospitalized (11) Hypercholesterolemia: Stable with statin therapy (12) Arthritis: Osteoarthritis. Treated with nonsteroidal anti-inflammatory agents as needed Plan Home today, August 07, on Levaquin Total Time Total Time Spent Total Time Spent (In Minutes): 40 minutes Discharge Plan Discharge Items Patient Disposition: Home - Self-Care Reason For Visit: UTI, WILLY Discharge Diagnosis: Catheter associated UTI, gram-negative bacteremia Activity: Resume your previous activity Non-emergency contact: Primary Care Provider Call non-emergency contact if: you have any medication questions Follow-up/Referrals: Jeancarlos Rosen III, CRNP [Primary Care Provider] - Diet: Carb Consistent or DM2 and Heart Healthy Addtl Attending Provider Instructions: Take Levaquin as directed every other day through August 15 Pending Studies at Discharge: No Stand-Alone Forms: My [facility] [employer], Smoking Cessation Medications and DC Order Prescriptions: New levofloxacin 750 mg tablet 750 mg PO Q48H 7 Days Qty: 4 0RF Continued methenamine hippurate 1 gram tablet 1 gm PO HS cholecalciferol (vitamin D3) 1,000 unit capsule 1,000 units PO QAM vitamin E (dl, acetate) 400 unit capsule 400 units PO QAM coenzyme Q10 100 mg capsule 100 mg PO QAM Stiolto Respimat 2.5-2.5 mcg/actuation mist 2 puff inhalation DAILY Qty: 3 1RF spironolactone 25 mg tablet 12.5 mg PO QAM omeprazole 40 mg capsule,delayed release(DR/EC) 40 mg PO DAILY aspirin [Adult Low Dose Aspirin] 81 mg tablet,delayed release (DR/EC) 81 mg PO DAILY acetaminophen 325 mg capsule 325 mg PO BID PRN (Reason: Pain) metoprolol succinate 25 mg tablet extended release 24 hr 12.5 mg PO DAILY Qty: 15 5RF diclofenac sodium 1 % gel 2 g topical TID Rx Instructions: Apply small amount to skin three times a day apply to thumb joints for osteoARTHRITIS PreserVision Lutein 226 mg-200 unit -5 mg-0.8 mg capsule 1 cap PO BID ascorbic acid (vitamin C) 250 mg tablet 250 mg PO DAILY ferrous sulfate 325 mg (65 mg iron) tablet 325 mg PO DAILY albuterol sulfate [Ventolin HFA] 90 mcg/actuation HFA aerosol inhaler 1 inh inhalation QID PRN (Reason: shortness of breath or wheezing) Qty: 18 3RF calcium carbonate [Calcium 500] 500 mg calcium (1,250 mg) tablet 500 mg PO BID cyanocobalamin (vitamin B-12) 1,000 mcg capsule 1,000 mcg PO QAM PreserVision AREDS [id number] Capsule 1 cap PO BID finasteride 5 mg tablet 5 mg PO HS metformin 500 mg Tablet 500 mg PO BID atorvastatin 80 mg Tablet 40 mg PO HS tamsulosin 0.4 mg Capsule 0.4 mg PO HS montelukast 10 mg Tablet 10 mg PO QAM lisinopril 5 mg Tablet 5 mg PO QAM magnesium oxide 400 mg magnesium Tablet 400 mg PO QAM furosemide 20 mg tablet 40 mg PO QAM Discharge Orders: Discharge Order (Routine); Ordered 08/07/22 Ordered By: Travis Camacho Admission Data Admit Date/Time: 08/01/22 22:13 Attending Provider: Travis Camacho Admit Provider: Kvng Monet Primary Care Provider: Jeancarlos Rosen III Other Providers: Kvng Monet ; [facility] ; Lynette Barber ; Iban Dumont ; Maite Foster ; Alexander Ochoa ; Bianka Nath ; Charlotte Fernandes ; Barbra Contreras ; Steffany Mathis ; Pat Shaw ; Moris Cerda Coding Level of Care Code 50435 INP/OBS DISCH >30 MIN Diagnoses Catheter-associated urinary tract infection T83.511A; N39.0 Encounter type: initial encounter Indwelling urinary catheter type: indwelling urethral catheter Positive blood culture R78.81 Weakness R53.1 Diabetes mellitus with diabetic nephropathy E11.21 CHF (congestive heart failure) I50.21 Heart failure chronicity: acute Heart failure type: systolic COPD (chronic obstructive pulmonary disease) 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 Hypertension I10 Hypertension type: essential hypertension 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) N40.1 ANNABELLE (obstructive sleep apnea) G47.33 Fall W19.XXXA Encounter type: initial encounter Hypercholesterolemia E78.00 Arthritis M19.90
== END 2022-08-07 16:04 | disposition home or self-care (01) | DRG 699 ==
LOC: ED 17:25 → 3N 22:13 → SUATTDRO 22:13 → 3N 22:48

== ENCOUNTER 2023-01-26 19:40 | Inpatient (IN) ==
[2023-01-26] MEDS ORDERED: SODIUM CHLORIDE 0.9% 1000ML 2,000 ML IV ONE (20:36)
--- NOTE | 2023-01-26 20:46 | Emergency Department Note ---
Impression & Plan Sepsis ADMIT ED Provider Note HPI: The patient is an 87-year-old male with history of prostate cancer, ischemic cardiomyopathy with reduced ejection fraction, has indwelling Ordonez catheter, presents emergency department today with fever and chills. Patient states he h ad his Ordonez catheter replaced 3 times in the past 2 days. He states at first the balloon was not fully inflated, he had some pain after it was replaced yesterday into today and went back to the urologist office today and had a third replacement performed. Patient states that throughout the afternoon he began to have increasing weakness, stated that he felt some fever and chills, he took some Tylenol around 6 PM and his daughter brought him here to the ER to be assessed. On arrival here to the ED the patient is alert, he is noted to be hypotensive at 93/48 in triage and tachycardic at 125, febrile at 38.6, patient is saturating at 91% on room air on arrival. ROS: - Per HPI Differential Diagnosis: Urosepsis, viral upper respiratory infection, pyelonephritis, acute bacterial pneumonia, influenza A, COVID-19, amongst other potential pathologies. *Outpatient medications and allergy history reviewed. *Pertinent external medical records reviewed. PE: General: Alert HEENT: Normocephalic, trachea midline Eyes: Extraocular eye movement is intact, no scleral erythema Pulmonary: Clear to auscultation bilaterally, no wheezing Cardio: Tachycardic rate with irregular rhythm GI: Abdomen is soft to palpation : No suprapubic tenderness, Ordonez catheter in place without surrounding erythema or drainage MSK: No evidence of trauma or malformation of the extremities, no edema Skin: No evidence of rash Neuro: Alert, no focal deficits Psychiatric: Cooperative account liaison: (As interpreted by myself): - An order was placed for continuous cardiac monitoring - Patient was noted to be in atrial fibrillation with a rate of 120 EKG: (As interpreted by myself): Rate: 106 Rhythm: Atrial fibrillation Intervals: Within normal limits ST changes: No ST elevation Time: 2030 Interventions provided in ED: -IV fluid bolus, IV cefepime Medical Decision Making: Patient presented to the emergency department with fever and chills throughout the day, he is hypotensive and tachycardic on arrival, noted to be febrile. IV was established and lab work obtained, patient was maintained on cardiac rn. Patient was ordered a 2 L normal saline bolus for hypotension. Patient was not given a full 30 cc/kg of IV fluids secondary to improved hemodynamics and history of cardiomyopathy with reduced ejection fraction with concern for potential fluid overload. Lab work shows no leukocytosis, hemoglobin is stable at 12.0, there is a slight neutrophilic predominance on differential, CMP does not show any critical findings, mild hyponatremia 134, BUN elevated at 38, creatinine near baseline at 1.69, there is no transaminitis, bilirubin is normal, procalcitonin is low at 0.08, lactic acid is normal, urinalysis shows 2+ leukocyte esterase and 10-30 white blood cells, 3+ bacteria. Patient did have a catheter exchange earlier today. EKG obtained shortly after arrival shows evidence of near rate controlled atrial fibrillation. Patient states he does not have any history of atrial fibrillation. He denies any recent chest pain. Patient was given a dose of IV cefepime following obtaining blood cultures, on my reassessment his blood pressure is 114 systolic, his tachycardia is now improved, he states he is feeling "much better". Over concern for the possibility of urosepsis, I did discuss the patient's case with the on-call hospitalist, Dr. Lebron, and she is in agreement to accept the patient to a monitored bed for further management. Patient and his daughter at the bedside are in agreement to the above plan the patient was placed for admission in stable condition. Consultants: Hospitalist, Dr. Lebron Disposition discussion held by myself with: Patient * CRITICAL CARE TIME: (44 ) minutes -Stabilization of patient with presenting vital signs concerning for sepsis with hypotension and tachycardia as well as fever, IV fluid resuscitation and initiation of IV antibiotics over concern for urosepsis, time spent at the [facility], discussion with other physicians and arrangement of admission. Diagnosis: 1. Urinary tract infection, acute 2. Fever 3. Hypotension, transient 4. 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, lumbar 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) Epigastric abdominal pain External hemorrhoids Gastric mass Gastric ulcer Gastric ulcer GERD (gastroesophageal reflux disease) Hearing deficit Heart block AV second degree History of urinary self-catheterization performed intermittently Hypercholesterolemia Hypertension Intestinal metaplasia of gastric cardia Ischemic cardiomyopathy Lumbar post-laminectomy syndrome Lumbar spondylosis Multiple lung nodules Myocardial Infarction 12/1980 "silent heart attack"--follows with [facility] [place]ELLE (obstructive sleep apnea) bipap with oxygen 2.5L Respiratory failure with hypoxia Solitary thyroid nodule Spinal stenosis of lumbar region TIA (transient ischemic attack) 2014--no neurologist, no further issues Urethral stricture, postoperative Urinary retention with incomplete bladder emptying Venous insufficiency Surgical History History of bilateral cataract extraction [place] [facility] [place] History of cholecystectomy History of circumcision 1998 History of colonoscopy History of cystoscopy History of esophagogastroduodenoscopy (EGD) History of hand surgery left dupuytren's contracture History of left inguinal hernia repair 1980 History of lumbar fusion History of surgery urethroplasty x2 History of tonsillectomy History of tooth extraction partial upper/lower History of total left hip replacement History of total right hip replacement History of transesophageal echocardiography (BENY) 1994 Status post Mohs surgery for squamous cell carcinoma of skin Family History Father Myocardial infarction Mother Congestive heart failure Family history of diabetes mellitus Brother Family history of diabetes mellitus Brother Family history of diabetes mellitus Other No family history of adverse response to anesthesia Denies family history of Ovarian cancer Prostate cancer Breast cancer Colorectal cancer Social History Smoking Status: Former smoker Tobacco Type: Cigarettes Age Started Using Tobacco: 15; Age Quit Using Tobacco: 45; packs per day: 1; Cigarettes Per Day: 20; Second Hand Exposure: No; Do You Dip or Chew Tobacco: No; Hx Alcohol Use: Yes Alcohol type: beer Alcohol Intake Frequency: Monthly or Less Hx Substance Use: No Preferred Language: Maltese Communication Ability: Effective Visual Impairment: No Limitations Hearing Ability: Use of Hearing Aid House Manager Required: No Beliefs That Will Affect Care: None marital status: / Current Living Situation: Family Current Living Situation Comment: patient's daughterAshley lives with him EXCEPT for 3-4 days/month. current occupational status: retired Feels Safe at Home: Yes Childhood Exposure to Second-Hand Smoke: Yes Diet: regular Dental Care, Regularly: Yes Physical Activity Frequency: Does not Exercise Seatbelt Use: always Sunscreen Use: No Do you think of yourself as: straight/heterosexual Assistive Devices: Cane and Walker Allergies Allergies Allergy/AdvReac Type Severity Reaction Status Date / Time nitrofurantoin Allergy Severe SHORTNESS Verified 01/19/23 11:29 OF BREATH, "spitting up thick black stuff" Home Meds Home Medications Medication Instructions Recorded Confirmed cholecalciferol (vitamin D3) 25 1,000 units PO QAM 03/04/18 01/19/23 mcg (1,000 unit) capsule methenamine hippurate 1 gram tablet 1 gm PO HS 03/04/18 01/19/23 vitamin E (dl, acetate) 180 mg 400 units PO QAM 03/04/18 01/19/23 (400 unit) capsule calcium carbonate 500 mg calcium 500 mg PO BID 11/20/18 01/19/23 (1,250 mg) tablet (Calcium 500) cyanocobalamin (vitamin B-12) 1,000 mcg PO QAM 11/20/18 01/19/23 1,000 mcg capsule spironolactone 25 mg tablet 12.5 mg PO QAM 06/12/19 01/19/23 coenzyme Q10 100 mg capsule 100 mg PO QAM 11/04/19 01/19/23 atorvastatin 80 mg tablet 40 mg PO HS 03/23/20 01/19/23 finasteride 5 mg tablet 5 mg PO HS 03/23/20 01/19/23 lisinopril 5 mg tablet 5 mg PO QAM 03/23/20 01/19/23 metformin 500 mg tablet 500 mg PO BID 03/23/20 01/19/23 montelukast 10 mg tablet 10 mg PO QAM 03/23/20 01/19/23 tamsulosin 0.4 mg capsule 0.4 mg PO HS 03/23/20 01/19/23 vitamins A,C,Y-yoti-lvnnil 4,296 1 cap PO BID 03/23/20 01/19/23 mcg-226 mg-90 mg capsule (PreserVision AREDS) ascorbic acid (vitamin C) 250 mg 250 mg PO DAILY 11/17/20 01/19/23 tablet ferrous sulfate 325 mg (65 mg 325 mg PO DAILY 11/17/20 01/19/23 iron) tablet aspirin 81 mg tablet,delayed 81 mg PO DAILY 03/25/21 01/19/23 release (Adult Low Dose Aspirin) diclofenac sodium 1 % topical gel 2 g topical TID 06/16/21 01/19/23 vit C 226 mg-vit E 90 mg-copper 1 cap PO BID 06/16/21 01/19/23 0.8 mg-zinc oxide-lutein 5 mg capsule (PreserVision Lutein) furosemide 20 mg tablet 40 mg PO QAM 01/05/22 01/19/23 acetaminophen 325 mg capsule 1,000 mg PO DAILY Pain 08/08/22 01/19/23 Previous Rx's Medication Instructions Recorded metoprolol succinate 25 mg 12.5 mg PO DAILY #15 tabs 06/15/20 tablet,extended release 24 hr tiotropium 2.5 mcg-olodaterol 2.5 2 puff inhalation DAILY #3 Inhalers 12/03/20 mcg/actuation mist for inhalation (Stiolto Respimat) esomeprazole magnesium 20 mg 20 mg PO DAILY barretts esophagus 09/13/22 capsule,delayed release (Nexium) #30 caps Results & Data (ED) Vital Signs Vital Signs - 24 hr 01/26/23 20:00 01/26/23 20:43 01/26/23 21:00 Temperature 38.6 C H Temperature Source Oral Pulse Rate 125 H 97 H 114 H Pulse Rate from SpO2 Sensor 109 H 111 H Respiratory Rate 18 30 H 33 H Respiratory Effort / Characteristics Non-Labored Spontaneous Respiratory Depth Normal Respiratory Pattern Regular Blood Pressure 93/48 L 114/63 108/62 Blood Pressure Mean 63 80 77 Blood Pressure Position Sitting Pulse Oximetry 91 92 91 Oxygen Delivery Method Room Air Room Air Room Air Sepsis Recent Fever Within 48 Hours Yes Sepsis New/Unexplained Change in Mental Status N/A Sepsis Action Taken by Nursing No Action Required 01/26/23 21:30 01/26/23 22:00 01/26/23 22:30 Temperature Temperature Source Pulse Rate 110 H 105 H 99 H Pulse Rate from SpO2 Sensor 109 H 107 H Respiratory Rate 28 H 31 H 32 H Respiratory Effort / Characteristics Respiratory Depth Respiratory Pattern Blood Pressure 104/60 111/62 114/63 Blood Pressure Mean 74 78 80 Blood Pressure Position Pulse Oximetry 90 92 91 Oxygen Delivery Method Room Air Room Air Room Air Sepsis Recent Fever Within 48 Hours Sepsis New/Unexplained Change in Mental Status Sepsis Action Taken by Nursing Laboratory Data 01/26/23 20:45 01/26/23 20:45 Lab Results 01/26/23 01/26/23 01/26/23 Range/Units 20:45 20:45 20:45 WBC 10.16 (4.8-10.8) K/ul RBC 3.88 L (4.70-6.10) M/uL Hgb 12.0 L (14.0-18.0) g/dl Hct 35.7 L (42.0-52.0) % MCV 92.0 (80.0-100.0) fL MCH 30.9 (25.0-34.0) pg MCHC 33.6 (32.0-36.0) g/dL RDW Std Deviation 44.0 (36.4-46.3) fL RDW Coeff of Colette 13.1 (11.5-14.5) % Plt Count 158 (130-400) K/uL MPV 10.7 (9.4-12.4) fL Immature Gran % (Auto) 0.5 % Neut % (Auto) 86.6 % Lymph % (Auto) 6.8 % [place] % (Auto) 5.3 % Eos % (Auto) 0.6 % Baso % (Auto) 0.2 % Neut # (Auto) 8.80 H (1.40-6.50) K/uL Lymph # (Auto) 0.69 L (1.20-3.40) K/uL [place] # (Auto) 0.54 (0.11-0.59) K/uL Eos # (Auto) 0.06 (0.00-0.50) K/uL Baso # (Auto) 0.02 (0.00-0.20) K/uL Immature Gran # (Auto) 0.05 (0.01-0.20) K/uL PT 10.8 (9.0-12.0) Seconds INR 1.0 (0.9-1.1) APTT 25.4 (21.0-31.0) Seconds PTT Ratio 0.9 Sodium (136-145) mmol/L Potassium (3.5-5.1) mmol/L Chloride (98-107) mmol/L Carbon Dioxide (21-32) mmol/L Anion Gap (3-11) BUN (6-23) mg/dl Creatinine (0.6-1.4) mg/dl Est Cr Clr Drug Dosing Est GFR ( Amer) ml/min Est GFR (Non-Af Amer) ml/min BUN/Creatinine Ratio (10-20) Glucose (70-99(Fasting)) mg/dl Lactate 1.2 (0.4-2.0) mmol/L Calcium (8.6-10.3) mg/dl Magnesium (1.7-2.4) mg/dl Total Bilirubin (0.2-1.0) mg/dl AST (13-39) U/L ALT (7-52) U/L Alkaline Phosphatase (34-104) U/L Total Protein (6.0-8.3) gm/dl Albumin (3.4-5.0) gm/dl Globulin (2.5-4.0) gm/dl Albumin/Globulin Ratio (0.9-2) Procalcitonin (0-0.5) ng/ml Urine Color Urine Appearance (Clear) Urine pH (4.5-7.5) Ur Specific [place] (1.000-1.030) Urine Protein (Negative) Urine Glucose (UA) (Negative) Urine Ketones (Negative) Urine Blood (Negative) Urine Nitrite (Negative) Urine Bilirubin (Negative) Urine Urobilinogen (Negative) Ur Leukocyte Esterase (Negative) Urine WBC (Auto) (0-5) /hpf Urine RBC (Auto) (0-4) /hpf U Hyaline Cast (Auto) (0-5) /lpf U Epithel Cells (Auto) (0-5) /lpf Urine Bacteria (Auto) (Negative) SARS-CoV-2 (PCR) (Negative) Influenza Type A (PCR) (Neg) Influenza Type B (PCR) (Neg) RSV (RT-PCR) (Neg) 01/26/23 01/26/23 01/26/23 Range/Units 20:45 20:45 21:20 WBC (4.8-10.8) K/ul RBC (4.70-6.10) M/uL Hgb (14.0-18.0) g/dl Hct (42.0-52.0) % MCV (80.0-100.0) fL MCH (25.0-34.0) pg MCHC (32.0-36.0) g/dL RDW Std Deviation (36.4-46.3) fL RDW Coeff of Colette (11.5-14.5) % Plt Count (130-400) K/uL MPV (9.4-12.4) fL Immature Gran % (Auto) % Neut % (Auto) % Lymph % (Auto) % [place] % (Auto) % Eos % (Auto) % Baso % (Auto) % Neut # (Auto) (1.40-6.50) K/uL Lymph # (Auto) (1.20-3.40) K/uL [place] # (Auto) (0.11-0.59) K/uL Eos # (Auto) (0.00-0.50) K/uL Baso # (Auto) (0.00-0.20) K/uL Immature Gran # (Auto) (0.01-0.20) K/uL PT (9.0-12.0) Seconds INR (0.9-1.1) APTT (21.0-31.0) Seconds PTT Ratio Sodium 134 L (136-145) mmol/L Potassium 4.5 (3.5-5.1) mmol/L Chloride 102 (98-107) mmol/L Carbon Dioxide 20 L (21-32) mmol/L Anion Gap 12 H (3-11) BUN 38 H (6-23) mg/dl Creatinine 1.69 H (0.6-1.4) mg/dl Est Cr Clr Drug Dosing Not Reportable Est GFR ( Amer) 41.7 ml/min Est GFR (Non-Af Amer) 36.0 ml/min BUN/Creatinine Ratio 22.5 H (10-20) Glucose 135 H (70-99(Fasting)) mg/dl Lactate (0.4-2.0) mmol/L Calcium 8.9 (8.6-10.3) mg/dl Magnesium 1.9 (1.7-2.4) mg/dl Total Bilirubin 0.8 (0.2-1.0) mg/dl AST 15 (13-39) U/L ALT 16 (7-52) U/L Alkaline Phosphatase 78 (34-104) U/L Total Protein 7.0 (6.0-8.3) gm/dl Albumin 3.9 (3.4-5.0) gm/dl Globulin 3.1 (2.5-4.0) gm/dl Albumin/Globulin Ratio 1.3 (0.9-2) Procalcitonin 0.08 (0-0.5) ng/ml Urine Color Yellow Urine Appearance Clear (Clear) Urine pH 5.0 (4.5-7.5) Ur Specific [place] 1.018 (1.000-1.030) Urine Protein Negative (Negative) Urine Glucose (UA) Negative (Negative) Urine Ketones 1+ H (Negative) Urine Blood Negative (Negative) Urine Nitrite Negative (Negative) Urine Bilirubin Negative (Negative) Urine Urobilinogen Negative (Negative) Ur Leukocyte Esterase 2+ H (Negative) Urine WBC (Auto) 10-30 H (0-5) /hpf Urine RBC (Auto) 0-4 (0-4) /hpf U Hyaline Cast (Auto) 1-5 (0-5) /lpf U Epithel Cells (Auto) 10-20 H (0-5) /lpf Urine Bacteria (Auto) 3+ H (Negative) SARS-CoV-2 (PCR) (Negative) Influenza Type A (PCR) (Neg) Influenza Type B (PCR) (Neg) RSV (RT-PCR) (Neg) 01/26/23 Range/Units 22:16 WBC (4.8-10.8) K/ul RBC (4.70-6.10) M/uL Hgb (14.0-18.0) g/dl Hct (42.0-52.0) % MCV (80.0-100.0) fL MCH (25.0-34.0) pg MCHC (32.0-36.0) g/dL RDW Std Deviation (36.4-46.3) fL RDW Coeff of Colette (11.5-14.5) % Plt Count (130-400) K/uL MPV (9.4-12.4) fL Immature Gran % (Auto) % Neut % (Auto) % Lymph % (Auto) % [place] % (Auto) % Eos % (Auto) % Baso % (Auto) % Neut # (Auto) (1.40-6.50) K/uL Lymph # (Auto) (1.20-3.40) K/uL [place] # (Auto) (0.11-0.59) K/uL Eos # (Auto) (0.00-0.50) K/uL Baso # (Auto) (0.00-0.20) K/uL Immature Gran # (Auto) (0.01-0.20) K/uL PT (9.0-12.0) Seconds INR (0.9-1.1) APTT (21.0-31.0) Seconds PTT Ratio Sodium (136-145) mmol/L Potassium (3.5-5.1) mmol/L Chloride (98-107) mmol/L Carbon Dioxide (21-32) mmol/L Anion Gap (3-11) BUN (6-23) mg/dl Creatinine (0.6-1.4) mg/dl Est Cr Clr Drug Dosing Est GFR ( Amer) ml/min Est GFR (Non-Af Amer) ml/min BUN/Creatinine Ratio (10-20) Glucose (70-99(Fasting)) mg/dl Lactate (0.4-2.0) mmol/L Calcium (8.6-10.3) mg/dl Magnesium (1.7-2.4) mg/dl Total Bilirubin (0.2-1.0) mg/dl AST (13-39) U/L ALT (7-52) U/L Alkaline Phosphatase (34-104) U/L Total Protein (6.0-8.3) gm/dl Albumin (3.4-5.0) gm/dl Globulin (2.5-4.0) gm/dl Albumin/Globulin Ratio (0.9-2) Procalcitonin (0-0.5) ng/ml Urine Color Urine Appearance (Clear) Urine pH (4.5-7.5) Ur Specific [place] (1.000-1.030) Urine Protein (Negative) Urine Glucose (UA) (Negative) Urine Ketones (Negative) Urine Blood (Negative) Urine Nitrite (Negative) Urine Bilirubin (Negative) Urine Urobilinogen (Negative) Ur Leukocyte Esterase (Negative) Urine WBC (Auto) (0-5) /hpf Urine RBC (Auto) (0-4) /hpf U Hyaline Cast (Auto) (0-5) /lpf U Epithel Cells (Auto) (0-5) /lpf Urine Bacteria (Auto) (Negative) SARS-CoV-2 (PCR) NEGATIVE (Negative) Influenza Type A (PCR) Negative (Neg) Influenza Type B (PCR) Negative (Neg) RSV (RT-PCR) Negative (Neg) Administered Medications Discontinued Medications Sodium Chloride (Nss 1000ml) 2,000 mls @ 999 mls/hr IV .Q2H1M ONE Stop: 01/26/23 22:36 Last Infusion: 01/26/23 23:02 Dose: 0 mls/hr Documented By: Admin: 01/26/23 20:52 Dose: 999 mls/hr Documented By: KARSTEN Cefepime HCl (Maxipime) 2,000 mg in 20 mls @ 5 mls/min IV NOW STA; Protocol Stop: 01/26/23 21:32 Last Admin: 01/26/23 22:01 Dose: 5 mls/min Documented By: KARSTEN Discharge Plan Visit Data Chief Complaint: Infection Stated Complaint: FEVER,CHILLS,POSSIBL INFECTON ED Provider: Samuel Avilez Discharge Problem: Sepsis Forms Stand Alone Forms: My [facility] [employer] Prescriptions Prescriptions: No Action methenamine hippurate 1 gram tablet 1 gm PO HS cholecalciferol (vitamin D3) 1,000 unit capsule 1,000 units PO QAM vitamin E (dl, acetate) 400 unit capsule 400 units PO QAM coenzyme Q10 100 mg capsule 100 mg PO QAM Stiolto Respimat 2.5-2.5 mcg/actuation mist 2 puff inhalation DAILY Qty: 3 1RF acetaminophen 325 mg capsule 1,000 mg PO DAILY spironolactone 25 mg tablet 12.5 mg PO QAM aspirin [Adult Low Dose Aspirin] 81 mg tablet,delayed release (DR/EC) 81 mg PO DAILY metoprolol succinate 25 mg tablet extended release 24 hr 12.5 mg PO DAILY Qty: 15 5RF diclofenac sodium 1 % gel 2 g topical TID Rx Instructions: Apply small amount to skin three times a day apply to thumb joints for osteoARTHRITIS PreserVision Lutein 226 mg-200 unit -5 mg-0.8 mg capsule 1 cap PO BID ascorbic acid (vitamin C) 250 mg tablet 250 mg PO DAILY ferrous sulfate 325 mg (65 mg iron) tablet 325 mg PO DAILY esomeprazole magnesium [Nexium] 20 mg capsule,delayed release(DR/EC) 20 mg PO DAILY Qty: 30 11RF calcium carbonate [Calcium 500] 500 mg calcium (1,250 mg) tablet 500 mg PO BID cyanocobalamin (vitamin B-12) 1,000 mcg capsule 1,000 mcg PO QAM PreserVision AREDS [id number] Capsule 1 cap PO BID finasteride 5 mg tablet 5 mg PO HS metformin 500 mg Tablet 500 mg PO BID atorvastatin 80 mg Tablet 40 mg PO HS tamsulosin 0.4 mg Capsule 0.4 mg PO HS montelukast 10 mg Tablet 10 mg PO QAM lisinopril 5 mg Tablet 5 mg PO QAM furosemide 20 mg tablet 40 mg PO QAM Referrals Referrals: Jeancarlos Rosen III, CRNP [Primary Care Provider] -
[2023-01-26 21:18] LABS: Alanine Aminotransferase 16 U/L (7-52); Albumin Globulin Ratio 1.3 (0.9-2); Albumin Level 3.9 gm/dl (3.4-5.0); Alkaline Phosphatase 78 U/L (34-104); Anion Gap 12 (3-11); Aspartate Aminotransferase 15 U/L (13-39); BUN Creatinine Ratio 22.5 (10-20); Bilirubin,Total 0.8 mg/dl (0.2-1.0); Blood Urea Nitrogen 38 mg/dl (6-23); Calcium 8.9 mg/dl (8.6-10.3); Carbon Dioxide 20 mmol/L (21-32); Chloride 102 mmol/L (98-107); Est GFR (African American) 41.7 ml/min; Globulin 3.1 gm/dl (2.5-4.0); Glucose 135 mg/dl (70-99(Fasting)); Magnesium 1.9 mg/dl (1.7-2.4); Potassium 4.5 mmol/L (3.5-5.1); Sodium 134 mmol/L (136-145)
[2023-01-26] MEDS ORDERED: CEFEPIME 2,000 MG/20 ML VIAL IV STA (21:29)
[2023-01-26 21:38] LABS: Appearance Urine Clear (Clear); Bacteria Urine Automated 3+ (Negative); Bilirubin Urine Negative (Negative); Blood Urine Negative (Negative); Color Urine Yellow; Glucose Urine UA Negative (Negative); Ketones Urine 1+ (Negative); Leukocyte Esterase Urine 2+ (Negative); Nitrite Urine Negative (Negative); Protein Urine Negative (Negative); RBC Urine Automated 0-4 /hpf (0-4); Specific Gravity Urine 1.018 (1.000-1.030); Urobilinogen Urine Negative (Negative)
[2023-01-26 21:38] LABS: Partial Thromboplastin Ratio 0.9; Partial Thromboplastin Time 25.4 Seconds (21.0-31.0); Prothrombin Time 10.8 Seconds (9.0-12.0)
[2023-01-26 21:39] LABS: Basophils # (auto) 0.02 K/uL (0.00-0.20); Basophils % (auto) 0.2 %; Eosinophils # (auto) 0.06 K/uL (0.00-0.50); Eosinophils % (auto) 0.6 %; Hematocrit (blood only) 35.7 % (42.0-52.0); Immature Granulocytes # (auto) 0.05 K/uL (0.01-0.20); Immature Granulocytes % (auto) 0.5 %; Lymphocytes # (auto) 0.69 K/uL (1.20-3.40); Lymphocytes % (auto) 6.8 %; Mean Corpuscular Hemoglobin 30.9 pg (25.0-34.0); Mean Corpuscular Hgb Conc 33.6 g/dL (32.0-36.0); Mean Platelet Volume 10.7 fL (9.4-12.4); Monocytes # (auto) 0.54 K/uL (0.11-0.59); Monocytes % (auto) 5.3 %; Neutrophils % (auto) 86.6 %; Platelet Count 158 K/uL (130-400); RDW Coefficient of Variation 13.1 % (11.5-14.5); Red Blood Count 3.88 M/uL (4.70-6.10); White Blood Count 10.16 K/ul (4.8-10.8)
--- NOTE | 2023-01-26 23:01 | History & Physical Report ---
Date of Service January 26, 2023 Assessment & Plan (1) ANNABELLE (obstructive sleep apnea): (2) COPD (chronic obstructive pulmonary disease): (3) Hypercholesterolemia: (4) Hypertension: (5) Urinary retention with incomplete bladder emptying: (6) Catheter-associated urinary tract infection: (7) Venous insufficiency: (8) Spinal stenosis of lumbar region: (9) Diabetes mellitus: (10) New onset a-fib: Plan Pt is a 87 yo male with a past medical history of CAD, HTN, COPD, ANNABELLE on bipap, urinary retention with chronic gerardo, DM, spinal stenosis who presents to the hospital on 01/26/23 for fever and chills with recent replacement of his gerardo multiple times. Sepsis - notes catheter was changed out multiple times in the last 2 days - previously had UTI that lead to bacteremia - ED gave 2L NSS and cefepime, vitals improved since - given last culture with bacteremia in 07/2022 showing gram negative with susceptibility to meropenem, will tx with meropenem until culture returns - pending urine culture and blood culture #Urinary retention with chronic gerardo, - continue home finasteride and tamsulosin #New onset afib - suspect likely exacerbated by sepsis/current infectious process - rate 100s and pt asymptomatic - will start eliquis - TTE and trop pending - TSH pending #COPD - not on home O2 - continue montelukast #HTN - hold home lisinopril, spironolactone, metoprolol due to hypotension on admission #HLD - continue home atorvastatin #ANNABELLE - bipap ordered, pt on 3L O2 at home #DM - hold home metformin - will do lantus 5 units BID with SSI #CAD - continue home aspirin #Spinal stenosis - continue home tylenol prn for pain #GERD - continue home esomerazole VTE: eliquis Dispo: Medsurg tele Consults: - History of Present Illness Chief Complaint: Infection Primary Care Provider: Jeancarlos Rosen, III, MARKO Pt is a 87 yo male with a past medical history of CAD, HTN, COPD, ANNABELLE on bipap, urinary retention with chronic gerardo, DM, spinal stenosis who presents to the hospital on 01/26/23 for fever and chills with recent replacement of his gerardo multiple times. Pt states that his gerardo catheter was replaced 3 times in the last day or 2 and since the last time it was replaced he started to develop fever and chills and felt weak. He states that previously he had a bad UTI and that it had gotten into his blood and he was admitted for 5 days for treatment. He states that since he got fluids, he has started to feel much better. He denies a history of a fib or current palpitations. He states that he previously had pelvic pain when the second catheter was placed and the bulb was not inflated properly, which went away once the last gerardo was placed correctly. Allergies Allergy/AdvReac Type Severity Reaction Status Date / Time nitrofurantoin Allergy Severe SHORTNESS Verified 01/19/23 11:29 OF BREATH, "spitting up thick black stuff" Home Medications Medication Instructions Recorded Confirmed Type cholecalciferol (vitamin D3) 25 1,000 units PO QAM 03/04/18 01/19/23 History mcg (1,000 unit) capsule methenamine hippurate 1 gram tablet 1 gm PO HS 03/04/18 01/19/23 History vitamin E (dl, acetate) 180 mg 400 units PO QAM 03/04/18 01/19/23 History (400 unit) capsule calcium carbonate 500 mg calcium 500 mg PO BID 11/20/18 01/19/23 History (1,250 mg) tablet (Calcium 500) cyanocobalamin (vitamin B-12) 1,000 mcg PO QAM 11/20/18 01/19/23 History 1,000 mcg capsule spironolactone 25 mg tablet 12.5 mg PO QAM 06/12/19 01/19/23 History coenzyme Q10 100 mg capsule 100 mg PO QAM 11/04/19 01/19/23 History atorvastatin 80 mg tablet 40 mg PO HS 03/23/20 01/19/23 History finasteride 5 mg tablet 5 mg PO HS 03/23/20 01/19/23 History lisinopril 5 mg tablet 5 mg PO QAM 03/23/20 01/19/23 History metformin 500 mg tablet 500 mg PO BID 03/23/20 01/19/23 History montelukast 10 mg tablet 10 mg PO QAM 03/23/20 01/19/23 History tamsulosin 0.4 mg capsule 0.4 mg PO HS 03/23/20 01/19/23 History vitamins A,C,N-gjvl-zxrdzx 4,296 1 cap PO BID 03/23/20 01/19/23 History mcg-226 mg-90 mg capsule (PreserVision AREDS) metoprolol succinate 25 mg 12.5 mg PO DAILY #15 tabs 06/15/20 01/19/23 Rx tablet,extended release 24 hr ascorbic acid (vitamin C) 250 mg 250 mg PO DAILY 11/17/20 01/19/23 History tablet ferrous sulfate 325 mg (65 mg 325 mg PO DAILY 11/17/20 01/19/23 History iron) tablet tiotropium 2.5 mcg-olodaterol 2.5 2 puff inhalation DAILY #3 Inhalers 12/03/20 01/19/23 Rx mcg/actuation mist for inhalation (Stiolto Respimat) aspirin 81 mg tablet,delayed 81 mg PO DAILY 03/25/21 01/19/23 History release (Adult Low Dose Aspirin) diclofenac sodium 1 % topical gel 2 g topical TID 06/16/21 01/19/23 History vit C 226 mg-vit E 90 mg-copper 1 cap PO BID 06/16/21 01/19/23 History 0.8 mg-zinc oxide-lutein 5 mg capsule (PreserVision Lutein) furosemide 20 mg tablet 40 mg PO QAM 01/05/22 01/19/23 History acetaminophen 325 mg capsule 1,000 mg PO DAILY Pain 08/08/22 01/19/23 History esomeprazole magnesium 20 mg 20 mg PO DAILY barretts esophagus 09/13/22 01/19/23 Rx capsule,delayed release (Nexium) #30 caps Past Med/Surg History Medical History (Updated 01/26/23 @ 23:52 by Samuel Avilez DO) Acute kidney injury Allergic rhinitis Arthritis CHF (congestive heart failure) Chronic SI joint pain COPD (chronic obstructive pulmonary disease) inhalers prn Coronary artery disease COVID-19 Diabetes mellitus type 2 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, lumbar 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) Epigastric abdominal pain External hemorrhoids Gastric mass Gastric ulcer Gastric ulcer GERD (gastroesophageal reflux disease) Hearing deficit Heart block AV second degree History of urinary self-catheterization performed intermittently Hypercholesterolemia Hypertension Intestinal metaplasia of gastric cardia Ischemic cardiomyopathy Lumbar post-laminectomy syndrome Lumbar spondylosis Multiple lung nodules Myocardial Infarction 12/1980 "silent heart attack"--follows with [facility] [place] ANNABELLE (obstructive sleep apnea) bipap with oxygen 2.5L Respiratory failure with hypoxia Solitary thyroid nodule Spinal stenosis of lumbar region TIA (transient ischemic attack) 2014--no neurologist, no further issues Urethral stricture, postoperative Urinary retention with incomplete bladder emptying Venous insufficiency Surgical History History of bilateral cataract extraction History of cardiac cath 03/1981 @ [facility] [place] placed History of cholecystectomy History of circumcision 1998 History of colonoscopy History of cystoscopy History of esophagogastroduodenoscopy (EGD) History of hand surgery left dupuytren's contracture History of left inguinal hernia repair 1980 History of lumbar fusion History of surgery urethroplasty x2 History of tonsillectomy History of tooth extraction partial upper/lower History of total left hip replacement History of total right hip replacement History of transesophageal echocardiography (BENY) 1994 Status post Mohs surgery for squamous cell carcinoma of skin Family History Father Myocardial infarction Mother Congestive heart failure Family history of diabetes mellitus Brother Family history of diabetes mellitus Brother Family history of diabetes mellitus Other No family history of adverse response to anesthesia Denies family history of Ovarian cancer Prostate cancer Breast cancer Colorectal cancer Social History Smoking Status: Former smoker Tobacco Type: Cigarettes Age Started Using Tobacco: 15; Age Quit Using Tobacco: 45; packs per day: 1; Cigarettes Per Day: 20; Second Hand Exposure: No; Do You Dip or Chew Tobacco: No; Hx Alcohol Use: Yes Alcohol type: beer Alcohol Intake Frequency: Monthly or Less Hx Substance Use: No Preferred Language: Turkmen Communication Ability: Effective Visual Impairment: No Limitations Hearing Ability: Use of Hearing Aid Marketing Rep Required: No Beliefs That Will Affect Care: None marital status: / Current Living Situation: Family Current Living Situation Comment: patient's daughterAshley lives with him EXCEPT for 3-4 days/month. current occupational status: retired Feels Safe at Home: Yes Childhood Exposure to Second-Hand Smoke: Yes Diet: regular Dental Care, Regularly: Yes Physical Activity Frequency: Does not Exercise Seatbelt Use: always Sunscreen Use: No Do you think of yourself as: straight/heterosexual Assistive Devices: Cane and Walker Review of Systems Review of Systems: Constitutional: +fever, +chills, Cardio: denies chest pain, palpitations Resp: denies shortness of breath, GI: denies abdominal pain, nausea, vomiting, Physical Exam Physical Exam: General: Alert and oriented, no acute distress, HEENT: Normocephalic, dry oral mucosa Cardio: Irregular rhythm Resp: Lungs clear to auscultation b/l, GI: Soft and nontender, bowel sounds active Skin: Warm, pink, dry, Extremities: 2+ pitting edema noted b/l in LE to mid-dan level Psych: Mood-affect congruence. Results & Data Results & Data Vital Signs (Past 12 Hours) Vital Signs Temp Pulse Resp BP Pulse Ox O2 Del Method 01/26/23 22:30 99 H 32 H 114/63 91 Room Air 01/26/23 22:00 105 H 31 H 111/62 92 Room Air 01/26/23 21:30 110 H 28 H 104/60 90 Room Air 01/26/23 21:00 114 H 33 H 108/62 91 Room Air 01/26/23 20:43 97 H 30 H 114/63 92 Room Air 01/26/23 20:00 38.6 C H 125 H 18 93/48 L 91 Room Air Supervising Physician Co-Signing Physician Notes Patient seen and examined, chart reviewed, case discussed with Dr. Sparks and I agree with the assessment and plan as above. In brief, patient is an 87yo male with CAD, HTN, COPD and DM presenting with fever and chills. Patient had his Gerardo replaced several times in the last few days. Patient with fever and chills prior to arrival. Febrile, tachycardic in the ER. UA with 3+ bacteria On exam he is resting comfortably. Ill in appearance Skin - intact, no rash HEENT- NC/AT, PERRL, dry mucus membranes Heart - +S1/S2, irregularly irregular, no m/r/g Lungs - CTA Abd - soft, NT/ND, Gerardo in place draining clear yellow urine Ext - warm, well perfused 2+ edema Labs and images reviewed. EKG with atrial fibrillation - new onset Assessment/Plan Sepsis with urinary source - follow cultures. Initiate tx with Meropenem given review of prior culture data - enterococcus cloacae Check 2D echo Initiate anticoagulation with Eliquis - [id number] Check 2D echo -Gerardo management -Remainder of plan as above Resident Activity Tracking Resident Involvement: Resident Care Provided Care Provided: Adult Hospital Medicine (2) COPD (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: unspecified Qualified Code(s): J43.9 - Emphysema, unspecified (4) Hypertension Hypertension type: essential hypertension Qualified Code(s): I10 - Essential (primary) hypertension (6) Catheter-associated urinary tract infection Encounter type: initial encounter Indwelling urinary catheter type: indwelling urethral catheter Qualified Code(s): T83.511A - Infection and inflammatory reaction due to indwelling urethral catheter, initial encounter; N39.0 - Urinary tract infection, site not specified (9) Diabetes mellitus Diabetes mellitus complication status: without complication Diabetes mellitus intermediate project manager insulin use: without correction use Diabetes mellitus type: type 2 Qualified Code(s): E11.9 - Type 2 diabetes mellitus without complications
[2023-01-26 23:28] LABS: Influenza A virus by PCR Negative (Neg); Influenza B virus by PCR Negative (Neg); RSV by PCR Negative (Neg); SARS CoV2 RNA(COVID-19) Ceph NEGATIVE (Negative)
[2023-01-27] MEDS ORDERED: GLUCOSE 40% GEL 15 GM TUBE PO PRN (02:33)
[2023-01-27] MEDS ORDERED: CARBOHYDRATES FOR HYPOGLYCEMIA PO PRN (02:33)
[2023-01-27] MEDS ORDERED: DEXTROSE 50% 50 ML SYRINGE IV PRN (02:33)
[2023-01-27] MEDS ORDERED: GLUCOSE 10 TAB/TUBE PO PRN (02:33)
[2023-01-27] MEDS ORDERED: GLUCAGON FOR INJ 1 MG VIAL SQ PRN (02:33)
[2023-01-27] MEDS ORDERED: ACETAMINOPHEN 500 MG TAB PO PRN (02:41)
[2023-01-27] MEDS ORDERED: MEROPENEM 500 MG in SYRINGE 0 ML IV ONE (02:45)
--- NOTE | 2023-01-27 02:59 | Billing Data ---
Date of Service January 26, 2023 Coding Level of Care Code 96146 INT INP/OBS CARE
[2023-01-27] MEDS: APIXABAN 5 MG TABLET PO SCH ×3 (03:45→21:45)
[2023-01-27 04:24] LABS: Basophils # (auto) 0.03 K/uL (0.00-0.20); Basophils % (auto) 0.3 %; Eosinophils # (auto) 0.09 K/uL (0.00-0.50); Eosinophils % (auto) 0.9 %; Hematocrit (blood only) 30.6 % (42.0-52.0); Hemoglobin 10.3 g/dl (14.0-18.0); Immature Granulocytes # (auto) 0.04 K/uL (0.01-0.20); Immature Granulocytes % (auto) 0.4 %; Lymphocytes % (auto) 12.5 %; Mean Corpuscular Hemoglobin 31.5 pg (25.0-34.0); Mean Corpuscular Hgb Conc 33.7 g/dL (32.0-36.0); Mean Corpuscular Volume 93.6 fL (80.0-100.0); Mean Platelet Volume 10.3 fL (9.4-12.4); Monocytes # (auto) 0.91 K/uL (0.11-0.59); Monocytes % (auto) 8.8 %; Neutrophils # (auto) 7.99 K/uL (1.40-6.50); Neutrophils % (auto) 77.1 %; Platelet Count 143 K/uL (130-400); RDW Coefficient of Variation 13.2 % (11.5-14.5); Red Blood Count 3.27 M/uL (4.70-6.10); White Blood Count 10.36 K/ul (4.8-10.8)
[2023-01-27 04:42] LABS: BUN Creatinine Ratio 20.2 (10-20); Calcium 8.1 mg/dl (8.6-10.3); Creatinine Clr Calc Pharmacy 41.5 ml/min; Est GFR (Non-African American) 36.2 ml/min; Potassium 4.3 mmol/L (3.5-5.1)
--- NOTE | 2023-01-27 07:14 | Electrocardiogram Report ---
Test Reason : Blood Pressure : / mmHG Vent. Rate : 106 BPM Atrial Rate : 000 BPM P-R Int : 000 ms QRS Dur : 076 ms QT Int : 300 ms P-R-T Axes : 000 028 028 degrees QTc Int : 398 ms Sinnus rhythm with periods of an ectopic atrial rhythm Low voltage QRS Abnormal ECG When compared with ECG of 01-AUG-2022 18:27, Borderline criteria for Inferior infarct are no longer Present Nonspecific T wave abnormality has replaced inverted T waves in Inferior leads Confirmed by Michael Harvey ([id number]) on 01/27/2023 7:13:58 AM Referred By: Luis Manuel Dougherty Confirmed By:Kirit Harvey
[2023-01-27 08:31] LABS: Estimated Average Glucose 140 mg/dl; Hemoglobin A1C 6.5 % (4.5-5.6)
[2023-01-27] MEDS: MONTELUKAST SODIUM 10 MG TABLET PO SCH (08:36)
[2023-01-27] MEDS: ASPIRIN 81 MG ECTAB PO SCH (08:36)
[2023-01-27] MEDS: PANTOprazole 40 MG TAB PO SCH (08:36)
--- NOTE | 2023-01-27 09:44 | XRay Report ---
XR chest 1V not portable CLINICAL HISTORY: Sepsis. COMPARISON STUDY: Chest CT January 09, 2022 and chest radiograph August 01, 2022. FINDINGS: Cardiomegaly is unchanged. No pneumothorax or pleural effusion is present. There is no evid ence for pulmonary edema. No consolidation is identified. Opacity along the left heart border favors epicardial fat pad. IMPRESSION: No acute cardiopulmonary findings. No change in appearance of the chest. ACT 112: Negative or not required by law. Electronically signed by: Brayan Hernandez M.D. 01/27/2023 9:43 AM
[2023-01-27] MEDS: LANTUS PER UNIT CHARGE SQ SCH ×2 (10:16→21:45)
[2023-01-27] MEDS: INSULIN ASPART PER UNIT CHARGE SC SCH ×4 (10:16→21:45)
--- NOTE | 2023-01-27 10:58 | Hospitalist Progress Note ---
Date of Service January 27, 2023 Assessment & Plan (1) ANNABELLE (obstructive sleep apnea): (2) COPD (chronic obstructive pulmonary disease): (3) Hypercholesterolemia: (4) Hypertension: (5) Urinary retention with incomplete bladder emptying: (6) Catheter-associated urinary tract infection: (7) Venous insufficiency: (8) Spinal stenosis of lumbar region: (9) Diabetes mellitus: (10) New onset a-fib: Plan Pt is a 87 yo male with a past medical history of CAD, HTN, COPD, ANNABELLE on bipap, urinary retention with chronic greardo, DM, spinal stenosis who presents to the hospital on 01/26/23 for fever and chills with recent replacement of his gerardo multiple times. # acute complicated UTI in the setting of chronic indwelling Gerardo catheter/Sepsis - notes catheter was changed out multiple times in the last 2 days - previously had UTI that lead to bacteremia - ED gave 2L NSS and cefepime Urine culture growing gram-negative sudhakar - given last culture with bacteremia in 07/2022 showing gram negative with susceptibility to meropenem, will tx with meropenem until culture sensitivities return - pending urine culture sensitivities and blood culture #Urinary retention with chronic gerardo, - continue home finasteride and tamsulosin #New onset afib Converted to normal sinus rhythm - suspect likely exacerbated by sepsis/current infectious process - rate 100s and pt asymptomatic -patient was started on eliquis but will consider discontinuing if TTE unremarkable and no more episodes of A-fib. This episode was most likely triggered by the infectious process. Troponin negative - TTE pending - TSH pending #COPD - not on home O2 - continue montelukast #HTN - hold home lisinopril, spironolactone, metoprolol due to hypotension on admission We will resume as blood pressure increases #HLD - continue home atorvastatin #ANNABELLE - bipap ordered, pt on 3L O2 at home #DM - hold home metformin - will do lantus 5 units BID with SSI #CAD - continue home aspirin #Spinal stenosis - continue home tylenol prn for pain #GERD - continue home esomerazole VTE: [facility] - Admission and Anticipated Discharge Date Admission Date: January 26, 2023 Subjective patient feels Better overall. Denies chest pain or shortness of breath. Review of Systems Review of Systems: All systems reviewed & are unremarkable except as noted in Subjective Physical Exam Physical Exam: general: Awake, conversant Heart: S1, S2/regular rate and rhythm, no murmur rubs or gallops Lungs: Clear to auscultation bilaterally. Normal effort Abdomen: Soft/nontender/nondistended. No hepatosplenomegaly Extremities: No clubbing/cyanosis. No edema Behavior: Appropriate, cooperative Results & Data Results & Data Vital Signs (Past 12 Hours) Vital Signs Temp Pulse Pulse Resp BP BP BP 01/27/23 09:06 01/27/23 07:38 37.0 C 81 18 105/57 L 01/27/23 07:19 59 L 01/27/23 01:20 01/27/23 02:49 72 17 01/27/23 01:20 37 C 101 H 20 112/85 01/27/23 00:00 97 H 23 102/73 01/26/23 23:30 96 H 30 H 105/68 01/26/23 23:00 93 H 19 122/52 L Pulse Ox O2 Del Method O2 Flow Rate 01/27/23 09:06 Room Air 01/27/23 07:38 100 Room Air 01/27/23 07:19 01/27/23 01:20 Room Air, BiPAP 01/27/23 02:49 92 3 01/27/23 01:20 93 Room Air 01/27/23 00:00 92 01/26/23 23:30 94 01/26/23 23:00 94 Laboratory Results Abnormal lab results 01/26/23 01/26/23 01/26/23 Range/Units 20:45 20:45 21:20 RBC 3.88 L (4.70-6.10) M/uL Hgb 12.0 L (14.0-18.0) g/dl Hct 35.7 L (42.0-52.0) % Neut # (Auto) 8.80 H (1.40-6.50) K/uL Lymph # (Auto) 0.69 L (1.20-3.40) K/uL Robeson # (Auto) (0.11-0.59) K/uL Sodium 134 L (136-145) mmol/L Carbon Dioxide 20 L (21-32) mmol/L Anion Gap 12 H (3-11) BUN 38 H (6-23) mg/dl Creatinine 1.69 H (0.6-1.4) mg/dl BUN/Creatinine Ratio 22.5 H (10-20) Glucose 135 H (70-99(Fasting)) mg/dl POC Glucose (70-99) mg/dl Hemoglobin A1c (4.5-5.6) % Calcium (8.6-10.3) mg/dl Urine Ketones 1+ H (Negative) Ur Leukocyte Esterase 2+ H (Negative) Urine WBC (Auto) 10-30 H (0-5) /hpf U Epithel Cells (Auto) 10-20 H (0-5) /lpf Urine Bacteria (Auto) 3+ H (Negative) 01/27/23 01/27/23 01/27/23 Range/Units 04:08 04:08 04:08 RBC 3.27 L (4.70-6.10) M/uL Hgb 10.3 L (14.0-18.0) g/dl Hct 30.6 L (42.0-52.0) % Neut # (Auto) 7.99 H (1.40-6.50) K/uL Lymph # (Auto) (1.20-3.40) K/uL Robeson # (Auto) 0.91 H (0.11-0.59) K/uL Sodium 135 L (136-145) mmol/L Carbon Dioxide (21-32) mmol/L Anion Gap (3-11) BUN 34 H (6-23) mg/dl Creatinine 1.68 H (0.6-1.4) mg/dl BUN/Creatinine Ratio 20.2 H (10-20) Glucose 146 H (70-99(Fasting)) mg/dl POC Glucose (70-99) mg/dl Hemoglobin A1c 6.5 H (4.5-5.6) % Calcium 8.1 L (8.6-10.3) mg/dl Urine Ketones (Negative) Ur Leukocyte Esterase (Negative) Urine WBC (Auto) (0-5) /hpf U Epithel Cells (Auto) (0-5) /lpf Urine Bacteria (Auto) (Negative) 01/27/23 Range/Units 08:18 RBC (4.70-6.10) M/uL Hgb (14.0-18.0) g/dl Hct (42.0-52.0) % Neut # (Auto) (1.40-6.50) K/uL Lymph # (Auto) (1.20-3.40) K/uL Robeson # (Auto) (0.11-0.59) K/uL Sodium (136-145) mmol/L Carbon Dioxide (21-32) mmol/L Anion Gap (3-11) BUN (6-23) mg/dl Creatinine (0.6-1.4) mg/dl BUN/Creatinine Ratio (10-20) Glucose (70-99(Fasting)) mg/dl POC Glucose 124 H (70-99) mg/dl Hemoglobin A1c (4.5-5.6) % Calcium (8.6-10.3) mg/dl Urine Ketones (Negative) Ur Leukocyte Esterase (Negative) Urine WBC (Auto) (0-5) /hpf U Epithel Cells (Auto) (0-5) /lpf Urine Bacteria (Auto) (Negative) PG Care Time/CCT Total # of Minutes Spent Total Time Spent with Patient: Total time spent is greater than 50% in coordination of care (as documented) at patient's floor/unit and/or counseling patient: Coding Level of Care Code 54396 SUB INP/OBS CARE 235MIN Diagnoses ANNABELLE (obstructive sleep apnea) G47.33 COPD (chronic obstructive pulmonary disease) 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 Hypercholesterolemia E78.00 Hypertension I10 Hypertension type: essential hypertension Urinary retention with incomplete bladder emptying R33.9 Catheter-associated urinary tract infection T83.511A; N39.0 Encounter type: initial encounter Indwelling urinary catheter type: indwelling urethral catheter Venous insufficiency I87.2 Spinal stenosis of lumbar region M48.061 Diabetes mellitus E11.9 Diabetes mellitus type: type 2 Diabetes mellitus tank terminal gauger insulin use: without tank terminal gauger use Diabetes mellitus complication status: without complication New onset a-fib I48.91 (2) COPD (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: unspecified Qualified Code(s): J43.9 - Emphysema, unspecified (4) Hypertension Hypertension type: essential hypertension Qualified Code(s): I10 - Essential (primary) hypertension (6) Catheter-associated urinary tract infection Encounter type: initial encounter Indwelling urinary catheter type: indwelling urethral catheter Qualified Code(s): T83.511A - Infection and inflammatory reaction due to indwelling urethral catheter, initial encounter; N39.0 - Urinary tract infection, site not specified (9) Diabetes mellitus Diabetes mellitus type: type 2 Diabetes mellitus tank terminal gauger insulin use: without penitentiary use Diabetes mellitus complication status: without complication Qualified Code(s): E11.9 - Type 2 diabetes mellitus without complications
--- NOTE | 2023-01-27 12:34 | XCELERA ---
[id number] \\[id number]
[2023-01-27] MEDS: MEROPENEM 500 MG in SYRINGE 0 ML IV SCH (14:29)
[2023-01-27] MEDS: FINASTERIDE 5 MG TAB PO SCH (21:44)
[2023-01-27] MEDS: ATORVASTATIN 40 MG TAB PO SCH (21:44)
[2023-01-27] MEDS: TAMSULOSIN HCL 0.4 MG CAP PO SCH (21:45)
[2023-01-28] MEDS: MEROPENEM 500 MG in SYRINGE 0 ML IV SCH (02:00)
[2023-01-28 04:23] LABS: A calco-baum cmplx NotReported Not Detected (NotDetected); Bact fragilis Not Reported Not Detected (NotDetected); C auris Not Reported Not Detected (NotDetected); CTX-M Resistant Gene Not Detected (NotDetected); Calbicans Not Reported Not Detected (NotDetected); Candida glabrata Not Reported Not Detected (NotDetected); Candida krusei Not Reported Not Detected (NotDetected); Cneoformans/gatti Not Reported Not Detected (NotDetected); Cparapsilosis Not Reported Not Detected (NotDetected); Ctropicalis Not Reported Not Detected (NotDetected); E cloacae compx Not Reported Not Detected (NotDetected); Efaecalis Not Reported Not Detected (NotDetected); Efaecium Not Reported Not Detected (NotDetected); Enterobacterales Not Reported DETECTED (NotDetected); Escherichia coli Not Reported Not Detected (NotDetected); H influenzae Not Reported Not Detected (NotDetected); IMP Resistant Gene Not Detected (NotDetected); K aerogenes Not Reported Not Detected (NotDetected); KPC Resistant Gene Not Detected (NotDetected); Koxytoca Not Reported Not Detected (NotDetected); Kpneumoniae grp Not Reported Not Detected (NotDetected); Lmonocyt Not Reported Not Detected (NotDetected); N meningitidis Not Reported Not Detected (NotDetected); NDM Resistant Gene Not Detected (NotDetected); OXA 48 Like Resistant Gene Not Detected (NotDetected); P aeruginosa Not Reported Not Detected (NotDetected); Proteus spp Not Reported Not Detected (NotDetected); Salmonella spp Not Reported Not Detected (NotDetected); Smarcescens Not Reported Not Detected (NotDetected); Staph lugdunensis Not Reported Not Detected (NotDetected); Staph spp. Not Reported Not Detected (NotDetected); Staphaureus Not Reported Not Detected (NotDetected); Staphepi Not Reported Not Detected (NotDetected); Stenmaltophilia Not Reported Not Detected (NotDetected); Strep agal(GrpB) Not Reported Not Detected (NotDetected); Strep pneum Not Reported Not Detected (NotDetected); Strep pyog (GrpA) Not Reported Not Detected (NotDetected); Strep spp Not Reported Not Detected (NotDetected); VIM Resistant Gene Not Detected (NotDetected)
[2023-01-28 04:30] LABS: Enterobacterales DETECTED (NotDetected)
[2023-01-28 06:22] LABS: Basophils # (auto) 0.02 K/uL (0.00-0.20); Basophils % (auto) 0.3 %; Eosinophils % (auto) 1.5 %; Hematocrit (blood only) 31.4 % (42.0-52.0); Hemoglobin 10.4 g/dl (14.0-18.0); Immature Granulocytes # (auto) 0.06 K/uL (0.01-0.20); Immature Granulocytes % (auto) 0.9 %; Lymphocytes # (auto) 1.12 K/uL (1.20-3.40); Lymphocytes % (auto) 16.4 %; Mean Corpuscular Hgb Conc 33.1 g/dL (32.0-36.0); Mean Corpuscular Volume 93.5 fL (80.0-100.0); Mean Platelet Volume 10.7 fL (9.4-12.4); Monocytes # (auto) 0.77 K/uL (0.11-0.59); Monocytes % (auto) 11.2 %; Neutrophils # (auto) 4.78 K/uL (1.40-6.50); Neutrophils % (auto) 69.7 %; Platelet Count 133 K/uL (130-400); RDW Coefficient of Variation 13.2 % (11.5-14.5); RDW Standard Deviation 45.4 fL (36.4-46.3); Red Blood Count 3.36 M/uL (4.70-6.10); White Blood Count 6.85 K/ul (4.8-10.8)
[2023-01-28 06:42] LABS: BUN Creatinine Ratio 19.9 (10-20); Calcium 8.4 mg/dl (8.6-10.3); Creatinine Clr Calc Pharmacy 47.3 ml/min; Est GFR (African American) 49.8 ml/min; Est GFR (Non-African American) 42.9 ml/min; Potassium 4.6 mmol/L (3.5-5.1)
[2023-01-28] MEDS: INSULIN ASPART PER UNIT CHARGE SC SCH ×4 (09:31→20:50)
[2023-01-28] MEDS: LANTUS PER UNIT CHARGE SQ SCH ×2 (09:32→20:50)
[2023-01-28] MEDS: ASPIRIN 81 MG ECTAB PO SCH (09:36)
[2023-01-28] MEDS: MONTELUKAST SODIUM 10 MG TABLET PO SCH (09:36)
[2023-01-28] MEDS: APIXABAN 5 MG TABLET PO SCH (09:36)
[2023-01-28] MEDS: PANTOprazole 40 MG TAB PO SCH (09:37)
[2023-01-28] MEDS ORDERED: cefTRIAXone SODIUM 2,000 MG in DEXTROSE 5% 50 ML IV SCH (14:00)
--- NOTE | 2023-01-28 14:07 | Hospitalist Progress Note ---
Date of Service January 28, 2023 Assessment & Plan (1) ANNABELLE (obstructive sleep apnea): (2) COPD (chronic obstructive pulmonary disease): (3) Hypercholesterolemia: (4) Hypertension: (5) Urinary retention with incomplete bladder emptying: (6) Catheter-associated urinary tract infection: (7) Venous insufficiency: (8) Spinal stenosis of lumbar region: (9) Diabetes mellitus: (10) New onset a-fib: Plan Pt is a 87 yo male with a past medical history of CAD, HTN, COPD, ANNABELLE on bipap, urinary retention with chronic gerardo, DM, spinal stenosis who presents to the hospital on 01/26/23 for fever and chills with recent replacement of his gerardo multiple times. # acute complicated UTI in the setting of chronic indwelling Gerardo catheter/Sepsis - notes catheter was changed out multiple times in the last 2 days - previously had UTI that lead to bacteremia - ED gave 2L NSS and cefepime Urine culture growing Pansensitive Enterobacter. Discontinue meropenem, switch to ceftriaxone. Plan to discharge him on p.o. Keflex blood culture growing gram-negative sudhakar, awaiting further speciation #Urinary retention with chronic gerardo, - continue home finasteride and tamsulosin #Generalized weakness PT/OT consulted #New onset afib Converted to normal sinus rhythm - suspect likely exacerbated by sepsis/current infectious process - rate 100s and pt asymptomatic -patient was started on eliquis but will discontinue since TTE is unremarkable and This episode was most likely triggered by the infectious process. Troponin negative - TTE unremarkable - TSH negative #COPD - not on home O2 - continue montelukast #HTN - hold home lisinopril, spironolactone, metoprolol due to hypotension on admission We will resume as blood pressure increases #HLD - continue home atorvastatin #ANNABELLE - bipap ordered, pt on 3L O2 at home #DM - hold home metformin - will do lantus 5 units BID with SSI #CAD - continue home aspirin #Spinal stenosis - continue home tylenol prn for pain #GERD - continue home esomerazole VTE: Eliquis discontinued. Start Lovenox. Dispo: Likely discharge tomorrow Admission and Anticipated Discharge Date Admission Date: January 26, 2023 Subjective patient feels better overall. Complains of some weakness but improved overall. Accompanied by his daughter in the room. Review of Systems Review of Systems: All systems reviewed & are unremarkable except as noted in Subjective Physical Exam Physical Exam: general: Awake, conversant Heart: S1, S2/regular rate and rhythm, no murmur rubs or gallops Lungs: Clear to auscultation bilaterally. Normal effort Abdomen: Soft/nontender/nondistended. No hepatosplenomegaly Extremities: No clubbing/cyanosis. No edema Behavior: Appropriate, cooperative Results & Data Results & Data Vital Signs (Past 12 Hours) Vital Signs Temp Pulse Pulse Resp BP BP Pulse Ox 01/28/23 12:02 37.0 C 79 18 123/68 98 01/28/23 08:20 36.8 C 79 18 126/76 97 01/28/23 08:00 86 01/28/23 04:33 75 18 97 01/28/23 02:41 37.4 C 84 18 135/81 97 O2 Del Method O2 Flow Rate 01/28/23 12:02 Room Air 01/28/23 08:20 Room Air 01/28/23 08:00 01/28/23 04:33 3 01/28/23 02:41 Room Air, CPAP PG Care Time/CCT Total # of Minutes Spent Total Time Spent with Patient: Total time spent is greater than 50% in coordination of care (as documented) at patient's floor/unit and/or counseling patient: Coding Level of Care Code 15980 SUB INP/OBS CARE 2MIN Diagnoses ANNABELLE (obstructive sleep apnea) G47.33 COPD (chronic obstructive pulmonary disease) 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 Hypercholesterolemia E78.00 Hypertension I10 Hypertension type: essential hypertension Urinary retention with incomplete bladder emptying R33.9 Catheter-associated urinary tract infection T83.511A; N39.0 Encounter type: initial encounter Indwelling urinary catheter type: indwelling urethral catheter Venous insufficiency I87.2 Spinal stenosis of lumbar region M48.061 Diabetes mellitus E11.9 Diabetes mellitus type: type 2 Diabetes mellitus chcf insulin use: without [employer] use Diabetes mellitus complication status: without complication New onset a-fib I48.91 (2) COPD (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: unspecified Qualified Code(s): J43.9 - Emphysema, unspecified (4) Hypertension Hypertension type: essential hypertension Qualified Code(s): I10 - Essential (primary) hypertension (6) Catheter-associated urinary tract infection Encounter type: initial encounter Indwelling urinary catheter type: indwelling urethral catheter Qualified Code(s): T83.511A - Infection and infl ammatory reaction due to indwelling urethral catheter, initial encounter; N39.0 - Urinary tract infection, site not specified (9) Diabetes mellitus Diabetes mellitus type: type 2 Diabetes mellitus [employer] insulin use: without chcf use Diabetes mellitus complication status: without complication Qualified Code(s): E11.9 - Type 2 diabetes mellitus without complications
[2023-01-28] MEDS: ATORVASTATIN 40 MG TAB PO SCH (20:50)
[2023-01-28] MEDS: FINASTERIDE 5 MG TAB PO SCH (20:50)
[2023-01-28] MEDS: TAMSULOSIN HCL 0.4 MG CAP PO SCH (20:51)
[2023-01-29 07:07] LABS: Basophils # (auto) 0.03 K/uL (0.00-0.20); Basophils % (auto) 0.5 %; Eosinophils # (auto) 0.12 K/uL (0.00-0.50); Eosinophils % (auto) 1.9 %; Hematocrit (blood only) 32.3 % (42.0-52.0); Hemoglobin 10.8 g/dl (14.0-18.0); Immature Granulocytes # (auto) 0.06 K/uL (0.01-0.20); Lymphocytes # (auto) 1.38 K/uL (1.20-3.40); Lymphocytes % (auto) 22.4 %; Mean Corpuscular Hemoglobin 30.8 pg (25.0-34.0); Mean Corpuscular Hgb Conc 33.4 g/dL (32.0-36.0); Mean Platelet Volume 10.1 fL (9.4-12.4); Monocytes # (auto) 0.79 K/uL (0.11-0.59); Monocytes % (auto) 12.8 %; Neutrophils # (auto) 3.78 K/uL (1.40-6.50); Neutrophils % (auto) 61.4 %; Platelet Count 153 K/uL (130-400); RDW Coefficient of Variation 13.1 % (11.5-14.5); RDW Standard Deviation 44.2 fL (36.4-46.3); Red Blood Count 3.51 M/uL (4.70-6.10); White Blood Count 6.16 K/ul (4.8-10.8)
[2023-01-29 07:30] LABS: BUN Creatinine Ratio 19.2 (10-20); Calcium 8.8 mg/dl (8.6-10.3); Est GFR (African American) 57.3 ml/min; Est GFR (Non-African American) 49.4 ml/min; Potassium 4.7 mmol/L (3.5-5.1)
[2023-01-29] MEDS: ASPIRIN 81 MG ECTAB PO SCH (08:16)
[2023-01-29] MEDS: cephALEXin 500 MG CAP PO SCH ×2 (08:17→12:53)
[2023-01-29] MEDS: MONTELUKAST SODIUM 10 MG TABLET PO SCH (08:19)
[2023-01-29] MEDS: PANTOprazole 40 MG TAB PO SCH (08:19)
[2023-01-29] MEDS ORDERED: ENOXAPARIN INJ 40 MG/0.4 ML SYR SQ SCH (09:00)
[2023-01-29] MEDS: INSULIN ASPART PER UNIT CHARGE SC SCH ×2 (09:17→12:51)
[2023-01-29] MEDS: LANTUS PER UNIT CHARGE SQ SCH (09:17)
--- NOTE | 2023-01-29 14:47 | Discharge Summary ---
Date of Service January 29, 2023 Admission HPI Per Admitting Provider Pt is a 87 yo male with a past medical history of CAD, HTN, COPD, ANNABELLE on bipap, urinary retention with chronic gerardo, DM, spinal stenosis who presents to the hospital on 01/26/23 for fever and chills with recent replacement of his gerardo multiple times. Pt states that his gerardo catheter was replaced 3 times in the last day or 2 and since the last time it was replaced he started to develop fever and chills and felt weak. He states that previously he had a bad UTI and that it had gotten into his blood and he was admitted for 5 days for treatment. He states that since he got fluids, he has started to feel much better. He denies a history of a fib or current palpitations. He states that he previously had pelvic pain when the second catheter was placed and the bulb was not inflated properly, which went away once the last gerardo was placed correctly. Admission Exam Per Admitting Provider General:Alert and oriented, no acute distress, HEENT:Normocephalic, dry oral mucosa Cardio:Irregular rhythm Resp: Lungs clear to auscultation b/l, GI:Soft and nontender, bowel sounds active Skin:Warm, pink, dry, Extremities:2+ pitting edema noted b/l in LE to mid-dan level Psych:Mood-affect congruence. Principal Diagnosis acute complicated pyelonephritis due to chronic indwelling Gerardo catheter Sepsis Deconditioning due to infection Discharge Exam general: Awake, conversant Heart: S1, S2/regular rate and rhythm, no murmur rubs or gallops Lungs: Clear to auscultation bilaterally. Normal effort Abdomen: Soft/nontender/nondistended. No hepatosplenomegaly Extremities: No clubbing/cyanosis. No edema Behavior: Appropriate, cooperative Discharge Data Allergies Allergy/AdvReac Type Severity Reaction Status Date / Time nitrofurantoin Allergy Severe SHORTNESS Verified 01/19/23 11:29 OF BREATH, "spitting up thick black stuff" Consultations 01/26/23 22:57 ED Decision to Admit Stat Hospital Course (1) ANNABELLE (obstructive sleep apnea): (2) COPD (chronic obstructive pulmonary disease): (3) Hypercholesterolemia: (4) Hypertension: (5) Urinary retention with incomplete bladder emptying: (6) Catheter-associated urinary tract infection: (7) Venous insufficiency: (8) Spinal stenosis of lumbar region: (9) Diabetes mellitus: (10) New onset a-fib: Plan Pt is a 87 yo male with a past medical history of CAD, HTN, COPD, ANNABELLE on bipap, urinary retention with chronic gerardo, DM, spinal stenosis who presents to the hospital on 01/26/23 for fever and chills with recent replacement of his gerardo multiple times. # acute complicated UTI in the setting of chronic indwelling Gerardo cath eter/Sepsis - notes catheter was changed out multiple times in the last 2 days - previously had UTI that lead to bacteremia Urine culture growing Pansensitive Enterobacter. patient was treated initially with meropenem then switched to ceftriaxone Plan to discharge him on p.o. Keflex blood culture growing gram-negative sudhakar Clinically improved #Urinary retention with chronic gerardo, - continue home finasteride and tamsulosin #Generalized weakness PT/OT consulted Cleared the patient for discharge Most likely secondary to UTI and sepsis Resolved #New onset afib Converted to normal sinus rhythm - suspect likely exacerbated by sepsis/current infectious process - rate 100s and pt asymptomatic -patient was started on eliquis but was discontinued since this was most likely triggered by the infectious process. Troponin negative - TTE unremarkable - TSH negative #COPD - not on home O2 - continue montelukast #HTN - resume home lisinopril, spironolactone, metoprolol now the blood pressure Creeping up #HLD - continue home atorvastatin #ANNABELLE - bipap ordered, pt on 3L O2 at home #DM - hold home metformin - will do lantus 5 units BID with SSI #CAD - continue home aspirin #Spinal stenosis - continue home tylenol prn for pain #GERD - continue home esomerazole plan: Discharge today Total Time Total Time Spent Total Time Spent (In Minutes): 35 Discharge Plan Discharge Items Patient Disposition: Home - Self-Care Reason For Visit: UTI,NOW NEW ONSET A FIB Discharge Diagnosis: acute complicated UTI with sepsis Activity: Resume your previous activity Non-emergency contact: Primary Care Provider Call non-emergency contact if: you have any medication questions and your symptoms worsen Follow-up/Referrals: Jeancarlos Rosen III, CRNP [Primary Care Provider] - 02/06/23 9:15 am Diet: Carb Consistent or DM2 and Heart Healthy Addtl Attending Provider Instructions: advised to follow-up with PCP in 1 week Pending Studies at Discharge: No Stand-Alone Forms: My [facility] Medications and DC Order Prescriptions: New cephalexin 500 mg Capsule 500 mg PO QID 5 Days Qty: 20 0RF Continued methenamine hippurate 1 gram tablet 1 gm PO HS cholecalciferol (vitamin D3) 1,000 unit capsule 1,000 units PO QAM vitamin E (dl, acetate) 400 unit capsule 400 units PO QAM coenzyme Q10 100 mg capsule 100 mg PO QAM Stiolto Respimat 2.5-2.5 mcg/actuation mist 2 puff inhalation DAILY Qty: 3 1RF acetaminophen 325 mg capsule 1,000 mg PO DAILY spironolactone 25 mg tablet 12.5 mg PO QAM aspirin [Adult Low Dose Aspirin] 81 mg tablet,delayed release (DR/EC) 81 mg PO DAILY metoprolol succinate 25 mg tablet extended release 24 hr 12.5 mg PO DAILY Qty: 15 5RF diclofenac sodium 1 % gel 2 g topical TID Rx Instructions: Apply small amount to skin three times a day apply to thumb joints for osteoARTHRITIS PreserVision Lutein 226 mg-200 unit -5 mg-0.8 mg capsule 1 cap PO BID ascorbic acid (vitamin C) 250 mg tablet 250 mg PO DAILY ferrous sulfate 325 mg (65 mg iron) tablet 325 mg PO DAILY esomeprazole magnesium [Nexium] 20 mg capsule,delayed release(DR/EC) 20 mg PO DAILY Qty: 30 11RF calcium carbonate [Calcium 500] 500 mg calcium (1,250 mg) tablet 500 mg PO BID cyanocobalamin (vitamin B-12) 1,000 mcg capsule 1,000 mcg PO QAM PreserVision AREDS [id number] Capsule 1 cap PO BID finasteride 5 mg tablet 5 mg PO HS metformin 500 mg Tablet 500 mg PO BID atorvastatin 80 mg Tablet 40 mg PO HS tamsulosin 0.4 mg Capsule 0.4 mg PO HS montelukast 10 mg Tablet 10 mg PO QAM lisinopril 5 mg Tablet 5 mg PO QAM furosemide 20 mg tablet 40 mg PO QAM Discharge Orders: Discharge Order (Routine); Ordered 01/29/23 Ordered By: Junior Dudley/Other Patient Handouts: Managing Type 2 Diabetes Admission Data Admit Date/Time: 01/26/23 23:16 Attending Provider: Junior Gamboa Provider: Pam Sparks Primary Care Provider: Jeancarlos Rosen III Other Providers: Carlee Lebron ; [facility] Coding Level of Care Code 68449 INP/OBS DISCH >30 MIN Diagnoses ANNABELLE (obstructive sleep apnea) G47.33 COPD (chronic obstructive pulmonary disease) 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
== END 2023-01-29 17:44 | disposition home or self-care (01) | DRG 698 ==
LOC: ED 19:40 → SUATTDRO 23:16 → 2N 23:16

== ENCOUNTER 2024-03-18 22:43 | Inpatient (IN) ==
--- NOTE | 2024-03-18 23:05 | Emergency Department Note ---
History of Present Illness General Chief complaint: Fall Stated complaint: FALL, NO COMPLAINTS, WANTS CHECKED OUT Time Seen by Provider: 03/18/24 22:47 History of Present Illness This 89-year-old male presents the ER complaining of generalized weakness few collapsible trying to go to the bathroom. Patient states he feels like he has another UTI. He does have an indwelling Ordonez. Patient complains of subjective fevers, chills, generalized weakness not feeling well. Patient states he had a blanket on all day. He feels like he might be getting a cold. Patient denies chest pain, dyspnea, cough, vomiting, diarrhea. Home Medications Medication Instructions Recorded Confirmed Type methenamine hippurate 1 gram tablet 1 gm PO HS 03/04/18 01/23/24 History vitamin E (dl, acetate) 180 mg 400 units PO QAM 03/04/18 01/23/24 History (400 unit) capsule spironolactone 25 mg tablet 12.5 mg PO QAM 06/12/19 01/23/24 History atorvastatin 80 mg tablet 40 mg PO HS 03/23/20 01/23/24 History finasteride 5 mg tablet 5 mg PO HS 03/23/20 01/23/24 History metformin 500 mg tablet 500 mg PO BID 03/23/20 01/23/24 History montelukast 10 mg tablet 10 mg PO QAM 03/23/20 01/23/24 History tamsulosin 0.4 mg capsule 0.4 mg PO HS 03/23/20 01/23/24 History ascorbic acid (vitamin C) 250 mg 500 mg PO QPM 11/17/20 01/23/24 History tablet ferrous sulfate 325 mg (65 mg 325 mg PO QPM 11/17/20 01/23/24 History iron) tablet diclofenac sodium 1 % topical gel 2 g topical UD PRN arthritis 06/16/21 01/23/24 History vit C 226 mg-vit E 90 mg-copper 1 cap PO BID 06/16/21 01/23/24 History 0.8 mg-zinc oxide-lutein 5 mg capsule (PreserVision Lutein) furosemide 20 mg tablet 40 mg PO QAM 01/05/22 01/23/24 History acetaminophen 325 mg capsule 1,000 mg PO QAM 08/08/22 01/23/24 History aspirin 81 mg tablet,delayed 81 mg PO HS 01/30/23 01/23/24 History release (Adult Low Dose Aspirin) coenzyme Q10 100 mg capsule 200 mg PO QAM 02/07/23 01/23/24 History calcium 600 mg (as 1 tab PO BID 03/23/23 01/23/24 History carbonate)-vitamin D3 5 mcg (200 unit) tablet carboxymethylcellulose 1 ea miscellaneous UD PRN Dry 03/23/23 01/23/24 History Eye(S) clotrimazole 1 % topical cream 1 applic topical UD PRN athletes 03/23/23 01/23/24 History foot metoprolol succinate 25 mg 12.5 mg PO QAM 03/23/23 01/23/24 History tablet,extended release 24 hr tiotropium 2.5 mcg-olodaterol 2.5 2 puff inhalation QAM 03/23/23 01/23/24 History mcg/actuation mist for inhalation (Stiolto Respimat) cyanocobalamin (vitamin B-12) 5,000 mcg PO QAM 06/25/23 01/23/24 History 1,000 mcg capsule esomeprazole magnesium 20 mg 20 mg PO BID #90 caps 07/06/23 01/23/24 Rx capsule,delayed release sucralfate 1 gram tablet 1 g PO BID #60 tabs 07/31/23 01/23/24 Rx Allergies Allergy/AdvReac Type Severity Reaction Status Date / Time nitrofurantoin Allergy Severe SHORTNESS Verified 03/19/24 01:04 OF BREATH, "spitting up thick black stuff" ezetimibe AdvReac Unknown Muscle Pain Verified 03/19/24 01:04 simvastatin AdvReac Unknown Muscle Pain Verified 03/19/24 01:04 Past Med/Surg History Problem List (Updated 03/19/24 @ 01:08 by Felicity Stewart PA-C) COVID-19 (Acute) Weakness (Acute) Acute UTI (Acute) Lumbar spondylosis Lumbar facet joint syndrome Coronary artery disease (Chronic) Heart block AV second degree Bradycardia Pulmonary hypertension Elevated PSA Ischemic cardiomyopathy History of urinary self-catheterization Interstitial lung disease Solitary thyroid nodule Barretts esophagus Bladder mass Medical History (Updated 03/19/24 @ 01:08 by Felicity Stewart PA-C) New onset a-fib Catheter-associated urinary tract infection Low iron History of recent hospitalization Jan or Feb 2023 - [facility] for UTI / detected afib....monitor worn /unknown results/has enrico with Dr. Harvey on 03/26/23. Barretts esophagus Ischemic cardiomyopathy not that pt aware of. Ordonez catheter in place changed monthly. 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 Multiple lung nodules not that pt aware of Urethral stricture, postoperative Intestinal metaplasia of gastric cardia no hx cancer other than skin per pt Gastric ulcer not that i know of External hemorrhoids GERD (gastroesophageal reflux disease) Hearing deficit Myocardial Infarction 12/1980 "silent heart attack"--follows with Rag[facility] COPD (chronic obstructive pulmonary disease) ANNABELLE (obstructive sleep apnea) bipap with oxygen 2.5L Venous insufficiency ? details/chronic inside right knee. Solitary thyroid nodule denies Hypertension Hypercholesterolemia 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) Disc degeneration, lumbar Diabetes mellitus type 2 Arthritis Allergic rhinitis Spinal stenosis of lumbar region Lumbar post-laminectomy syndrome Urinary retention with incomplete bladder emptying TIA (transient ischemic attack) 2014--no neurologist, no further issues Surgical History History of surgery hx pain mgmt procedure December 2022 - didn't work. Upcoming ablation Apr [address] Stewart or Dr[address] Nunez. Status post Mohs surgery for squamous cell carcinoma of skin hx History of circumcision 1998 History of surgery urethroplasty x2 History of cystoscopy History of hand surgery left dupuytren's contracture & right hand dupuytrens & trigger finger. History of total right hip replacement History of total left hip replacement History of colonoscopy History of esophagogastroduodenoscopy (EGD) History of left inguinal hernia repair 1980 History of cholecystectomy History of tooth extraction partial upper/lower History of tonsillectomy History of bilateral cataract extraction History of transesophageal echocardiography (BENY) 1994 History of cardiac cath 03/1981 @ [facility] [place] no stent placed History of lumbar fusion Family History Father Myocardial infarction Mother Congestive heart failure Family history of diabetes mellitus Brother Family history of diabetes mellitus Brother Family history of diabetes mellitus Other No family history of adverse response to anesthesia Denies family history of Ovarian cancer Prostate cancer Breast cancer Colorectal cancer Social History Smoking Status: Never smoker Tobacco Type: Cigarettes Age Started Using Tobacco: 15; Age Quit Using Tobacco: 45; packs per day: 1; Cigarettes Per Day: 20; Second Hand Exposure: No; Do You Dip or Chew Tobacco: No; Hx Alcohol Use: Yes Alcohol type: beer Alcohol Intake Frequency: Monthly or Less Hx Substance Use: No Preferred Language: Libyan Communication Ability: Effective Visual Impairment: No Limitations Hearing Ability: Use of Hearing Aid All Source Intelligence Required: No Beliefs That Will Affect Care: Adventist Adventist Beliefs: Jainism marital status: / Current Living Situation: Family Current Living Situation Comment: daughter stays with me most of the time current occupational status: retired Feels Safe at Home: Yes Childhood Exposure to Second-Hand Smoke: Yes Diet: regular Dental Care, Regularly: Yes Physical Activity Frequency: Does not Exercise Seatbelt Use: always Sunscreen Use: No Do you think of yourself as: straight/heterosexual Assistive Devices: Cane, Hearing Aid - Bilateral and Other Review of Systems A total of 10 systems reviewed and were otherwise negative Physical Exam Vital Signs Vital Signs - 24 hr 03/18/24 22:53 03/18/24 22:57 03/18/24 23:50 Temperature 37.5 C Temperature Source Oral Pulse Rate 90 90 Pulse Rate [Apical] 91 H Respiratory Rate 18 22 Respiratory Effort / Characteristics Non-Labored Non-Labored Respiratory Depth Normal Respiratory Pattern Regular Regular Blood Pressure 107/61 Blood Pressure [Right Arm] 104/69 Blood Pressure Mean 76 Blood Pressure Mean [Right Arm] 80 Pulse Oximetry 93 95 Oxygen Delivery Method Room Air Room Air Sepsis Recent Fever Within 48 Hours No Sepsis New/Unexplained Change in Mental Status N/A Sepsis Action Taken by Nursing No Action Required 03/19/24 00:00 03/19/24 01:00 Temperature Temperature Source Pulse Rate Pulse Rate [Apical] 80 89 Respiratory Rate 22 22 Respiratory Effort / Characteristics Non-Labored Non-Labored Respiratory Depth Respiratory Pattern Blood Pressure Blood Pressure [Right Arm] 104/69 120/67 Blood Pressure Mean Blood Pressure Mean [Right Arm] 80 84 Pulse Oximetry 91 95 Oxygen Delivery Method Room Air Room Air Sepsis Recent Fever Within 48 Hours Sepsis New/Unexplained Change in Mental Status Sepsis Action Taken by Nursing VITALS: Vitals are noted on the nurse's note and reviewed by myself. Vital signs temperature 37 5. GENERAL: Elderly male, in no acute distress, nondiaphoretic, well-developed well-nourished. SKIN: The skin was without rashes, erythema, edema, or bruising. There is no tenting of the skin. Capillary reflex less than 2 seconds. HEAD: Normocephalic atraumatic. EARS: External auditory canals clear EYES: Pupils equal round and reactive to light and accommodation. Conjunctivae without injection, sclerae without icterus. Extraocular movements intact. NOSE: Patent, no discharge. MOUTH: Mucous membranes moist. Pharynx without erythema or exudate. Uvula midline. Airway patent. Tongue does not deviate. NECK: Supple without nuchal rigidity. No lymphadenopathy. No thyromegaly. Cervical spine is nontender. No JVD. HEART: Regular rate and rhythm LUNGS: Clear to auscultation bilaterally without wheezes, rales or rhonchi. No retractions or accessory muscle use. ABDOMEN: Positive bowel sounds x 4. Normal tympanic percussion. Soft, lower abdominal tenderness, without masses or organomegaly. Fischer sign negative. No guarding or rebound tenderness. No CVA tenderness MUSCULOSKELETAL: No muscle atrophy, erythema, or edema noted. NEURO: Patient was alert and oriented to person place and time. Normal sensation to light and sharp touch. No focal neurological deficits. Course Administered Medications Discontinued Medications Piperacillin Sod/Tazobactam Sod (Zosyn) 4.5 gm in 100 mls @ 200 mls/hr IV NOW ONE; Protocol Stop: 03/18/24 23:22 Last Admin: 03/19/24 00:12 Dose: 200 mls/hr Documented By: HERB Sodium Chloride (Nss) 1,000 mls @ 999 mls/hr IV .Q1H1M ONE Stop: 03/19/24 01:02 Last Admin: 03/19/24 00:13 Dose: 999 mls/hr Documented By: HERB Medical Decision Making Medical Records Attestation: I reviewed the patient's medical records. Home Medications Current Medication List: was personally reviewed by me Laboratory Data Attestation: I reviewed the patient's lab results. 03/18/24 23:28 03/18/24 23:28 Lab Results 03/18/24 03/18/24 Range/Units 23:25 23:28 WBC 6.41 (4.8-10.8) K/ul RBC 4.20 L (4.70-6.10) M/uL Hgb 13.1 L (14.0-18.0) g/dl Hct 37.9 L (42.0-52.0) % MCV 90.2 (80.0-100.0) fL MCH 31.2 (25.0-34.0) pg MCHC 34.6 (32.0-36.0) g/dL RDW Std Deviation 44.9 (36.4-46.3) fL RDW Coeff of Colette 13.5 (11.5-14.5) % Plt Count 183 (130-400) K/uL MPV 10.7 (9.4-12.4) fL Immature Gran % (Auto) 0.5 % Neut % (Auto) 62.8 % Lymph % (Auto) 18.7 % Cedar % (Auto) 15.8 % Eos % (Auto) 1.7 % Baso % (Auto) 0.5 % Neut # (Auto) 4.03 (1.40-6.50) K/uL Lymph # (Auto) 1.20 (1.20-3.40) K/uL Cedar # (Auto) 1.01 H (0.11-0.59) K/uL Eos # (Auto) 0.11 (0.00-0.50) K/uL Baso # (Auto) 0.03 (0.00-0.20) K/uL Immature Gran # (Auto) 0.03 (0.01-0.20) K/uL Sodium 137 (136-145) mmol/L Potassium 4.2 (3.5-5.1) mmol/L Chloride 102 (98-107) mmol/L Carbon Dioxide 22 (21-32) mmol/L Anion Gap 13 H (3-11) BUN 27 H (6-23) mg/dl Creatinine 1.84 H (0.6-1.4) mg/dl Est Cr Clr Drug Dosing 35.3 ml/min eGFR 34.83 BUN/Creatinine Ratio 14.7 (10-20) Glucose 110 H (70-99(Fasting)) mg/dl Lactate 2.3 H* (0.4-2.0) mmol/L Calcium 9.1 (8.6-10.3) mg/dl Magnesium 2.0 (1.7-2.4) mg/dl Total Bilirubin 0.5 (0.2-1.0) mg/dl Direct Bilirubin 0.1 (0-0.2) mg/dl AST 19 (13-39) U/L ALT 22 (7-52) U/L Alkaline Phosphatase 65 (34-104) U/L Troponin I High Sens 8.9 (0-20) pg/ml Total Protein 7.4 (6.0-8.3) gm/dl Albumin 4.0 (3.4-5.0) gm/dl Procalcitonin 0.08 (0-0.5) ng/ml Urine Color Yellow Urine Appearance Turbid A (Clear) Urine pH 5.5 (4.5-7.5) Ur Specific [place] 1.019 (1.000-1.030) Urine Protein 1+ H (Negative) Urine Glucose (UA) Negative (Negative) Urine Ketones Trace H (Negative) Urine Blood Negative (Negative) Urine Nitrite Negative (Negative) Urine Bilirubin Negative (Negative) Urine Urobilinogen Negative (Negative) Ur Leukocyte Esterase 3+ H (Negative) Adenovirus (PCR) Not Detected (NotDetected) B. pertussis DNA (PCR) Not Detected (NotDetected) B.parapertussis DNA PCR Not Detected (NotDetected) C. pneumoniae DNA (PCR) Not Detected (NotDetected) Coronavirus OC43 (PCR) Not Detected (NotDetected) Coronavirus HKU1 (PCR) Not Detected (NotDetected) Coronavirus 229E (PCR) Not Detected (NotDetected) SARS-CoV-2 (PCR) DETECTED A (NotDetected) Coronavirus NL63 (PCR) Not Detected (NotDetected) Human Metapneumovir PCR Not Detected (NotDetected) Influenza Type A (PCR) Not Detected (NotDetected) Influenza Type B (PCR) Not Detected (NotDetected) M. pneumoniae (PCR) Not Detected (NotDetected) Parainfluenza 1 (PCR) Not Detected (NotDetected) Parainfluenza 2 (PCR) Not Detected (NotDetected) Parainfluenza 3 (PCR) Not Detected (NotDetected) Parainfluenza 4 (PCR) Not Detected (NotDetected) RSV (PCR) Not Detected (NotDetected) Entero/Rhino (PCR) Not Detected (NotDetected) Imaging Data Attestation: I personally reviewed and interpreted this imaging study as follows: Radiologist's Impression: Abdomen/Pelvis CT 03/18/24 22:52 Exam(s): CT ABDOMEN + PELVIS Without Contrast EXAM: CT Abdomen and Pelvis Without Intravenous Contrast CLINICAL HISTORY: Reason for exam: lower abd pain, fever, uti. TECHNIQUE: Axial computed tomography images of the abdomen and pelvis without intravenous contrast. CTDI is 28.14 mGy and DLP is 1500.36 mGy-cm. Automated exposure control was utilized for the study. A dose lowering technique was utilized adhering to the principles of ALARA. COMPARISON: No relevant prior studies available. FINDINGS: Lung bases: Unremarkable. No mass. No consolidation. ABDOMEN: Liver: Unremarkable. Gallbladder and bile ducts: Cholecystectomy. No ductal dilation. Pancreas: Unremarkable. No ductal dilation. Spleen: Unremarkable. No splenomegaly. Adrenals: Unremarkable. No mass. Kidneys and ureters: Atrophy of the kidneys. Renal cysts measuring up to 4.5 cm in the RIGHT kidney. No obstructing stones. No hydronephrosis. Stomach and bowel: Diverticulosis, without acute diverticulitis. No small bowel obstruction. No free intraperitoneal air. PELVIS: Appendix: No findings to suggest acute appendicitis. Bladder: Wall thickening of the urinary bladder which contains a Ordonez catheter. Correlate for UTI. Urinalysis recommended. No stones. Reproductive: Unremarkable as visualized. ABDOMEN and PELVIS: Intraperitoneal space: Unremarkable. No free air. No significant fluid collection. Bones/joints: Bilateral hip arthroplasties. Degenerative changes of the spine. Posterior fusion at L2-L5. No acute fracture. No dislocation. Soft tissues: Unremarkable. Vasculature: Atherosclerotic changes of the aorta. No abdominal aortic aneurysm. Lymph nodes: Unremarkable. No enlarged lymph nodes. IMPRESSION: 1. Wall thickening of the urinary bladder which contains a Ordonez catheter. Correlate for UTI. Urinalysis recommended. 2. Cholecystectomy. 3. Diverticulosis, without acute diverticulitis. No small bowel obstruction. No free intraperitoneal air. Electronically signed by: Bertrand Anthony MD 03/19/24 00:49 AM MDM Narrative Prior records/ancillary studies reviewed and summarized above. Nursing notes reviewed. Additional history obtained from EMS. The patient's history was concerning for weakness with subjective fever and chills. Differential diagnosis: Etiologies such as metabolic, infection, hypo/hyperglycemia, electrolyte abnormalities, cardiac sources, intracerebral event, toxicologic, neurologic, as well as others were entertained. Physical examination: As above. ER treatment provided: IV Lock An order was placed for continuous cardiac monitoring. The monitor shows a rate of 60-100 with a sinus rhythm per my interpretation. Zosyn for possible urosepsis On reassessment the patient felt better. Diagnostics interpretation by me: ECG: Ordered for weakness EKG: Normal sinus, first-degree AV block, low voltage, no acute ST-T wave changes, rate 89. Impression normal sinus rhythm first-degree AV block independently interpreted by myself The labs Independently Interpreted by myself revealed urine concerning for infection sent for culture. Prior culture was reviewed Name: REHAN FUENTES Acct: [id number] Status: DIS IN : 1935 [facility] [place] Date: 0 01/26/23 Age: 89 Sex: M Dis Date: 0 01/29/23 Loc: [address] Rm/Bed: N276-1 Spec: [id number] Collected: 01/26/23 Received: 01/26/[address]: Samuel Avilez, Source: Urine,Straight Cath OV Order: Ordered: Urine Culture Procedure Result Verified Site Urine Culture Final 01/28/23 Organism 1 Enterobacter gergoviae [place] Count >100,000 CFU/ml Sens Sensitivities to Follow E gergovia RX M.I.C. --- --------- Amox/Clav S <=8/4 Ampicillin S <=8 Amp/Sul S <=8/4 Cefazolin S <=2 Cefepime S <=2 Ceftriaxone S <=1 Ciprofloxacin S <=0.25 Ertapenem S <=0.5 Gentamicin S <=4 Levofloxacin S <=0.5 Meropenem S <=1 Nitrofurantoin S <=32 Tobramycin S <=4 Trimeth/Sulfa S <=2/38 Pip/Tazo S <=16 S = SENSITIVE I = INTERMEDIATE R = RESISTANT Positive COVID, no worrisome leukocytosis, minimally elevated lactic Imaging studies: Chest x-ray with possible right lower lobe pneumonia per my independent interpretation. No pneumothorax. CT was reviewed and read by radiology as above Consultation: A consultation was placed with the hospitalist. The case was discussed and diagnostics were reviewed. The patient was evaluated in the ER for further treatment. Exam and history seem consistent with UTI with COVID. Patient was too weak to go home. He was started on antibiotics and prior culture was reviewed. Medicine is consulted case discussed. He will be admitted to the medical service. Patient and family are agreeable. By the evaluation outlined above emergent etiologies such as electrolyte abnormalities, cardiac sources, intracerebral event, toxologic, neurologic, abnormalities blood glucose, metabolic, as well as others were deemed relatively unlikely. The pt informed about the findings as listed above. All questions were answered and pleased with the treatment. The chart was completed utilizing [employer] Speech voice recognition software. Grammatical errors, random word insertions, pronoun errors, and incomplete sentences are an occassional consequence of this system due to software limitations, ambient noise, and hardware issues. Any formal questions or concerns about the content, text, or information contained within the body of this dictation should be directly addressed to the physician assistant foreman for clarification. Impression & Plan Acute UTI, Weakness, COVID-19 Discharge Plan Visit Data Chief Complaint: Fall Stated Complaint: FALL, NO COMPLAINTS, WANTS CHECKED OUT ED Provider: Sebastián Quintero ED Midlevel Provider: Felicity Stewart Discharge Problem: Acute UTI, Weakness, COVID-19 Patient Disposition: Admitted As Inpatient Condition: Fair Forms Stand Alone Forms: [facility] [employer] Prescriptions Prescriptions: No Action methenamine hippurate 1 gram tablet 1 gm PO HS vitamin E (dl, acetate) 400 unit capsule 400 units PO QAM coenzyme Q10 100 mg capsule 200 mg PO QAM acetaminophen 325 mg capsule 1,000 mg PO QAM aspirin [Adult Low Dose Aspirin] 81 mg tablet,delayed release (DR/EC) 81 mg PO HS Rx Instructions: Pt states he takes a 325 mg tablet and takes 1/4. esomeprazole magnesium 20 mg capsule,delayed release(DR/EC) 20 mg PO BID Qty: 90 5RF spironolactone 25 mg tablet 12.5 mg PO QAM diclofenac sodium 1 % gel 2 g topical UD PRN (Reason: arthritis) Rx Instructions: Apply small amount to skin three times a day apply to thumb joints for osteoARTHRITIS PreserVision Lutein 226 mg-200 unit -5 mg-0.8 mg capsule 1 cap PO BID ascorbic acid (vitamin C) 250 mg tablet 500 mg PO QPM ferrous sulfate 325 mg (65 mg iron) tablet 325 mg PO QPM cyanocobalamin (vitamin B-12) 1,000 mcg capsule 5,000 mcg PO QAM Patient Comments: sublingual sucralfate 1 gram tablet 1 g PO BID Qty: 60 2RF finasteride 5 mg tablet 5 mg PO HS metformin 500 mg Tablet 500 mg PO BID Patient Comments: metformin HCL atorvastatin 80 mg Tablet 40 mg PO HS tamsulosin 0.4 mg Capsule 0.4 mg PO HS montelukast 10 mg Tablet 10 mg PO QAM furosemide 20 mg tablet 40 mg PO QAM calcium carbonate-vitamin D3 600 mg-5 mcg (200 unit) Tablet 1 tab PO BID clotrimazole 1 % Cream 1 applic TOPICAL UD PRN (Reason: athletes foot) carboxymethylcellulose Granules 1 ea MISCELLANEOUS UD PRN (Reason: Dry Eye(S)) Patient Comments: it's a gel for dry eye - very seldom use metoprolol succinate 25 mg tablet extended release 24 hr 12.5 mg PO QAM Patient Comments: i think it's morning Stiolto Respimat 2.5-2.5 mcg/actuation mist 2 puff inhalation QAM Referrals Referrals: Jeancarlos Rosen III, CRNP [Primary Care Provider] -
[2024-03-18 23:56] LABS: Basophils # (auto) 0.03 K/uL (0.00-0.20); Basophils % (auto) 0.5 %; Eosinophils # (auto) 0.11 K/uL (0.00-0.50); Eosinophils % (auto) 1.7 %; Hematocrit (blood only) 37.9 % (42.0-52.0); Hemoglobin 13.1 g/dl (14.0-18.0); Immature Granulocytes # (auto) 0.03 K/uL (0.01-0.20); Immature Granulocytes % (auto) 0.5 %; Lymphocytes % (auto) 18.7 %; Mean Corpuscular Hemoglobin 31.2 pg (25.0-34.0); Mean Corpuscular Hgb Conc 34.6 g/dL (32.0-36.0); Mean Corpuscular Volume 90.2 fL (80.0-100.0); Mean Platelet Volume 10.7 fL (9.4-12.4); Monocytes # (auto) 1.01 K/uL (0.11-0.59); Monocytes % (auto) 15.8 %; Neutrophils # (auto) 4.03 K/uL (1.40-6.50); Neutrophils % (auto) 62.8 %; Platelet Count 183 K/uL (130-400); RDW Coefficient of Variation 13.5 % (11.5-14.5); RDW Standard Deviation 44.9 fL (36.4-46.3); White Blood Count 6.41 K/ul (4.8-10.8)
[2024-03-19 00:12] LABS: BUN Creatinine Ratio 14.7 (10-20); Bilirubin Direct 0.1 mg/dl (0-0.2); Bilirubin,Total 0.5 mg/dl (0.2-1.0); Calcium 9.1 mg/dl (8.6-10.3); Creatinine Clr Calc Pharmacy 35.3 ml/min; Potassium 4.2 mmol/L (3.5-5.1); Total Protein 7.4 gm/dl (6.0-8.3)
[2024-03-19] MEDS: PIPERACILLIN/TAZOBACTAM 4.5 GM/100 ML BAG IV ONE (00:12)
[2024-03-19] MEDS: SODIUM CHLORIDE 0.9% 1,000 ML IV ONE (00:13)
--- NOTE | 2024-03-19 00:15 | Emergency Department Note ---
ED Visit Note The patient was seen and examined with Terry. I performed a substantive portion of all aspects of the medical decision making and agree with the h istory, physical and findings. Please see the note for disposition and details. .
[2024-03-19 00:18] LABS: Troponin I High Sensitivity 8.9 pg/ml (0-20)
[2024-03-19 00:20] LABS: Appearance Urine Turbid (Clear); Bacteria Urine Automated 4+ (None Seen); Bilirubin Urine Negative (Negative); Blood Urine Negative (Negative); Color Urine Yellow; Epithelial Cell Urine Auto 0-2 /hpf (0-2); Glucose Urine UA Negative (Negative); Ketones Urine Trace (Negative); Leukocyte Esterase Urine 3+ (Negative); Nitrite Urine Negative (Negative); Protein Urine 1+ (Negative); Specific Gravity Urine 1.019 (1.000-1.030); Urobilinogen Urine Negative (Negative); WBC Urine Automated >50 /hpf (0-5); pH Urine 5.5 (4.5-7.5)
[2024-03-19 00:50] LABS: Adenovirus PCR Not Detected (NotDetected); Bordetella parapertussis PCR Not Detected (NotDetected); Bordetella pertussis PCR Not Detected (NotDetected); Chlamydia pneumoniae PCR Not Detected (NotDetected); Coronavirus 229E PCR Not Detected (NotDetected); Coronavirus CoV-2 (COVID19)PCR DETECTED (NotDetected); Coronavirus HKU1 PCR Not Detected (NotDetected); Coronavirus NL63 PCR Not Detected (NotDetected); Coronavirus OC43PCR Not Detected (NotDetected); Human Metapneumovirus PCR Not Detected (NotDetected); Influenza A PCR Not Detected (NotDetected); Influenza B PCR Not Detected (NotDetected); Mycoplasma pneumoniae PCR Not Detected (NotDetected); Parainfluenza Virus 1 PCR Not Detected (NotDetected); Parainfluenza Virus 2 PCR Not Detected (NotDetected); Parainfluenza Virus 3 PCR Not Detected (NotDetected); Parainfluenza Virus 4 PCR Not Detected (NotDetected); Respiratory Syncytial VirusPCR Not Detected (NotDetected); Rhinovirus/Enterovirus PCR Not Detected (NotDetected)
--- NOTE | 2024-03-19 00:50 | CT Scan Report ---
Exam(s): CT ABDOMEN + PELVIS Without Contrast EXAM: CT Abdomen and Pelvis Without Intravenous Contrast CLINICAL HISTORY: Reason for exam: lower abd pain, fever, uti. TECHNIQUE: Axial computed tomography images of the abdomen and pelvis without intravenous contrast. CTDI is 28.14 mGy and DLP is 1500.36 mGy-cm. Automated exposure control was utilized for the study. A dose lowering technique was utilized adhering to the principles of ALARA. COMPARISON: No relevant prior studies available. FINDINGS: Lung bases: Unremarkable. No mass. No consolidation. ABDOMEN: Liver: Unremarkable. Gallbladder and bile ducts: Cholecystectomy. No ductal dilation. Pancreas: Unremarkable. No ductal dilation. Spleen: Unremarkable. No splenomegaly. Adrenals: Unremarkable. No mass. Kidneys and ureters: Atrophy of the kidneys. Renal cysts measuring up to 4.5 cm in the RIGHT kidney. No obstructing stones. No hydronephrosis. Stomach and bowel: Diverticulosis, without acute diverticulitis. No small bowel obstruction. No free intraperitoneal air. PELVIS: Appendix: No findings to suggest acute appendicitis. Bladder: Wall thickening of the urinary bladder which contains a Ordonez catheter. Correlate for UTI. Urinalysis recommended. No stones. Reproductive: Unremarkable as visualized. ABDOMEN and PELVIS: Intraperitoneal space: Unremarkable. No free air. No significant fluid collection. Bones/joints: Bilateral hip arthroplasties. Degenerative changes of the spine. Posterior fusion at L2-L5. No acute fracture. No dislocation. Soft tissues: Unremarkable. Vasculature: Atherosclerotic changes of the aorta. No abdominal aortic aneurysm. Lymph nodes: Unremarkable. No enlarged lymph nodes. IMPRESSION: 1. Wall thickening of the urinary bladder which contains a Ordonez catheter. Correlate for UTI. Urinalysis recommended. 2. Cholecystectomy. 3. Diverticulosis, without acute diverticulitis. No small bowel obstruction. No free intraperitoneal air. Electronically signed by: Bertrand Anthony MD 03/19/24 00:49 AM
--- NOTE | 2024-03-19 00:56 | History & Physical Report ---
Date of Service March 19, 2024 Assessment & Plan (1) Weakness: (2) Acute UTI: (3) COVID-19: (4) Barretts esophagus: (5) Interstitial lung disease: (6) Chronic indwelling Gerardo catheter: Plan Urinary Tract Infection | Chronic Indwelling Gerardo Catheter -Notes catheter was changed out on 03/05, however states this was 1-2 weeks late as the appointment had been cancelled due to the urology office changing locations -Had 1 day of chills/body aches/generally feeling unwell prior to arriving in ED, states this "feels the same" as his prior UTIs -Previously had UTIs that lead to bacteremia (08/2022 and 01/2023). In 01/2023, blood and urine cultures grew galaviz-sensitive Enterobacter gergoviae -No leukocytosis on admission (WBC 6.41), but lactate 2.3. Monitor daily CBC and CMP, Cr slightly bumped from baseline (Cr 1.84 in ED) -Received 1L NSS in ED and 1x Zosyn. Will continue Zosyn while awaiting culture and sensitivities -Urine culture and blood cultures collected, results pending -Continue home finasteride and tamsulosin COVID Positive -As above, endorses some nonspecific symptoms of 1 day of body aches/weakness -Endorses some nasal drainage and nonproductive cough in setting of COPD -Tylenol PRN, Tessalon Perles PRN -Respiratory biofire positive for COVID on admission -Isolation precautions ordered Ambulatory Dysfunction -Suspect secondary to current UTI and COVID positive status -PT/OT evals ordered -Typically ambulates without assistive devices at home, will use cane when out of the house COPD | ANNABELLE -Not on home O2 -Continue montelukast, Stiolto -BiPAP ordered nightly HTN -Continue home lisinopril, spironolactone, metoprolol HLD -Continue home atorvastatin DM -Hold home metformin -BSG 110 in ED, will order correction factor only GERD | History of Diaz's Esophagus -Continue PPI and Carafate Admit to Med/surg VTE Prophylaxis: Heparin Diet: Heart healthy, carb consistent Code Status: Conditional, no intubation History of Present Illness Primary Care Provider: Jeancarlos Rosen III, MARKO Nur "Priscilla Cortez is a 89 year-old male who presented to the ED after a ground level fall. His medical history is significant for CAD, HTN, COPD, ANNABELLE on bipap, urinary retention with chronic gerardo, DM, spinal stenosis. Patient endorses one day of feeling unwell (body aches/chills) which feels the same as his prior UTIs. Also notes that he got up to use the bathroom overnight and his legs "gave out" underneath him, he fell and landed on his rear end but denies any pain afterwards. His daughter lives in his house with him and heard the fall and found him on the floor. Patient notes that he chronically has a gerardo catheter, is typically changed out every 28-30 days, however when it was changed on 03/05 it had been closer to 5-6 weeks due to the urology office needing to cancel his prior appointment as they were changing office buildings. Patient denies chest pain or shortness of breath, no nausea/vomiting/diarrhea. Patient notes that he had an EGD a few weeks ago for his Diaz's esophagus and the results were good. States that he has an upcoming trip to [place], [place] in the next week and is hoping to be well enough to travel soon. ED Course: -Respiratory biofire -CBC, CMP, lactate -EKG -CT A/P, CXR -UA, blood cultures Allergies Allergy/AdvReac Type Severity Reaction Status Date / Time nitrofurantoin Allergy Severe SHORTNESS Verified 03/19/24 01:04 OF BREATH, "spitting up thick black stuff" ezetimibe AdvReac Unknown Muscle Pain Verified 03/19/24 01:04 simvastatin AdvReac Unknown Muscle Pain Verified 03/19/24 01:04 Home Medications Medication Instructions Recorded Confirmed Type methenamine hippurate 1 gram tablet 1 gm PO HS 03/04/18 03/19/24 History vitamin E (dl, acetate) 180 mg 400 units PO QAM 03/04/18 03/19/24 History (400 unit) capsule spironolactone 25 mg tablet 12.5 mg PO QAM 06/12/19 03/19/24 History atorvastatin 80 mg tablet 40 mg PO HS 03/23/20 03/19/24 History finasteride 5 mg tablet 5 mg PO HS 03/23/20 03/19/24 History metformin 500 mg tablet 500 mg PO BID 03/23/20 03/19/24 History montelukast 10 mg tablet 10 mg PO QAM 03/23/20 03/19/24 History tamsulosin 0.4 mg capsule 0.4 mg PO HS 03/23/20 03/19/24 History ascorbic acid (vitamin C) 250 mg 500 mg PO QPM 11/17/20 03/19/24 History tablet ferrous sulfate 325 mg (65 mg 325 mg PO QPM 11/17/20 03/19/24 History iron) tablet diclofenac sodium 1 % topical gel 2 g topical UD PRN arthritis 06/16/21 03/19/24 History vit C 226 mg-vit E 90 mg-copper 1 cap PO BID 06/16/21 03/19/24 History 0.8 mg-zinc oxide-lutein 5 mg capsule (PreserVision Lutein) furosemide 20 mg tablet 40 mg PO QAM 01/05/22 03/19/24 History acetaminophen 325 mg capsule 1,000 mg PO QAM 08/08/22 03/19/24 History aspirin 81 mg tablet,delayed 81 mg PO HS 01/30/23 03/19/24 History release (Adult Low Dose Aspirin) coenzyme Q10 100 mg capsule 200 mg PO QAM 02/07/23 03/19/24 History calcium 600 mg (as 1 tab PO BID 03/23/23 03/19/24 History carbonate)-vitamin D3 5 mcg (200 unit) tablet carboxymethylcellulose 1 ea miscellaneous UD PRN Dry 03/23/23 03/19/24 History Eye(S) clotrimazole 1 % topical cream 1 applic topical UD PRN athletes 03/23/23 03/19/24 History foot metoprolol succinate 25 mg 12.5 mg PO QAM 03/23/23 03/19/24 History tablet,extended release 24 hr tiotropium 2.5 mcg-olodaterol 2.5 2 puff inhalation QAM 03/23/23 03/19/24 History mcg/actuation mist for inhalation (Stiolto Respimat) cyanocobalamin (vitamin B-12) 5,000 mcg PO QAM 06/25/23 03/19/24 History 1,000 mcg capsule esomeprazole magnesium 20 mg 20 mg PO BID #90 caps 07/06/23 03/19/24 Rx capsule,delayed release sucralfate 1 gram tablet 1 g PO BID #60 tabs 07/31/23 03/19/24 Rx Past Med/Surg History Problem List Chronic indwelling Gerardo catheter COVID-19 (Acute) Weakness (Acute) Acute UTI (Acute) Lumbar spondylosis Lumbar facet joint syndrome Coronary artery disease (Chronic) Heart block AV second degree Bradycardia Pulmonary hypertension Elevated PSA Ischemic cardiomyopathy History of urinary self-catheterization Interstitial lung disease Solitary thyroid nodule Barretts esophagus Bladder mass Medical History New onset a-fib Catheter-associated urinary tract infection Low iron History of recent hospitalization Jan or Feb 2023 - [facility] for UTI / detected afib....monitor worn /unknown results/has en[place] with Dr. Harvey on 03/26/23. Barretts esophagus Ischemic cardiomyopathy not that pt aware of. Gerardo catheter in place changed monthly. 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 Multiple lung nodules not that pt aware of Urethral stricture, postoperative Intestinal metaplasia of gastric cardia no hx cancer other than skin per pt Gastric ulcer not that i know of External hemorrhoids GERD (gastroesophageal reflux disease) Hearing deficit Myocardial Infarction 12/1980 "silent heart attack"--follows with [facility] COPD (chronic obstructive pulmonary disease) ANNABELLE (obstructive sleep apnea) bipap with oxygen 2.5L Venous insufficiency ? details/chronic inside right knee. Solitary thyroid nodule denies Hypertension Hypercholesterolemia 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) Disc degeneration, lumbar Diabetes mellitus type 2 Arthritis Allergic rhinitis Spinal stenosis of lumbar region Lumbar post-laminectomy syndrome Urinary retention with incomplete bladder emptying TIA (transient ischemic attack) 2014--no neurologist, no further issues Surgical History History of surgery hx pain mgmt procedure December 2022 - didn't work. Upcoming ablation Apr [address] Stewart [address] Dr[address] Nunez. Status post Mohs surgery for squamous cell carcinoma of skin hx History of circumcision 1998 History of surgery urethroplasty x2 History of cystoscopy History of hand surgery left dupuytren's contracture & right hand dupuytrens & trigger finger. History of total right hip replacement History of total left hip replacement History of colonoscopy History of esophagogastroduodenoscopy (EGD) History of left inguinal hernia repair 1980 History of cholecystectomy History of tooth extraction partial upper/lower History of tonsillectomy History of bilateral cataract extraction History of transesophageal echocardiography (BENY) 1994 History of cardiac cath 03/1981 @ [facility] [place] placed History of lumbar fusion Family History Father Myocardial infarction Mother Congestive heart failure Family history of diabetes mellitus Brother Family history of diabetes mellitus Brother Family history of diabetes mellitus Other No family history of adverse response to anesthesia Denies family history of Ovarian cancer Prostate cancer Breast cancer Colorectal cancer Social History Smoking Status: Never smoker Tobacco Type: Cigarettes Age Started Using Tobacco: 15; Age Quit Using Tobacco: 45; packs per day: 1; Cigarettes Per Day: 20; Second Hand Exposure: No; Do You Dip or Chew Tobacco: No; Hx Alcohol Use: Yes Alcohol type: beer Alcohol Intake Frequency: Monthly or Less Hx Substance Use: No Preferred Language: Azeri Communication Ability: Effective Visual Impairment: No Limitations Hearing Ability: Use of Hearing Aid Legal Technician Required: No Beliefs That Will Affect Care: Restoration Restoration Beliefs: Hinduism marital status: / Current Living Situation: Family Current Living Situation Comment: daughter stays with me most of the time current occupational status: retired Feels Safe at Home: Yes Childhood Exposure to Second-Hand Smoke: Yes Diet: regular Dental Care, Regularly: Yes Physical Activity Frequency: Does not Exercise Seatbelt Use: always Sunscreen Use: No Do you think of yourself as: straight/heterosexual Assistive Devices: Cane, Hearing Aid - Bilateral and Other Review of Systems 2 Review of Systems: As per above Physical Exam 2 Constitutional: WD/WN, vitals as above Eyes: + anicteric sclerae and PERRL; no conjun ctival abnormality ENMT: Ears: no external ear abnormality Nose: no external nose abnormality Moist mucous membranes Respiratory: normal respiratory effort; no respiratory distress A uscultation: lungs clear to auscultation bilaterally Gastrointestinal (Abdomen): Inspection/Auscultation: abdomen normal to inspection; abdomen not distended Percussion/Palpation: abdomen soft; abdomen nontender and no guarding Musculoskeletal: Moves all limbs independently Neurologic: No focal defecits appreciated Psychiatric: A+Ox3, euthymic affect Results & Data Results & Data Vital Signs (Past 12 Hours) Vital Signs Temp Pulse Pulse Resp BP BP Pulse Ox 03/19/24 00:00 80 22 104/69 91 03/18/24 23:50 91 H 22 104/69 95 03/18/24 22:57 90 03/18/24 22:53 37.5 C 90 18 107/61 93 O2 Del Method 03/19/24 00:00 Room Air 03/18/24 23:50 Room Air 03/18/24 22:57 03/18/24 22:53 Room Air Laboratory Results 03/18/24 23:28 03/18/24 23:28 Diagnostic Findings Abdomen/Pelvis CT 03/18/24 22:52 Exam(s): CT ABDOMEN + PELVIS Without Contrast EXAM: CT Abdomen and Pelvis Without Intravenous Contrast CLINICAL HISTORY: Reason for exam: lower abd pain, fever, uti. TECHNIQUE: Axial computed tomography images of the abdomen and pelvis without intravenous contrast. CTDI is 28.14 mGy and DLP is 1500.36 mGy-cm. Automated exposure control was utilized for the study. A dose lowering technique was utilized adhering to the principles of ALARA. COMPARISON: No relevant prior studies available. FINDINGS: Lung bases: Unremarkable. No mass. No consolidation. ABDOMEN: Liver: Unremarkable. Gallbladder and bile ducts: Cholecystectomy. No ductal dilation. Pancreas: Unremarkable. No ductal dilation. Spleen: Unremarkable. No splenomegaly. Adrenals: Unremarkable. No mass. Kidneys and ureters: Atrophy of the kidneys. Renal cysts measuring up to 4.5 cm in the RIGHT kidney. No obstructing stones. No hydronephrosis. Stomach and bowel: Diverticulosis, without acute diverticulitis. No small bowel obstruction. No free intraperitoneal air. PELVIS: Appendix: No findings to suggest acute appendicitis. Bladder: Wall thickening of the urinary bladder which contains a Gerardo catheter. Correlate for UTI. Urinalysis recommended. No stones. Reproductive: Unremarkable as visualized. ABDOMEN and PELVIS: Intraperitoneal space: Unremarkable. No free air. No significant fluid collection. Bones/joints: Bilateral hip arthroplasties. Degenerative changes of the spine. Posterior fusion at L2-L5. No acute fracture. No dislocation. Soft tissues: Unremarkable. Vasculature: Atherosclerotic changes of the aorta. No abdominal aortic aneurysm. Lymph nodes: Unremarkable. No enlarged lymph nodes. IMPRESSION: 1. Wall thickening of the urinary bladder which contains a Gerardo catheter. Correlate for UTI. Urinalysis recommended. 2. Cholecystectomy. 3. Diverticulosis, without acute diverticulitis. No small bowel obstruction. No free intraperitoneal air. Electronically signed by: Bertrand Anthony MD 03/19/24 00:49 AM Supervising Physician Co-Signing Physician Notes Patient seen and examined, chart reviewed, case discussed with Dr. Romero and I agree with the assessment and plan as above. Patient with indwelling Gerardo. Presenting with symptoms most consistent with UTI Also found to be COVID-19 POSITIVE. Respiratory status is stable with adequate oxygenation on room air. Resting comfortably on exam, NAD MMM, Neck supple +S1/S2, regular Lungs - CTA anteriorly Abd - +BS, soft, NT/ND Ext - well perfused Labs and images reviewed Assessment/Plan Continue Zosyn, follow cultures Replace Gerardo Maintain isolation precautions - follow respiratory status. No indication for steroids at this time Remainder as above Resident Activity Tracking Resident Involvement: Resident Care Provided Care Provided: Adult Hospital Medicine (4) Barretts esophagus Diaz's esophagus type: with dysplasia of unspecified degree Qualified Code(s): K22.719 - Diaz's esophagus with dysplasia, unspecified
[2024-03-19 01:11] LABS: RBC Urine Automated 0-2 /hpf (0-2)
--- NOTE | 2024-03-19 04:11 | Billing Data ---
Date of Service March 19, 2024 Coding Level of Care Code 56629 INT INP/OBS CARE
[2024-03-19] MEDS: PLASMA-LYTE A 1,000 ML IV STA (04:22)
--- NOTE | 2024-03-19 06:49 | XRay Report ---
XR chest 1V portable CLINICAL HISTORY: Sepsis TECHNIQUE: Single frontal radiograph of the chest was obtained. Comparison: Comparison is made to chest radiograph 08/02/2023 FINDINGS: No lines and tubes are seen. Calcified aortic knob is seen. Lungs are underinflated but clear. No concepcion dence of pleural effusion or pneumothorax. IMPRESSION: No acute abnormalities and in particular no radiographic evidence of pneumonia. ACT 112: Negative or not required by law. Electronically signed by: Tello Cancino M.D. 03/19/2024 6:48 AM
[2024-03-19] MEDS ORDERED: DEXTROSE 50% 50 ML SYRINGE IV PRN (07:09)
[2024-03-19] MEDS ORDERED: ONDANSETRON INJ 2 MG/ML 2 ML VIAL IV PRN (07:09)
[2024-03-19] MEDS ORDERED: MELATONIN 3 MG TAB PO PRN (07:09)
[2024-03-19] MEDS ORDERED: POLYETHYLENE (MIRALAX) 17 GM PACK PO PRN (07:09)
[2024-03-19] MEDS ORDERED: CARBOHYDRATES FOR HYPOGLYCEMIA PO PRN (07:09)
[2024-03-19] MEDS ORDERED: ACETAMINOPHEN 325 MG TAB PO PRN (07:09)
[2024-03-19] MEDS ORDERED: ALUMINUM/MAGNESIUM SUSP 30 ML UDC PO PRN (07:09)
[2024-03-19] MEDS ORDERED: GLUCOSE 10 TAB/TUBE PO PRN (07:09)
[2024-03-19] MEDS ORDERED: GLUCAGON FOR INJ 1 MG VIAL SQ PRN (07:09)
[2024-03-19] MEDS ORDERED: GLUCOSE 40% GEL 15 GM TUBE PO PRN (07:09)
[2024-03-19 07:46] LABS: Basophils # (auto) 0.02 K/uL (0.00-0.20); Basophils % (auto) 0.3 %; Eosinophils # (auto) 0.12 K/uL (0.00-0.50); Eosinophils % (auto) 1.8 %; Hemoglobin 11.2 g/dl (14.0-18.0); Immature Granulocytes # (auto) 0.04 K/uL (0.01-0.20); Immature Granulocytes % (auto) 0.6 %; Lymphocytes # (auto) 1.59 K/uL (1.20-3.40); Lymphocytes % (auto) 23.2 %; Mean Corpuscular Hemoglobin 30.4 pg (25.0-34.0); Mean Corpuscular Hgb Conc 32.9 g/dL (32.0-36.0); Mean Corpuscular Volume 92.4 fL (80.0-100.0); Mean Platelet Volume 10.4 fL (9.4-12.4); Monocytes # (auto) 1.17 K/uL (0.11-0.59); Monocytes % (auto) 17.1 %; Neutrophils # (auto) 3.91 K/uL (1.40-6.50); Platelet Count 166 K/uL (130-400); RDW Coefficient of Variation 13.6 % (11.5-14.5); RDW Standard Deviation 46.3 fL (36.4-46.3); Red Blood Count 3.68 M/uL (4.70-6.10); White Blood Count 6.85 K/ul (4.8-10.8)
--- NOTE | 2024-03-19 08:05 | Electrocardiogram Report ---
Test Reason : Blood Pressure : */* mmHG Vent. Rate : 89 BPM Atrial Rate : 89 BPM P-R Int : 226 ms QRS Dur : 86 ms QT Int : 362 ms P-R-T Axes : 69 31 32 degrees QTcB Int : 440 ms Sinus rhythm with 1st degree A-V block Low voltage QRS Borderline ECG When compared with ECG of 19-Jul-2023 14:37, FL interval has increased Borderline Criteria for Anterior infarct no longer present Confirmed by George Bee ([id number]) on 03/19/2024 8:04:41 AM Referred By: REFERRED SELF Confirmed By: George Bee
[2024-03-19 08:16] LABS: Albumin Globulin Ratio 1.2 (0.9-2); Albumin Level 3.4 gm/dl (3.4-5.0); BUN Creatinine Ratio 15.1 (10-20); Bilirubin,Total 0.5 mg/dl (0.2-1.0); Calcium 8.1 mg/dl (8.6-10.3); Creatinine Clr Calc Pharmacy 40.9 ml/min; Globulin 2.8 gm/dl (2.5-4.0); Potassium 4.1 mmol/L (3.5-5.1); Total Protein 6.2 gm/dl (6.0-8.3)
[2024-03-19] MEDS: SPIRONOLACTONE 12.5 MG TAB PO SCH (08:57)
[2024-03-19] MEDS: PIPERACILLIN/TAZOBACTAM 4.5 GM/100 ML BAG IV SCH (08:57)
[2024-03-19] MEDS: FUROSEMIDE 40 MG TAB PO SCH (08:58)
[2024-03-19] MEDS: CYANOCOBALAMIN (B-12) 2,500 MCG TABLET PO SCH (08:58)
[2024-03-19] MEDS: METOPROLOL SUCC 25MG EXT REL TAB PO SCH (08:58)
[2024-03-19] MEDS: MONTELUKAST SODIUM 10 MG TABLET PO SCH (08:58)
[2024-03-19] MEDS: UMECLIDINIUM/VILANTEROL 62.5/25MCG 7 PUFFS/INHALER INH SCH (08:59)
[2024-03-19] MEDS: SUCRALFATE 1 GM TAB PO SCH (08:59)
[2024-03-19] MEDS: PANTOprazole 40 MG TAB PO SCH (08:59)
[2024-03-19] MEDS: INSULIN ASPART PER UNIT CHARGE SC SCH (09:08)
--- NOTE | 2024-03-19 09:32 | Hospitalist Progress Note ---
"Date of Service March 19, 2024 Assessment & Plan (1) Acute UTI: Plan: associated with metabolic encephalopathy and chronic indwelling catheter, poa (2) COVID-19: Plan: incidential diagnosis, no pulmonary symptoms (3) Interstitial lung disease: (4) Barretts esophagus: Plan Urinary Tract Infection poa associated with Chronic Indwelling Ordonez Catheter -Notes catheter was changed out on 03/05, however states this was 1-2 weeks late as the appointment had been cancelled due to the urology office changing locations -Previously had UTIs that lead to bacteremia (08/2022 and 01/2023). In 01/2023, blood and urine cultures grew galaviz-sensitive Enterobacter gergoviae IV Zosyn -Urine culture and blood cultures, results pending -Continue home finasteride and tamsulosin COVID Positive, not covid pneumonia -As above, endorses some nonspecific symptoms of 1 day of body aches/weakness -Endorses some nasal drainage and nonproductive cough in setting of COPD -Tylenol PRN, Tessalon Perles PRN -Respiratory biofire positive for COVID on admission -Isolation precautions ordered Ambulatory Dysfunction-metabolic encephalopathy/weakness -Suspect secondary to current UTI and COVID positive status -PT/OT evals ordered -Typically ambulates without assistive devices at home, will use cane when out of the house GERD | History of Diaz's Esophagus -Continue PPI and Carafate, some dysphagia, increase carafate by pts request -consult GI if continues may need EGD COPD | ANNABELLE l interstitial lung disease -Not on home O2 -Continue montelukast, Stiolto -BiPAP ordered nightly HTN -Continue home lisinopril, spironolactone, metoprolol HLD -Continue home atorvastatin DM -Hold home metformin -BSG 110 in ED, will order correction factor only VTE Prophylaxis: Heparin Diet: Heart healthy, carb consistent Code Status: Conditional, no intubation Admission and Anticipated Discharge Date Admission Date: March 19, 2024 Subjective very pleasant male whose initial symptoms have improved from uti and confusion he is having some distress with eating with some dysphagia that he states he has from time to time, he is currently being activly treated with [facility] for Barretts esophagitis, but does not sound as he had ever had a previous stricture or dilation Physical Exam Physical Exam: pleasant man alert and oriented coughing phlegm into container lungs are clear cardiac is regular Results & Data Results & Data Vital Signs (Past 12 Hours) Vital Signs Temp Pulse Pulse Pulse Resp BP BP 03/19/24 09:09 79 117/66 03/19/24 06:15 75 22 118/65 03/19/24 06:00 77 23 118/65 03/19/24 05:30 78 25 H 120/65 03/19/24 05:00 74 21 118/63 03/19/24 04:00 81 21 120/61 03/19/24 03:36 86 03/19/24 03:00 83 22 124/67 03/19/24 02:00 60 19 126/64 03/19/24 01:30 90 20 131/70 03/19/24 01:00 89 22 120/67 03/19/24 00:00 80 22 104/69 03/18/24 23:50 91 H 22 104/69 03/18/24 22:57 90 03/18/24 22:53 99.5 F 90 18 107/61 Pulse Ox O2 Del Method 03/19/24 09:09 91 Room Air 03/19/24 06:15 93 Room Air 03/19/24 06:00 91 Room Air 03/19/24 05:30 90 Room Air 03/19/24 05:00 94 Room Air 03/19/24 04:00 94 Room Air 03/19/24 03:36 03/19/24 03:00 91 Room Air 03/19/24 02:00 91 Room Air 03/19/24 01:30 95 Room Air 03/19/24 01:00 95 Room Air 03/19/24 00:00 91 Room Air 03/18/24 23:50 95 Room Air 03/18/24 22:57 03/18/24 22:53 93 Room Air Laboratory Results reviewed cbc reviewed chemistry PG Care Time/CCT Total # of Minutes Spent Total Time Spent with Patient: Total time spent is greater than 50% in coordination of care (as documented) at patient's floor/unit and/or counseling patient: Coding Level of Care Code 38326 SUB INP/OBS CARE 3/50MIN Diagnoses Acute UTI N39.0 COVID-19 U07.1 Interstitial lung disease J84.9 Diaz's esophagus with dysplasia K22.719 Diaz's esophagus type: with dysplasia of unspecified degree (4) Barretts esophagus Diaz's esophagus type: with dysplasia of unspecified degree Qualified Code(s): K22.719 - Diaz's esophagus with dysplasia, unspecified"
[2024-03-19] MEDS: SUCRALFATE 1 GM/10 ML UDC PO SCH (17:09)
[2024-03-19] MEDS: FINASTERIDE 5 MG TAB PO SCH (20:50)
[2024-03-19] MEDS: ATORVASTATIN 40 MG TAB PO SCH (20:50)
[2024-03-19] MEDS: ASPIRIN 81 MG ECTAB PO SCH (20:50)
[2024-03-19] MEDS: TAMSULOSIN HCL 0.4 MG CAP PO SCH (20:50)
[2024-03-20 06:30] LABS: Albumin Globulin Ratio 1.1 (0.9-2); Albumin Level 3.4 gm/dl (3.4-5.0); BUN Creatinine Ratio 13.8 (10-20); Bilirubin,Total 0.5 mg/dl (0.2-1.0); Calcium 8.2 mg/dl (8.6-10.3); Creatinine Clr Calc Pharmacy 34.8 ml/min; Potassium 4.2 mmol/L (3.5-5.1); Total Protein 6.4 gm/dl (6.0-8.3)
[2024-03-20 06:34] LABS: Basophils # (auto) 0.03 K/uL (0.00-0.20); Basophils % (auto) 0.5 %; Eosinophils # (auto) 0.21 K/uL (0.00-0.50); Eosinophils % (auto) 3.2 %; Hematocrit (blood only) 34.3 % (42.0-52.0); Hemoglobin 11.3 g/dl (14.0-18.0); Immature Granulocytes # (auto) 0.03 K/uL (0.01-0.20); Immature Granulocytes % (auto) 0.5 %; Lymphocytes # (auto) 1.75 K/uL (1.20-3.40); Lymphocytes % (auto) 26.3 %; Mean Corpuscular Hemoglobin 30.5 pg (25.0-34.0); Mean Corpuscular Hgb Conc 32.9 g/dL (32.0-36.0); Mean Corpuscular Volume 92.5 fL (80.0-100.0); Mean Platelet Volume 10.8 fL (9.4-12.4); Monocytes # (auto) 1.09 K/uL (0.11-0.59); Monocytes % (auto) 16.4 %; Neutrophils # (auto) 3.54 K/uL (1.40-6.50); Neutrophils % (auto) 53.1 %; Platelet Count 159 K/uL (130-400); RDW Coefficient of Variation 13.7 % (11.5-14.5); RDW Standard Deviation 47.2 fL (36.4-46.3); Red Blood Count 3.71 M/uL (4.70-6.10); White Blood Count 6.65 K/ul (4.8-10.8)
[2024-03-20] MEDS: HEPARIN SOD 5,000 UNIT/0.5 ML VIAL SQ SCH (08:52)
--- NOTE | 2024-03-20 09:49 | Gastrointestinal Consultation ---
Date of Consultation March 20, 2024 Assessment & Plan (1) Barretts esophagus: - He is following with [facility] currently with most recent scope done just about 3 weeks ago that was unremarkable. - continue with protonix 40mg po BID and carafate 1 gm qid. (2) Dysphagia: - He only had one episode of this per patient. Given active covid infection, recent unremarkable EGD, and lack of symptoms currently, would defer any further work up at this time. If dysphagia becomes an ongoing issue, would consider barium swallow to evaluate. Supervising Physician Co-Signing Physician Notes I personally saw and examined the patient. I have reviewed the chart and agree with the documentation provided by the ROCK LOADER including discussion about the assessment, treatment and plan. Briefly, 89 year old male with past medical history of CAD, HTN, COPD, ANNABELLE on bipap, urinary retention with chronic gerardo, DM, and spinal stenosis who presented to the ED after a ground level fall. Patient endorses one day of feeling unwell (body aches/chills) which felt the same as his prior UTIs. He was admitted with UTI as well as new covid infection. He has a history of souza's esophagus with high grade dysplasia and underwent an EGD in June 2023 for EMR. He just had a follow up EGD on 02/28 with [facility] without active souza's esophagus. no strictures noted. On his admission here, he had one episode of dysphagia yesterday at lunch that the patient tells me he feels was caused by him not chewing his foods well enough. Currently he is eating a lot better. Given COVID and his current medical problems and recent EGD, we will treat him supportively and see how he does. He will need follow-up with [facility] as scheduled. PPI po or iv twice daily while he is in house. History of Present Illness Reason for Consultation: dysphagia to solids/ history of souza's esophagus. Requesting Physician: Socrates Romano MD Attending Physician: Carlee Lebron DO History of Present Illness Patient is an 89 year old male with past medical history of CAD, HTN, COPD, ANNABELLE on bipap, urinary retention with chronic gerardo, DM, and spinal stenosis who presented to the ED after a ground level fall. Patient endorses one day of feeling unwell (body aches/chills) which felt the same as his prior UTIs. He was admitted with UTI as well as new covid infection. He has a history of souza's esophagus with high grade dysplasia and underwent an EGD in June 2023 for EMR. He just had a follow up EGD on 02/28 with [facility] without active souza's esophagus. no strictures noted. On his admission here, he had one episode of dysphagia yesterday at lunch that the patient tells me he feels was caused by him not chewing his foods well enough. He tells me he had no further issues with swallowing at dinner last evening or with breakfast this morning. he admits to periodic issues with swallowing but that these are not on a regular basis. no nausea, vomiting, heartburn, abdominal pain. Allergies Allergy/AdvReac Type Severity Reaction Status Date / Time nitrofurantoin Allergy Severe SHORTNESS Verified 03/19/24 01:04 OF BREATH, "spitting up thick black stuff" ezetimibe AdvReac Unknown Muscle Pain Verified 03/19/24 01:04 simvastatin AdvReac Unknown Muscle Pain Verified 03/19/24 01:04 Home Medications Medication Instructions Recorded Confirmed Type methenamine hippurate 1 gram tablet 1 gm PO HS 03/04/18 03/19/24 History vitamin E (dl, acetate) 180 mg 400 units PO QAM 03/04/18 03/19/24 History (400 unit) capsule spironolactone 25 mg tablet 12.5 mg PO QAM 06/12/19 03/19/24 History atorvastatin 80 mg tablet 40 mg PO HS 03/23/20 03/19/24 History finasteride 5 mg tablet 5 mg PO HS 03/23/20 03/19/24 History metformin 500 mg tablet 500 mg PO BID 03/23/20 03/19/24 History montelukast 10 mg tablet 10 mg PO QAM 03/23/20 03/19/24 History tamsulosin 0.4 mg capsule 0.4 mg PO HS 03/23/20 03/19/24 History ascorbic acid (vitamin C) 250 mg 500 mg PO QPM 11/17/20 03/19/24 History tablet ferrous sulfate 325 mg (65 mg 325 mg PO QPM 11/17/20 03/19/24 History iron) tablet diclofenac sodium 1 % topical gel 2 g topical UD PRN arthritis 06/16/21 03/19/24 History vit C 226 mg-vit E 90 mg-copper 1 cap PO BID 06/16/21 03/19/24 History 0.8 mg-zinc oxide-lutein 5 mg capsule (PreserVision Lutein) furosemide 20 mg tablet 40 mg PO QAM 01/05/22 03/19/24 History acetaminophen 325 mg capsule 1,000 mg PO QAM 08/08/22 03/19/24 History aspirin 81 mg tablet,delayed 81 mg PO HS 01/30/23 03/19/24 History release (Adult Low Dose Aspirin) coenzyme Q10 100 mg capsule 200 mg PO QAM 02/07/23 03/19/24 History calcium 600 mg (as 1 tab PO BID 03/23/23 03/19/24 History carbonate)-vitamin D3 5 mcg (200 unit) tablet carboxymethylcellulose 1 ea miscellaneous UD PRN Dry 03/23/23 03/19/24 History Eye(S) clotrimazole 1 % topical cream 1 applic topical UD PRN athletes 03/23/23 03/19/24 History foot metoprolol succinate 25 mg 12.5 mg PO QAM 03/23/23 03/19/24 History tablet,extended release 24 hr tiotropium 2.5 mcg-olodaterol 2.5 2 puff inhalation QAM 03/23/23 03/19/24 History mcg/actuation mist for inhalation (Stiolto Respimat) cyanocobalamin (vitamin B-12) 5,000 mcg PO QAM 06/25/23 03/19/24 History 1,000 mcg capsule esomeprazole magnesium 20 mg 20 mg PO BID #90 caps 07/06/23 03/19/24 Rx capsule,delayed release sucralfate 1 gram tablet 1 g PO BID #60 tabs 07/31/23 03/19/24 Rx Patient History Medical History New onset a-fib Catheter-associated urinary tract infection Low iron History of recent hospitalization Jan or Feb 2023 - [facility] for UTI / detected afib....monitor worn /unknown results/has [place] with Dr. Harvey on 03/26/23. Barretts esophagus Ischemic cardiomyopathy not that pt aware of. Gerardo catheter in place changed monthly. 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 Multiple lung nodules not that pt aware of Urethral stricture, postoperative Intestinal metaplasia of gastric cardia no hx cancer other than skin per pt Gastric ulcer not that i know of External hemorrhoids GERD (gastroesophageal reflux disease) Hearing deficit Myocardial Infarction 12/1980 "silent heart attack"--[facility] COPD (chronic obstructive pulmonary disease) ANNABELLE (obstructive sleep apnea) bipap with oxygen 2.5L Venous insufficiency ? details/chronic inside right knee. Solitary thyroid nodule denies Hypertension Hypercholesterolemia 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) Disc degeneration, lumbar Diabetes mellitus type 2 Arthritis Allergic rhinitis Spinal stenosis of lumbar region Lumbar post-laminectomy syndrome Urinary retention with incomplete bladder emptying TIA (transient ischemic attack) 2014--no neurologist, no further issues Surgical History History of surgery hx pain mgmt procedure December 2022 - didn't work. Upcoming ablation Apr [address] Stewart [address] Dr[address] Nunez. Status post Mohs surgery for squamous cell carcinoma of skin hx History of circumcision 1998 History of surgery urethroplasty x2 History of cystoscopy History of hand surgery left dupuytren's contracture & right hand dupuytrens & trigger finger. History of total right hip replacement History of total left hip replacement History of colonoscopy History of esophagogastroduodenoscopy (EGD) History of left inguinal hernia repair 1980 History of cholecystectomy History of tooth extraction partial upper/lower History of tonsillectomy History of bilateral cataract extraction History of transesophageal echocardiography (BENY) 1994 History of cardiac cath 03/1981 @ [facility] [place] no stent placed History of lumbar fusion Family History Father Myocardial infarction Mother Congestive heart failure Family history of diabetes mellitus Brother Family history of diabetes mellitus Brother Family history of diabetes mellitus Other No family history of adverse response to anesthesia Denies family history of Ovarian cancer Prostate cancer Breast cancer Colorectal cancer Social History Smoking Status: Never smoker Tobacco Type: Cigarettes Age Started Using Tobacco: 15; Age Quit Using Tobacco: 45; packs per day: 1; Cigarettes Per Day: 20; Second Hand Exposure: No; Do You Dip or Chew Tobacco: No; Hx Alcohol Use: Yes Alcohol type: beer Alcohol Intake Frequency: Monthly or Less Hx Substance Use: No Preferred Language: Welsh Communication Ability: Effective Visual Impairment: No Limitations Hearing Ability: Use of Hearing Aid [employer] Required: No Beliefs That Will Affect Care: None marital status: / Current Living Situation: Family Current Living Situation Comment: Daughter lives with patient current occupational status: retired Feels Safe at Home: Yes Childhood Exposure to Second-Hand Smoke: Yes Diet: regular Dental Care, Regularly: Yes Physical Activity Frequency: Does not Exercise Seatbelt Use: always Sunscreen Use: No Do you think of yourself as: straight/heterosexual Assistive Devices: Cane and Walker Review of Systems Review of Systems: All systems reviewed & are unremarkable except as noted in HPI & below Physical Exam Constitutional: WD/WN, vitals as above Respiratory: normal respiratory effort, lungs clear to auscultation Cardiovascular: Rate/Rhythm: regular rate and regular rhythm Gastrointestinal (Abdomen): normal bowel sounds, soft, nontender, no hepatosplenomegaly Psychiatric: Orientation: alert and oriented x 3 Affect: euthymic affect Results & Data Vital Signs (Past 12 Hours) Vital Signs Temp Pulse Resp BP Pulse Ox O2 Del Method 03/20/24 07:43 97.5 F L 93 H 20 129/70 95 Room Air Coding Level of Care Code 10258 INT INP/OBS CARE 2/55MIN Diagnoses Souza's esophagus with dysplasia K22.719 Souza's esophagus type: with dysplasia of unspecified degree Dysphagia R13.10 (1) Barretts esophagus Souza's esophagus type: with dysplasia of unspecified degree Qualified Code(s): K22.719 - Souza's esophagus with dysplasia, unspecified
--- NOTE | 2024-03-20 14:45 | Hospitalist Progress Note ---
"Date of Service March 20, 2024 Assessment & Plan (1) Acute UTI: (2) COVID-19: (3) Interstitial lung disease: (4) Barretts esophagus: Plan Urinary Tract Infection poa associated with Chronic Indwelling Gerardo Catheter -Notes catheter was changed out on 03/05, however states this was 1-2 weeks late as the appointment had been cancelled due to the urology office changing locations associated with metabolic encephalopathy and chronic indwelling catheter, poa. Cath was not changed on admission, will benefit from clean cath replacement at discharge, since rapid clinical improvement may consider short course of oral treatment, transition to po augmentin, as per sensitivities from last uti -Previously had UTIs that lead to bacteremia (08/2022 and 01/2023). In 01/2023, blood and urine cultures grew galaviz-sensitive Enterobacter gergoviae -Urine culture multiple organisms and blood cultures negative to date -Continue home finasteride and tamsulosin COVID Positive, not covid pneumonia pt requested Ivermecitn and was informed we do not treat covid with that. -Tylenol PRN, supportive care -Respiratory biofire positive for COVID on admission -Isolation precautions ordered Ambulatory Dysfunction-metabolic encephalopathy/weakness -Suspect secondary to current UTI and COVID positive status -PT/OT evals ordered -Typically ambulates without assistive devices at home, will use cane when out of the house GERD | History of Diaz's Esophagus -Continue PPI and Carafate, some dysphagia, increase carafate by pts request -consult GI no plans of intervention COPD | ANNABELLE l interstitial lung disease -Not on home O2 -Continue montelukast, Stiolto -BiPAP ordered nightly HTN -Continue home lisinopril, spironolactone, metoprolol HLD -Continue home atorvastatin DM -Hold home metformin -BSG 110 in ED, will order correction factor only VTE Prophylaxis: Heparin Diet: Heart healthy, carb consistent Code Status: Conditional, no intubation Admission and Anticipated Discharge Date Admission Date: March 19, 2024 Subjective very pleasant male whose initial symptoms have improved from uti and confusion, he still is weak initial urine culture seems to be a contaminated specimen and reports are gerardo was not changed in ER, now on antibiotics for 2 days Dysphagia has resolved Physical Exam Physical Exam: pleasant man alert and oriented no longer coughing lungs are clear cardiac is regular Results & Data Results & Data Vital Signs (Past 12 Hours) Vital Signs Temp Pulse Resp BP Pulse Ox O2 Del Method 03/20/24 08:00 Room Air 03/20/24 07:43 97.5 F L 93 H 20 129/70 95 Room Air Laboratory Results review culture results, review cbc PG Care Time/CCT Total # of Minutes Spent Total Time Spent with Patient: Total time spent is greater than 50% in coordination of care (as documented) at patient's floor/unit and/or counseling patient: Coding Level of Care Code 87571 SUB INP/OBS CARE 2/35MIN Diagnoses Acute UTI N39.0 COVID-19 U07.1 Interstitial lung disease J84.9 Diaz's esophagus with dysplasia K22.719 Diaz's esophagus type: with dysplasia of unspecified degree (4) Barretts esophagus Diaz's esophagus type: with dysplasia of unspecified degree Qualified Code(s): K22.719 - Diaz's esophagus with dysplasia, unspecified"
[2024-03-20] MEDS: AMOXICILLIN/CLAVULANATE 875 MG TAB PO SCH (18:19)
[2024-03-20] MEDS: BENZONATATE 100 MG CAPSULE PO PRN (18:31)
[2024-03-21 07:03] LABS: Basophils # (auto) 0.03 K/uL (0.00-0.20); Basophils % (auto) 0.5 %; Eosinophils # (auto) 0.25 K/uL (0.00-0.50); Hematocrit (blood only) 34.3 % (42.0-52.0); Hemoglobin 11.2 g/dl (14.0-18.0); Immature Granulocytes # (auto) 0.03 K/uL (0.01-0.20); Immature Granulocytes % (auto) 0.5 %; Lymphocytes % (auto) 33.3 %; Mean Corpuscular Hemoglobin 30.4 pg (25.0-34.0); Mean Corpuscular Hgb Conc 32.7 g/dL (32.0-36.0); Mean Corpuscular Volume 93.2 fL (80.0-100.0); Mean Platelet Volume 10.6 fL (9.4-12.4); Monocytes # (auto) 0.92 K/uL (0.11-0.59); Monocytes % (auto) 14.6 %; Neutrophils # (auto) 2.97 K/uL (1.40-6.50); Neutrophils % (auto) 47.1 %; Platelet Count 155 K/uL (130-400); RDW Coefficient of Variation 13.7 % (11.5-14.5); RDW Standard Deviation 46.8 fL (36.4-46.3); Red Blood Count 3.68 M/uL (4.70-6.10)
[2024-03-21 07:25] LABS: Albumin Globulin Ratio 1.2 (0.9-2); Albumin Level 3.4 gm/dl (3.4-5.0); BUN Creatinine Ratio 15.9 (10-20); Bilirubin,Total 0.6 mg/dl (0.2-1.0); Calcium 8.3 mg/dl (8.6-10.3); Globulin 2.9 gm/dl (2.5-4.0); Total Protein 6.3 gm/dl (6.0-8.3)
[2024-03-21 13:47] VITALS: RESP 18
--- NOTE | 2024-03-21 16:50 | Hospitalist Progress Note ---
"Date of Service March 21, 2024 Assessment & Plan (1) Acute UTI: (2) COVID-19: (3) Interstitial lung disease: (4) Barretts esophagus: Plan Urinary Tract Infection poa associated with Chronic Indwelling Ordonez Catheter -Notes catheter was changed out on 03/05, however states this was 1-2 weeks late as the appointment had been cancelled due to the urology office changing locations associated with metabolic encephalopathy and chronic indwelling catheter, poa. Catheter is due to be changed on 03/28. Since rapid clinical improvement may consider short course of oral treatment, transition to po augmentin, as per sensitivities from last uti -Previously had UTIs that lead to bacteremia (08/2022 and 01/2023). In 01/2023, blood and urine cultures grew galaviz-sensitive Enterobacter gergoviae -Urine culture multiple organisms and blood cultures negative to date -Continue home finasteride and tamsulosin COVID Positive, not covid pneumonia pt requested Ivermecitn and was informed we do not treat covid with that. Patient is asymptomatic -Tylenol PRN, supportive care -Respiratory biofire positive for COVID on admission -Isolation precautions ordered Ambulatory Dysfunction-metabolic encephalopathy/weakness -Suspect secondary to current UTI and COVID positive status -PT/OT evals ordered. Recommends home with home health -Typically ambulates without assistive devices at home, will use cane when out of the house GERD | History of Diaz's Esophagus -Continue PPI and Carafate, some dysphagia, increase carafate by pts request -consult GI no plans of intervention COPD | ANNABELLE l interstitial lung disease -Not on home O2 -Continue montelukast, Stiolto -BiPAP ordered nightly HTN -Continue home lisinopril, spironolactone, metoprolol HLD -Continue home atorvastatin DM -Hold home metformin -BSG 110 in ED, will order correction factor only VTE Prophylaxis: Heparin Diet: Heart healthy, carb consistent Code Status: Conditional, no intubation Likely discharge to home tomorrow Admission and Anticipated Discharge Date Admission Date: March 19, 2024 Subjective Patient feels well overall. Denies chest pain or shortness of breath. Says that he would like to go home tomorrow because his daughter will be at home tomorrow. Review of Systems Review of Systems: All systems reviewed & are unremarkable except as noted in Subjective Physical Exam Physical Exam: General: Awake, conversant Heart: S1, S2/regular rate and rhythm, no murmur rubs or gallops Lungs: Clear to auscultation bilaterally. Normal effort Abdomen: Soft/nontender/nondistended. No hepatosplenomegaly Extremities: No clubbing/cyanosis. No edema Behavior: Appropriate, cooperative Results & Data Results & Data Vital Signs (Past 12 Hours) Vital Signs Temp Pulse Resp BP Pulse Ox O2 Del Method O2 Flow Rate 03/21/24 13:46 36.4 C L 75 18 119/70 98 Room Air 03/21/24 11:48 77 126/61 95 Room Air 03/21/24 07:20 Nasal Cannula 2 03/21/24 07:19 36.5 C 83 20 127/68 98 Nasal Cannula 2 PG Care Time/CCT Total # of Minutes Spent Total Time Spent with Patient: Total time spent is greater than 50% in coordination of care (as documented) at patient's floor/unit and/or counseling patient: Coding Level of Care Code 56810 SUB INP/OBS CARE 2/35MIN Diagnoses Acute UTI N39.0 COVID-19 U07.1 Interstitial lung disease J84.9 Diaz's esophagus with dysplasia K22.719 Diaz's esophagus type: with dysplasia of unspecified degree (4) Barretts esophagus Diaz's esophagus type: with dysplasia of unspecified degree Qualified Code(s): K22.719 - Diaz's esophagus with dysplasia, unspecified"
[2024-03-22 07:15] VITALS: BP 133/77; PULSE 81; TEMP 97.9; O2SAT 99
--- NOTE | 2024-03-22 13:10 | Discharge Summary ---
Date of Service March 22, 2024 Admission HPI Per Admitting Provider Boom Cortez (Jack) is a 89 year-old male who presented to the ED after a ground level fall. His medical history is significant for CAD, HTN, COPD, ANNABELLE on bipap, urinary retention with chronic gerardo, DM, spinal stenosis. Patient endorses one day of feeling unwell (body aches/chills) which feels the same as his prior UTIs. Also notes that he got up to use the bathroom overnight and his legs "gave out" underneath him, he fell and landed on his rear end but denies any pain afterwards. His daughter lives in his house with him and heard the fall and found him on the floor. Patient notes that he chronically has a gerardo catheter, is typically changed out every 28-30 days, however when it was changed on 03/05 it had been closer to 5-6 weeks due to the urology office needing to cancel his prior appointment as they were changing office buildings. Patient denies chest pain or shortness of breath, no nausea/vomiting/diarrhea. Patient notes that he had an EGD a few weeks ago for his Diaz's esophagus and the results were good. States that he has an upcoming trip to [place], [place] in the next week and is hoping to be well enough to travel soon. ED Course: -Respiratory biofire -CBC, CMP, lactate -EKG -CT A/P, CXR -UA, blood cultures Admission Exam Per Admitting Provider Constitutional: WD/WN, vitals as above Eyes: + anicteric sclerae and PERRL; no conjun ctival abnormality ENMT: Ears: no external ear abnormality Nose: no external nose abnormality Moist mucous membranes Respiratory: normal respiratory effort; no respiratory distress Auscultation: lungs clear to auscultation bilaterally Gastrointestinal (Abdomen): Inspection/Auscultation: abdomen normal to inspection; abdomen not distended Percussion/Palpation: abdomen soft; abdomen nontender and no guarding Musculoskeletal: Moves all limbs independently Neurologic: No focal defecits appreciated Psychiatric: A+Ox3, euthymic affect Principal Diagnosis Acute complicated UTI associated with chronic indwelling Gerardo catheter COVID positive Metabolic encephalopathy Ambulatory dysfunction Discharge Exam General: Awake, conversant Heart: S1, S2/regular rate and rhythm, no murmur rubs or gallops Lungs: Clear to auscultation bilaterally. Normal effort Abdomen: Soft/nontender/nondistended. No hepatosplenomegaly Extremities: No clubbing/cyanosis. No edema Behavior: Appropriate, cooperative Discharge Data Allergies Allergy/AdvReac Type Severity Reaction Status Date / Time nitrofurantoin Allergy Severe SHORTNESS Verified 03/19/24 01:04 OF BREATH, "spitting up thick black stuff" ezetimibe AdvReac Unknown Muscle Pain Verified 03/19/24 01:04 simvastatin AdvReac Unknown Muscle Pain Verified 03/19/24 01:04 Consultations 03/19/24 00:44 ED Decision to Admit Stat 03/19/24 15:01 Consult Gastroenterology Routine Ordered Studies 03/18/24 22:52 CT abd pelvis wo con Stat Hospital Course (1) Acute UTI: (2) COVID-19: (3) Interstitial lung disease: (4) Barretts esophagus: Plan Urinary Tract Infection poa associated with Chronic Indwelling Gerardo Catheter -Notes catheter was changed out on 03/05, however states this was 1-2 weeks late as the appointment had been cancelled due to the urology office changing locations associated with metabolic encephalopathy and chronic indwelling catheter, poa. Catheter is due to be changed on 03/28. Since rapid clinical improvement may consider short course of oral treatment, transition to po augmentin, as per sensitivities from last uti -Previously had UTIs that lead to bacteremia (08/2022 and 01/2023). In 01/2023, blood and urine cultures grew galaviz-sensitive Enterobacter gergoviae -Urine culture multiple organisms and blood cultures negative to date -Continue home finasteride and tamsulosin COVID Positive, not covid pneumonia Patient is asymptomatic -Tylenol PRN, supportive care -Respiratory biofire positive for COVID on admission -Isolation precautions ordered Ambulatory Dysfunction-metabolic encephalopathy/weakness -Suspect secondary to current UTI and COVID positive status -PT/OT evals ordered. Recommends home -Typically ambulates without assistive devices at home, will use cane when out of the house GERD | History of Diaz's Esophagus -Continue PPI and Carafate -consult GI no plans of intervention COPD | ANNABELLE l interstitial lung disease -Not on home O2 -Continue montelukast, Stiolto -BiPAP ordered nightly HTN -Continue home lisinopril, spironolactone, metoprolol HLD -Continue home atorvastatin DM -Hold home metformin -BSG 110 in ED, will order correction factor only Discharge to home today Total Time Total Time Spent Total Time Spent (In Minutes): 35 Discharge Plan Discharge Items Patient Disposition: Home - Self-Care Reason For Visit: WEAKNESS Discharge Diagnosis: Acute complicated UTI associated with chronic indwelling Gerardo catheter COVID positive Metabolic encephalopathy Ambulatory dysfunction Condition on Discharge: Fair Activity: Resume your previous activity Non-emergency contact: Primary Care Provider Call non-emergency contact if: you have any medication questions and your symptoms worsen Follow-up/Referrals: Jeancarlos Rosen III, CRNP [Primary Care Provider] - 03/31/24 4:00 pm Diet: Carb Consistent or DM2 and Heart Healthy Addtl Attending Provider Instructions: Advised to follow-up with PCP in 1 week Advised to keep appointment for Gerardo catheter change on 03/28 Pending Studies at Discharge: No Stand-Alone Forms: My [facility] Medications and DC Order Prescriptions: New amoxicillin-pot clavulanate 875-125 mg Tablet 1 tab PO BIDM 3 Days Qty: 6 0RF Continued methenamine hippurate 1 gram tablet 1 gm PO HS vitamin E (dl, acetate) 400 unit capsule 400 units PO QAM coenzyme Q10 100 mg capsule 200 mg PO QAM acetaminophen 325 mg capsule 1,000 mg PO QAM aspirin [Adult Low Dose Aspirin] 81 mg tablet,delayed release (DR/EC) 81 mg PO HS esomeprazole magnesium 20 mg capsule,delayed release(DR/EC) 20 mg PO BID Qty: 90 5RF spironolactone 25 mg tablet 12.5 mg PO QAM diclofenac sodium 1 % gel 2 g topical UD PRN (Reason: arthritis) Rx Instructions: Apply small amount to skin three times a day apply to thumb joints for osteoARTHRITIS PreserVision Lutein 226 mg-200 unit -5 mg-0.8 mg capsule 1 cap PO BID ascorbic acid (vitamin C) 250 mg tablet 500 mg PO QPM ferrous sulfate 325 mg (65 mg iron) tablet 325 mg PO QPM cyanocobalamin (vitamin B-12) 1,000 mcg capsule 5,000 mcg PO QAM Patient Comments: sublingual sucralfate 1 gram tablet 1 g PO BID Qty: 60 2RF finasteride 5 mg tablet 5 mg PO HS metformin 500 mg Tablet 500 mg PO BID Patient Comments: metformin HCL atorvastatin 80 mg Tablet 40 mg PO HS tamsulosin 0.4 mg Capsule 0.4 mg PO HS montelukast 10 mg Tablet 10 mg PO QAM furosemide 20 mg tablet 40 mg PO QAM calcium carbonate-vitamin D3 600 mg-5 mcg (200 unit) Tablet 1 tab PO BID clotrimazole 1 % Cream 1 applic TOPICAL UD PRN (Reason: athletes foot) carboxymethylcellulose Granules 1 ea MISCELLANEOUS UD PRN (Reason: Dry Eye(S)) Patient Comments: it's a gel for dry eye - very seldom use metoprolol succinate 25 mg tablet extended release 24 hr 12.5 mg PO QAM Patient Comments: i think it's morning Stiolto Respimat 2.5-2.5 mcg/actuation mist 2 puff inhalation QAM Discharge Orders: Discharge Order (Routine); Ordered 03/22/24 Ordered By: Junior Dudley/Other Patient Handouts: COVID-19 Home Care Admission Data Admit Date/Time: 03/19/24 01:27 Attending Provider: Junior Gamboa Admit Provider: Negrita Romero Primary Care Provider: Jaencarlos Rosen III Other Providers: Carlee Lebron; Robert Maria; [facility]
== END 2024-03-22 12:22 | disposition home or self-care (01) | DRG 698 ==
LOC: SUATTDRO → ED 22:43 → SUATTDRO 03-19 01:27 → 3E 03-19 01:27
DX: R33.9 Retention of urine, unspecified; T83.511A Infection and inflammatory reaction due to indwelling urethral catheter, initial encounter; K21.9 Gastro-esophageal reflux disease without esophagitis; E11.42 Type 2 diabetes mellitus with diabetic polyneuropathy; U07.1 COVID-19; N39.0 Urinary tract infection, site not specified; Z87.440 Personal history of urinary (tract) infections; Z86.16 Personal history of COVID-19; Z79.899 Other long term (current) drug therapy; Z86.73 Personal history of transient ischemic attack (TIA), and cerebral infarction without residual deficits; I10 Essential (primary) hypertension; Y84.6 Urinary catheterization as the cause of abnormal reaction of the patient, or of later complication, without mention of misadventure at the time of the procedure; I25.2 Old myocardial infarction; K22.70 Barrett's esophagus without dysplasia; G93.41 Metabolic encephalopathy; J84.9 Interstitial pulmonary disease, unspecified; E78.5 Hyperlipidemia, unspecified; R26.9 Unspecified abnormalities of gait and mobility; Z79.84 Long term (current) use of oral hypoglycemic drugs; Z79.82 Long term (current) use of aspirin; Z88.8 Allergy status to other drugs, medicaments and biological substances; I25.10 Atherosclerotic heart disease of native coronary artery without angina pectoris; G47.33 Obstructive sleep apnea (adult) (pediatric)